=== PATIENT | male | born 1955 | race Caucasian/White ===

== ENCOUNTER → 2017-02-21 | Outpatient (CLI) | payer BC ==
[~2017-02-21] MED LIST: ASPI81TA28 PO; CLB/200 PO; DOXY-300 PO; FRS/40 PO; GABA-113 PO; INSDGI SC; METFTAB PO; MULT-506 PO; NVLGI SC; OMEP20CA9 PO; PRD/1 PO; PRED-301 PO; RIVA1TAB4 PO; SIMV20TA2 PO; SPIR25TA PO; TRAMTAB5 PO; ZRX5 PO; [UNRECOGNIZED DRUG - OTHER] INJ
[2017-02-21 12:43] LABS: BASO ABS # 0.09 K/uL (0-0.2); COMPLETE YES; EOS % 1.8 %; HEMATOCRIT 47.9 % (42-52); IG% 0.2 %; LYMPH % 38.5 %; LYMPH ABS # 3.35 K/uL (1.2-3.4); MEAN CELL VOLUME 84.8 fL (80-100); MEAN CORPUSCULAR HEMOGLOBIN 29.2 pg (25-34); MEAN CORPUSCULAR HGB CONC 34.4 g/dl (32-36); MEAN PLATELET VOLUME 11.5 fL (7.4-10.4); MONO % 9.2 %; NEUT % 49.3 %; PLATELET COUNT 210 K/uL (130-400); RED BLOOD COUNT 5.65 M/uL (4.7-6.1)
[2017-02-21 13:27] LABS: ESTIMATED AVERAGE GLUCOSE 146 mg/dl; HA1C FLAG Normal (Normal)
[2017-02-21 13:41] LABS: ALT/SGPT 31 U/L (12-78); AST/SGOT 13 U/L (15-37); BLOOD UREA NITROGEN 20 mg/dl (7-18); BUN/CREATININE RATIO 16.9 (10-20); CALCIUM 10.1 mg/dl (8.5-10.1); CARBON DIOXIDE 30 mmol/L (21-32); CHLORIDE 100 mmol/L (98-107); CHOLESTEROL 192 mg/dl (0-200); GLUCOSE 169 mg/dl (70-99); POTASSIUM 3.3 mmol/L (3.5-5.1); SODIUM 137 mmol/L (136-145)
[2017-02-21 13:52] LABS: CHOLESTEROL/HDL RATIO 4.5; HDL CHOLESTEROL 43 mg/dl; LDL CHOLESTEROL CALCULATED 109 mg/dl; TRIGLYCERIDES 202 mg/dl (0-150); VERY LOW DENSITY LIPOPROT CALC 40 mg/dl
== END | disposition home or self-care (01) ==
LOC: C.LAB1850 10:48
PROVIDERS: ATTEND Physician Assistant
DX: E11.9 Type 2 diabetes mellitus without complications (principal)

== ENCOUNTER → 2017-05-23 | Outpatient (CLI) | payer BC ==
[2017-05-23 13:39] LABS: BASO % 0.5 %; BASO ABS # 0.05 K/uL (0-0.2); COMPLETE YES; EOS % 1.7 %; HEMATOCRIT 50.6 % (42-52); IG% 0.2 %; LYMPH % 39.8 %; LYMPH ABS # 4.15 K/uL (1.2-3.4); MEAN CELL VOLUME 85.2 fL (80-100); MEAN CORPUSCULAR HEMOGLOBIN 28.3 pg (25-34); MEAN CORPUSCULAR HGB CONC 33.2 g/dl (32-36); MEAN PLATELET VOLUME 11.2 fL (7.4-10.4); MONO % 9.2 %; NEUT % 48.6 %; PLATELET COUNT 234 K/uL (130-400); RED BLOOD COUNT 5.94 M/uL (4.7-6.1); WHITE BLOOD COUNT 10.44 K/uL (4.8-10.8)
[2017-05-23 13:55] LABS: ESTIMATED AVERAGE GLUCOSE 134 mg/dl; HA1C FLAG Normal (Normal)
[2017-05-23 14:09] LABS: RATIO 56.4 mcg/mg (0-30.0)
[2017-05-23 14:11] LABS: URINE APPEARANCE CLEAR (CLEAR); URINE BILIRUBIN NEG (NEG); URINE COLOR YELLOW; URINE NITRITE NEG (NEG); URINE PH 7.5 (4.5-7.5); URINE SPECIFIC GRAVITY 1.017 (1.000-1.030); UROBILINOGEN NEG (NEG)
[2017-05-23 14:14] LABS: BLOOD UREA NITROGEN 16 mg/dl (7-18); BUN/CREATININE RATIO 15.9 (10-20); CALCIUM 10.2 mg/dl (8.5-10.1); CARBON DIOXIDE 29 mmol/L (21-32); CHLORIDE 97 mmol/L (98-107); GLUCOSE 118 mg/dl (70-99); POTASSIUM 3.3 mmol/L (3.5-5.1); SODIUM 135 mmol/L (136-145)
[2017-05-23 14:16] LABS: REVIEW REQ? NO
[2017-05-23 14:17] LABS: MANUAL MICROSCOPIC REQUIRED? NO; SULFASALICYLIC ACID NEG (NEG)
== END | disposition home or self-care (01) ==
LOC: C.LAB1850 12:10
PROVIDERS: ATTEND Physician Assistant
DX: E11.9 Type 2 diabetes mellitus without complications (principal)

== ENCOUNTER → 2017-08-22 | Outpatient (CLI) | payer BC ==
[2017-08-22 13:14] LABS: BASO % 0.6 %; BASO ABS # 0.06 K/uL (0-0.2); COMPLETE YES; HEMATOCRIT 50.3 % (42-52); IG% 0.3 %; LYMPH % 39.4 %; MEAN CELL VOLUME 81.4 fL (80-100); MEAN CORPUSCULAR HEMOGLOBIN 29.6 pg (25-34); MEAN CORPUSCULAR HGB CONC 36.4 g/dl (32-36); MEAN PLATELET VOLUME 12.1 fL (7.4-10.4); MONO % 15.2 %; NEUT % 42.5 %; PLATELET COUNT 231 K/uL (130-400); RED BLOOD COUNT 6.18 M/uL (4.7-6.1); WHITE BLOOD COUNT 9.64 K/uL (4.8-10.8)
[2017-08-22 14:00] LABS: ALT/SGPT 26 U/L (12-78); AST/SGOT 17 U/L (15-37); BLOOD UREA NITROGEN 15 mg/dl (7-18); CALCIUM 10.3 mg/dl (8.5-10.1); CARBON DIOXIDE 30 mmol/L (21-32); CHLORIDE 99 mmol/L (98-107); GLUCOSE 118 mg/dl (70-99); POTASSIUM 3.2 mmol/L (3.5-5.1); SODIUM 137 mmol/L (136-145); TRIGLYCERIDES 260 mg/dl (0-150); VERY LOW DENSITY LIPOPROT CALC 52 mg/dl
[2017-08-22 14:03] LABS: CHOLESTEROL 218 mg/dl (0-200); CHOLESTEROL/HDL RATIO 6.8; HDL CHOLESTEROL 32 mg/dl; LDL CHOLESTEROL CALCULATED 134 mg/dl
[2017-08-22 14:23] LABS: ESTIMATED AVERAGE GLUCOSE 134 mg/dl; HA1C FLAG Normal (Normal)
== END | disposition home or self-care (01) ==
LOC: C.LAB1850 11:34
PROVIDERS: ATTEND Physician Assistant
DX: E78.00 Pure hypercholesterolemia, unspecified (principal); E11.9 Type 2 diabetes mellitus without complications

== ENCOUNTER → 2017-11-21 | Outpatient (CLI) | payer OTHER ==
[2017-11-21 12:03] LABS: BASO % 0.9 %; EOS % 2.1 %; EOS ABS # 0.22 K/uL (0-0.5); HEMATOCRIT 50.1 % (42-52); HEMOGLOBIN 16.9 g/dL (14.0-18.0); IG# 0.02 K/uL (0.00-0.02); LYMPH % 29.5 %; LYMPH ABS # 3.15 K/uL (1.2-3.4); MEAN CELL VOLUME 83.4 fL (80-100); MEAN CORPUSCULAR HEMOGLOBIN 28.1 pg (25-34); MEAN CORPUSCULAR HGB CONC 33.7 g/dl (32-36); MEAN PLATELET VOLUME 11.6 fL (7.4-10.4); MONO % 9.6 %; MONO ABS # 1.02 K/uL (0.11-0.59); NEUT % 57.7 %; NEUT ABS # 6.16 K/uL (1.4-6.5); PLATELET COUNT 217 K/uL (130-400); RED CELL DISTRIBUTION WIDTH CV 16.5 % (11.5-14.5); RED CELL DISTRIBUTION WIDTH SD 49.9 fL (36.4-46.3); WHITE BLOOD COUNT 10.67 K/uL (4.8-10.8)
[2017-11-21 12:10] LABS: BLOOD UREA NITROGEN 18 mg/dl (7-18); CALCIUM 10.1 mg/dl (8.5-10.1); CARBON DIOXIDE 28 mmol/L (21-32); CREATININE 1.02 mg/dl (0.60-1.40); GLUCOSE 140 mg/dl (70-99); POTASSIUM 3.6 mmol/L (3.5-5.1); SODIUM 134 mmol/L (136-145)
[2017-11-21 12:21] LABS: HEMOGLOBIN A1C 6.1 % (4.5-5.6)
== END | disposition home or self-care (01) ==
LOC: C.LAB1850 10:51
PROVIDERS: ATTEND Physician Assistant
DX: E11.9 Type 2 diabetes mellitus without complications (principal)

== ENCOUNTER 2018-01-26 13:27 | Emergency (ER) | payer OTHER ==
[~2018-01-26] VITALS: Ht 177.8 cm; Wt 152.0 kg
[2018-01-26 13:32] VITALS: TEMP 37.2; Ht 177.8 cm; Wt 152.0 kg
--- NOTE | 2018-01-26 15:04 | DIAGNOSTIC IMAGING REPORT ---
CHEST ONE VIEW PORTABLE CLINICAL HISTORY: CHEST PAIN dyspnea COMPARISON STUDY: 12/20/2015 FINDINGS: Mild chronic basilar interstitial change. No evidence for focal acute infiltrate. Diaphragms are smooth. IMPRESSION: Chronic change. No acute process. The above report was generated using voice recognition software. It may contain grammatical, syntax or spelling errors. Electronically signed by: Jay Jay Morrow M.D. 01/26/2018 3:02 PM Dictated Date/Time: 01/26/2018 3:01 PM
[2018-01-26 15:13] VITALS: O2SAT 93
[2018-01-26] MEDS ORDERED: NVLGI/PEN SC (15:15)
[2018-01-26] MEDS ORDERED: CYAN500T PO (15:15)
[2018-01-26] MEDS ORDERED: FLX/5 PO (15:15)
[2018-01-26] MEDS ORDERED: INSU100I23 SC (15:15)
[2018-01-26] MEDS ORDERED: ALBUT/IPRATROP 3MG/0.5MG NEB 3 ML VIAL INH ONE (15:15)
[2018-01-26] MEDS ORDERED: ROSU10TA35 PO (15:15)
[2018-01-26] MEDS ORDERED: SPR25 PO (15:15)
[2018-01-26 15:22] LABS: BASO % 0.6 %; BASO ABS # 0.07 K/uL (0-0.2); EOS ABS # 0.12 K/uL (0-0.5); HEMATOCRIT 46.1 % (42-52); HEMOGLOBIN 16.3 g/dL (14.0-18.0); IG# 0.04 K/uL (0.00-0.02); LYMPH % 31.1 %; LYMPH ABS # 3.57 K/uL (1.2-3.4); MEAN CELL VOLUME 81.7 fL (80-100); MEAN CORPUSCULAR HEMOGLOBIN 28.9 pg (25-34); MEAN CORPUSCULAR HGB CONC 35.4 g/dl (32-36); MEAN PLATELET VOLUME 11.2 fL (7.4-10.4); MONO % 6.8 %; MONO ABS # 0.78 K/uL (0.11-0.59); NEUT % 60.2 %; NEUT ABS # 6.89 K/uL (1.4-6.5); PLATELET COUNT 201 K/uL (130-400); RED CELL DISTRIBUTION WIDTH CV 16.6 % (11.5-14.5); RED CELL DISTRIBUTION WIDTH SD 49.9 fL (36.4-46.3); WHITE BLOOD COUNT 11.47 K/uL (4.8-10.8)
[2018-01-26 15:44] LABS: ALBUMIN 3.6 gm/dl (3.4-5.0); ALT/SGPT 32 U/L (12-78); BLOOD UREA NITROGEN 24 mg/dl (7-18); CALCIUM 9.6 mg/dl (8.5-10.1); CARBON DIOXIDE 27 mmol/L (21-32); CREATININE 1.27 mg/dl (0.60-1.40); GLUCOSE 185 mg/dl (70-99); LIPASE 86 U/L (73-393); POTASSIUM 3.3 mmol/L (3.5-5.1); SODIUM 135 mmol/L (136-145)
[2018-01-26 15:49] LABS: ALKALINE PHOSPHATASE 51 U/L (45-117); AST/SGOT 17 U/L (15-37); TOTAL PROTEIN 8.2 gm/dl (6.4-8.2)
[2018-01-26 16:00] LABS: INFLUENZA B ANTIGEN Neg for Influ B (NEG)
[2018-01-26 16:55] VITALS: PULSE 87; O2SAT 93
--- NOTE | 2018-01-26 17:33 | EMERGENCY ROOM VISIT NOTE ---
History Report prepared by Alena: Danii Hernandez Under the Supervision of: Dr. Ezra Chan M.D. First contact with patient: 14:04 Chief Complaint: FLU LIKE SX Stated Complaint: FLU LIKE Nursing Triage Summary: Pt c/o cough, sweats, cold, diarrhea for approx 2 weeks. Pt reports using Bridget-[place] plus which keeps him from having runny nose and assists with keeping the cough under control. pt reports that symptoms were improving however worsened yesterday. Pt reports white, yellow sputum upon coughing. Pt denies bloody sputum. Pt denies chest pain, SOB, trouble ambulating. Pt denies pain, pt C/O feeling congested "Kind of car sick feeling". Pt reports that PCP had no appointments available to be seen. Pt denies recent falls, recent trauma. Pt recently quit smoking cigars approx 75 days ago. Pt reported smoking 5-10 cigars daily prior to quitting. History of Present Illness The patient is a 62 year old male who presents to the Emergency Room with complaints of persistent flu symptoms starting 2 weeks ago. The patient has had a cough, congestion, body aches, and diarrhea for 2 weeks. He has been using [place] to some relief. He denies any fever, but reports diaphoresis and chills. He denies any leg swelling. He has gained water weight. He is on a water pill. He denies any history of COPD or asthma. He is on Xarelto for atrial fibrillation. The patient quit smoking 75 days ago. He is on prednisone for arthritis. He has a history of diabetes. Source of History: patient Onset: 2 weeks ago Position: other (constitutional) Quality: other (flu symptoms) Timing: other (persistent) Associated Symptoms: + chills, + diaphoresis, + cough, + diarrhea, No fevers Note: Pt reports congestion, body aches. Review of Systems See HPI for pertinent positives and negatives. A total of ten systems were reviewed and were otherwise negative. Past Medical & Surgical Medical Problems: (1) Ankylosing spondylitis (2) Atrial fibrillation (3) Benign hypertension (4) DKA (diabetic ketoacidoses) (5) Gastroesophageal reflux disease (6) Localized, primary osteoarthritis of the pelvic region and thigh (7) Rheumatoid arthritis Family History Cancer Diabetes mellitus Heart disease Hypertension Lung disease Social History Smoking Status: Former Smoker Marital Status: Housing Status: lives with family Occupation Status: employed Current/Historical Medications Scheduled Adalimumab (Humira Pen), 0.8 ML INJ BIWEEKLY Aspirin (Aspirin Ec), 81 MG PO QAM Azithromycin (Zithromax), 250 MG PO DAILY Celecoxib (CeleBREX), 200 MG PO BID Cyanocobalamin (Vitamin B-12), 500 MCG PO DAILY Cyclobenzaprine HCl (Cyclobenzaprine HCl), 1 TAB PO HS Gabapentin (Neurontin), 300 MG PO BID Insulin Aspart (Novolog Flexpen), 18 UNITS SC WM Insulin Glargine (Basaglar Kwikpen), 60-70 UNITS SC DAILY Metformin Ext Rel (Glucophage Ext Rel), 1,000 MG PO BID Metolazone (Metolazone), 5 MG PO QAM Multivitamin (Multivitamin), 1 TAB PO QAM Omeprazole (Prilosec), 20 MG PO QAM Prednisone (Prednisone), 5 MG PO QAM Prednisone (Prednisone), 3 TAB PO DAILY Rivaroxaban (Xarelto), 20 MG PO QPM Rosuvastatin Calcium (Rosuvastatin Calcium), 1 TAB PO DAILY Spironolactone (Spironolactone), 1 TAB PO BID Scheduled PRN Furosemide (Lasix), 40 MG PO 3XWK PRN for swelling Gabapentin (Neurontin), 300 MG PO HS PRN for nerve pain Prednisone (Prednisone), 1-3 MG PO DAILY PRN for ARTHRITIC PAIN Tramadol/Acetaminophen (Ultracet), 1 TAB PO TID PRN for Pain Allergies Coded Allergies: No Known Allergies (Verified , ?, 01/26/18) Physical Exam Vital Signs Date Time Temp Pulse Resp B/P (MAP) Pulse Ox O2 Delivery O2 Flow Rate FiO2 01/26/18 19:45 98 18 155/97 93 01/26/18 18:09 91 20 142/86 94 Room Air 01/26/18 16:55 87 15 93 Room Air 01/26/18 16:20 87 18 123/76 93 Room Air 01/26/18 15:18 86 01/26/18 15:13 93 Room Air 01/26/18 15:13 89 22 122/91 94 Room Air 01/26/18 13:53 98 135/83 93 Room Air 01/26/18 13:44 96 Room Air 01/26/18 13:32 37.2 87 18 155/82 93 Room Air Physical Exam GENERAL: Awake, alert, fatigued-appearing, in no distress HENT: Normocephalic, atraumatic. Oropharynx unremarkable. EYES: Normal conjunctiva. Sclera non-icteric. NECK: Supple. No nuchal rigidity. FROM. No JVD. RESPIRATORY: Diminished breath sounds at the bases, intermittent wheezes throughout. CARDIAC: Regular rate, normal rhythm. Extremities warm and well perfused. Pulses equal. ABDOMEN: Soft, non-distended. No tenderness to palpation. No rebound or guarding. No masses. RECTAL: Deferred. MUSCULOSKELETAL: Chest examination reveals no tenderness. The back is symmetrical on inspection without obvious abnormality. There is no CVA tenderness to palpation. No joint edema. LOWER EXTREMITIES: Calves are equal size bilaterally and non-tender. No edema. No discoloration. NEURO: Normal sensorium. No sensory or motor deficits noted. SKIN: No rash or jaundice noted. Medical Decision & Procedures ER Provider Diagnostic Interpretation: Radiology results as stated below per my review and radiologist interpretation: CHEST ONE VIEW PORTABLE CLINICAL HISTORY: CHEST PAIN dyspnea COMPARISON STUDY: 12/20/2015 FINDINGS: Mild chronic basilar interstitial change. No evidence for focal acute infiltrate. Diaphragms are smooth. IMPRESSION: Chronic change. No acute process. The above report was generated using voice recognition software. It may contain grammatical, syntax or spelling errors. Electronically signed by: Jay Jay Morrow M.D. 01/26/2018 3:02 PM Dictated Date/Time: 01/26/2018 3:01 PM Laboratory Results 01/26/18 14:50 Red Blood Count 5.64, Mean Corpuscular Volume 81.7, Mean Corpuscular Hemoglobin 28.9, Mean Corpuscular Hemoglobin Concent 35.4, Mean Platelet Volume 11.2, Neutrophils (%) (Auto) 60.2, Lymphocytes (%) (Auto) 31.1, Monocytes (%) (Auto) 6.8, Eosinophils (%) (Auto) 1.0, Basophils (%) (Auto) 0.6, Neutrophils # (Auto) 6.89, Lymphocytes # (Auto) 3.57, Monocytes # (Auto) 0.78, Eosinophils # (Auto) 0.12, Basophils # (Auto) 0.07 01/26/18 14:50 Test 01/26/18 14:50 01/26/18 15:20 01/26/18 15:32 White Blood Count 11.47 K/uL (4.8-10.8) Red Blood Count 5.64 M/uL (4.7-6.1) Hemoglobin 16.3 g/dL (14.0-18.0) Hematocrit 46.1 % (42-52) Mean Corpuscular Volume 81.7 fL (80-100) Mean Corpuscular Hemoglobin 28.9 pg (25-34) Mean Corpuscular Hemoglobin Concent 35.4 g/dl (32-36) Platelet Count 201 K/uL (130-400) Mean Platelet Volume 11.2 fL (7.4-10.4) Neutrophils (%) (Auto) 60.2 % Lymphocytes (%) (Auto) 31.1 % Monocytes (%) (Auto) 6.8 % Eosinophils (%) (Auto) 1.0 % Basophils (%) (Auto) 0.6 % Neutrophils # (Auto) 6.89 K/uL (1.4-6.5) Lymphocytes # (Auto) 3.57 K/uL (1.2-3.4) Monocytes # (Auto) 0.78 K/uL (0.11-0.59) Eosinophils # (Auto) 0.12 K/uL (0-0.5) Basophils # (Auto) 0.07 K/uL (0-0.2) RDW Standard Deviation 49.9 fL (36.4-46.3) RDW Coefficient of Variation 16.6 % (11.5-14.5) Immature Granulocyte % (Auto) 0.3 % Immature Granulocyte # (Auto) 0.04 K/uL (0.00-0.02) Anion Gap 10.0 mmol/L (3-11) Est Creatinine Clear Calc Drug Dose 88.1 ml/min Estimated GFR () 69.2 Estimated GFR (Non- 59.7 BUN/Creatinine Ratio 18.5 (10-20) Calcium Level 9.6 mg/dl (8.5-10.1) Total Bilirubin 0.4 mg/dl (0.2-1) Direct Bilirubin 0.1 mg/dl (0-0.2) Aspartate Amino Transf (AST/SGOT) 17 U/L (15-37) Alanine Aminotransferase (ALT/SGPT) 32 U/L (12-78) Alkaline Phosphatase 51 U/L (45-117) Troponin I < 0.015 ng/ml (0-0.045) Pro-B-Type Natriuretic Peptide 59 pg/ml (0-900) Total Protein 8.2 gm/dl (6.4-8.2) Albumin 3.6 gm/dl (3.4-5.0) Lipase 86 U/L (73-393) Influenza Type A Antigen Neg for Influ A (NEG) Influenza Type B Antigen Neg for Influ B (NEG) Venous Blood pH 7.44 (7.36-7.41) Venous Blood Partial Pressure CO2 46 mmHg (38.0-50.0) Venous Blood Partial Pressure O2 42 mmHg Venous Blood HCO3 31 mmol/L Venous Blood Oxygen Saturation 75.4 % Venous Blood Base Excess 5.4 mEq/L Laboratory results reviewed by me Medications Administered Medications (Trade) Dose Ordered Sig/Denilson Route Start Time Stop Time Status Last Admin Dose Admin Albuterol/ Ipratropium (Duoneb) 12 ml ONE ONCE INH 01/26/18 15:15 01/26/18 15:16 DC 01/26/18 16:51 12 ML Prednisone (PredniSONE TAB) 60 mg NOW STAT PO 01/26/18 15:04 01/26/18 15:09 DC 01/26/18 16:31 60 MG Albuterol (Ventolin Hfa Inhaler) 2 puffs NOW STAT INH 01/26/18 18:43 01/26/18 18:46 DC 01/26/18 19:29 2 PUFFS Azithromycin (Zithromax Tab) 500 mg NOW ONCE PO 01/26/18 18:45 01/26/18 18:46 DC 01/26/18 19:28 500 MG Sodium Chloride ([place] Nasal [place]) 2 sprays NOW ONCE NA 01/26/18 19:00 01/26/18 19:01 DC 01/26/18 19:28 2 SPRAYS ECG Per My Interpretation Indication: SOB/dyspnea Rate (beats per minute): 88 Rhythm: normal sinus Findings: no acute ischemic change, other (normal axis) ED Course 1500: The patient was evaluated in room C12B. A complete history and physical exam was performed. Medical Decision I reviewed the patient's past medical history, medications, and the nursing notes as described above. Differential diagnosis: Etiologies such as infections, reactive airway disease, pneumonia, pneumothorax , COPD, CHF, cardiac ischemia, pulmonary embolism, musculoskeletal, gastrointestinal, as well as others were entertained. The patient is a 62-year-old gentleman with a past medical history of smoking having quit over the past 3 months presents emergency department with worsening cough congestion shortness of breath per hpi. However the patient is fatigued appearing but no acute distress, afebrile stable vital signs. EKG unremarkable. Exam the patient has diminished breath sounds at the bases with scant intermittent wheezes. WBC 11, nonspecific. Labs otherwise unremarkable including troponin and BNP within normal limits. Chest x-ray negative for pneumonia. Patient feeling improved with prednisone burst and continue neb. Will treat additionally with Azithromycin given sputum production. Findings and plan for follow-up reviewed with patient. Patient agreeable and d/c'd per discharge instructions. Medication Reconcilliation Current Medication List: was personally reviewed by me Blood Pressure Screening Patient's blood pressure: Normal blood pressure Blood pressure disposition: Did not require urgent referral Impression Primary Impression: Acute bronchitis Scribe Attestation The scribe's documentation has been prepared under my direction and personally reviewed by me in its entirety. I confirm that the note above accurately reflects all work, treatment, procedures, and medical decision making performed by me. Departure Information Dispostion Home / Self-Care Prescriptions Azithromycin (Zithromax) 250 Mg Tab 250 MG PO DAILY, #4 TAB Prov: Ezra Chan M.D. 01/26/18 Prednisone (Prednisone) 20 Mg Tab 3 TAB PO DAILY for 4 Days, #12 TAB FOR 4 DAYS Prov: Ezra Chan M.D. 01/26/18 Referrals Buster Chaney M.D. (PCP) Patient Instructions Chest Cold (Bronchitis) - [facility], My [facility] Additional Instructions Please follow up with your primary care physician in the next 1-3 days for re- evaluation. You likely have a bronchitis. Otherwise, your exam, EKG, chest xray, and lab results did not show signs of an emergent condition at this time. Prednisone and Azithromycin as directed. Use your albuterol inhaler 2 puffs every 4 hours for the next 48 hours and then as needed thereafter. Saline nasal spray and [id number] Mucinex to help thin and clear mucus as needed. Ensure hydration. Return to the emergency department for worsening symptoms as described in the accompanying instructions.
[2018-01-26] MEDS ORDERED: ALBUTEROL HFA 8 GM INHALER INH STA (18:43)
[2018-01-26] MEDS ORDERED: AZITHROMYCIN 250 MG TAB PO ONE (18:45)
[2018-01-26] MEDS ORDERED: AZIT250T PO (18:47)
[2018-01-26] MEDS ORDERED: PRED20TA PO (18:47)
[2018-01-26] MEDS ORDERED: SODIUM CHLORIDE 0.65% NA SOLN 45 ML (OCEAN) ONE (19:00)
[2018-01-26 19:45] VITALS: BP 155/97; PULSE 98; O2SAT 93
== END 2018-01-26 19:45 | disposition home or self-care (01) ==
LOC: C.EDB 13:29 → C.EDC 19:45
DX: J20.9 Acute bronchitis, unspecified (principal); I48.91 Unspecified atrial fibrillation; M19.90 Unspecified osteoarthritis, unspecified site; E11.9 Type 2 diabetes mellitus without complications; I10 Essential (primary) hypertension; K21.9 Gastro-esophageal reflux disease without esophagitis; M06.9 Rheumatoid arthritis, unspecified; M45.9 Ankylosing spondylitis of unspecified sites in spine; Z80.9 Family history of malignant neoplasm, unspecified; Z83.3 Family history of diabetes mellitus; Z82.49 Family history of ischemic heart disease and other diseases of the circulatory system; Z83.6 Family history of other diseases of the respiratory system; Z87.891 Personal history of nicotine dependence; Z79.4 Long term (current) use of insulin; Z79.82 Long term (current) use of aspirin; Z79.01 Long term (current) use of anticoagulants; Z79.899 Other long term (current) drug therapy

== ENCOUNTER → 2018-03-01 | Outpatient (CLI) | payer OTHER ==
[~2018-03-01] MED LIST changes: +AZIT250T PO; +CYAN500T PO; -DOXY-300 PO; +FLX/5 PO; -INSDGI SC; +INSU100I23 SC; -NVLGI SC; +NVLGI/PEN SC; +ROSU10TA35 PO; -SIMV20TA2 PO; -SPIR25TA PO; +SPR25 PO
[2018-03-01 13:16] LABS: BASO % 0.8 %; BASO ABS # 0.08 K/uL (0-0.2); EOS % 1.8 %; EOS ABS # 0.18 K/uL (0-0.5); HEMATOCRIT 47.8 % (42-52); HEMOGLOBIN 16.5 g/dL (14.0-18.0); IG# 0.03 K/uL (0.00-0.02); LYMPH % 34.6 %; LYMPH ABS # 3.37 K/uL (1.2-3.4); MEAN CELL VOLUME 84.3 fL (80-100); MEAN CORPUSCULAR HEMOGLOBIN 29.1 pg (25-34); MEAN CORPUSCULAR HGB CONC 34.5 g/dl (32-36); MEAN PLATELET VOLUME 11.8 fL (7.4-10.4); MONO % 10.7 %; MONO ABS # 1.04 K/uL (0.11-0.59); NEUT % 51.8 %; NEUT ABS # 5.05 K/uL (1.4-6.5); PLATELET COUNT 227 K/uL (130-400); RED CELL DISTRIBUTION WIDTH CV 15.8 % (11.5-14.5); RED CELL DISTRIBUTION WIDTH SD 48.5 fL (36.4-46.3); WHITE BLOOD COUNT 9.75 K/uL (4.8-10.8)
[2018-03-01 13:45] LABS: ALT/SGPT 40 U/L (12-78); AST/SGOT 20 U/L (15-37); BLOOD UREA NITROGEN 18 mg/dl (7-18); CALCIUM 9.9 mg/dl (8.5-10.1); CARBON DIOXIDE 25 mmol/L (21-32); CREATININE 1.06 mg/dl (0.60-1.40); GLUCOSE 164 mg/dl (70-99); POTASSIUM 3.2 mmol/L (3.5-5.1); SODIUM 133 mmol/L (136-145); URIC ACID 10.1 mg/dl (2.6-7.2)
[2018-03-01 13:56] LABS: CHOLESTEROL 170 mg/dl (0-200); LDL CHOLESTEROL CALCULATED 90 mg/dl
[2018-03-02 07:38] LABS: HEMOGLOBIN A1C 6.9 % (4.5-5.6)
== END | disposition home or self-care (01) ==
LOC: C.LAB1850 11:46
PROVIDERS: ATTEND Internal Medicine
DX: E11.9 Type 2 diabetes mellitus without complications (principal)

== ENCOUNTER → 2018-06-27 | Outpatient (CLI) | payer OTHER ==
[~2018-06-27] MED LIST changes: +ROSU10TA26 PO; -ROSU10TA35 PO; +SPIR25TA6 PO; -SPR25 PO
[2018-06-27 12:41] LABS: HEMOGLOBIN A1C 7.5 % (4.5-5.6)
== END | disposition home or self-care (01) ==
LOC: C.LAB1850 11:00
PROVIDERS: ATTEND Internal Medicine
DX: E78.00 Pure hypercholesterolemia, unspecified (principal)

== ENCOUNTER 2019-08-19 21:18 | Inpatient (IN) ==
[2019-08-19] MEDS ORDERED: PIPERACILLIN/TAZOBACTAM 4.5 GM/120 ML BAG IV ONE (21:57)
[2019-08-19] MEDS ORDERED: PIPERACILL/TAZOBAC CONSULT ACTIVE PRN (21:57)
[2019-08-19] MEDS ORDERED: DAPTOmycin 425 MG in SYRINGE 0 ML IV ONE (21:57)
[2019-08-19 22:31] LABS: Basophils # (auto) 0.04 K/uL (0-0.2); Basophils % (auto) 0.4 %; Hematocrit (blood only) 43.1 % (42-52); Hemoglobin 14.9 g/dL (14.0-18.0); Immature Granulocytes # (auto) 0.02 K/uL (0.00-0.02); Immature Granulocytes % (auto) 0.2 %; Lymphocytes # (auto) 3.53 K/uL (1.2-3.4); Lymphocytes % (auto) 33.8 %; Mean Corpuscular Hemoglobin 30.1 pg (25-34); Mean Corpuscular Hgb Conc 34.6 g/dL (32-36); Mean Corpuscular Volume 87.1 fL (80-100); Monocytes # (auto) 0.83 K/uL (0.11-0.59); Neutrophils # (auto) 6.02 K/uL (1.4-6.5); Neutrophils % (auto) 57.6 %; Platelet Count 226 K/uL (130-400); RDW Coefficient of Variation 15.5 % (11.5-14.5); RDW Standard Deviation 49.1 fL (36.4-46.3); Red Blood Count 4.95 M/uL (4.7-6.1); White Blood Count 10.44 K/uL (4.8-10.8)
[2019-08-19 22:57] LABS: Albumin Level 3.2 gm/dl (3.4-5.0); BUN Creatinine Ratio 12.3 (10-20); C Reactive Protein 0.55 mg/dl (0-0.29); Calcium 9.2 mg/dl (8.5-10.1); Creatinine Clr Calc Pharmacy 96.3 ml/min; Est GFR (Non-African American) 66.4; Potassium 3.1 mmol/L (3.5-5.1)
[2019-08-19 22:58] LABS: Albumin Globulin Ratio 0.7 (0.9-2); Bilirubin,Total 0.4 mg/dl (0.2-1); Globulin 4.7 gm/dl (2.5-4.0); Total Protein 7.9 gm/dl (6.4-8.2)
--- NOTE | 2019-08-19 23:21 | History & Physical Report ---
Date of Service August 19, 2019 Assessment & Plan (1) Diabetic infection of left foot: Patient was placed on Augmentin orally, after receiving IV ceftriaxone in the ED 2 nights ago. Continue daptomycin IV and Zosyn IV begun in the ED. Order x-ray of toes on the left, and order bone scan to assess for possible osteomyelitis. Consult infectious disease. Wound Care consult. Present on Admission?: Yes (2) Post op infection: Recent outpatient procedure performed at [facility] orthopedics. Patient reports biopsy was sent to lab. Present on Admission?: Yes (3) Hypercholesterolemia: Continue simvastatin 10 mg daily Present on Admission?: Yes (4) Diabetes mellitus with diabetic neuropathy: Continue usual dose of insulin glargine 70 units subcu every evening. Hold metformin. Hold Trulicity Continue gabapentin [address] on Accu-Cheks before meals and at bedtime with NovoLog coverage per scale. Present on Admission?: Yes (5) Atrial fibrillation: Atrial fibrillation/hypertension- Continue aspirin 81 mg daily, Xarelto 20 mg daily, spironolactone 25 mg p.o. twice daily and metolazone 5 mg p.o. daily. Present on Admission?: Yes (6) Hypertension associated with diabetes: See above Present on Admission?: Yes (7) Ankylosing spondylitis: Ankylosing spondylitis/rheumatoid arthritis- Chronically immunosuppressed on Humira and prednisone. Present on Admission?: Yes (8) Rheumatoid arthritis: See above Present on Admission?: Yes (9) Gout: Continue allopurinol, colchicine and spironolactone. Flareups may be worsened by metolazone Present on Admission?: Yes History of Present Illness Chief Complaint: The patient presents to the emergency department with worsening pain, swelling and redness of his left second toe, despite treatment provided in the emergency department 2 nights ago consisting of a shot of Rocephin IV and a discharge on oral Augmentin. Primary Care Provider: Buster Chaney MD The patient is a 64-year-old male with a past medical history including diabetes mellitus, diabetic neuropathy, atrial fibrillation and chronic immunosuppression for ankylosing spondylitis and rheumatoid arthritis, who presents to the emergency department with persistent and worsening erythema, swelling and pain of left second toe, after no improvement from ED treatment 2 nights ago with IV ceftriaxone and oral Augmentin. Allergies Allergy/AdvReac Type Severity Reaction Status Date / Time No Known Drug Allergies Allergy Verified 08/19/19 22:38 Home Medications Home Medications Medication Instructions Recorded Confirmed Type allopurinol 300 mg tablet 300 mg PO DAILY #90 tab 06/26/19 08/19/19 Rx aspirin 81 mg tablet,delayed 81 mg PO DAILY #90 tab 06/26/19 08/19/19 Rx release blood sugar diagnostic strips #3 box 06/26/19 08/19/19 Rx colchicine 0.6 mg tablet 0.6 mg PO DAILY #90 tab 06/26/19 08/19/19 Rx gabapentin 300 mg capsule 300 mg PO TID #270 cap 06/26/19 08/19/19 Rx metolazone 5 mg tablet 5 mg PO DAILY #90 tab 06/26/19 08/19/19 Rx multivitamin tablet 1 tab PO DAILY #30 tab 06/26/19 08/19/19 Rx omeprazole 20 mg capsule,delayed 40 mg PO DAILY #180 cap 06/26/19 08/19/19 Rx release pen needle, diabetic 32 gauge x #10 ea 06/26/19 08/19/19 Rx 5/32" prednisone 5 mg tablet 5 mg PO DAILY #30 tab 06/26/19 08/19/19 Rx rivaroxaban 20 mg tablet 20 mg PO DAILY #90 tab 06/26/19 08/19/19 Rx rosuvastatin 10 mg tablet 10 mg PO DAILY #90 tab 06/26/19 08/19/19 Rx spironolactone 25 mg tablet 25 mg PO BID #180 tab 06/26/19 08/19/19 Rx vitamin B complex tablet 1 tab PO DAILY #30 tab 06/26/19 08/19/19 Rx celecoxib 200 mg capsule 200 mg PO BID #180 cap 07/25/19 08/19/19 Rx metformin 500 mg tablet 1,000 mg PO BID #360 tab 07/25/19 08/19/19 Rx insulin glargine (U-100) 100 70 unit SQ QPM ml 08/01/19 08/19/19 History unit/mL (3 mL) subcutaneous pen adalimumab [Humira] 40 mg SQ USEASDIRECTD 08/19/19 08/19/19 History dulaglutide [Trulicity] 1.5 mg SQ SA 08/19/19 08/19/19 History furosemide 40 mg PO 3XWK PRN 08/19/19 08/19/19 History insulin aspart U-100 [Novolog 20 unit SQ AC 08/19/19 08/19/19 History Flexpen U-100 Insulin] mupirocin calcium 1 appln TOPICAL UD 08/19/19 08/19/19 History tramadol-acetaminophen 1 tab PO Q4H PRN 08/19/19 08/19/19 History Past Med/Surg History Social History Preferred Language: Ken[place] Feels Safe at Home: Yes Smoking Status: Never smoker Review of Systems Review of Systems: The patient denies chest pain, palpitations, shortness of breath, dyspnea on exertion, cough, sore throat, fevers, chills, sweats, weight change, nausea, vomiting, diarrhea , constipation, abdominal pain, pelvic pain, blood in urine or stool, dysuria, urinary frequency or urgency, lightheadedness, dizziness, headache, memory loss, loss of consciousness, abnormal bruising or bleeding, generalized weakness, back or neck pain, or night sweats. The review of systems is otherwise negative other than for that already noted above, and at least 10 systems have been reviewed. Physical Exam Physical Exam: The patient is awake, alert and oriented 3, well developed and well nourished, normocephalic and atraumatic, lying in bed and in no acute distress. HEENT--PERRL, EOMI, mucous membranes and oropharynx normal. Neck--supple. No JVD. No bruits. Thyroid normal, trachea midline, no adenopathy. Heart--normal S1 and S2. No murmurs, rubs or gallops. Lungs--clear bilaterally, no respiratory distress, no accessory muscle use. Abdomen--normal bowel sounds and soft. Nontender. Nondistended. Morbidly obese Extremities--no cyanosis or clubbing. No edema. There are diminished distal pulses b/l. Dermatologic-chronic venous stasis changes. Neurologic--cranial nerves II through XII grossly intact. Rheumatologic--normal range of motion. Psychiatric--normal affect. Results & Data Vital Signs (Past 12 Hours) Vital Signs Temp Pulse Pulse Resp BP BP Pulse Ox 08/19/19 23:12 72 18 128/74 95 08/19/19 21:18 98.4 F 87 18 162/94 H 96 Laboratory Results Laboratory Results WBC 10.44 K/uL (4.8-10.8) 08/19/19 22:09 RBC 4.95 M/uL (4.7-6.1) 08/19/19 22:09 Hgb 14.9 g/dL (14.0-18.0) 08/19/19 22:09 Hct 43.1 % (42-52) 08/19/19 22:09 MCV 87.1 fL (80-100) 08/19/19 22:09 MCH 30.1 pg (25-34) 08/19/19 22:09 MCHC 34.6 g/dL (32-36) 08/19/19 22:09 RDW Std Deviation 49.1 fL (36.4-46.3) H 08/19/19 22:09 RDW Coeff of Vijay 15.5 % (11.5-14.5) H 08/19/19 22:09 Plt Count 226 K/uL (130-400) 08/19/19 22:09 MPV 11.0 fL (7.4-10.4) H 08/19/19 22:09 Immature Gran % (Auto) 0.2 % 08/19/19 22:09 Neut % (Auto) 57.6 % 08/19/19 22:09 Lymph % (Auto) 33.8 % 08/19/19 22:09 [place] % (Auto) 8.0 % 08/19/19 22:09 Eos % (Auto) 0.0 % 08/19/19 22:09 Baso % (Auto) 0.4 % 08/19/19 22:09 Immature Gran # (Auto) 0.02 K/uL (0.00-0.02) 08/19/19 22:09 Neut # (Auto) 6.02 K/uL (1.4-6.5) 08/19/19 22:09 Lymph # (Auto) 3.53 K/uL (1.2-3.4) H 08/19/19 22:09 [place] # (Auto) 0.83 K/uL (0.11-0.59) H 08/19/19 22:09 Eos # (Auto) 0.00 K/uL (0-0.5) 08/19/19 22:09 Baso # (Auto) 0.04 K/uL (0-0.2) 08/19/19 22:09 Sodium 137 mmol/L (136-145) 08/19/19 22:09 Potassium 3.1 mmol/L (3.5-5.1) L 08/19/19 22:09 Chloride 98 mmol/L (98-107) 08/19/19 22:09 Carbon Dioxide 29 mmol/L (21-32) 08/19/19 22:09 Anion Gap 10.0 (3-11) 08/19/19 22:09 BUN 14 mg/dl (7-18) 08/19/19 22:09 Creatinine 1.15 mg/dl (0.6-1.4) 08/19/19 22:09 Est Cr Clr Drug Dosing 96.3 ml/min 08/19/19 22:09 Est GFR ( Amer) 77.0 08/19/19 22:09 Est GFR (Non-Af Amer) 66.4 08/19/19 22:09 BUN/Creatinine Ratio 12.3 (10-20) 08/19/19 22:09 Glucose 203 mg/dl (70-99) H 08/19/19 22:09 Calcium 9.2 mg/dl (8.5-10.1) 08/19/19 22:09 Total Bilirubin 0.4 mg/dl (0.2-1) 08/19/19 22:09 AST 25 U/L (15-37) 08/19/19 22:09 ALT 37 U/L (12-78) 08/19/19 22:09 Alkaline Phosphatase 56 U/L (45-117) 08/19/19 22:09 C-Reactive Protein 0.55 mg/dl (0-0.29) H 08/19/19 22:09 Total Protein 7.9 gm/dl (6.4-8.2) 08/19/19 22:09 Albumin 3.2 gm/dl (3.4-5.0) L 08/19/19 22:09 Globulin 4.7 gm/dl (2.5-4.0) H 08/19/19 22:09 Albumin/Globulin Ratio 0.7 (0.9-2) L 08/19/19 22:09 Code Status & VTE Plan Code Status Full code VTE Prophylaxis Plan VTE Prophylaxis will be ordered: Yes PG Care Time/CCT Total # of Minutes Spent Total Time Spent with Patient: Total time spent is greater than 50% in coordination of care (as documented) at patient's floor/unit and/or counseling patient: (1) Post op infection Encounter type: initial encounter Postoperative infection type: unspecified type Qualified Code(s): T81.40XA - Infection following a procedure, unspecified, initial encounter
[2019-08-20] MEDS ORDERED: HYDROmorphone INJ 0.5 MG/0.5 ML SYR IV STA (00:23)
--- NOTE | 2019-08-20 00:31 | Emergency Department Note ---
Entered by Mariia Solis acting as a scribe for ED Provider Note CHIEF COMPLAINT: toe pain HISTORY OF PRESENT ILLNESS: The patient is a 64 year old male who presents to the Emergency Room with complaints of pain in his second toe on his left foot beginning several days ago. The patient states he came to the ER two days ago for swelling in his toe, but states he was not in pain at the time nor was there any discharge. The patie nt states he was given antibiotics, Augmentin and a shot of Rocephin. The patient reports the pain has worsened since, and is a 10/10 whenever he is walking. He notes that he has put Neosporin on the toe. The patient also reports diarrhea, and a generalized sickness today. He denies any allergies. Pt denies headache, fevers, chills, diaphoresis, breathing difficulties, nausea, vomiting, abdominal pain, melena, hematochezia, urinary symptoms, numbness, weakness, lymphadenopathy, rash, or other complaints. REVIEW OF SYSTEMS: See HPI for pertinent positives and negatives. A total of ten systems were reviewed and were otherwise negative. PMHx/PSHx: diabetes, hypertension, obesity, hypokalemia, hypercholesterolemia SOCIAL HISTORY: Patient lives at home. PHYSICAL EXAM: GENERAL: Awake, alert, uncomfortable-appearing, in no distress HENT: Normocephalic, atraumatic. Oropharynx unremarkable. EYES: PERRL. Normal conjunctiva. Sclera non-icteric. NECK: Inspection normal. Non-tender. Supple. No nuchal rigidity. FROM. No masses. RESPIRATORY: Clear to auscultation. No wheezes. No rales. Normal respiratory effort. CARDIAC: Normal rate. Normal rhythm. No murmurs. No rubs. Extremities warm and well perfused. Pulses equal. No JVD. GI: Soft, non-distended. No tenderness to palpation. No rebound or guarding. No masses. MUSCULOSKELETAL: Atraumatic. The back is symmetrical on inspection without obvious abnormality. There is no CVA tenderness to palpation. No joint edema. LOWER EXTREMITIES: Swelling, tenderness, and redness in left second toe, worse than two days prior. Calves are equal size bilaterally and non-tender. NEURO: Normal sensorium. No sensory or motor deficits noted. SKIN: No rash or jaundice noted. EMERGENCY DEPARTMENT COURSE: 2150: The patient was evaluated in room B02, and a complete history and physical examination were performed. 2240: Upon reevaluation, I discussed findings and results with the patient. He v erbalized agreement of the treatment plan. I spoke with Dr. Hutton of the [facility] Hospitalist Service. The patient will be evaluated for further management and care. MEDICAL DECISION MAKING: B2 Triage Nursing notes reviewed and agree them. Additional history obtained from the family. The patient's history was concerning for swelling and redness of the skin despite outpatient antibiotics. Differential diagnosis: Etiologies such as cellulitis, DVT, necrotizing fasciitis, abscess, MRSA infection, dermatitis, drug eruption, gouty arthritis, as well as others were entertained.. Physical examination: The physical examination was consistent with worsening cellulitis ER treatment provided: IV Zosyn IV daptomycin IV Dilaudid Diagnostics interpreted by me: The labs revealed an unremarkable CBC. Chemistry panel revealed hyperglycemia. The patient's inflammatory markers are mildly elevated. Imaging studies: Deferred Unfortunately the patient is not getting any better despite the IV dose of antibiotics and oral antibiotics prescribed 2 days ago. I discussed further management in the hospital and the patient was in agreement. Consultation: A consultation was placed with the hospitalist. The case was discussed and diagnostics were reviewed. The patient was evaluated in the ER for further treatment. IMPRESSION: left toe cellulitis, post op infection, history of diabetes PLAN: Further management by hospitalist The scribe's documentation has been prepared under my direction and personally reviewed by me in its entirety. I confirm that the note above accurately reflects all work, treatment, procedures, and medical decision making performed by me. Impression & Plan Cellulitis of left toe, History of diabetes mellitus, Post op infection Past Med/Surg History Social History Preferred Language: Chadian Feels Safe at Home: Yes Smoking Status: Never smoker Results & Data Vital Signs Vital Signs - 24 hr 08/19/19 21:18 08/19/19 23:12 08/20/19 00:29 Temperature 36.9 C Temperature Source Oral Sepsis Recent Fever Within 48 Hours No Sepsis Action Taken by Nursing No Action Required Pulse Rate 87 104 H Pulse Rate [Right Finger] 72 Pulse Rhythm [Right Finger] Regular Pulse Strength [Right Finger] Normal Respiratory Rate 18 18 18 Respiratory Effort / Characteristics Non-Labored Spontaneous Non-Labored Respiratory Depth Normal Normal Respiratory Pattern Regular Blood Pressure 162/94 H 138/81 Blood Pressure [Right Arm] 128/74 Blood Pressure Mean 116 Blood Pressure Mean [Right Arm] 92 Blood Pressure Position [Right Arm] Lying Pulse Oximetry 96 95 95 Oxygen Delivery Method Room Air Room Air Room Air Home Medications Current Medication List: was personally reviewed by me Laboratory Data Attestation: I reviewed the patient's lab results. Result diagrams: 08/19/19 22:09 08/19/19 22:09 Lab Results 08/19/19 08/19/19 Range/Units 22: 22: WBC 10.44 (4.8-10.8) K/uL RBC 4.95 (4.7-6.1) M/uL Hgb 14.9 (14.0-18.0) g/dL Hct 43.1 (42-52) % MCV 87.1 (80-100) fL MCH 30.1 (25-34) pg MCHC 34.6 (32-36) g/dL RDW Std Deviation 49.1 H (36.4-46.3) fL RDW Coeff of Vijay 15.5 H (11.5-14.5) % Plt Count 226 (130-400) K/uL MPV 11.0 H (7.4-10.4) fL Immature Gran % (Auto) 0.2 % Neut % (Auto) 57.6 % Lymph % (Auto) 33.8 % [place] % (Auto) 8.0 % Eos % (Auto) 0.0 % Baso % (Auto) 0.4 % Immature Gran # (Auto) 0.02 (0.00-0.02) K/uL Neut # (Auto) 6.02 (1.4-6.5) K/uL Lymph # (Auto) 3.53 H (1.2-3.4) K/uL [place] # (Auto) 0.83 H (0.11-0.59) K/uL Eos # (Auto) 0.00 (0-0.5) K/uL Baso # (Auto) 0.04 (0-0.2) K/uL Sodium 137 (136-145) mmol/L Potassium 3.1 L (3.5-5.1) mmol/L Chloride 98 (98-107) mmol/L Carbon Dioxide 29 (21-32) mmol/L Anion Gap 10.0 (3-11) BUN 14 (7-18) mg/dl Creatinine 1.15 (0.6-1.4) mg/dl Est Cr Clr Drug Dosing 96.3 ml/min Est GFR ( Amer) 77.0 Est GFR (Non-Af Amer) 66.4 BUN/Creatinine Ratio 12.3 (10-20) Glucose 203 H (70-99) mg/dl Calcium 9.2 (8.5-10.1) mg/dl Total Bilirubin 0.4 (0.2-1) mg/dl AST 25 (15-37) U/L ALT 37 (12-78) U/L Alkaline Phosphatase 56 (45-117) U/L C-Reactive Protein 0.55 H (0-0.29) mg/dl Total Protein 7.9 (6.4-8.2) gm/dl Albumin 3.2 L (3.4-5.0) gm/dl Globulin 4.7 H (2.5-4.0) gm/dl Albumin/Globulin Ratio 0.7 L (0.9-2) Administered Medications Discontinued Medications Hydromorphone HCl (Dilaudid) 0.25 mg IV NOW STA Stop: 08/20/19 00:24 Last Admin: 08/20/19 00:27 Dose: 0.25 mg Documented by: [id number] Piperacillin Sod/Tazobactam Sod (Zosyn) 4.5 gm in 120 mls @ 240 mls/hr IV NOW ONE Stop: 08/19/19 22:26 Last Infusion: 08/19/19 22:51 Dose: 0 mls/hr Documented by: [id number] Admin: 08/19/19 22:16 Dose: 240 mls/hr Documented by: [id number] Daptomycin 425 mg/ Syringe 8.5 mls @ 4.25 mls/min IV NOW ONE; Protocol Stop: 08/19/19 21:58 Last Admin: 08/19/19 22:57 Dose: 4.25 mls/min Documented by: [id number] Blood Pressure Blood Pressure Findings: Elevated blood pressure Blood Pressure Disposition: Referred to patients primary care provider Discharge Plan Visit Data Chief Complaint: Foot Injury/Pain Stated Complaint: L FOOT PAIN ED Provider: Maciejczyk,Ty F Discharge Problem: Cellulitis of left toe, History of diabetes mellitus, Post op infection Patient Disposition: Being Evaluated by Hospitalist Discharge Instructions Interventions: ED Discharge Assessment Last Done: 08/20/19 00:29 Forms Stand Alone Forms: My [facility] Prescriptions Prescriptions: No Action Xarelto 20 mg tablet 20 mg PO DAILY Qty: 90 RF: 3 allopurinol 300 mg tablet 300 mg PO DAILY Qty: 90 RF: 3 pen needle, diabetic [BD Ultra-Fine Izzy Pen Needle] 32 gauge x 5/32" needle .ROUTE .MEDSUPPLY Qty: 10 RF: 0 colchicine [Colcrys] 0.6 mg tablet 0.6 mg PO DAILY Qty: 90 RF: 3 spironolactone 25 mg tablet 25 mg PO BID Qty: 180 RF: 3 omeprazole 20 mg capsule,delayed release(DR/EC) 40 mg PO DAILY Qty: 180 RF: 3 aspirin [Adult Low Dose Aspirin] 81 mg tablet,delayed release (DR/EC) 81 mg PO DAILY Qty: 90 RF: 3 multivitamin tablet 1 tab PO DAILY Qty: 30 RF: 0 metolazone 5 mg tablet 5 mg PO DAILY Qty: 90 RF: 3 Contour Next Test Strips strip .ROUTE .MEDSUPPLY Qty: 3 RF: 0 prednisone 5 mg tablet 5 mg PO DAILY Qty: 30 RF: 0 vitamin B complex [B Complex-Vitamin B12] tablet 1 tab PO DAILY Qty: 30 RF: 0 rosuvastatin 10 mg tablet 10 mg PO DAILY Qty: 90 RF: 1 gabapentin 300 mg capsule 300 mg PO TID Qty: 270 RF: 1 metformin 500 mg tablet 1,000 mg PO BID Qty: 360 RF: 3 celecoxib 200 mg capsule 200 mg PO BID Qty: 180 RF: 3 Basaglar KwikPen U-100 Insulin 100 unit/mL (3 mL) insulin pen 70 unit SQ QPM RF: 0 furosemide 40 mg tablet 40 mg PO 3XWK PRN (Reason: Edema) RF: 0 Humira 40 mg/0.8 mL syringe kit 40 mg SQ USEASDIRECTD RF: 0 Novolog Flexpen U-100 Insulin 100 unit/mL (3 mL) insulin pen 20 unit SQ AC RF: 0 Trulicity 1.5 mg/0.5 mL pen injector 1.5 mg SQ SA RF: 0 tramadol-acetaminophen 37.5-325 mg tablet 1 tab PO Q4H PRN (Reason: pain) RF: 0 mupirocin calcium 2 % cream 1 appln topical UD RF: 0 Referrals Referrals: Buster Chaney MD [Primary Care Provider] - Discharge Problem: Post op infection Qualifiers: Encounter type: initial encounter Postoperative infection type: unspecified type Qualified Code(s): T81.40XA - Infection following a procedure, unspecified, initial encounter The scribe's documentation has been prepared under my direction and personally reviewed by me in its entirety. I confirm that the note above accurately reflects all work, treatment, procedures, and medical decision making performed by me.
[2019-08-20] MEDS ORDERED: ALUMINUM/MAGNESIUM SUSP 30 ML UDC PO PRN (00:43)
[2019-08-20] MEDS ORDERED: ONDANSETRON INJ 2 MG/ML 2 ML VIAL IV PRN (00:43)
[2019-08-20] MEDS ORDERED: GLUCAGON FOR INJ 1 MG VIAL SQ PRN (00:43)
[2019-08-20] MEDS ORDERED: DEXTROSE 50% 50 ML SYRINGE IV PRN (00:43)
[2019-08-20] MEDS ORDERED: MAGNESIUM HYDROXIDE SUSP 30 ML UDC PO PRN (00:43)
[2019-08-20] MEDS ORDERED: GLUCOSE 10 TABS/TUBE PO PRN (00:43)
[2019-08-20] MEDS ORDERED: GLUCOSE 40% GEL 15 GM TUBE PO PRN (00:43)
[2019-08-20] MEDS ORDERED: ACETAMINOPHEN 325 MG TAB PO PRN (00:43)
[2019-08-20] MEDS ORDERED: CARBOHYDRATES FOR HYPOGLYCEMIA PO PRN (00:43)
[2019-08-20] MEDS: INSULIN GLARGINE SOLOSTAR 100 UNITS/ML 3 ML PEN SQ SCH ×2 (02:06→20:55)
[2019-08-20] MEDS: PIPERACILLIN/TAZOBACTAM 4.5 GM in DEXTROSE 5% 100 ML IV SCH ×3 (02:21→17:15)
[2019-08-20] MEDS ORDERED: POTASSIUM CHLORIDE 20 MEQ TABCR PO ONE (02:30)
[2019-08-20] MEDS: TRAMADOL/ACETAMINOPHEN 37.5/325MG TAB PO PRN ×3 (05:45→20:51)
[2019-08-20 06:48] LABS: Estimated Average Glucose 157 mg/dl; Hemoglobin A1C 7.1 % (4.5-5.6)
[2019-08-20] MEDS: INSULIN ASPART 100 UNITS/ML 3 ML PEN SC SCH ×4 (08:06→20:56)
[2019-08-20] MEDS: RIVAROXABAN 20 MG TAB PO SCH (08:12)
[2019-08-20] MEDS: SPIRONOLACTONE 25 MG TAB PO SCH ×2 (08:13→16:09)
[2019-08-20] MEDS: COLCHICINE 0.6 MG TAB PO SCH (08:15)
[2019-08-20] MEDS: ROSUVASTATIN CALCIUM 10 MG TAB PO SCH (08:16)
[2019-08-20] MEDS: MULTIVITAMIN TAB PO SCH (08:17)
[2019-08-20] MEDS: ASPIRIN 81 MG ECTAB PO SCH (08:17)
[2019-08-20] MEDS: GABAPENTIN 300 MG CAP PO SCH ×3 (08:18→20:50)
[2019-08-20] MEDS: VITAMIN B COMPLEX TAB PO SCH (08:20)
[2019-08-20] MEDS: PANTOprazole 40 MG TAB PO SCH (08:20)
[2019-08-20] MEDS: allopurinoL 300 MG TAB PO SCH (08:22)
[2019-08-20] MEDS ORDERED: INFLUENZA ADMINISTRATION CHARGE ONE (09:00)
[2019-08-20] MEDS ORDERED: INFLUENZA VACCINE HIGH DOSE 65+ 0.5 ML SYR IM ONE (09:00)
[2019-08-20] MEDS ORDERED: metOLazone 5 MG TABLET PO SCH (09:00)
[2019-08-20] MEDS: predniSONE 5 MG TAB PO SCH (09:11)
--- NOTE | 2019-08-20 10:44 | XRay Report ---
XR toe LT min 2V CLINICAL HISTORY: 64 years-old Male presenting with diabetic left second toe infection. TECHNIQUE: Frontal, oblique, and lateral views of the left second toe were obtained. COMPARISON: None. FINDINGS: Osteopenia. This limits evaluation for nondisplaced fracture and osteomyelitis. Soft tissue swelling at the second toe. Osseous dissolution of the distal phalanx, which partially spares the base of the distal phalanx. No significant osseous erosion is appreciable in the middle or proximal phalanges. Ov erlying soft tissue irregularity suspected at the distal and dorsal aspect of the second toe. There i s also slight dorsal subluxation at the distal interphalangeal joint of the second toe. Diffuse foref oot soft tissue swelling is also present. IMPRESSION: Osseous erosion of the distal phalanx of the second toe accompanied by soft tissue swelling and possi ble wound at the dorsal and distal aspect of the toe. This is evidence of osteomyelitis. No apparent involvement of the middle and proximal phalanges. The report will be called/faxed according to standard departmental protocol. Electronically signed by: David Martinez M.D. 08/20/2019 10:42 AM
--- NOTE | 2019-08-20 10:58 | Hospitalist Progress Note ---
Date of Service August 20, 2019 Assessment & Plan (1) Gout: Speaking with Dr Haq from podiatry she reported that copious gouty crystals exuded from the 2nd toe recently during an office visit. It is possible that the x-rays and bone scan showing distal phalanx destruction could be erosive disease from gout (rather than osteomyelitis). He clearly has severe gout. Will obtain MRI left 2nd toe for additional information. Dr Haq will see formally in consult. Need for bone biopsy to exclude osteomyelitis?? Certainly could have BOTH issues (gout + osteomyelitis). Continue allopurinol, colchicine and prednisone. Will HOLD metazolone as thiazides raise uric acid levels. Check uric acid level and sed rate in am. Consider increasing colchicine to BID dosing. Consider increasing prednisone to higher level. Will inquire w/ patient who follows his gout. Will leave broad-spectrum IV abx for now to cover for infectious etiology and until Dr Haq sees. (2) Diabetic infection of left foot: remains on daptomycin IV and Zosyn IV for possible left 2nd toe infectious process. x-rays and bone scan results with distal phalanx destruction of 2nd toe (left). gouty erosive disease? or possible osteomyelitis? Podiatry, ID, and wound care consulted. Arterial dopplers without PAD. (3) Hypercholesterolemia: Continue simvastatin 10 mg daily (4) Diabetes mellitus with diabetic neuropathy: Continue usual dose of insulin glargine 70 units subcu every evening. Hold metformin. Hold Trulicity Continue gabapentin 300 mg p.o. 3 times daily. Adjust novolog - increase correction to 15 and carb ratio to 1:5. (5) Atrial fibrillation: Controlled. Continue xarelto. (6) Hypertension associated with diabetes: Cont home meds (7) Ankylosing spondylitis: Ankylosing spondylitis/rheumatoid arthritis- Chronically immunosuppressed on Humira and prednisone. No issues at this time. (8) Rheumatoid arthritis: Steroid-dependent. NO active flares of RA but having gout issues. (9) Morbid obesity with BMI of 50.0-59.9, adult: BMI 53 (10) Hypokalemia: replace repeat k and mag levels am 2nd to thiazide diuretic usage (11) DVT prophylaxis: add lovenox daily updated at bedside today Subjective Pt's main complaint is that of left 2nd toe pain. The pain is similar to past episodes of severe gouty arthritis. 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 She reports that during an office visit gouty crystals exuded copiously from the 2nd toe. She also took a culture from the 2nd toe and it was negative for bacterial growth. Her initial impression was that this was severe gout of the 2nd toe. He denies anorexia, fever, chills. reports that for 2-3 days prior to admission there was yellow drainage from the 2nd toe. He has never had an ulcer of the 2nd toe. Review of Systems Constitutional: no fever, no chills, no fatigue and no anorexia Respiratory: no cough and no dyspnea Cardiovascular: no chest pain Gastrointestinal: no abdominal pain, no nausea and no vomiting Physical Exam Constitutional: + morbidly obese; no acute distress and no altered mental status ENMT: external ear and nose normal, oropharynx normal Respiratory: normal respiratory effort, lungs clear to auscultation Cardiovascular: Rate/Rhythm: regular rate and + irregularly irregular Heart Sounds: normal S1 and normal S2; no murmur Vessels: posterior tibial pulses present and dorsalis pedis pulses present; no JVD Extremities: + edema (trace b/l ) Gastrointestinal (Abdomen): normal bowel sounds, soft, nontender, no hepatosplenomegaly Musculoskeletal: left 2nd toe - entire toe is red, swollen, and tender to palpation and tender with passive ROM. the toenail is intact. there is no ulceration present. there is scant, if any, serous drainage from the toenail bed but no foul drainage or purulence. he has gouty tophi of right great toe and right first MTP joint. there is mild warmth of the right great toe as well. Skin: left 2nd toe erythema Psychiatric: A+Ox3, euthymic affect Results & Data Vital Signs (Past 12 Hours) Vital Signs Temp Pulse Pulse Resp BP BP Pulse Ox 08/20/19 09:48 36.8 C 100 H 20 147/78 H 94 08/20/19 07:16 36.8 C 100 H 20 147/78 H 94 08/20/19 07:00 36.9 C 83 18 123/76 94 08/20/19 00:43 08/20/19 00:30 36.8 C 77 20 144/97 H 93 08/20/19 00:29 104 H 18 138/81 95 08/19/19 23:12 72 18 128/74 95 Pulse Ox 08/20/19 09:48 08/20/19 07:16 08/20/19 07:00 08/20/19 00:43 93 08/20/19 00:30 08/20/19 00:29 08/19/19 23:12 Laboratory Results Laboratory Results - last 24 hr 08/20/19 08/20/19 08/20/19 04:44 07:38 10:57 POC Glucose 104 H 126 H Estimat Average Glucose 157 Hemoglobin A1c 7.1 H 08/20/19 08/20/19 08/20/19 15:56 16:16 20:31 POC Glucose 158 H 145 H 114 H Estimat Average Glucose Hemoglobin A1c PG Care Time/CCT Total # of Minutes Spent Total Time Spent with Patient: Total time spent is greater than 50% in coordination of care (as documented) at patient's floor/unit and/or counseling patient: (1) Rheumatoid arthritis Rheumatoid arthritis location: unspecified site Rheumatoid factor presence: unspecified presence Qualified Code(s): M06.9 - Rheumatoid arthritis, unspecified (2) Gout Gout site: multiple sites Gout etiology: unspecified cause Chronicity: chronic Qualified Code(s): M1A.09X0 - Idiopathic chronic gout, multiple sites, without tophus (tophi) (3) Atrial fibrillation Atrial fibrillation type: permanent Qualified Code(s): I48.21 - Permanent atrial fibrillation (4) Diabetes mellitus with diabetic neuropathy Diabetes mellitus type: type 2 Diabetes mellitus prison insulin use: with superintendent terminal use Qualified Code(s): E11.40 - Type 2 diabetes mellitus with diabetic neuropathy, unspecified; Z79.4 - exterminator termite (current) use of insulin (5) Ankylosing spondylitis Ankylosing spondylitis location: unspecified site of spine Qualified Code(s): M45.9 - Ankylosing spondylitis of unspecified sites in spine
--- NOTE | 2019-08-20 11:01 | Infectious Disease Consult ---
Date of Consultation August 20, 2019 Assessment & Plan (1) Diabetic infection of left foot: continue abx, obtain wound culture. History of Present Illness Attending Physician: Buster Pompa pt admitted with pain, purulent drainage from left toe. was seen by podiatry and ER recently, given ctx and d/c on augmentin, no improvement. came back to ER and admitted. denies f/c at home, afebrile since admission. given dapto and zosyn, tolerating well. has neuropathy but does admit to throbbing pain in toe. denies trauma, states all began with ingrown toenail. wbc 10, creat 1.1. blood cultures pending, no wound culture obtained. no imaging to review. denies cp, sob, cough, palmer, no abd pain, no n/v/d. tolerating abx, eating well. no gu symptoms. Allergies Allergy/AdvReac Type Severity Reaction Status Date / Time No Known Drug Allergies Allergy Verified 08/19/19 22:38 Home Medications Home Medications Medication Instructions Recorded Confirmed Type allopurinol 300 mg tablet 300 mg PO DAILY #90 tab 06/26/19 08/19/19 Rx aspirin 81 mg tablet,delayed 81 mg PO DAILY #90 tab 06/26/19 08/19/19 Rx release blood sugar diagnostic strips #3 box 06/26/19 08/19/19 Rx colchicine 0.6 mg tablet 0.6 mg PO DAILY #90 tab 06/26/19 08/19/19 Rx gabapentin 300 mg capsule 300 mg PO TID #270 cap 06/26/19 08/19/19 Rx metolazone 5 mg tablet 5 mg PO DAILY #90 tab 06/26/19 08/19/19 Rx multivitamin tablet 1 tab PO DAILY #30 tab 06/26/19 08/19/19 Rx omeprazole 20 mg capsule,delayed 40 mg PO DAILY #180 cap 06/26/19 08/19/19 Rx release pen needle, diabetic 32 gauge x #10 ea 06/26/19 08/19/19 Rx 5/32" prednisone 5 mg tablet 5 mg PO DAILY #30 tab 06/26/19 08/19/19 Rx rivaroxaban 20 mg tablet 20 mg PO DAILY #90 tab 06/26/19 08/19/19 Rx rosuvastatin 10 mg tablet 10 mg PO DAILY #90 tab 06/26/19 08/19/19 Rx spironolactone 25 mg tablet 25 mg PO BID #180 tab 06/26/19 08/19/19 Rx vitamin B complex tablet 1 tab PO DAILY #30 tab 06/26/19 08/19/19 Rx celecoxib 200 mg capsule 200 mg PO BID #180 cap 07/25/19 08/19/19 Rx metformin 500 mg tablet 1,000 mg PO BID #360 tab 07/25/19 08/19/19 Rx insulin glargine (U-100) 100 70 unit SQ QPM ml 08/01/19 08/19/19 History unit/mL (3 mL) subcutaneous pen adalimumab [Humira] 40 mg SQ USEASDIRECTD 08/19/19 08/19/19 History dulaglutide [Trulicity] 1.5 mg SQ SA 08/19/19 08/19/19 History furosemide 40 mg PO 3XWK PRN 08/19/19 08/19/19 History insulin aspart U-100 [Novolog 20 unit SQ AC 08/19/19 08/19/19 History Flexpen U-100 Insulin] mupirocin calcium 1 appln TOPICAL UD 08/19/19 08/19/19 History tramadol-acetaminophen 1 tab PO Q4H PRN 08/19/19 08/19/19 History Patient History Medical History Diabetes (Chronic) Gout (Chronic) Social History Preferred Language: [place] Communication Ability: Effective Shopper Insights Manager Required: No Beliefs That Will Affect Care: None Current Living Situation: Spouse Current Living Situation Comment: with in home Other Information That Helps Us Care for You: No Feels Safe at Home: Yes Safety Concerns: Feels Safe At This Time Smoking Status: Former smoker Tobacco Type: cigarettes and cigars ; Do You Dip or Chew Tobacco: No ; Second Hand Exposure: No ; Tobacco Cessation Education Requested by Patient: No Hx Alcohol Use: No Hx Substance Use: No Review of Systems Review of Systems: All systems reviewed & are unremarkable except as noted in HPI & below Physical Exam Constitutional: WD/WN, vitals as above Eyes: PERRL, conjunctivae normal, anicteric sclerae ENMT: external ear and nose normal, oropharynx normal Neck: normal visual inspection Respiratory: normal respiratory effort, lungs clear to auscultation Cardiovascular: RRR, no murmur, no edema Gastrointestinal (Abdomen): normal bowel sounds, soft, nontender, no hepatosplenomegaly Musculoskeletal: no cyanosis or clubbing, extremities motor strength 5/5 Skin: no rashes, warm and dry + wound (l foot, erythema, weeping, no warmth) Psychiatric: A+Ox3, euthymic affect Results & Data Vital Signs (Past 12 Hours) Vital Signs Temp Pulse Pulse Resp BP BP Pulse Ox 08/20/19 09:48 36.8 C 100 H 20 147/78 H 94 08/20/19 07:16 36.8 C 100 H 20 147/78 H 94 08/20/19 07:00 36.9 C 83 18 123/76 94 08/20/19 00:43 08/20/19 00:30 36.8 C 77 20 144/97 H 93 08/20/19 00:29 104 H 18 138/81 95 08/19/19 23:12 72 18 128/74 95 Pulse Ox 08/20/19 09:48 08/20/19 07:16 08/20/19 07:00 08/20/19 00:43 93 08/20/19 00:30 08/20/19 00:29 08/19/19 23:12 PG Care Time/CCT Total # of Minutes Spent Total Time Spent with Patient: Total time spent is greater than 50% in barrel cooper rdination of care (as documented) at patient's floor/unit and/or counseling patient:
[2019-08-20] MEDS: POTASSIUM CHLORIDE 20 MEQ TABCR PO SCH (12:26)
--- NOTE | 2019-08-20 13:49 | Nuclear Medicine Report ---
NM bone 3 phase ltd CLINICAL HISTORY: Left second toe infection COMPARISON STUDY: X-ray study dated 08/20/2019 FINDINGS: The patient was injected with 27.5 mCi of technetium 99m MDP. A vascular sequence centered on the feet was performed. There is mild hyperemia involving the left foot and toes. Blood pool image s demonstrate increased activity involving the left second and first toes. There is also increased ac tivity within the right midfoot. Delayed images demonstrate multifocal areas of increased activity. These include both first metatarsa l Hounsfield joints, both second toes, the midfoot of each foot, as well as both ankles. X-ray evaluation of the left second toe reveals destructive changes suspicious for osteomyelitis give n the history of infection. IMPRESSION: 1. Abnormal 3 phase bone scan. Increased flow and blood pool and delayed activity corresponding to de structive lesion involving the distal phalanx of the left second toe. Given the provided clinical his tory, the findings are indicative of osteomyelitis. 2. Additional multifocal areas of bilateral foot and ankle activity. Correlation with clinical findin gs and radiographs is recommended. Electronically signed by: Scott Leal M.D. 08/20/2019 1:47 PM
--- NOTE | 2019-08-20 16:04 | Ultrasound Report ---
US arterial duplex bilateral lower extremity CLINICAL HISTORY: diabetic foot infection COMPARISON STUDY: None. FINDINGS: The right ankle-brachial index measured with the posterior tibial artery was 1.1 and the do rsalis pedis artery was 1.0. The left ankle-brachial index measured with the posterior tibial and cachorro salis pedis arteries was 1.1. There are triphasic waveforms with normal velocities seen throughout th e bilateral lower extremity arterial systems. No significant stenosis or occlusion identified. IMPRESSION: No significant stenosis or occlusion within the bilateral lower extremity arterial syste ms. Electronically signed by: Faustino Eaton M.D. 08/20/2019 4:03 PM
[2019-08-20] MEDS: DAPTOmycin 650 MG in SYRINGE 0 ML IV SCH (21:35)
[2019-08-20] MEDS ORDERED: DAPTOmycin 500 MG VIAL IV SCH (22:00)
[2019-08-20] MEDS ORDERED: GADOBUTROL 65ML VIAL IV PRN (22:23)
--- NOTE | 2019-08-21 01:22 | Magnetic Resonance Report ---
MRI OF THE LEFT FOREFOOT COMBO CLINICAL HISTORY: Foot erythema and swelling. Possible gout versus infection. COMPARISON STUDY: Radiographs of the left second toe dated 08/20/2019. TECHNIQUE: MRI of the left forefoot is performed utilizing various T1 and T2-weighted sequences in th e axial, sagittal, and coronal planes. Contrast-enhanced sequences are acquired following the IV admi nistration of 16 cc of Gadavist. FINDINGS: There is marked abnormality identified throughout the forefoot. There is destructive change identified involving the 2nd distal phalanx, with marrow signal abnormality identified in the distal 2nd middle phalanx. There are numerous T1 hypointense, T2 hyperintense foci of erosion throughout th e bones of the forefoot. This is greatest at the 1st metatarsophalangeal joint. Numerous additional l esions are identified which involve all the tarsometatarsal joints. These lesions all show postcontra st enhancement as well as mild surrounding edema. Enhancing foci of soft tissue nodularity are identi fied around the 1st and 5th distal phalanges. No organized fluid collection is seen to suggest absces s. Only mild soft tissue edema is present throughout the forefoot, greatest in the 2nd toe. IMPRESSION: 1. Again seen is destructive change involving the 2nd distal phalanx. This is pathologically indeterm inant, and could represent osteomyelitis or possibly osteonecrotic changes of gout. Clinical correlat ion will be essential. Tissue sampling may be required for definitive characterization. 2. Numerous additional erosive lesions are seen throughout the forefoot as well as soft tissue lesion s which are detailed above. The appearance is strongly suggestive of gout. 3. No organized fluid collection is seen to suggest abscess. 4. Diffuse soft tissue edema is present throughout the forefoot, greatest in the 2nd toe and the late ral soft tissues. Dictated: 08/20/2019 10:42 PM Transcribed: 08/20/2019 11:45 PM Mar [id number] [email or web address] Electronically signed by: Leroy Agustin M.D. 08/21/2019 1:21 AM
[2019-08-21] MEDS: PIPERACILLIN/TAZOBACTAM 4.5 GM in DEXTROSE 5% 100 ML IV SCH ×3 (02:07→18:30)
[2019-08-21] MEDS: TRAMADOL/ACETAMINOPHEN 37.5/325MG TAB PO PRN ×2 (05:05→11:36)
[2019-08-21 08:47] LABS: BUN Creatinine Ratio 14.2 (10-20); Calcium 10.1 mg/dl (8.5-10.1); Creatinine Clr Calc Pharmacy 115.2 ml/min; Est GFR (African American) 94.6; Est GFR (Non-African American) 81.6; Magnesium 1.6 mg/dl (1.8-2.4); Uric Acid 6.1 mg/dl (2.6-7.2)
--- NOTE | 2019-08-21 08:52 | Podiatry Consultation ---
Date of Consultation August 21, 2019 History of Present Illness Attending Physician: Buster Pompa patient seen at bedside today, known to me patient was seen by myself on jul 12 for his diabetic foot evaluation and foot care, patient had an ingrown toenail on that visit of the left foot 2nd digit toenail medial nail border. patient had removal of the toenail and presented to our clinic on 07/20 for follow up and saw one of our PAs, at that time he was having white drainage consistent with gouty tophus from the lateral border (opposite border from where the toenail avulsion was performed). I then saw patient again on 08/02 for follow up and medial side of the 2nd digit left foot toenail was well healed without inflammation, there was still moderate amount of gouty tophus expressible from the toenail along the base of the toenail and lateral nail border, no purulent drainage, no fluctuance and no signs of acute infection, patient has a known history of gout as well. I took pathology samples from that specimen and sent them to our lab at [facility] and the diagnosis was squamous epithelium. The 2nd toe has been having acute gouty arthritic reactions, which I do believe is worsening at this time and likely the main cause of the redness and swelling, WBC is stable and patient had no improvement with abx, the toe is currently stable without ulceration, toe is red/swollen and painful consistent with acute gout, uric acid is pending and sed rate noted to be elevated ( sed rate is rather non specific for inflammation but I do feel this is more related to gout vs cellulitis). Allergies Allergy/AdvReac Type Severity Reaction Status Date / Time No Known Drug Allergies Allergy Verified 08/19/19 22:38 Home Medications Home Medications Medication Instructions Recorded Confirmed Type allopurinol 300 mg tablet 300 mg PO DAILY #90 tab 06/26/19 08/19/19 Rx aspirin 81 mg tablet,delayed 81 mg PO DAILY #90 tab 06/26/19 08/19/19 Rx release blood sugar diagnostic strips #3 box 06/26/19 08/19/19 Rx colchicine 0.6 mg tablet 0.6 mg PO DAILY #90 tab 06/26/19 08/19/19 Rx gabapentin 300 mg capsule 300 mg PO TID #270 cap 06/26/19 08/19/19 Rx metolazone 5 mg tablet 5 mg PO DAILY #90 tab 06/26/19 08/19/19 Rx multivitamin tablet 1 tab PO DAILY #30 tab 06/26/19 08/19/19 Rx omeprazole 20 mg capsule,delayed 40 mg PO DAILY #180 cap 06/26/19 08/19/19 Rx release pen needle, diabetic 32 gauge x #10 ea 06/26/19 08/19/19 Rx 5/32" prednisone 5 mg tablet 5 mg PO DAILY #30 tab 06/26/19 08/19/19 Rx rivaroxaban 20 mg tablet 20 mg PO DAILY #90 tab 06/26/19 08/19/19 Rx rosuvastatin 10 mg tablet 10 mg PO DAILY #90 tab 06/26/19 08/19/19 Rx spironolactone 25 mg tablet 25 mg PO BID #180 tab 06/26/19 08/19/19 Rx vitamin B complex tablet 1 tab PO DAILY #30 tab 06/26/19 08/19/19 Rx celecoxib 200 mg capsule 200 mg PO BID #180 cap 07/25/19 08/19/19 Rx metformin 500 mg tablet 1,000 mg PO BID #360 tab 07/25/19 08/19/19 Rx insulin glargine (U-100) 100 70 unit SQ QPM ml 08/01/19 08/19/19 History unit/mL (3 mL) subcutaneous pen adalimumab [Humira] 40 mg SQ USEASDIRECTD 08/19/19 08/19/19 History dulaglutide [Trulicity] 1.5 mg SQ SA 08/19/19 08/19/19 History furosemide 40 mg PO 3XWK PRN 08/19/19 08/19/19 History mupirocin calcium 1 appln TOPICAL UD 08/19/19 08/19/19 History tramadol-acetaminophen 1 tab PO Q4H PRN 08/19/19 08/19/19 History Novolog Flexpen U-100 Insulin See Rx Instructions SQ .COMPLEX 30 08/20/19 Rx aspart 100 unit/mL (3 mL) Days #2 box NS subcutaneous Patient History Medical History Diabetes (Chronic) Gout (Chronic) Social History Preferred Language: Belarusian Communication Ability: Effective 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 Beliefs That Will Affect Care: None Current Living Situation: Spouse Current Living Situation Comment: with in home Other Information That Helps Us Care for You: No Feels Safe at Home: Yes Safety Concerns: Feels Safe At This Time Smoking Status: Former smoker Tobacco Type: cigarettes and cigars ; Do You Dip or Chew Tobacco: No ; Second Hand Exposure: No ; Tobacco Cessation Education Requested by Patient: No Hx Alcohol Use: No Hx Substance Use: No Physical Exam Skin: left 2nd toe was seen, had overlying Allevyn foam covering the toe, removed for inspection today, toe was noted to be erythematous with swelling and some peeling skin, no opening, no ulceration, mild increase of temp noted as well compared to contralateral foot, no purulent drainage present, some tophi crystals noted to be along the nail base but I wasn't able to express tophus as I was in the office at previous visit - lab work pending, toe consistent with l ikely gout given this clinical picture Results & Data Vital Signs (Past 12 Hours) Vital Signs Temp Pulse Pulse Resp BP BP Pulse Ox 08/21/19 07:41 36.8 C 69 18 140/97 91 08/21/19 04:00 36.4 C L 69 18 154/82 H 98 08/21/19 00:26 66 08/20/19 22:56 36.4 C L 64 18 177/93 H 92
[2019-08-21] MEDS: INSULIN ASPART 100 UNITS/ML 3 ML PEN SC SCH ×4 (09:04→21:22)
[2019-08-21] MEDS ORDERED: predniSONE 5 MG TAB PO ONE (10:15)
[2019-08-21] MEDS ORDERED: POTASSIUM CHLORIDE 10 MEQ TABCR PO ONE (10:15)
[2019-08-21] MEDS: RIVAROXABAN 20 MG TAB PO SCH (10:29)
[2019-08-21] MEDS: COLCHICINE 0.6 MG TAB PO SCH ×2 (10:30→21:19)
[2019-08-21] MEDS: SPIRONOLACTONE 25 MG TAB PO SCH ×2 (10:30→15:47)
[2019-08-21] MEDS: ROSUVASTATIN CALCIUM 10 MG TAB PO SCH (10:31)
[2019-08-21] MEDS: ASPIRIN 81 MG ECTAB PO SCH (10:31)
[2019-08-21] MEDS: MULTIVITAMIN TAB PO SCH (10:31)
[2019-08-21] MEDS: GABAPENTIN 300 MG CAP PO SCH ×3 (10:31→21:19)
[2019-08-21] MEDS: VITAMIN B COMPLEX TAB PO SCH (10:33)
[2019-08-21] MEDS: PANTOprazole 40 MG TAB PO SCH (10:33)
[2019-08-21] MEDS: allopurinoL 300 MG TAB PO SCH (10:34)
[2019-08-21] MEDS: MAGNESIUM SULFATE / D5W 1 GM/100 ML BAG IV SCH ×2 (10:45→11:56)
[2019-08-21] MEDS: predniSONE 5 MG TAB PO SCH (11:34)
--- NOTE | 2019-08-21 14:22 | Infectious Disease Progress Nt ---
Date of Service August 21, 2019 Assessment & Plan (1) Gout: continue IV abx for now, if culture negative in am can resume previously prescribed course of Augmentin, continue treatement for gout Subjective pt remains on IV abx, tolerating well afebrile. podiatry following, MRI obtained, gout vs osteo toe, gout noted in forefoot. no wound culture obtained, blood cultures negative. ESR 76 Results & Data Vital Signs (Past 12 Hours) Vital Signs Temp Pulse Pulse Resp BP BP Pulse Ox 08/21/19 11:08 36.5 C 68 20 135/81 92 08/21/19 08:00 78 08/21/19 07:41 36.8 C 69 18 140/97 91 08/21/19 04:00 36.4 C L 69 18 154/82 H 98 Laboratory Results Microbiology 08/19/19 22:17 Blood Aerobic Blood Culture - Preliminary No growth in Aerobic bottle after 24 hours. 08/19/19 22:17 Blood Anaerobic Blood Culture - Final 08/19/19 22:09 Blood Aerobic Blood Culture - Preliminary No growth in Aerobic bottle after 24 hours. 08/19/19 22:09 Blood Anaerobic Blood Culture - Preliminary No growth in Anaerobic bottle after 24 hours. PG Care Time/CCT Total # of Minutes Spent Total Time Spent with Patient: Total time spent is greater than 50% in coordination of care (as documented) at patient's floor/unit and/or counseling patient: (1) Gout Chronicity: chronic Gout etiology: unspecified cause Gout site: multiple sites Qualified Code(s): M1A.09X0 - Idiopathic chronic gout, multiple sites, without tophus (tophi)
[2019-08-21] MEDS: POTASSIUM CHLORIDE 20 MEQ TABCR PO SCH ×3 (14:26→21:20)
--- NOTE | 2019-08-21 20:32 | Hospitalist Progress Note ---
Date of Service August 21, 2019 Assessment & Plan (1) Gout: Speaking with Dr Haq from podiatry she reported that copious gouty crystals exuded from the 2nd toe recently during an office visit. It is possible that the x-rays and bone scan showing distal phalanx destruction could be erosive disease from gout (rather than osteomyelitis). He clearly has severe gout as evidenced by gouty tophi on right foot (and chronically elevated uric acid levels dating back 2+ years). MRI left foot with probable gouty changes in 2nd toe and other locations. NO abscess seen throughout foot. Uric acid level 6 today. HOLD metazolone. Continue allopurinol. Double the colchicine to BID dosing. Increase prednisone to 20mg/day for 5-7 days, then wean over 2 weeks or so. Spoke with Dr Hernandez today - agrees with plan; he believes that patient has f/u with him in the next 3-[address] Hernandez reports he does NOT have RA but psoriatic arthritis. Will leave broad-spectrum IV abx for now to cover for infectious etiology but likely can revert to oral abx tomorrow as recommended by ID. (2) Diabetic infection of left foot: remains on daptomycin IV and Zosyn IV for possible left 2nd toe infectious process. x-rays and bone scan results with distal phalanx destruction of 2nd toe (left). gouty erosive disease? or possible osteomyelitis? Dr Haq believes this is gouty erosive changes rather than osteomyelitis. Podiatry, ID, and wound care consulted and recs appreciated. possible change to PO abx tomorrow. Arterial dopplers without PAD. (3) Hypercholesterolemia: Continue simvastatin 10 mg daily (4) Diabetes mellitus with diabetic neuropathy: Continue usual dose of insulin glargine 70 units subcu every evening. Hold metformin. Hold Trulicity Continue gabapentin 300 mg p.o. 3 times daily. Cont novolog as is. Controlled. (5) Atrial fibrillation: Controlled. Continue xarelto. (6) Hypertension associated with diabetes: Cont home meds Controlled (7) Morbid obesity with BMI of 50.0-59.9, adult: BMI 52 (8) Hypokalemia: cont to replace with potassium supplement TID repeat BMP/mag am (9) Psoriatic arthritis: on humira and chronic prednisone per Dr Hernandez at [facility] (10) DVT prophylaxis: lovenox daily sister updated at bedside today Subjective no new issues or complaints. redness of 2nd toe improved. less swelling and pain. scant clear drainage. Review of Systems Constitutional: no fever, no chills, no fatigue and no anorexia Respiratory: no cough and no dyspnea Cardiovascular: no chest pain Gastrointestinal: no diarrhea/loose stools Physical Exam Constitutional: + morbidly obese; no acute distress and no altered mental status ENMT: external ear and nose normal, oropharynx normal Respiratory: normal respiratory effort, lungs clear to auscultation Cardiovascular: Rate/Rhythm: regular rate and + irregularly irregular Heart Sounds: normal S1 and normal S2; no murmur Vessels: posterior tibial pulses present and dorsalis pedis pulses present; no JVD Extremities: + edema (trace b/l ) Gastrointestinal (Abdomen): normal bowel sounds, soft, nontender, no hepatosplenomegaly Musculoskeletal: left 2nd toe - gross swelling modestly improved today; less erythema throughout entire toe today; no pain/tenderness w/ manipulation of toe; no drainage. toenail slightly avulsed but intact. Psychiatric: A+Ox3, euthymic affect Results & Data Vital Signs (Past 12 Hours) Vital Signs Temp Pulse Resp BP BP Pulse Ox 08/21/19 19:36 36.5 C 86 16 122/76 91 08/21/19 15:07 36.7 C 87 18 116/75 90 08/21/19 11:08 36.5 C 68 20 135/81 92 Laboratory Results Laboratory Results - last 24 hr 08/20/19 08/21/19 08/21/19 20:31 07:08 07:08 ESR 76 H Sodium Cancelled Potassium Cancelled Chloride Cancelled Carbon Dioxide Cancelled Anion Gap Cancelled BUN Cancelled Creatinine Cancelled Est Cr Clr Drug Dosing Cancelled Est GFR ( Amer) Cancelled Est GFR (Non-Af Amer) Cancelled BUN/Creatinine Ratio Cancelled Glucose Cancelled POC Glucose 114 H Uric Acid Cancelled Calcium Cancelled Magnesium Cancelled 08/21/19 08/21/19 08/21/19 07:53 08:10 11:32 ESR Sodium 136 Potassium 3.0 L Chloride 99 Carbon Dioxide 30 Anion Gap 7.0 BUN 14 Creatinine 0.97 Est Cr Clr Drug Dosing 115.2 Est GFR ( Amer) 94.6 Est GFR (Non-Af Amer) 81.6 BUN/Creatinine Ratio 14.2 Glucose 140 H POC Glucose 121 H 117 H Uric Acid 6.1 Calcium 10.1 Magnesium 1.6 L 08/21/19 16:29 ESR Sodium Potassium Chloride Carbon Dioxide Anion Gap BUN Creatinine Est Cr Clr Drug Dosing Est GFR ( Amer) Est GFR (Non-Af Amer) BUN/Creatinine Ratio Glucose POC Glucose 158 H Uric Acid Calcium Magnesium PG Care Time/CCT Total # of Minutes Spent Total Time Spent with Patient: Total time spent is greater than 50% in coordination of care (as documented) at patient's floor/unit and/or counseling patient: (1) Gout Chronicity: chronic Gout etiology: unspecified cause Gout site: multiple sites Qualified Code(s): M1A.09X0 - Idiopathic chronic gout, multiple sites, without tophus (tophi) (2) Atrial fibrillation Atrial fibrillation type: permanent Qualified Code(s): I48.21 - Permanent atrial fibrillation (3) Diabetes mellitus with diabetic neuropathy 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
[2019-08-21] MEDS: INSULIN GLARGINE SOLOSTAR 100 UNITS/ML 3 ML PEN SQ SCH (21:20)
[2019-08-21] MEDS: DAPTOmycin 650 MG in SYRINGE 0 ML IV SCH (22:34)
[2019-08-22] MEDS: PIPERACILLIN/TAZOBACTAM 4.5 GM in DEXTROSE 5% 100 ML IV SCH ×2 (01:59→10:14)
[2019-08-22 07:28] LABS: BUN Creatinine Ratio 12.6 (10-20); Calcium 9.8 mg/dl (8.5-10.1); Creatinine Clr Calc Pharmacy 105.7 ml/min; Est GFR (African American) 85.9; Est GFR (Non-African American) 74.1; Potassium 3.3 mmol/L (3.5-5.1)
[2019-08-22] MEDS: INSULIN ASPART 100 UNITS/ML 3 ML PEN SC SCH ×3 (07:57→17:12)
[2019-08-22] MEDS: RIVAROXABAN 20 MG TAB PO SCH (08:02)
[2019-08-22] MEDS: SPIRONOLACTONE 25 MG TAB PO SCH ×2 (08:04→17:16)
[2019-08-22] MEDS: COLCHICINE 0.6 MG TAB PO SCH (08:05)
[2019-08-22] MEDS: ASPIRIN 81 MG ECTAB PO SCH (08:05)
[2019-08-22] MEDS: ROSUVASTATIN CALCIUM 10 MG TAB PO SCH (08:05)
[2019-08-22] MEDS: POTASSIUM CHLORIDE 20 MEQ TABCR PO SCH ×2 (08:07→14:16)
[2019-08-22] MEDS: GABAPENTIN 300 MG CAP PO SCH ×2 (08:08→14:17)
[2019-08-22] MEDS: MULTIVITAMIN TAB PO SCH (08:08)
[2019-08-22] MEDS: TRAMADOL/ACETAMINOPHEN 37.5/325MG TAB PO PRN (08:09)
[2019-08-22] MEDS: allopurinoL 300 MG TAB PO SCH (08:09)
[2019-08-22] MEDS: PANTOprazole 40 MG TAB PO SCH (08:09)
[2019-08-22] MEDS: VITAMIN B COMPLEX TAB PO SCH (08:09)
[2019-08-22] MEDS ORDERED: predniSONE 20 MG TAB PO SCH (09:00)
[2019-08-22] MEDS ORDERED: ENOXAPARIN INJ 40 MG/0.4 ML SYR SQ SCH (10:30)
--- NOTE | 2019-08-22 13:16 | Podiatry Consultation ---
Date of Consultation August 22, 2019 History of Present Illness Attending Physician: Buster Pompa patient was seen at bedside today and is feeling some better MRI was ordered and it cannot rule out gout vs osteo, exam of the toe today show improved erythema and swelling of the left 2nd toe, patient states the pain is not as bad today as well I still feel this is more a gouty arthritic reaction vs cellulitis given the clinical picture but I can perform a bone biopsy of the toe in the out patient setting if concern is still present otherwise patient is doing well without acute issues noted today Allergies Allergy/AdvReac Type Severity Reaction Status Date / Time No Known Drug Allergies Allergy Verified 08/19/19 22:38 Home Medications Home Medications Medication Instructions Recorded Confirmed Type allopurinol 300 mg tablet 300 mg PO DAILY #90 tab 06/26/19 08/19/19 Rx aspirin 81 mg tablet,delayed 81 mg PO DAILY #90 tab 06/26/19 08/19/19 Rx release blood sugar diagnostic strips #3 box 06/26/19 08/19/19 Rx colchicine 0.6 mg tablet 0.6 mg PO DAILY #90 tab 06/26/19 08/19/19 Rx gabapentin 300 mg capsule 300 mg PO TID #270 cap 06/26/19 08/19/19 Rx metolazone 5 mg tablet 5 mg PO DAILY #90 tab 06/26/19 08/19/19 Rx multivitamin tablet 1 tab PO DAILY #30 tab 06/26/19 08/19/19 Rx omeprazole 20 mg capsule,delayed 40 mg PO DAILY #180 cap 06/26/19 08/19/19 Rx release pen needle, diabetic 32 gauge x #10 ea 06/26/19 08/19/19 Rx 5/32" prednisone 5 mg tablet 5 mg PO DAILY #30 tab 06/26/19 08/19/19 Rx rivaroxaban 20 mg tablet 20 mg PO DAILY #90 tab 06/26/19 08/19/19 Rx rosuvastatin 10 mg tablet 10 mg PO DAILY #90 tab 06/26/19 08/19/19 Rx spironolactone 25 mg tablet 25 mg PO BID #180 tab 06/26/19 08/19/19 Rx vitamin B complex tablet 1 tab PO DAILY #30 tab 06/26/19 08/19/19 Rx celecoxib 200 mg capsule 200 mg PO BID #180 cap 07/25/19 08/19/19 Rx metformin 500 mg tablet 1,000 mg PO BID #360 tab 07/25/19 08/19/19 Rx insulin glargine (U-100) 100 70 unit SQ QPM ml 08/01/19 08/19/19 History unit/mL (3 mL) subcutaneous pen adalimumab [Humira] 40 mg SQ USEASDIRECTD 08/19/19 08/19/19 History dulaglutide [Trulicity] 1.5 mg SQ SA 08/19/19 08/19/19 History furosemide 40 mg PO 3XWK PRN 08/19/19 08/19/19 History mupirocin calcium 1 appln TOPICAL UD 08/19/19 08/19/19 History tramadol-acetaminophen 1 tab PO Q4H PRN 08/19/19 08/19/19 History Novolog Flexpen U-100 Insulin See Rx Instructions SQ .COMPLEX 30 08/20/19 Rx aspart 100 unit/mL (3 mL) Days #2 box NS subcutaneous Patient History Medical History Diabetes (Chronic) Gout (Chronic) Surgical History History of total hip arthroplasty Social History Preferred Language: French Communication Ability: Effective Tube Wrapper Required: No Beliefs That Will Affect Care: None Current Living Situation: Spouse Current Living Situation Comment: with in home Other Information That Helps Us Care for You: No Feels Safe at Home: Yes Safety Concerns: Feels Safe At This Time Smoking Status: Former smoker Tobacco Type: cigarettes and cigars ; Do You Dip or Chew Tobacco: No ; Second Hand Exposure: No ; Tobacco Cessation Education Requested by Patient: No Hx Alcohol Use: No Hx Substance Use: No Physical Exam Skin: left 2nd toe with improve swelling and erythema, no open ulceration, allyvne foam was removed today and toe examined, c and S still pending but gram stain had no growth present stable appearance of a gout left 2nd toe Results & Data Vital Signs (Past 12 Hours) Vital Signs Temp Pulse Pulse Pulse Resp BP Pulse Ox 08/22/19 11:30 36.5 C 78 18 147/86 H 93 08/22/19 08:00 70 08/22/19 07:37 36.1 C L 72 72 18 167/71 H 92 08/22/19 03:10 36.9 C 70 20 126/82 96
[2019-08-22 15:22] VITALS: BP 152/74; TEMP 98.2; O2SAT 94
--- NOTE | 2019-08-22 16:50 | Discharge Summary ---
Date of Service date of admission - August 19, 2019 date of discharge - August 22, 2019 Admission HPI Per Admitting Provider The patient is a 64-year-old male with a past medical history including diabetes mellitus, diabetic neuropathy, atrial fibrillation and chronic immunosuppression for psoriatic arthritis who presented to the emergency department with persistent and worsening erythema, swelling and pain of left second toe, after no improvement from ED treatment 2 nights ago with IV ceftriaxone and then 2 days of oral Augmentin. Principal Diagnosis severe left 2nd toe gouty arthritis +/- cellulitis Discharge Exam Constitutional + morbidly obese; no acute distress and no altered mental status ENMT external ear and nose normal, oropharynx normal Respiratory normal respiratory effort, lungs clear to auscultation Cardiovascular Rate/Rhythm: regular rate and + irregularly irregular Heart Sounds: normal S1 and normal S2; no murmur Vessels: posterior tibial pulses present and dorsalis pedis pulses present; no JVD Extremities: + edema (trace b/l ) Gastrointestinal (Abdomen) normal bowel sounds, soft, nontender, no hepatosplenomegaly Musculoskeletal left 2nd toe - mild erythema (marked improvement from prior exams); mild swelling - also improved from prior exams; no drainage, no foul odor; mild tenderness with manipulation of toe. gouty tophi right first MTP joint. Psychiatric A+Ox3, euthymic affect Discharge Data Allergies Allergy/AdvReac Type Severity Reaction Status Date / Time No Known Drug Allergies Allergy Verified 08/19/19 22:38 Consultations 1. [facility] ID ([facility]) 2. [facility] (Lakshmi Mansfield DPM) Ordered Studies 1. arterial duplex - b/l legs - normal. 2. MRI left foot - IMPRESSION: 1. Again seen is destructive change involving the 2nd distal phalanx. This is pathologically indeterminant, and could represent osteomyelitis or possibly osteonecrotic changes of gout. Clinical correlation will be essential. Tissue sampling may be required for definitive characterization. 2. Numerous additional erosive lesions are seen throughout the forefoot as well as soft tissue lesions which are detailed above. The appearance is strongly sug gestive of gout. 3. No organized fluid collection is seen to suggest abscess. 4. Diffuse soft tissue edema is present throughout the forefoot, greatest in the 2nd toe and the lateral soft tissues. 3. x-ray of left foot - IMPRESSION: Osseous erosion of the distal phalanx of the second toe accompanied by soft tissue swelling and possible wound at the dorsal and distal aspect of the toe. This is evidence of osteomyelitis. No apparent involvement of the middle and proximal phalanges. 4. bone scan - IMPRESSION: 1. Abnormal 3 phase bone scan. Increased flow and blood pool and delayed act ivity corresponding to destructive lesion involving the distal phalanx of the left second toe. Given the provided clinical history, the findings are indicative of osteomyelitis. 2. Additional multifocal areas of bilateral foot and ankle activity. Correlation with clinical findings and radiographs is recommended. Hospital Course (1) Gout: Speaking with Dr Haq from podiatry she reported that copious gouty crystals exuded from the left 2nd toe recently during an office visit. She took a culture from the left 2nd toe in the office and this was negative for pathogens. It is possible that the x-rays, bone scan, and MRI of the left 2nd toe showing distal phalanx destruction could be erosive disease from gout (rather than osteomyelitis). He clearly has severe gout as evidenced by gouty tophi on right foot (and chronically elevated uric acid levels dating back 2+ years). MRI left foot showed probable gouty changes in the 2nd toe and other locations as well. Again the left 2nd toe distal phalanx abnormalities cannot be 100% ruled out for osteomyelitis at this time. Dr Haq may take a bone biopsy of this area in the near future as an outpatient. NO abscess seen throughout foot on MRI. Uric acid level was 6 during this admission (had been 12+ in recent past). Since metazolone use can increase uric acid levels this was discontinued after speaking with his PCP, Dr Chaney. For the gout of the left 2nd toe his prednisone was INCREASED to 20mg/day while hospitalized. He was continued on his allopurinol, celebrex, and colchicine as previous. He was given handouts on low purine diet. I spoke with Dr Jose M Kwong from [facility] who follows Mr Matt in the office. He recommended tapering the prednisone by 5mg every 5 days back down to his usual, chronic 5mg/day dosing. He will see Mr Matt within 3 weeks of discharge. He confimed Mr Matt has psoriatic arthritis, not rheumatoid arthritis. The patient did receive IV antibiotic therapy for the 2nd toe in the event there was a superimposed infectious process. See below for details. (2) Diabetic infection of left foot: Patient was given daptomycin IV and Zosyn IV for possible left 2nd toe infectious process (cellulitis). x-rays, MRI, and bone scan results showed left 2nd toe distal phalanx destruction. These findings -- gouty erosive disease? or possible osteomyelitis? Dr Haq feels that this is likely gouty erosive changes rather than osteomyelitis. A bone biopsy may be done in the near future to settle the issue, however. Arterial dopplers did not show PAD. At discharge the patient was advised to finish the course of twice daily augmentin he had gotten from the ER 2 days prior to admission to cover for any possible cellulitis component. (3) Hypercholesterolemia: Continue simvastatin 10 mg daily (4) Diabetes mellitus with diabetic neuropathy: Continue lantus. Resume metformin. Resume Trulicity. Continue gabapentin 300 mg p.o. 3 times daily. Cont novolog. Controlled during the stay. (5) Atrial fibrillation: Controlled rates while here. Continue xarelto. (6) Hypertension associated with diabetes: Cont home meds Controlled while hospitalized (7) Morbid obesity with BMI of 50.0-59.9, adult: BMI 52 (8) Hypokalemia: K was 3.3 on day of discharge. He was given PO supplementation of potassium prior to leaving for the 3.3 level. Low K was due to diuretic usage at home. At discharge he will take lasix 40mg daily, aldactone 25mg BID, and return to Dr Chaney's office on 08/27/19 for repeat K, mag, and sed rate. Since he is on aldactone NO potassium supplement was given at discharge. (9) Psoriatic arthritis: on humira and chronic prednisone per Dr Kwong at [facility] Total Time Total Time Spent Total Time Spent (In Minutes): 45 Total Time Includes: Examination of the Patient, Discharge Planning, Medication Reconciliation and Communication With Other Providers Discharge Plan Discharge Items Patient Disposition: Home - Self-Care Reason For Visit: left second toe gout +/- cellulitis Discharge Diagnosis: left second toe gout - improving. left second toe cellulitis (skin infection) - improving. Goals: 1. reduce pain of 2nd toe, left foot 2. reduce swelling and redness of 2nd toe, left foot Activity: Resume your previous activity Non-emergency contact: Primary Care Provider, Surgeon and Specialist Call non-emergency contact if: you have any medication questions, your symptoms worsen, your pain is not controlled, your pain is worsening, your pain is unusual for you and your pain is concerning for you Follow-up/Referrals: Buster Chaney MD [Primary Care Provider] - (Please, follow up at Dr. Chaney's office. *A nurse from this office will call you with the appointment information. If you have any questions, call the office at [phone].) Jose M Kwong MD [Physician] - 09/17/19 2:40 pm (Please, follow up with Dr. Hernandez on TuesdaySeptember 17 at 2:40 pm. *The office is located at [facility] in [place]. If you need to change this appointment, call the office at [phone].) Lakshmi Haq DPM [Physician] - 08/28/19 3:15 pm (Please, follow up with Dr. Haq (podiatry) on TuesdayAugust 28 at 3:15 pm. *If you need to change this appointment, call her office at [phone]. ) Diet: Carb Consistent or DM2 and Heart Healthy Ambulatory Orders: Basic Metabolic Panel (Routine) Timeframe: 20190827 Location: Determined by Patient Ordered By: Buster Pompa Erythrocyte Sedimentation Rate (Routine) Timeframe: 20190827 Location: Determined by Patient Ordered By: Buster Pompa Magnesium (Routine) Timeframe: 20190827 Location: Determined by Patient Ordered By: Buster Pompa Add Attending Provider Instructions: You were treated for left 2nd toe pain, swelling, and severe redness. You underwent x-rays of the left foot, bone scan, and MRI. Each of these studies showed abnormalities of the last portion of the bone of the 2nd toe. There was some concern if these abnormalities represented gouty erosions or infection of the bone. It was felt that the bony abnormalities were most likely due to gout, however. Dr Haq, as a precautionary measure however, may biopsy the bone at some point in the future. Your toe improved with increased doses of prednisone, colchicine, and antibiotics. It is possible that the toe issues were due to a combination of severe gout as well as some element of infection. Recommendations: 1. finish your augmentin course (augmentin = amoxicillin-clavulanate). Take 1 tablet twice daily and finish the bottle. You may have about 8 days left of treatment. Start this TONIGHT. 2. prednisone taper - start this TOMORROW on 08/23/19 -- * take 20mg daily for 5 days, then - * take 15mg daily for 5 days, then - * take 10mg daily for 5 days, then - * resume your normal 5mg each day thereafter as previous 3. STOP your metazolone diuretic. Metazolone can increase your uric acid levels making your gout worse. 4. TAKE furosemide diuretic 40mg once daily every morning. Start this TOMORROW. I have provided you a new prescription since you will now be taking this daily. 5. Have repeat blood work taken on Tuesday, August 27. You can have this drawn at Dr Chaney's office. Be sure to bring the lab slips with you to that lab draw. 6. Follow-up -- see separate section. 7. Return to [facility] if -- * you have fevers over 100.5 degrees * you have worsening redness, swelling, pain or drainage from the left 2nd toe * you have worsening pain and/or swelling in other joints * you have redness spreading to other portions of your left foot * you have severe diarrhea * any other concerns Pending Studies at Discharge: Yes Studies:: culture 2nd toe, left foot Stand-Alone Forms: [facility] Medications and DC Order Prescriptions: New amoxicillin-pot clavulanate [Augmentin] 875-125 mg tablet 1 tab PO BID 8 Days Qty: 16 RF: 0 Continued Xarelto 20 mg tablet 20 mg PO DAILY Qty: 90 RF: 3 pen needle, diabetic [BD Ultra-Fine Izzy Pen Needle] 32 gauge x 5/32" needle .ROUTE .MEDSUPPLY Qty: 10 RF: 0 colchicine [Colcrys] 0.6 mg tablet 0.6 mg PO DAILY Qty: 90 RF: 3 spironolactone 25 mg tablet 25 mg PO BID Qty: 180 RF: 3 omeprazole 20 mg capsule,delayed release(DR/EC) 40 mg PO DAILY Qty: 180 RF: 3 aspirin [Adult Low Dose Aspirin] 81 mg tablet,delayed release (DR/EC) 81 mg PO DAILY Qty: 90 RF: 3 multivitamin tablet 1 tab PO DAILY Qty: 30 RF: 0 Contour Next Test Strips strip .ROUTE .MEDSUPPLY Qty: 3 RF: 0 vitamin B complex [B Complex-Vitamin B12] tablet 1 tab PO DAILY Qty: 30 RF: 0 rosuvastatin 10 mg tablet 10 mg PO DAILY Qty: 90 RF: 1 gabapentin 300 mg capsule 300 mg PO TID Qty: 270 RF: 1 metformin 500 mg tablet 1,000 mg PO BID Qty: 360 RF: 3 celecoxib 200 mg capsule 200 mg PO BID Qty: 180 RF: 3 Novolog Flexpen U-100 Insulin 100 unit/mL (3 mL) insulin pen See Patient Comments SQ .COMPLEX 30 Days Qty: 2 RF: 5 Basaglar KwikPen U-100 Insulin 100 unit/mL (3 mL) insulin pen 70 unit SQ QPM RF: 0 Humira 40 mg/0.8 mL syringe kit 40 mg SQ USEASDIRECTD RF: 0 Trulicity 1.5 mg/0.5 mL pen injector 1.5 mg SQ SA RF: 0 tramadol-acetaminophen 37.5-325 mg tablet 1 tab PO Q4H PRN (Reason: pain) RF: 0 Changed prednisone 5 mg tablet 5 mg PO DIRECTED Qty: 60 RF: 1 Discontinued metolazone 5 mg tablet 5 mg PO DAILY Qty: 90 RF: 3 furosemide 40 mg tablet 40 mg PO 3XWK PRN (Reason: Edema) RF: 0 No Action mupirocin calcium 2 % cream 1 appln topical UD Qty: 30 RF: 0 allopurinol 300 mg tablet 300 mg PO DAILY Qty: 90 RF: 1 prednisone 5 mg tablet 5 mg PO .COMPLEX Qty: 45 RF: 0 furosemide 40 mg tablet 40 mg PO QAM Qty: 30 RF: 2 Discharge Orders: Discharge Order (Routine); Ordered 08/22/19 Ordered By: Buster Perry/Other Patient Handouts: Gout Eat Prevent Admission Data Admit Date/Time: 08/19/19 23:21 Attending Provider: Buster Pompa Admit Provider: Terence Hutton Primary Care Provider: Buster Chaney Other Providers: Mily Renee ; Lakshmi Haq Other Interventions: Discharge Summary Assessment (RN) Last Done: 08/22/19 17:25 DC Date/Time DO NOT enter until pt leaves facility: 08/22/19 18:50
[2019-08-22 17:37] VITALS: PULSE 93
== END 2019-08-22 18:50 | disposition home or self-care (01) | DRG 554 ==
LOC: ED 21:18 → SUATTDRO 23:21 → 2W 23:21
DX: Z79.52 Long term (current) use of systemic steroids; E66.01 Morbid (severe) obesity due to excess calories; I48.91 Unspecified atrial fibrillation; L03.032 Cellulitis of left toe; E87.6 Hypokalemia; Z79.1 Long term (current) use of non-steroidal anti-inflammatories (NSAID); L40.50 Arthropathic psoriasis, unspecified; E11.628 Type 2 diabetes mellitus with other skin complications; M06.9 Rheumatoid arthritis, unspecified; M1A.9XX1 Chronic gout, unspecified, with tophus (tophi); I10 Essential (primary) hypertension; Z68.43 Body mass index [BMI] 50.0-59.9, adult; Z79.4 Long term (current) use of insulin; E11.40 Type 2 diabetes mellitus with diabetic neuropathy, unspecified; Z87.891 Personal history of nicotine dependence; Z79.82 Long term (current) use of aspirin; Z79.899 Other long term (current) drug therapy; M45.9 Ankylosing spondylitis of unspecified sites in spine; E78.00 Pure hypercholesterolemia, unspecified

== ENCOUNTER 2021-12-19 15:24 | Observation (INO) ==
--- NOTE | 2021-12-19 16:03 | XRay Report ---
LEFT FOOT 3 VIEWS CLINICAL HISTORY: Fourth toe ulcer. FINDINGS: 3 views of the left foot are compared to left toe radiographs dated 08/20/2019. The skeletal structures are osteopenic. No acute fracture is identified. Sclerosis and erosion involving the seco nd distal phalanx is similar to the 2019 examination. No new foci of bony erosion or or periostitis a re identified. Dorsal and plantar calcaneal enthesophytes are observed. There are several hammertoe d eformities. Mild osteoarthritic change is seen at the first metatarsophalangeal joint. Moderate osteo arthritic change seen at the tarsometatarsal joints. There is varus deformity of the midfoot. Soft ti ssue edema is present throughout the forefoot. No soft tissue gas or radiodense foreign body is ident ified. IMPRESSION: 1. Soft tissue edema with no acute bony abnormality identified. 2. Osteopenia, degenerative change, heel spurs, and hammertoe deformities as above. 3. Chronic/destructive change involving the second distal phalanx is similar to the 2019 examination. Electronically signed by: Leroy Agustin M.D. 12/19/2021 4:01 PM
[2021-12-19 16:43] LABS: Basophils # (auto) 0.07 K/uL (0-0.2); Basophils % (auto) 0.8 %; Eosinophils # (auto) 0.06 K/uL (0-0.5); Eosinophils % (auto) 0.7 %; Hematocrit (blood only) 47.8 % (42-52); Hemoglobin 15.9 g/dL (14.0-18.0); Immature Granulocytes # (auto) 0.03 K/uL (0.00-0.02); Immature Granulocytes % (auto) 0.3 %; Lymphocytes % (auto) 26.1 %; Mean Corpuscular Hemoglobin 29.1 pg (25-34); Mean Corpuscular Hgb Conc 33.3 g/dL (32-36); Mean Corpuscular Volume 87.5 fL (80-100); Mean Platelet Volume 11.8 fL (7.4-10.4); Monocytes # (auto) 0.74 K/uL (0.11-0.59); Monocytes % (auto) 8.4 %; Neutrophils # (auto) 5.62 K/uL (1.4-6.5); Neutrophils % (auto) 63.7 %; Platelet Count 227 K/uL (130-400); RDW Coefficient of Variation 15.9 % (11.5-14.5); RDW Standard Deviation 49.9 fL (36.4-46.3); Red Blood Count 5.46 M/uL (4.7-6.1); White Blood Count 8.82 K/uL (4.8-10.8)
[2021-12-19 17:10] LABS: Albumin Globulin Ratio 0.9 (0.9-2); Albumin Level 3.7 gm/dl (3.4-5.0); BUN Creatinine Ratio 28.3 (10-20); Bilirubin,Total 0.5 mg/dl (0.2-1.0); C Reactive Protein 0.91 mg/dl (0-0.5); Calcium 10.2 mg/dl (8.5-10.1); Creatinine Clr Calc Pharmacy 99.3 ml/min; Est GFR (African American) 83.8 ml/min; Est GFR (Non-African American) 72.3 ml/min; Globulin 4.1 gm/dl (2.5-4.0); Potassium 3.4 mmol/L (3.5-5.1); Total Protein 7.8 gm/dl (6.0-8.3)
[2021-12-19] MEDS ORDERED: PIPERACILL/TAZOBAC CONSULT ACTIVE PRN ×2 (18:49→22:02)
[2021-12-19] MEDS ORDERED: PIPERACILLIN/TAZOBACTAM 4.5 GM/120 ML BAG IV ONE (18:49)
[2021-12-19] MEDS ORDERED: DAPTOmycin 275 MG in SYRINGE 0 ML IV ONE (18:49)
--- NOTE | 2021-12-19 20:16 | Emergency Department Note ---
Impression & Plan Diabetic foot ulcer, Morbid obesity with BMI of 50.0-59.9, adult, Osteomyelitis ED Provider Note CHIEF COMPLAINT: Left foot pain, wound HISTORY OF PRESENT ILLNESS: This 66 yo male patient presents to the emergency department presents to the emergency department with complaints of left foot p ain and a wound under the fourth toe. Patient states he has had a callus there for some time and does follow with podiatry regularly. Patient states when his brother cut the callus there was a significant amount of debris and blood came from the wound. He has significant diabetic neuropathy and has very little sensation to this area. He states the callus has become so large recently that he has had to walk on his heel. He has had difficulties with deformities in his feet for most of his life and states he is not a great surgical candidate due to his history of atrial fibrillation, diabetes and morbid obesity. Patient denies any fevers or swelling in the leg. He denied any redness to the foot or streaking up the leg. REVIEW OF SYSTEMS: A review of systems was performed with positives and pertinent negatives listed in the history of present illness. 10 systems were reviewed and are otherwise negative. ALLERGIES: see below MEDICATIONS: see below PMH: see below SOCIAL HISTORY: see below DDx: Cellulitis, abscess, MRSA infection, DVT, necrotizing fasciitis, dermatitis , drug eruption, allergic reaction, as well as other pathologies. PHYSICAL EXAM: Vital signs reviewed. General: chronically ill appearing, morbidly obese. 66 yo male, in no significant distress. HEENT: No scleral icterus, PERRLA, neck supple. Atraumatic. Cardiovascular: Regular rate and rhythm, no extra sounds. Pulmonary: Clear to auscultation bilaterally, normal work of breathing. Abdomen: Soft, nontender, nondistended, positive bowel sounds. Musculoskeletal: Atraumatic, no peripheral edema. Neurologic: Patient awake alert and oriented x 3, speech is clear Skin: Warm, dry, L foot with 2 cm open ulceration with hardened callus surrounding that has been unroofed. minimal drainage. EMERGENCY DEPARTMENT COURSE/MDM: Patient was evaluated and appeared to be in no significant distress. IV access was obtained and laboratory work was drawn. The patient was placed on front desk monitor sinus rhythm. X-ray of the foot was performed and reveals no evidence of acute fracture or obvious erosion. Patient's laboratory work reveals elevated inflammatory markers with a sed rate of 61 and a CRP of 0.91. IV Zosyn and daptomycin were initiated for the possibility of osteomyelitis. Patient felt uncomfortable with the plan for discharge and outpatient follow-up without further evaluation due to risk of osteomyelitis. Patient's case was discussed with the hospitalist to agreed to evaluate the patient for further management. MONITORING: An order for cardiac monitoring was placed and the patient is noted to be in a NSR at 78 beats per minute. 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) Hx Substance Use: No Preferred Language: Polish Communication Ability: Effective Case Operator Required: No Beliefs That Will Affect Care: None Current Living Situation: Spouse and Family Current Living Situation Comment: with in home current occupational status: retired Feels Safe at Home: Yes Childhood Exposure to Second-Hand Smoke: Yes Dental Care, Regularly: Yes Physical Activity Frequency: Does not Exercise Seatbelt Use: always Sunscreen Use: Yes Assistive Devices: None Allergies Allergies Allergy/AdvReac Type Severity Reaction Status Date / Time No Known Allergies Allergy Verified 12/19/21 16:08 Home Meds Home Medications Medication Instructions Recorded Confirmed albuterol sulfate 90 mcg/actuation 1 puff INH Q6H PRN g 04/27/21 12/19/21 aerosol inhaler cyclobenzaprine 10 mg tablet 10 mg PO Q8H PRN tab 04/27/21 12/19/21 metolazone 5 mg tablet 5 mg PO DAILY 10/27/21 12/19/21 allopurinol 300 mg tablet 450 mg PO DAILY 12/19/21 12/19/21 aspirin 81 mg tablet,delayed 81 mg PO HS 12/19/21 12/19/21 release (Adult Low Dose Aspirin) cyanocobalamin (vitamin B-12) 500 500 mcg PO HS 12/19/21 12/19/21 mcg tablet (Vitamin B-12) dulaglutide 1.5 mg/0.5 mL 1.5 mg SQ WK 12/19/21 12/19/21 subcutaneous pen injector (Trulicity) insulin aspart U-100 100 unit/mL 20 unit SQ AC 12/19/21 12/19/21 (3 mL) subcutaneous pen (Novolog Flexpen U-100 Insulin aspart) multivitamin with minerals (Men's 1 tab PO DAILY 12/19/21 12/19/21 One Daily) rivaroxaban 20 mg tablet (Xarelto) 20 mg PO QPM 12/19/21 12/19/21 sodium chloride 5 % eye drops 1 drp OPB HS 12/19/21 12/19/21 (Tyler 128) tramadol 37.5 mg-acetaminophen 325 0.5 - 1 tab PO Q12H PRN 12/19/21 12/19/21 mg tablet Previous Rx's Medication Instructions Recorded blood sugar diagnostic (Contour #3 box 01/16/21 Next Test Strips) celecoxib 200 mg capsule 200 mg PO BID #180 cap 01/16/21 furosemide 40 mg tablet 40 mg PO Q OTHER DAY #90 tab 01/16/21 gabapentin 300 mg capsule 300 mg PO TID #270 cap 01/16/21 metformin 500 mg tablet 1,000 mg PO BID #360 tab 01/16/21 pen needle, diabetic 32 gauge x #4 box 01/16/21" (BD Ultra-Fine Izzy Pen Needle) prednisone 5 mg tablet 5 mg PO DAILY #90 tab 01/16/21 rosuvastatin 10 mg tablet 10 mg PO DAILY #90 tab 01/16/21 spironolactone 25 mg tablet 25 mg PO BID #180 tab 01/16/21 omeprazole 20 mg capsule,delayed 40 mg PO DAILY #180 cap 06/01/21 release mupirocin calcium 2 % topical cream 1 applic TOPICAL UD #30 gm 07/28/21 insulin glargine 100 unit/mL (3 65 unit SQ QPM #3 box 08/31/21 mL) subcutaneous pen (Basaglar KwikPen U-100 Insulin) adalimumab 40 mg/0.8 mL See Rx Instructions SUBCUT Q14D #2 12/10/21 subcutaneous pen kit (Humira Pen) ea amoxicillin 875 mg-potassium 1 tab PO BID #20 tab 12/20/21 clavulanate 125 mg tablet Results & Data (ED) Vital Signs Vital Signs - 24 hr 12/19/21 15:28 12/19/21 19:23 Temperature 37.0 C 36.8 C Temperature Source Temporal Artery Scan Oral Pulse Rate 94 H Pulse Rate [Right Finger] 87 Respiratory Rate 22 18 Respiratory Effort / Characteristics Non-Labored Spontaneous Respiratory Depth Normal Blood Pressure 177/102 H Blood Pressure [Right Arm] 139/91 Blood Pressure Mean 127 Blood Pressure Mean [Right Arm] 107 Pulse Oximetry 95 93 Oxygen Delivery Method Room Air Room Air Sepsis Recent Fever Within 48 Hours No Sepsis New/Unexplained Change in Mental Status No Sepsis Action Taken by Nursing No Action Required Home Medications Current Medication List: was personally reviewed by me Laboratory Data Attestation: I reviewed the patient's lab results. Result diagrams: 12/20/21 07:02 12/20/21 07:02 Lab Results 12/19/21 12/19/21 12/19/21 Range/Units 15:50 16:21 16:31 WBC 8.82 (4.8-10.8) K/uL RBC 5.46 (4.7-6.1) M/uL Hgb 15.9 (14.0-18.0) g/dL Hct 47.8 (42-52) % MCV 87.5 (80-100) fL MCH 29.1 (25-34) pg MCHC 33.3 (32-36) g/dL RDW Std Deviation 49.9 H (36.4-46.3) fL RDW Coeff of Vijay 15.9 H (11.5-14.5) % Plt Count 227 (130-400) K/uL MPV 11.8 H (7.4-10.4) fL Immature Gran % (Auto) 0.3 % Neut % (Auto) 63.7 % Lymph % (Auto) 26.1 % Towner % (Auto) 8.4 % Eos % (Auto) 0.7 % Baso % (Auto) 0.8 % Neut # (Auto) 5.62 (1.4-6.5) K/uL Lymph # (Auto) 2.30 (1.2-3.4) K/uL Towner # (Auto) 0.74 H (0.11-0.59) K/uL Eos # (Auto) 0.06 (0-0.5) K/uL Baso # (Auto) 0.07 (0-0.2) K/uL Immature Gran # (Auto) 0.03 H (0.00-0.02) K/uL ESR 61 H (0-20) mm/hr Sodium (136-145) mmol/L Potassium (3.5-5.1) mmol/L Chloride (98-107) mmol/L Carbon Dioxide (21-32) mmol/L Anion Gap (3-11) BUN (6-23) mg/dl Creatinine (0.6-1.4) mg/dl Est Cr Clr Drug Dosing ml/min Est GFR ( Amer) ml/min Est GFR (Non-Af Amer) ml/min BUN/Creatinine Ratio (10-20) Glucose (70-99(Fasting)) mg/dl POC Glucose (70-99) mg/dl Calcium (8.5-10.1) mg/dl Total Bilirubin (0.2-1.0) mg/dl AST (13-39) U/L ALT (7-52) U/L Alkaline Phosphatase (34-104) U/L C-Reactive Protein (0-0.5) mg/dl Total Protein (6.0-8.3) gm/dl Albumin (3.4-5.0) gm/dl Globulin (2.5-4.0) gm/dl Albumin/Globulin Ratio (0.9-2) SARS-CoV-2, RNA, NAAT NEGATIVE (NEGATIVE) 12/19/21 12/19/21 Range/Units 16:31 20:13 WBC (4.8-10.8) K/uL RBC (4.7-6.1) M/uL Hgb (14.0-18.0) g/dL Hct (42-52) % MCV (80-100) fL MCH (25-34) pg MCHC (32-36) g/dL RDW Std Deviation (36.4-46.3) fL RDW Coeff of Vijay (11.5-14.5) % Plt Count (130-400) K/uL MPV (7.4-10.4) fL Immature Gran % (Auto) % Neut % (Auto) % Lymph % (Auto) % Towner % (Auto) % Eos % (Auto) % Baso % (Auto) % Neut # (Auto) (1.4-6.5) K/uL Lymph # (Auto) (1.2-3.4) K/uL Towner # (Auto) (0.11-0.59) K/uL Eos # (Auto) (0-0.5) K/uL Baso # (Auto) (0-0.2) K/uL Immature Gran # (Auto) (0.00-0.02) K/uL ESR (0-20) mm/hr Sodium 135 L (136-145) mmol/L Potassium 3.4 L (3.5-5.1) mmol/L Chloride 94 L (98-107) mmol/L Carbon Dioxide 30 (21-32) mmol/L Anion Gap 11 (3-11) BUN 30 H (6-23) mg/dl Creatinine 1.06 (0.6-1.4) mg/dl Est Cr Clr Drug Dosing 99.3 ml/min Est GFR ( Amer) 83.8 ml/min Est GFR (Non-Af Amer) 72.3 ml/min BUN/Creatinine Ratio 28.3 H (10-20) Glucose 170 H (70-99(Fasting)) mg/dl POC Glucose 136 H (70-99) mg/dl Calcium 10.2 H (8.5-10.1) mg/dl Total Bilirubin 0.5 (0.2-1.0) mg/dl AST 27 (13-39) U/L ALT 25 (7-52) U/L Alkaline Phosphatase 47 (34-104) U/L C-Reactive Protein 0.91 H (0-0.5) mg/dl Total Protein 7.8 (6.0-8.3) gm/dl Albumin 3.7 (3.4-5.0) gm/dl Globulin 4.1 H (2.5-4.0) gm/dl Albumin/Globulin Ratio 0.9 (0.9-2) SARS-CoV-2, RNA, NAAT (NEGATIVE) Administered Medications Discontinued Medications Allopurinol (Allopurinol 300 Mg Tab) 450 mg PO DAILY JORGE Stop: 01/19/22 08:59 Last Admin: 12/20/21 07:47 Dose: 450 mg Documented by: [id number] Aspirin (Aspirin 81 Mg Ectab) 81 mg PO HS [facility] Stop: 01/18/22 22:01 Last Admin: 12/19/21 23:12 Dose: 81 mg Documented by: [id number] Celecoxib (Celebrex 200 Mg Cap) 200 mg PO BID JORGE Stop: 01/18/22 22:01 Last Admin: 12/20/21 07:46 Dose: 200 mg Documented by: [id number] Admin: 12/19/21 23:12 Dose: 200 mg Documented by: [id number] Cyanocobalamin (Cyanocobalamin 500 Mcg Tablet (Vitamin B-12)) 500 mcg PO [facility] Stop: 01/18/22 22:01 Last Admin: 12/19/21 23:11 Dose: 500 mcg Documented by: [id number] Gabapentin (Gabapentin 300 Mg Cap) 300 mg PO TID [facility] Stop: 01/18/22 22:01 Last Admin: 12/20/21 14:21 Dose: 300 mg Documented by: [id number] Admin: 12/20/21 07:47 Dose: 300 mg Documented by: [id number] Admin: 12/19/21 23:11 Dose: 300 mg Documented by: [id number] Daptomycin 275 mg/ Syringe 5.5 mls @ 2.75 mls/min IV NOW ONE; Protocol Stop: 12/19/21 18:50 Last Admin: 12/19/21 22:47 Dose: Not Given Documented by: [id number] Piperacillin Sod/Tazobactam Sod (Zosyn) 4.5 gm in 120 mls @ 240 mls/hr IV NOW ONE Stop: 12/19/21 19:18 Last Infusion: 12/19/21 19:46 Dose: 0 mls/hr Documented by: [id number] Admin: 12/19/21 19:13 Dose: 240 mls/hr Documented by: [id number] Daptomycin 150 mg/ Syringe 3 mls @ 2.75 mls/min IV NOW ONE; Protocol Stop: 12/19/21 21:16 Last Admin: 12/19/21 21:43 Dose: 2.75 mls/min Documented by: [id number] Piperacillin Sod/Tazobactam (Sod 4.5 gm/ Dextrose) 120 mls @ 30 mls/hr IV Q8H [facility]; Protocol Stop: 12/27/21 00:59 Last Infusion: 12/20/21 11:51 Dose: 0 mls/hr Documented by: [id number] Admin: 12/20/21 07:51 Dose: 30 mls/hr Documented by: [id number] Infusion: 12/20/21 04:51 Dose: 0 mls/hr Documented by: [id number] Admin: 12/20/21 00:40 Dose: 30 mls/hr Documented by: [id number] Insulin Aspart (Insulin Aspart Per Unit) 0 units SC ACHS [facility] Stop: 01/18/22 22:01 Last Admin: 12/20/21 12:33 Dose: 4 units Documented by: [id number] Cosigned by: [id number] Admin: 12/20/21 08:35 Dose: 3 units Documented by: [id number] Cosigned by: [id number] Admin: 12/19/21 23:13 Dose: 3 units Documented by: [id number] Cosigned by: [id number] Insulin Glargine (Insulin Glargine Solostar 100 Units/Ml 3 Ml Pen) 50 units SQ QPM JORGE Stop: 01/18/22 22:01 Last Admin: 12/19/21 23:12 Dose: 50 units Documented by: [id number] Cosigned by: [id number] Multivitamins/Minerals (Cerovite Adv Formula Tab) 1 tab PO DAILY [facility] Stop: 01/19/22 08:59 Last Admin: 12/20/21 07:46 Dose: 1 tab Documented by: [id number] Pantoprazole Sodium (Pantoprazole 40 Mg Tab) 40 mg PO DAILY [facility] Stop: 01/19/22 08:59 Last Admin: 12/20/21 07:47 Dose: 40 mg Documented by: [id number] Potassium Chloride (Potassium Chloride Crtab 20 Meq Tabcr) 40 meq PO NOW STA Stop: 12/20/21 01:38 Last Admin: 12/20/21 05:48 Dose: 40 meq Documented by: [id number] Potassium Chloride (Potassium Chloride Crtab 20 Meq Tabcr) 40 meq PO Q6H JORGE Stop: 12/20/21 15:01 Last Admin: 12/20/21 14:21 Dose: 40 meq Documented by: [id number] Admin: 12/20/21 08:52 Dose: 40 meq Documented by: [id number] Prednisone (Prednisone 5 Mg Tab) 5 mg PO DAILY [facility] Stop: 01/19/22 08:59 Last Admin: 12/20/21 07:47 Dose: 5 mg Documented by: [id number] Rivaroxaban (Rivaroxaban 20 Mg Tab) 20 mg PO QDD [facility] Stop: 01/18/22 22:01 Last Admin: 12/19/21 23:11 Dose: 20 mg Documented by: [id number] Sodium Chloride (Sodium Chloride 5% Op Soln 15 Ml Btl) 1 drops OPB HS [facility] Stop: 01/18/22 22:01 Last Admin: 12/19/21 23:10 Dose: 1 drops Documented by: [id number] Spironolactone (Spironolactone 25 Mg Tab) 25 mg PO [id number] [facility] Stop: 01/18/22 22:01 Last Admin: 12/20/21 07:47 Dose: 25 mg Documented by: [id number] Admin: 12/19/21 23:12 Dose: 25 mg Documented by: [id number] Imaging Data Radiologist's Impression: Foot X-Ray 12/19/21 15:42 LEFT FOOT 3 VIEWS CLINICAL HISTORY: Fourth toe ulcer. FINDINGS: 3 views of the left foot are compared to left toe radiographs dated 08/20/2019. The skeletal structures are osteopenic. No acute fracture is identified. Sclerosis and erosion involving the second distal phalanx is similar to the 2019 examination. No new foci of bony erosion or or periostitis are identified. Dorsal and plantar calcaneal enthesophytes are observed. There are several hammertoe deformities. Mild osteoarthritic change is seen at the first metatarsophalangeal joint. Moderate osteoarthritic change seen at the tarsometatarsal joints. There is varus deformity of the midfoot. Soft tissue edema is present throughout the forefoot. No soft tissue gas or radiodense foreign body is identified. IMPRESSION: 1. Soft tissue edema with no acute bony abnormality identified. 2. Osteopenia, degenerative change, heel spurs, and hammertoe deformities as abo ve. 3. Chronic/destructive change involving the second distal phalanx is similar to the 2019 examination. Electronically signed by: Leroy Agustin M.D. 12/19/2021 4:01 PM Blood Pressure Blood Pressure Findings: Elevated blood pressure Blood Pressure Disposition: Referred to patients primary care provider Discharge Plan Visit Data Chief Complaint: Foot Injury/Pain Stated Complaint: LEFT FOOT ULCER ED Provider: Luisa Guadarrama Discharge Problem: Diabetic foot ulcer, Morbid obesity with BMI of 50.0-59.9, adult, Osteomyelitis Patient Disposition: Admitted As Inpatient Discharge Instructions Interventions: ED Discharge Assessment Last Done: 12/19/21 21:37
--- NOTE | 2021-12-19 20:36 | History & Physical Report ---
Date of Service December 19, 2021 Assessment & Plan (1) Diabetic foot ulcer: Plan: Sounds as the patient may have had a plantar wart on and off for the past 30 years, which was unroofed manually by a friend of his, and now has a diabetic foot infection Daptomycin IV and Zosyn IV Consult wound care No signs of osteomyelitis on x-ray (2) Psoriasis: Plan: Psoriatic arthropathy/gout/ankylosing spondylitis/RA- adalimumab subcu 14 days in the outpatient setting Continue Celebrex 200 mg twice daily and prednisone 5 mg daily Hold on stress dose steroids (3) Gout: Plan: Continue allopurinol 450 mg p.o. daily (4) Ankylosing spondylitis: Plan: As above (5) Atrial fibrillation: Plan: Atrial fibrillation/hypertension/edema- Continue aspirin 81 mg daily, furosemide 40 mg every other day Xarelto 20 mg daily Spironolactone 25 mg p.o. twice daily. Hold metolazone Give Klor-Con 40 mEq p.o. now for potassium 3.4 (6) Benign hypertension: Plan: See above (7) Chronic gastroesophageal reflux disease: Plan: Continue omeprazole/pantoprazole (8) Rheumatoid arthritis: Plan: See above (9) Type 2 diabetes mellitus: Plan: Hold dulaglutide, and Metformin Continue insulin glargine 65 units subcu in the evening (10) Diabetic nephropathy associated with type 2 diabetes mellitus: Plan: Continue gabapentin 300 mg p.o. 3 times daily (11) Hyperlipidemia LDL goal <70: Plan: Continue rosuvastatin 10 mg daily History of Present Illness Chief Complaint: The patient presents to the emergency department with complaint of a painful sore on his left foot after a friend of his unroofed what appeared to be a chronic callus there Primary Care Provider: LUIS ALFREDO Vazquez The patient is a 66-year-old male with past medical history including psoriasis, vitamin D deficiency, situational stress, gout, ankylosing spondylitis, atrial fibrillation, hypertension, GERD, psoriatic arthropathy, See's syndrome, RA, diabetes mellitus type 2, morbid obesity and diabetic nephropathy. He reports that he has had a callus that has periodically been scraped on the bottom of his left foot for the past 30 years, however, 2 days ago he had a friend of his unroof it, and reports that fluid immediately spurted out of it, and since that time has become more sore and reddened and he presents to the ED for evaluation this evening. Allergies Allergy/AdvReac Type Severity Reaction Status Date / Time No Known Allergies Allergy Verified 12/19/21 16:08 Home Medications Medication Instructions Recorded Confirmed Type blood sugar diagnostic (Contour #3 box 01/16/21 10/27/21 Rx Next Test Strips) celecoxib 200 mg capsule 200 mg PO BID #180 cap 01/16/21 12/19/21 Rx furosemide 40 mg tablet 40 mg PO Q OTHER DAY #90 tab 01/16/21 12/19/21 Rx gabapentin 300 mg capsule 300 mg PO TID #270 cap 01/16/21 12/19/21 Rx metformin 500 mg tablet 1,000 mg PO BID #360 tab 01/16/21 12/19/21 Rx pen needle, diabetic 32 gauge x #4 box 01/16/21 10/27/21 Rx 5/32" (BD Ultra-Fine Izzy Pen Needle) prednisone 5 mg tablet 5 mg PO DAILY #90 tab 01/16/21 12/19/21 Rx rosuvastatin 10 mg tablet 10 mg PO DAILY #90 tab 01/16/21 12/19/21 Rx spironolactone 25 mg tablet 25 mg PO BID #180 tab 01/16/21 12/19/21 Rx albuterol sulfate 90 mcg/actuation 1 puff INH Q6H PRN g 04/27/21 12/19/21 History aerosol inhaler cyclobenzaprine 10 mg tablet 10 mg PO Q8H PRN tab 04/27/21 12/19/21 History omeprazole 20 mg capsule,delayed 40 mg PO DAILY #180 cap 06/01/21 12/19/21 Rx release mupirocin calcium 2 % topical cream 1 applic TOPICAL UD #30 gm 07/28/21 12/19/21 Rx insulin glargine 100 unit/mL (3 65 unit SQ QPM #3 box 08/31/21 12/19/21 Rx mL) subcutaneous pen (Basaglar KwikPen U-100 Insulin) metolazone 5 mg tablet 5 mg PO DAILY 10/27/21 12/19/21 History adalimumab 40 mg/0.8 mL See Rx Instructions SUBCUT Q14D #2 12/10/21 12/19/21 Rx subcutaneous pen kit (Humira Pen) ea allopurinol 300 mg tablet 450 mg PO DAILY 12/19/21 12/19/21 History aspirin 81 mg tablet,delayed 81 mg PO HS 12/19/21 12/19/21 History release (Adult Low Dose Aspirin) cyanocobalamin (vitamin B-12) 500 500 mcg PO HS 12/19/21 12/19/21 History mcg tablet (Vitamin B-12) dulaglutide 1.5 mg/0.5 mL 1.5 mg SQ WK 12/19/21 12/19/21 History subcutaneous pen injector (Trulicity) insulin aspart U-100 100 unit/mL 20 unit SQ AC 12/19/21 12/19/21 History (3 mL) subcutaneous pen (Novolog Flexpen U-100 Insulin aspart) multivitamin with minerals (Men's 1 tab PO DAILY 12/19/21 12/19/21 History One Daily) rivaroxaban 20 mg tablet (Xarelto) 20 mg PO QPM 12/19/21 12/19/21 History sodium chloride 5 % eye drops 1 drp OPB HS 12/19/21 12/19/21 History (Tyler 128) tramadol 37.5 mg-acetaminophen 325 0.5 - 1 tab PO Q12H PRN 12/19/21 12/19/21 History mg tablet Past Med/Surg History Medical History (Updated 12/20/21 @ 03:31 by Terence Hutton MD) Diverticulosis of colon Gout Hx of fall Hyperlipidemia LDL goal <70 Internal hemorrhoids Osteoarthritis Psoriasis Surgical History History of total hip arthroplasty Family History Family/Other Brain cancer Uncle Colorectal cancer Prostate cancer Father Myocardial infarction Mother Myocardial infarction Lung cancer Denies family history of Ovarian cancer Breast cancer Social History Smoking Status: Former smoker packs per day: 2; Smoking End Date: 5 years ago; Second Hand Exposure: No; 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) Hx Substance Use: No Preferred Language: Libyan Communication Ability: Effective Casing Soaker Required: No Beliefs That Will Affect Care: None Current Living Situation: Spouse and Family Current Living Situation Comment: with in home current occupational status: retired Other Information That Helps Us Care for You: No Feels Safe at Home: Yes Safety Concerns: Feels Safe At This Time Childhood Exposure to Second-Hand Smoke: Yes Dental Care, Regularly: Yes Physical Activity Frequency: Does not Exercise Seatbelt Use: always Sunscreen Use: Yes Assistive Devices: Cane Review of Systems Review of Systems: The patient denies chest pain, palpitations, shortness of breath, dyspnea on exertion, cough, sore throat, fevers, chills, sweats, weight change, fatigue, nausea, vomiting, diarrhea , constipation, abdominal pain, pelvic pain, blood in urine or stool, dysuria, urinary frequency or urgency, lightheadedness, dizziness, headache, memory loss, loss of consciousness, focal or generalized weakness, numbness or tingling in arms or right leg, arthralgias or myalgias, back or neck pain, or night sweats. The review of systems is otherwise negative other than for that already noted above, and at least 10 systems have been reviewed. Physical Exam Physical Exam: The patient is awake, alert and oriented 3, well developed and well nourished, normocephalic and atraumatic, lying in bed and in no acute distress. HEENT--PERRL, EOMI, mucous membranes and oropharynx normal. Neck--supple. No JVD. No bruits. Thyroid normal, trachea midline, no adenopathy. Heart--normal S1 and S2. No murmurs, rubs or gallops. Lungs--clear bilaterally, no respiratory distress, no accessory muscle use. Abdomen--normal bowel sounds and soft. Nontender. Morbidly obese. Extremities--no cyanosis or clubbing. 1+ bilateral pretibial pitting edema. Dermatologic--base of left foot with lesion with central excavation and surrounding erythema, no granulation tissue. Neurologic--cranial nerves II through XII grossly intact. Rheumatologic--normal range of motion. Psychiatric--normal affect. Results & Data Results & Data ([facility]) Vital Signs (Past 12 Hours) Vital Signs Temp Pulse Pulse Resp BP BP Pulse Ox 12/19/21 19:23 36.8 C 87 18 139/91 93 12/19/21 15:28 37.0 C 94 H 22 177/102 H 95 Laboratory Results Laboratory Results WBC 8.82 K/uL (4.8-10.8) 12/19/21 16: RBC 5.46 M/uL (4.7-6.1) 12/19/21 16:31 Hgb 15.9 g/dL (14.0-18.0) 12/19/21 16:31 Hct 47.8 % (42-52) 12/19/21 16:31 MCV 87.5 fL (80-100) 12/19/21 16: MCH 29.1 pg (25-34) 12/19/21 16: MCHC 33.3 g/dL (32-36) 12/19/21 16: RDW Std Deviation 49.9 fL (36.4-46.3) H 12/19/21 16: RDW Coeff of Vijay 15.9 % (11.5-14.5) H 12/19/21 16: Plt Count 227 K/uL (130-400) 12/19/21 16: MPV 11.8 fL (7.4-10.4) H 12/19/21 16: Immature Gran % (Auto) 0.3 % 12/19/21 16: Neut % (Auto) 63.7 % 12/19/21 16: Lymph % (Auto) 26.1 % 12/19/21 16: [place] % (Auto) 8.4 % 12/19/21 16:31 Eos % (Auto) 0.7 % 12/19/21 16:31 Baso % (Auto) 0.8 % 12/19/21 16: Neut # (Auto) 5.62 K/uL (1.4-6.5) 12/19/21 16:31 Lymph # (Auto) 2.30 K/uL (1.2-3.4) 12/19/21 16:31 [place] # (Auto) 0.74 K/uL (0.11-0.59) H 12/19/21 16: Eos # (Auto) 0.06 K/uL (0-0.5) 12/19/21 16:31 Baso # (Auto) 0.07 K/uL (0-0.2) 12/19/21 16: Immature Gran # (Auto) 0.03 K/uL (0.00-0.02) H 12/19/21 16:31 ESR 61 mm/hr (0-20) H 12/19/21 16:21 Sodium 135 mmol/L (136-145) L 12/19/21 16:31 Potassium 3.4 mmol/L (3.5-5.1) L 12/19/21 16:31 Chloride 94 mmol/L (98-107) L 12/19/21 16:31 Carbon Dioxide 30 mmol/L (21-32) 12/19/21 16:31 Anion Gap 11 (3-11) 12/19/21 16:31 BUN 30 mg/dl (6-23) H 12/19/21 16:31 Creatinine 1.06 mg/dl (0.6-1.4) 12/19/21 16:31 Est Cr Clr Drug Dosing 99.3 ml/min 12/19/21 16:31 Est GFR ( Amer) 83.8 ml/min 12/19/21 16:31 Est GFR (Non-Af Amer) 72.3 ml/min 12/19/21 16:31 BUN/Creatinine Ratio 28.3 (10-20) H 12/19/21 16:31 Glucose 170 mg/dl (70-99(Fasting)) H 12/19/21 16:31 POC Glucose 214 mg/dl (70-99) H 12/19/21 22:31 Calcium 10.2 mg/dl (8.5-10.1) H 12/19/21 16:31 Total Bilirubin 0.5 mg/dl (0.2-1.0) 12/19/21 16:31 AST 27 U/L (13-39) 12/19/21 16:31 ALT 25 U/L (7-52) 12/19/21 16:31 Alkaline Phosphatase 47 U/L (34-104) 12/19/21 16:31 C-Reactive Protein 0.91 mg/dl (0-0.5) H 12/19/21 16:31 Total Protein 7.8 gm/dl (6.0-8.3) 12/19/21 16:31 Albumin 3.7 gm/dl (3.4-5.0) 12/19/21 16:31 Globulin 4.1 gm/dl (2.5-4.0) H 12/19/21 16:31 Albumin/Globulin Ratio 0.9 (0.9-2) 12/19/21 16:31 SARS-CoV-2, RNA, NAAT NEGATIVE (NEGATIVE) 12/19/21 15:50 Impressions Foot X-Ray 12/19/21 15:42 LEFT FOOT 3 VIEWS CLINICAL HISTORY: Fourth toe ulcer. FINDINGS: 3 views of the left foot are compared to left toe radiographs dated 08/20/2019. The skeletal structures are osteopenic. No acute fracture is identified. Sclerosis and erosion involving the second distal phalanx is similar to the 2019 examination. No new foci of bony erosion or or periostitis are identified. Dorsal and plantar calcaneal enthesophytes are observed. There are several hammertoe deformities. Mild osteoarthritic change is seen at the first metatarsophalangeal joint. Moderate osteoarthritic change seen at the tarsometatarsal joints. There is varus deformity of the midfoot. Soft tissue edema is present throughout the forefoot. No soft tissue gas or radiodense foreign body is identified. IMPRESSION: 1. Soft tissue edema with no acute bony abnormality identified. 2. Osteopenia, degenerative change, heel spurs, and hammertoe deformities as above. 3. Chronic/destructive change involving the second distal phalanx is similar to the 2019 examination. Electronically signed by: Leroy Agustin M.D. 12/19/2021 4:01 PM Code Status & VTE Plan Code Status Full code VTE Prophylaxis Plan VTE Prophylaxis will be ordered: Yes PG Care Time/CCT Total # of Minutes Spent Total Time Spent with Patient: Total time spent is greater than 50% in coordination of care (as documented) at patient's floor/unit and/or counseling patient: Coding Level of Care Code 10550 Initial Inpt Care Lvl 3 Diagnoses Diabetic foot ulcer E11.621; L97.509 Psoriasis L40.9 Gout M10.9 Gout site: foot Gout etiology: due to renal impairment Chronicity: chronic Laterality: right Ankylosing spondylitis M45.9 Atrial fibrillation I48.91 Benign hypertension I10 Chronic gastroesophageal reflux disease K21.9 Rheumatoid arthritis M06.9 Type 2 diabetes mellitus E11.9 Diabetic nephropathy associated with type 2 diabetes mellitus E11.21 Hyperlipidemia LDL goal <70 E78.5 (1) Gout Gout site: foot Gout etiology: due to renal impairment Chronicity: chronic Laterality: right
[2021-12-19] MEDS ORDERED: DAPTOmycin 150 MG in SYRINGE 0 ML IV ONE (21:15)
[2021-12-19] MEDS ORDERED: CYANOCOBALAMIN (B-12) 500 MCG TABLET PO SCH (22:02)
[2021-12-19] MEDS ORDERED: SODIUM CHLORIDE 5% OP SOLN 15 ML BTL OPB SCH (22:02)
[2021-12-19] MEDS ORDERED: GLUCOSE 40% GEL 15 GM TUBE PO PRN (22:02)
[2021-12-19] MEDS ORDERED: GLUCAGON FOR INJ 1 MG VIAL SQ PRN (22:02)
[2021-12-19] MEDS ORDERED: RIVAROXABAN 20 MG TAB PO SCH (22:02)
[2021-12-19] MEDS ORDERED: CARBOHYDRATES FOR HYPOGLYCEMIA PO PRN (22:02)
[2021-12-19] MEDS ORDERED: GLUCOSE 10 TABS/TUBE PO PRN (22:02)
[2021-12-19] MEDS ORDERED: ALBUTEROL HFA 8 GM INHALER INH PRN (22:02)
[2021-12-19] MEDS ORDERED: CYCLOBENZAPRINE HCL 10 MG TAB PO PRN (22:02)
[2021-12-19] MEDS ORDERED: ONDANSETRON INJ 2 MG/ML 2 ML VIAL IV PRN (22:02)
[2021-12-19] MEDS ORDERED: DEXTROSE 50% 50 ML SYRINGE IV PRN (22:02)
[2021-12-19] MEDS ORDERED: ACETAMINOPHEN 325 MG TAB PO PRN (22:02)
[2021-12-19] MEDS ORDERED: ASPIRIN 81 MG ECTAB PO SCH (22:02)
[2021-12-19] MEDS ORDERED: INSULIN GLARGINE SOLOSTAR 100 UNITS/ML 3 ML PEN SQ SCH (22:02)
[2021-12-19] MEDS: GABAPENTIN 300 MG CAP PO SCH (23:11)
[2021-12-19] MEDS: SPIRONOLACTONE 25 MG TAB PO SCH (23:12)
[2021-12-19] MEDS: CeleBREX 200 MG CAP PO SCH (23:12)
[2021-12-19] MEDS: INSULIN ASPART PER UNIT SC SCH (23:13)
[2021-12-20] MEDS: PIPERACILLIN/TAZOBACTAM 4.5 GM in DEXTROSE 5% 100 ML IV SCH ×2 (00:40→07:51)
[2021-12-20] MEDS ORDERED: POTASSIUM CHLORIDE CRTAB 20 MEQ TABCR PO STA (01:37)
[2021-12-20 07:30] LABS: Basophils # (auto) 0.06 K/uL (0-0.2); Basophils % (auto) 0.6 %; Eosinophils # (auto) 0.19 K/uL (0-0.5); Eosinophils % (auto) 1.9 %; Hematocrit (blood only) 43.2 % (42-52); Hemoglobin 14.1 g/dL (14.0-18.0); Immature Granulocytes # (auto) 0.01 K/uL (0.00-0.02); Immature Granulocytes % (auto) 0.1 %; Lymphocytes # (auto) 3.55 K/uL (1.2-3.4); Lymphocytes % (auto) 35.1 %; Mean Corpuscular Hemoglobin 28.7 pg (25-34); Mean Corpuscular Hgb Conc 32.6 g/dL (32-36); Mean Platelet Volume 11.5 fL (7.4-10.4); Monocytes # (auto) 1.06 K/uL (0.11-0.59); Monocytes % (auto) 10.5 %; Neutrophils # (auto) 5.24 K/uL (1.4-6.5); Neutrophils % (auto) 51.8 %; Platelet Count 233 K/uL (130-400); RDW Coefficient of Variation 16.1 % (11.5-14.5); RDW Standard Deviation 52.3 fL (36.4-46.3); Red Blood Count 4.91 M/uL (4.7-6.1); White Blood Count 10.11 K/uL (4.8-10.8)
[2021-12-20] MEDS: CeleBREX 200 MG CAP PO SCH (07:46)
[2021-12-20] MEDS: SPIRONOLACTONE 25 MG TAB PO SCH (07:47)
[2021-12-20] MEDS: GABAPENTIN 300 MG CAP PO SCH ×2 (07:47→14:21)
[2021-12-20 07:51] LABS: Albumin Globulin Ratio 0.9 (0.9-2); Albumin Level 3.5 gm/dl (3.4-5.0); Bilirubin,Total 0.4 mg/dl (0.2-1.0); Calcium 9.6 mg/dl (8.5-10.1); Creatinine Clr Calc Pharmacy 106.9 ml/min; Est GFR (African American) 89.9 ml/min; Est GFR (Non-African American) 77.5 ml/min; Globulin 3.8 gm/dl (2.5-4.0); Potassium 2.9 mmol/L (3.5-5.1); Total Protein 7.3 gm/dl (6.0-8.3)
[2021-12-20] MEDS: INSULIN ASPART PER UNIT SC SCH ×2 (08:35→12:33)
[2021-12-20] MEDS: POTASSIUM CHLORIDE CRTAB 20 MEQ TABCR PO SCH ×2 (08:52→14:21)
[2021-12-20] MEDS ORDERED: CEROVITE ADV FORMULA TAB PO SCH (09:00)
[2021-12-20] MEDS ORDERED: PANTOprazole 40 MG TAB PO SCH (09:00)
[2021-12-20] MEDS ORDERED: ROSUVASTATIN CALCIUM 10 MG TAB PO SCH (09:00)
[2021-12-20] MEDS ORDERED: allopurinoL 300 MG TAB PO SCH (09:00)
[2021-12-20] MEDS ORDERED: predniSONE 5 MG TAB PO SCH (09:00)
--- NOTE | 2021-12-20 09:37 | Electrocardiogram Report ---
Test Reason : Blood Pressure : / mmHG Vent. Rate : 076 BPM Atrial Rate : 071 BPM P-R Int : 274 ms QRS Dur : 094 ms QT Int : 444 ms P-R-T Axes : -39 -08 023 degrees QTc Int : 499 ms Poor data quality, interpretation may be adversely affected Probable Sinus rhythm Artifact precludes further analysis Abnormal ECG When compared with ECG of 21-AUG-2019 06:43, Artifact now present Confirmed by Aftab Pat ([id number]) on 12/20/2021 9:37:00 AM Referred By: REFERRED SELF Confirmed By:Aftab Pat
--- NOTE | 2021-12-20 13:30 | Discharge Summary ---
Date of Service December 20, 2021 Admission HPI Per Admitting Provider The patient is a 66-year-old male with past medical history including psoriasis, vitamin D deficiency, situational stress, gout, ankylosing spondylitis, atrial fibrillation, hypertension, GERD, psoriatic arthropathy, See's syndrome, RA, diabetes mellitus type 2, morbid obesity and diabetic nephropathy. He reports that he has had a callus that has periodically been scraped on the bottom of his left foot for the past 30 years, however, 2 days ago he had a friend of his unroof it, and reports that fluid immediately spurted out of it, and since that time has become more sore and reddened and he presents to the ED for evaluation this evening. Principal Diagnosis L diabetic foot ulcer w/o superimposed cellulitis Discharge Exam GENERAL: 66 yo morbidly obese WM who appears older than stated age. Cooperative. NAD. LUNGS: Clear to auscultation bilaterally. No W/R/R. CARDIOVASCULAR: Regular rate and rhythm. No M/G/R. ABDOMEN: Soft, obese, nontender, BS normal x 4 quad. EXTREMITIES: No edema. Non-tender. Peripheral pulses +2/4. NEUROLOGIC: A&O x3. PSYCHIATRIC: Cooperative. Appropriate mood and affect. SKIN: Grape size surface wound over plantar aspect of L forefoot with pea-size ulcer noted in the center. No active bleeding or draining. Discharge Data Allergies Allergy/AdvReac Type Severity Reaction Status Date / Time No Known Allergies Allergy Verified 12/19/21 16:08 Consultations None Procedures Performed None Ordered Studies Foot X-Ray 12/19/21 15:42 LEFT FOOT 3 VIEWS CLINICAL HISTORY: Fourth toe ulcer. FINDINGS: 3 views of the left foot are compared to left toe radiographs dated 08/20/2019. The skeletal structures are osteopenic. No acute fracture is identified. Sclerosis and erosion involving the second distal phalanx is similar to the 2019 examination. No new foci of bony erosion or or periostitis are identified. Dorsal and plantar calcaneal enthesophytes are observed. There are several hammertoe deformities. Mild osteoarthritic change is seen at the first metatarsophalangeal joint. Moderate osteoarthritic change seen at the tarsometatarsal joints. There is varus deformity of the midfoot. Soft tissue edema is present throughout the forefoot. No soft tissue gas or radiodense foreign body is identified. IMPRESSION: 1. Soft tissue edema with no acute bony abnormality identified. 2. Osteopenia, degenerative change, heel spurs, and hammertoe deformities as above. 3. Chronic/destructive change involving the second distal phalanx is similar to the 2019 examination. Electronically signed by: Leroy Agustin M.D. 12/19/2021 4:01 PM Hospital Course (1) Diabetic foot ulcer: Pt admitted for diabetic foot ulcer -- however, this is in absence of fever, elevated wbc count, active draining, or other signs concerning for worsening infection. He has not been on a course of abx as an outpatient. In addition, he was just seen by podiatry on 11/04 and had his calluses debrided. Daptomycin IV and Zosyn IV were started empirically by admitting provider. Consulted wound care, but not seen as they are not here on the weekends. No signs of osteomyelitis on x-ray. ESR 61 and CRP 0.91; however, considered nonspecific as he has chronic inflammatory conditions (RA). WBC wnl w/o shfit in differential. Superficial wound culture ordered and is pending at this time. Pin point growth noted. At this time, pt does not appear to have superimposed cellulitis, no erythema streaking up the leg, no active drainage. Will plan to dc home today on course of oral abx --> Augmentin 875/125mg BID x 10 days Will arrange for close follow up w/ his lighting specialist later this week. They can f/u with culture results and adjust abx if needed. Would advise daily dressing changes, can clean/irrigate with saline and cover with nonstick padded dressing such as optifoam. Will order a camboot in order to keep excessive pressure off of the left forefoot when ambulating. (2) Psoriasis: Psoriatic arthropathy/gout/ankylosing spondylitis/RA- adalimumab subcu 14 days in the outpatient setting Continue Celebrex 200 mg twice daily and prednisone 5 mg daily (3) Gout: Continue allopurinol 450 mg p.o. daily (4) Ankylosing spondylitis: As above (5) Atrial fibrillation: Currently examines in NSR Continue aspirin 81 mg daily, furosemide 40 mg every other day Xarelto 20 mg daily continued (6) Benign hypertension: Spironolactone 25 mg p.o. twice daily. BP well controlled (7) Chronic gastroesophageal reflux disease: Continue omeprazole/pantoprazole (8) Rheumatoid arthritis: See above (9) Type 2 diabetes mellitus: Hold dulaglutide, and Metformin Continue insulin glargine 65 units subcu in the evening (10) Diabetic nephropathy associated with type 2 diabetes mellitus: Continue gabapentin 300 mg p.o. 3 times daily (11) Hyperlipidemia LDL goal <70: Continue rosuvastatin 10 mg daily (12) Hypokalemia: KCl 40 meq given x1 in ED on admission This morning, K+ 2.9, replacement ordered No concern for superimposed cellulitis at this time. Wound appears chronic, without any active bleeding or draining. Advised dressing changes daily. Will arrange for follow-up with his lighting specialist this week. Transition to oral Augmentin x10 days as noted above. Total Time Total Time Spent Total Time Spent (In Minutes): >30 minutes Discharge Plan Discharge Items Patient Disposition: Home - Self-Care Reason For Visit: DIABETIC FOOT ULCER Discharge Diagnosis: Diabetic Left foot ulcer Activity: As commented below Activity Comment: As tolerated, use L foot boot when walking Non-emergency contact: Primary Care Provider and Specialist Call non-emergency contact if: you have any medication questions, your symptoms worsen, your temperature is above 101, your wound has increased redness, your wound has increased drainage and your wound pain has increased Follow-up/Referrals: Connie Chacon CRNP [Primary Care Provider] - Lakshmi Mansfield DPM [Physician] - (open diabetic foot ulcer on L forefoot, plantar aspect) Diet: Carb Consistent or DM2 Addtl Attending Provider Instructions: Complete course of Augmentin as prescribed. Take with food. Take first dose with dinner this evening (12/20/21). Someone will be in touch with you from the hospital regarding a follow-up appointment with your lighting specialist. Ideally would like you to be seen by her this week. Wear boot on left foot when ambulating to minimize pressure on the ulcer which can prevent adequate healing. Clean ulcer once a day, irrigate with saline which can be purchased over the counter and cover with optifoam (or similar product) which is a padded nonstick dressing. Keep covered with daily dressing changes until you are seen by your lighting specialist. Notify PCP or lighting specialist NATACHA of any changes including increased drainage, bleeding, swelling, redness, or increased pain. Follow up with PCP within 1 week of discharge. Pending Studies at Discharge: Yes Studies:: wound culture of L foot ulcer Stand-Alone Forms: My [facility] [place] [employer], Smoking Cessation Medications and DC Order Prescriptions: New amoxicillin-pot clavulanate 875-125 mg tablet 1 tab PO BID Qty: 20 RF: 0 Continued (DME) Contour Next Test Strips Strip See Dose Instructions .ROUTE .MEDSUPPLY Qty: 3 RF: 3 celecoxib 200 mg capsule 200 mg PO BID Qty: 180 RF: 3 furosemide 40 mg tablet 40 mg PO Q OTHER DAY Qty: 90 RF: 3 gabapentin 300 mg capsule 300 mg PO TID Qty: 270 RF: 3 metformin 500 mg tablet 1,000 mg PO BID Qty: 360 RF: 3 (DME) pen needle, diabetic [BD Ultra-Fine Izzy Pen Needle] 32 gauge x 5/32" needle See Dose Instructions .ROUTE .MEDSUPPLY Qty: 4 RF: 3 prednisone 5 mg tablet 5 mg PO DAILY Qty: 90 RF: 3 rosuvastatin 10 mg tablet 10 mg PO DAILY Qty: 90 RF: 3 spironolactone 25 mg tablet 25 mg PO BID Qty: 180 RF: 3 omeprazole 20 mg capsule,delayed release(DR/EC) 40 mg PO DAILY Qty: 180 RF: 3 mupirocin calcium 2 % cream 1 applic topical UD Qty: 30 RF: 3 Basaglar KwikPen U-100 Insulin 100 unit/mL (3 mL) insulin pen 65 unit SQ QPM Qty: 3 RF: 3 Humira Pen 40 mg/0.8 mL pen injector kit See Rx Instructions subcut Q14D Qty: 2 RF: 5 albuterol sulfate 90 mcg/actuation HFA aerosol inhaler 1 puff INH Q6H PRN (Reason: Shortness Of Breath Or Wheezing) RF: 0 cyclobenzaprine 10 mg tablet 10 mg PO Q8H PRN (Reason: MUSCLE SPASMS) RF: 0 metolazone 5 mg tablet 5 mg PO DAILY RF: 0 sodium chloride [Tyler 128] 5 % Drops 1 drp OPB HS RF: 0 cyanocobalamin (vitamin B-12) [Vitamin B-12] 500 mcg Tablet 500 mcg PO HS RF: 0 Men's One Daily Tablet 1 tab PO DAILY RF: 0 tramadol-acetaminophen 37.5-325 mg tablet 0.5 - 1 tab PO Q12H PRN (Reason: pain) RF: 0 aspirin [Adult Low Dose Aspirin] 81 mg tablet,delayed release (DR/EC) 81 mg PO HS RF: 0 allopurinol 300 mg tablet 450 mg PO DAILY RF: 0 insulin aspart U-100 [Novolog Flexpen U-100 Insulin] 100 unit/mL (3 mL) insulin pen 20 unit SQ AC RF: 0 Xarelto 20 mg tablet 20 mg PO QPM RF: 0 Trulicity 1.5 mg/0.5 mL pen injector 1.5 mg SQ WK RF: 0 Discharge Orders: Discharge Order (Routine); Ordered 12/20/21 Ordered By: Rosemary Mcclendon Admission Data Admit Date/Time: 12/19/21 20:36 Attending Provider: Gregorio Nassar Admit Provider: Terence Hutton Primary Care Provider: Connie Chacon Other Providers: Terence Hutton Other Interventions: Discharge Summary Assessment (RN) Last Done: 12/20/21 12:48 Coding Level of Care Code D/C DAY MANAGEMENT >30 MINS Diagnoses Diabetic foot ulcer E11.621; L97.509 Psoriasis L40.9 Gout M10.9 Gout site: foot Gout etiology: due to renal impairment Chronicity: chronic Laterality: right Ankylosing spondylitis M45.9 Atrial fibrillation I48.91 Benign hypertension I10 Chronic gastroesophageal reflux disease K21.9 Rheumatoid arthritis M06.9 Type 2 diabetes mellitus E11.9 Diabetic nephropathy associated with type 2 diabetes mellitus E11.21 Hyperlipidemia LDL goal <70 E78.5 Hypokalemia E87.6
[2021-12-20] MEDS ORDERED: INSULIN GLARGINE SOLOSTAR 100 UNITS/ML 3 ML PEN SQ SCH (21:00)
[2021-12-20] MEDS ORDERED: DAPTOmycin 425 MG in SYRINGE 0 ML IV SCH (22:00)
[2021-12-21 07:51] LABS: Estimated Average Glucose 177 mg/dl; Hemoglobin A1C 7.8 % (4.5-5.6)
[2021-12-21] MEDS ORDERED: FUROSEMIDE 40 MG TAB PO SCH (09:00)
== END 2021-12-20 15:09 | disposition home or self-care (01) ==
LOC: ED 15:24 → SUATTDRO 20:36 → INTOOBSV 20:36 → EDINP 20:36 → 3N 21:37

== ENCOUNTER 2022-06-08 13:39 | Inpatient (IN) ==
--- NOTE | 2022-06-08 14:54 | Emergency Department Note ---
Impression & Plan CHF (congestive heart failure), A-fib, Diabetic foot ulcer, Breath shortness ED Provider Note NAME: VIDA BAZAN AGE: 67 SEX: M : 1955 ARRIVES VIA: Walk-In INFORMANT: Patient ED PROVIDER(S): Josh Abdi DO CHIEF COMPLAINT: Shortness of breath and leg swelling HPI: Patient is a 67-year-old male with a past medical history of diabetes, psoriasis, A. fib, hypertension, See's syndrome, morbid obesity who presents to the ER for bilateral lower extremity swelling associated with shortness of breath. He has gained 20 pounds over the past month. He notes he can no longer get up and move around as he is so short of breath. He does admit to increased swelling of his bilateral legs with his left being slightly worse than his right. He is currently is being treated for an infection on the base of his left foot. He has been taking antibiotics for the past week. They increased his Lasix to daily for the past week and he still feels that he is gaining weight. He is taking doxycycline for his foot infection. ROS: See above HPI for pertinent positives & negatives. A total of 10 systems reviewed and were otherwise negative. PAST MEDICAL HISTORY:See Below PAST SURGICAL HISTORY:See Below FAMILY HISTORY:See Below SOCIAL HISTORY:See Below HOME MEDICATIONS:See Below ALLERGIES:See Below VITALS:See Below PHYSICAL EXAMINATION: GENERAL: Sitting up in bed, alert, well appearing, well nourished, no distress, non-toxic EYE EXAM: normal conjunctiva. PERRL and EOM's grossly intact. OROPHARYNX: no exudate, no erythema, lips, buccal mucosa, and tongue normal and mucous membranes are moist NECK: supple, no nuchal rigidity, no adenopathy, non-tender LUNGS: Clear to auscultation. Normal chest wall mechanics HEART: no murmurs, S1 normal and S2 normal ABDOMEN: abdomen soft, non-tender, normo-active bowel sounds, no masses, no rebound or guarding. UPPER EXTREMITIES: upper extremities are grossly normal. LOWER EXTREMITIES: N pitting edema in bilateral lower extremities with left calf being larger than right and erythema over the left frey with a wound at the base of the third metatarsal NEURO EXAM: Normal sensorium, cranial nerves II-XII grossly intact, normal speech, no gross weakness of arms, no gross weakness of legs. MEDICAL DECISION MAKING: Patient is a 67-year-old male who presents the ER for the above-stated complaint. IV was established with orders obtained. Labs show no significant leukocytosis or anemia. BMP shows a slightly low magnesium at 1.6. LFTs bilirubin was unremarkable. Troponin was negative. Lipase was normal. COVID was negative. Chest x-ray although read as normal did show some cephalization to be consistent with CHF. Pitting edema to bilateral lower extremities. He is short of breath with lying flat and up and moving around. 20 pound weight gain. He has increased his Lasix and symptoms are still getting worse and consequently discussed with the hospitalist for further evaluation as he is in A. fib and I do believe he is likely symptomatic from this as he appears to normally be in sinus rhythm. Anticoagulated consequently PE was not pursued. Triage Nursing notes reviewed. Limited review of prior medical records performed Vital Signs: reviewed and remarkable for htn Differential diagnosis: Differential diagnoses includes but is not limited to pneumonia, bronchitis, COPD/Asthma exacerbation, pneumothorax, pulmonary embolism, congestive heart failure, acute coronary syndrome ER treatment provided: See below Diagnostics interpreted by me: ECG: A. fib rate of 102 Left axis PVC QTC 450 Cardiac Monitoring: An order was placed for continuous cardiac monitoring. The monitor shows a rate of 95 with afib rhythm. Laboratory studies: As stated above and show below. Imaging studies: Portable AP upright 1 view per her my read shows cephalization consistent with Consultation(s): D/w Dr. Boone further evaluation Procedures: none Critical Care: None Past Med/Surg History Medical History (Updated 06/08/22 @ 19:37 by Josh Abdi DO) Atrial fibrillation (05/23/13) Diabetic foot ulcer Diverticulosis of colon Gout Hx of fall Hyperlipidemia LDL goal <70 Internal hemorrhoids Morbid obesity with BMI of 50.0-59.9, adult Osteoarthritis Psoriasis Psoriatic arthropathy Rheumatoid arthritis (05/23/13) SOB (shortness of breath) Surgical History History of total hip arthroplasty Family History Family/Other Brain cancer Uncle Colorectal cancer Prostate cancer Father Myocardial infarction Mother Myocardial infarction Lung cancer Denies family history of Ovarian cancer Breast cancer Social History Smoking Status: Former smoker packs per day: 2; Second Hand Exposure: No; 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) Hx Substance Use: No Preferred Language: Guamanian Communication Ability: Effective Design/Animation Instructor Required: No Beliefs That Will Affect Care: None Current Living Situation: Spouse and Family Current Living Situation Comment: with in home current occupational status: retired Feels Safe at Home: Yes Childhood Exposure to Second-Hand Smoke: Yes Dental Care, Regularly: Yes Physical Activity Frequency: Does not Exercise Seatbelt Use: always Sunscreen Use: Yes Assistive Devices: None Allergies Allergies Allergy/AdvReac Type Severity Reaction Status Date / Time No Known Allergies Allergy Verified 06/08/22 16:24 Home Meds Home Medications Medication Instructions Recorded Confirmed cyclobenzaprine 10 mg tablet 10 mg PO Q8H PRN MUSCLE SPASMS 04/27/21 06/08/22 metolazone 5 mg tablet 5 mg PO DAILY 10/27/21 06/08/22 aspirin 81 mg tablet,delayed 81 mg PO HS 12/19/21 06/08/22 release (Adult Low Dose Aspirin) cyanocobalamin (vitamin B-12) 500 500 mcg PO HS 12/19/21 06/08/22 mcg tablet (Vitamin B-12) multivitamin with minerals (Men's 1 tab PO DAILY 12/19/21 06/08/22 One Daily) sodium chloride 5 % eye drops 1 drp OPB HS 12/19/21 06/08/22 (Tyler 128) insulin aspart U-100 100 unit/mL 20 unit subcut AC 06/04/22 06/08/22 (3 mL) subcutaneous pen (Novolog Flexpen U-100 Insulin aspart) prednisone 5 mg tablet 5 mg PO DAILY 06/04/22 06/08/22 doxycycline hyclate 100 mg tablet 100 mg PO BID 06/08/22 06/08/22 penicillin V potassium 500 mg 500 mg PO TID 06/08/22 06/08/22 tablet Previous Rx's Medication Instructions Recorded blood sugar diagnostic (Contour #3 Boxes 01/16/21 Next Test Strips) adalimumab 40 mg/0.8 mL See Rx Instructions subcut Q14D #2 12/10/21 subcutaneous pen kit (Humira Pen) ea diclofenac sodium 1 % topical gel 2 g topical QID #100 grams 12/25/21 (Arthritis Pain (diclofenac)) albuterol sulfate 90 mcg/actuation 1 puff inhalation Q6H PRN 01/27/22 aerosol inhaler Shortness Of Breath Or Wheezing #18 grams allopurinol 300 mg tablet 450 mg PO DAILY #135 tabs 01/27/22 celecoxib 200 mg capsule 200 mg PO BID #180 caps 01/27/22 rivaroxaban 20 mg tablet (Xarelto) 20 mg PO QPM #90 tabs 01/27/22 rosuvastatin 10 mg tablet 10 mg PO DAILY #90 tabs 01/27/22 spironolactone 25 mg tablet 25 mg PO BID #180 tabs 01/27/22 furosemide 40 mg tablet 40 mg PO Q OTHER DAY #90 tabs 02/01/22 metformin 500 mg tablet 1,000 mg PO BID #360 tabs 02/01/22 mupirocin calcium 2 % topical cream 1 applic topical UD #30 grams 02/01/22 omeprazole 20 mg capsule,delayed 40 mg PO DAILY #180 caps 02/01/22 release pen needle, diabetic 32 gauge x #4 Boxes 04/26/22" (BD Ultra-Fine Izzy Pen Needle) insulin glargine 100 unit/mL (3 65 unit (0.65 mL) subcut QPM #3 05/02/22 mL) subcutaneous pen ([facility] Boxes KwikPen U-100 Insulin) cadexomer iodine 0.9 % topical gel 40 g topical DAILY 30 days #40 05/25/22 (Iodosorb) grams dulaglutide 1.5 mg/0.5 mL 1.5 mg (0.5 mL) subcut WK #2 mL 05/28/22 subcutaneous pen injector ([facility]) gabapentin 300 mg capsule 300 mg PO .COMPLEX #270 caps 06/04/22 tramadol 37.5 mg-acetaminophen 325 1 tab PO QID PRN pain #120 tabs 06/04/22 mg tablet Results & Data (ED) Vital Signs Vital Signs - 24 hr 06/08/22 13:49 06/08/22 14:37 06/08/22 14:37 Temperature 36.8 C Temperature Source Temporal Artery Scan Pulse Rate 84 Pulse Rate [Apical] 86 Respiratory Rate 20 20 Respiratory Effort / Characteristics Non-Labored Spontaneous Non-Labored Spontaneous Respiratory Depth Normal Normal Respiratory Pattern Regular Blood Pressure 184/113 H Blood Pressure [Right Arm] 148/102 H Blood Pressure Mean 136 Blood Pressure Mean [Right Arm] 117 Blood Pressure Position [Right Arm] Sitting Pulse Oximetry 94 98 92 Oxygen Delivery Method Room Air Room Air Room Air Sepsis Recent Fever Within 48 Hours No Sepsis New/Unexplained Change in Mental Status N/A Sepsis Action Taken by Nursing No Action Required 06/08/22 16:00 06/08/22 18:00 Temperature Temperature Source Pulse Rate Pulse Rate [Apical] 84 77 Respiratory Rate 18 17 Respiratory Effort / Characteristics Non-Labored Spontaneous Respiratory Depth Normal Respiratory Pattern Regular Blood Pressure Blood Pressure [Right Arm] 142/89 H 146/79 H Blood Pressure Mean Blood Pressure Mean [Right Arm] 106 101 Blood Pressure Position [Right Arm] Sitting Pulse Oximetry 96 94 Oxygen Delivery Method Room Air Room Air Sepsis Recent Fever Within 48 Hours Sepsis New/Unexplained Change in Mental Status Sepsis Action Taken by Nursing Laboratory Data Result diagrams: 06/08/22 15:26 06/08/22 15:26 Lab Results 06/08/22 06/08/22 06/08/22 Range/Units 15:25 15:26 15:26 WBC 9.25 (4.8-10.8) K/ul RBC 5.05 (4.63-6.08) M/uL Hgb 13.9 L (14.0-18.0) g/dl Hct 44.0 (40.1-51.0) % MCV 87.1 (80.0-100.0) fL MCH 27.5 (25.0-34.0) pg MCHC 31.6 L (32.0-36.0) g/dL RDW Std Deviation 51.9 H (36.4-46.3) fL RDW Coeff of Vijay 16.5 H (11.5-14.5) % Plt Count 209 (130-400) K/uL MPV 10.6 (9.4-12.4) fL Immature Gran % (Auto) 0.3 % Neut % (Auto) 60.1 % Lymph % (Auto) 28.2 % [place] % (Auto) 9.4 % Eos % (Auto) 1.0 % Baso % (Auto) 1.0 % Neut # (Auto) 5.56 (1.4-6.5) K/uL Lymph # (Auto) 2.61 (1.2-3.4) K/uL [place] # (Auto) 0.87 H (0.24-0.82) K/uL Eos # (Auto) 0.09 (0-0.50) K/uL Baso # (Auto) 0.09 (0-0.2) K/uL Immature Gran # (Auto) 0.03 H (0.00-0.02) K/uL Sodium 137 (136-145) mmol/L Potassium 3.8 (3.5-5.1) mmol/L Chloride 100 (98-107) mmol/L Carbon Dioxide 30 (21-32) mmol/L Anion Gap 7 (3-11) BUN 18 (6-23) mg/dl Creatinine 1.12 (0.6-1.4) mg/dl Est Cr Clr Drug Dosing 96.1 ml/min Est GFR ( Amer) 77.8 ml/min Est GFR (Non-Af Amer) 67.1 ml/min BUN/Creatinine Ratio 16.1 (10-20) Glucose 89 (70-99(Fasting)) mg/dl Calcium 10.0 (8.5-10.1) mg/dl Magnesium 1.6 L (1.7-2.4) mg/dl Total Bilirubin 0.4 (0.2-1.0) mg/dl AST 14 (13-39) U/L ALT 13 (7-52) U/L Alkaline Phosphatase 54 (34-104) U/L Troponin I High Sens 5.5 (0-20) pg/ml B-Natriuretic Peptide (0-100) pg/ml Total Protein 8.0 (6.0-8.3) gm/dl Albumin 3.6 (3.4-5.0) gm/dl Globulin 4.4 H (2.5-4.0) gm/dl Albumin/Globulin Ratio 0.8 L (0.9-2) Lipase 15 (11-82) U/L SARS-CoV-2, RNA, NAAT (NEGATIVE) 06/08/22 06/08/22 Range/Units 15:26 17:29 WBC (4.8-10.8) K/ul RBC (4.63-6.08) M/uL Hgb (14.0-18.0) g/dl Hct (40.1-51.0) % MCV (80.0-100.0) fL MCH (25.0-34.0) pg MCHC (32.0-36.0) g/dL RDW Std Deviation (36.4-46.3) fL RDW Coeff of Vijay (11.5-14.5) % Plt Count (130-400) K/uL MPV (9.4-12.4) fL Immature Gran % (Auto) % Neut % (Auto) % Lymph % (Auto) % [place] % (Auto) % Eos % (Auto) % Baso % (Auto) % Neut # (Auto) (1.4-6.5) K/uL Lymph # (Auto) (1.2-3.4) K/uL [place] # (Auto) (0.24-0.82) K/uL Eos # (Auto) (0-0.50) K/uL Baso # (Auto) (0-0.2) K/uL Immature Gran # (Auto) (0.00-0.02) K/uL Sodium (136-145) mmol/L Potassium (3.5-5.1) mmol/L Chloride (98-107) mmol/L Carbon Dioxide (21-32) mmol/L Anion Gap (3-11) BUN (6-23) mg/dl Creatinine (0.6-1.4) mg/dl Est Cr Clr Drug Dosing ml/min Est GFR ( Amer) ml/min Est GFR (Non-Af Amer) ml/min BUN/Creatinine Ratio (10-20) Glucose (70-99(Fasting)) mg/dl Calcium (8.5-10.1) mg/dl Magnesium (1.7-2.4) mg/dl Total Bilirubin (0.2-1.0) mg/dl AST (13-39) U/L ALT (7-52) U/L Alkaline Phosphatase (34-104) U/L Troponin I High Sens (0-20) pg/ml B-Natriuretic Peptide 84 (0-100) pg/ml Total Protein (6.0-8.3) gm/dl Albumin (3.4-5.0) gm/dl Globulin (2.5-4.0) gm/dl Albumin/Globulin Ratio (0.9-2) Lipase (11-82) U/L SARS-CoV-2, RNA, NAAT NEGATIVE (NEGATIVE) Administered Medications Discontinued Medications Furosemide (Furosemide 40 Mg/4 Ml Vial) 40 mg IV NOW STA Stop: 06/08/22 16:43 Last Admin: 06/08/22 17:19 Dose: 40 mg Documented By: ROMELIA Furosemide (Furosemide 40 Mg/4 Ml Vial) 40 mg IV ONE ONE Stop: 06/08/22 17:45 Last Admin: 06/08/22 18:44 Dose: 40 mg Documented By: ML Ceftriaxone Sodium (Rocephin) 2,000 mg in 70 mls @ 140 mls/hr IV NOW STA Stop: 06/08/22 18:01 Last Admin: 06/08/22 18:44 Dose: 140 mls/hr Documented By: ML Potassium Chloride (Potassium Chloride Crtab 20 Meq Tabcr) 20 meq PO NOW STA Stop: 06/08/22 18:17 Last Admin: 06/08/22 18:44 Dose: 20 meq Documented By: ML Imaging Data Radiologist's Impression: Chest X-Ray 06/08/22 14:37 XR chest 1V portable CLINICAL HISTORY: Chest Pain. COMPARISON STUDY: 05/14/2020 TECHNIQUE: 1 view of the chest FINDINGS: Single frontal view of the chest demonstrates the heart to be mildly enlarged. There is mild chronic prominence of the interstitial markings in. The lungs are clear of alveolar opacities. There is no evidence for pleural effusion. There is no evidence for vascular congestion. There is no acute osseous pathology. IMPRESSION: 1. No acute cardiopulmonary disease. ACT 112: Negative or not required by law. Electronically signed by: Tai Valadez M.D. 06/08/2022 3:33 PM Foot X-Ray 06/08/22 17:33 XR foot LT 2V CLINICAL HISTORY: wound base of left foot ? osteo COMPARISON STUDY: Left foot 06/02/2022 and 12/19/2021. FINDINGS: The bones are osteopenic. No acute fracture or dislocation within the left foot. There are plantar and posterior calcaneal spurs again noted. There is extensive dorsal soft tissue swelling within the left foot. Probable skin ulceration along the plantar surface of the forefoot. No underlying bony destruction to suggest an osteomyelitis. The Lisfranc joint is intact. Chronic sclerosis and destructive change noted within the left second toe. IMPRESSION: 1. Focal skin ulceration at the plantar surface of the forefoot. No underlying bony destruction to suggest osteomyelitis. 2. Extensive dorsal soft tissue swelling. 3. Chronic changes as described above. ACT 112: Negative or not required by law. Electronically signed by: Faustino Eaton M.D. 06/08/2022 5:51 PM Discharge Plan Visit Data Chief Complaint: Leg Injury/Pain Stated Complaint: swollen legs ED Provider: Josh Abdi Discharge Problem: CHF (congestive heart failure), A-fib, Diabetic foot ulcer, Breath shortness Forms Stand Alone Forms: [facility] [employer] Prescriptions Prescriptions: No Action Iodosorb 0.9 % gel 40 g topical DAILY 30 Days Qty: 40 1RF Rx Instructions: apply in 1/8 to 1/4 inch thickness; change when saturated with exudate; remove before next application (DME) Contour Next Test Strips Strip See Dose Instructions .ROUTE .MEDSUPPLY Qty: 3 3RF Dose Instruction: As directed Rx Instructions: TEST 5 TIMES DAILY AND NEEDED Humira Pen 40 mg/0.8 mL pen injector kit See Rx Instructions subcut Q14D Qty: 2 5RF Rx Instructions: inject one - 40 mg/0.8 mL pen every other Tuesday (Every 14 days) subcut every 14 days; albuterol sulfate 90 mcg/actuation HFA aerosol inhaler 1 puff INH Q6H PRN (Reason: Shortness Of Breath Or Wheezing) Qty: 18 3RF allopurinol 300 mg tablet 450 mg PO DAILY Qty: 135 3RF celecoxib 200 mg capsule 200 mg PO BID Qty: 180 3RF Xarelto 20 mg tablet 20 mg PO QPM Qty: 90 3RF rosuvastatin 10 mg tablet 10 mg PO DAILY Qty: 90 3RF spironolactone 25 mg tablet 25 mg PO BID Qty: 180 3RF metformin 500 mg tablet 1,000 mg PO BID Qty: 360 3RF mupirocin calcium 2 % cream 1 applic topical UD Qty: 30 3RF Rx Instructions: PER PT "NEED A REFILL". furosemide 40 mg tablet 40 mg PO Q OTHER DAY Qty: 90 3RF Rx Instructions: TAKES MON, WED, & FRI. omeprazole 20 mg capsule,delayed release(DR/EC) 40 mg PO DAILY Qty: 180 3RF (DME) pen needle, diabetic [BD Ultra-Fine Izzy Pen Needle] 32 gauge x 5/32" needle See Dose Instructions .ROUTE .MEDSUPPLY Qty: 4 3RF Dose Instruction: As directed Rx Instructions: use 4 needles daily Basaglar KwikPen U-100 Insulin 100 unit/mL (3 mL) insulin pen 65 unit SQ QPM Qty: 3 3RF Trulicity 1.5 mg/0.5 mL pen injector 1.5 mg SQ WK Qty: 2 3RF Rx Instructions: TAKES ON SATURDAYS. cyclobenzaprine 10 mg tablet 10 mg PO Q8H PRN (Reason: MUSCLE SPASMS) Rx Instructions: PER PT "USUALLY TAKE 1 TAB AT HS". prednisone 5 mg tablet 5 mg PO DAILY insulin aspart U-100 [Novolog Flexpen U-100 Insulin] 100 unit/mL (3 mL) insulin pen 20 unit SQ AC Rx Instructions: 20 units tid as per sliding scale gabapentin 300 mg capsule 300 mg PO .COMPLEX Qty: 270 3RF Rx Instructions: 300 mg orally in AM and 600mg in the PM tramadol-acetaminophen 37.5-325 mg tablet 1 tab PO QID PRN (Reason: pain) Qty: 120 0RF Rx Instructions: PER PT "TAKE REGULARLY FOR THE MOST PART". diclofenac sodium [Arthritis Pain (diclofenac)] 1 % gel 2 g topical QID Qty: 100 0RF Rx Instructions: apply to back of hands at night, prn metolazone 5 mg tablet 5 mg PO DAILY sodium chloride [Tyler 128] 5 % Drops 1 drp OPB HS cyanocobalamin (vitamin B-12) [Vitamin B-12] 500 mcg Tablet 500 mcg PO HS Men's One Daily Tablet 1 tab PO DAILY aspirin [Adult Low Dose Aspirin] 81 mg tablet,delayed release (DR/EC) 81 mg PO HS penicillin V potassium 500 mg tablet 500 mg PO TID Rx Instructions: STARTED 06/04/22 FOR 10 DAYS. doxycycline hyclate 100 mg tablet 100 mg PO BID Rx Instructions: STARTED 06/04/22 FOR 10 DAYS. Referrals Referrals: Funmilayo Serna MD [Primary Care Provider] -
--- NOTE | 2022-06-08 15:35 | XRay Report ---
XR chest 1V portable CLINICAL HISTORY: Chest Pain. COMPARISON STUDY: 05/14/2020 TECHNIQUE: 1 view of the chest FINDINGS: Single frontal view of the chest demonstrates the heart to be mildly enlarged. There is mild chronic prominence of the interstitial markings in. The lungs are clear of alveolar opacities. There is no ev idence for pleural effusion. There is no evidence for vascular congestion. There is no acute osseous pathology. IMPRESSION: 1. No acute cardiopulmonary disease. ACT 112: Negative or not required by law. Electronically signed by: Tai Valadez M.D. 06/08/2022 3:33 PM
[2022-06-08 15:39] LABS: Basophils # (auto) 0.09 K/uL (0-0.2); Eosinophils # (auto) 0.09 K/uL (0-0.50); Hemoglobin 13.9 g/dl (14.0-18.0); Immature Granulocytes # (auto) 0.03 K/uL (0.00-0.02); Immature Granulocytes % (auto) 0.3 %; Lymphocytes # (auto) 2.61 K/uL (1.2-3.4); Lymphocytes % (auto) 28.2 %; Mean Corpuscular Hemoglobin 27.5 pg (25.0-34.0); Mean Corpuscular Hgb Conc 31.6 g/dL (32.0-36.0); Mean Corpuscular Volume 87.1 fL (80.0-100.0); Mean Platelet Volume 10.6 fL (9.4-12.4); Monocytes # (auto) 0.87 K/uL (0.24-0.82); Monocytes % (auto) 9.4 %; Neutrophils # (auto) 5.56 K/uL (1.4-6.5); Neutrophils % (auto) 60.1 %; Platelet Count 209 K/uL (130-400); RDW Coefficient of Variation 16.5 % (11.5-14.5); RDW Standard Deviation 51.9 fL (36.4-46.3); Red Blood Count 5.05 M/uL (4.63-6.08); White Blood Count 9.25 K/ul (4.8-10.8)
[2022-06-08 16:13] LABS: Albumin Globulin Ratio 0.8 (0.9-2); Albumin Level 3.6 gm/dl (3.4-5.0); BUN Creatinine Ratio 16.1 (10-20); Bilirubin,Total 0.4 mg/dl (0.2-1.0); Creatinine Clr Calc Pharmacy 96.1 ml/min; Est GFR (African American) 77.8 ml/min; Est GFR (Non-African American) 67.1 ml/min; Globulin 4.4 gm/dl (2.5-4.0); Potassium 3.8 mmol/L (3.5-5.1); Troponin I High Sensitivity 5.5 pg/ml (0-20)
[2022-06-08] MEDS ORDERED: FUROSEMIDE 40 MG/4 ML VIAL IV STA (16:42)
[2022-06-08] MEDS ORDERED: cefTRIAXone SODIUM 2,000 MG/70 ML BAG IV STA (17:32)
[2022-06-08] MEDS ORDERED: FUROSEMIDE 40 MG/4 ML VIAL IV ONE (17:44)
--- NOTE | 2022-06-08 17:52 | XRay Report ---
XR foot LT 2V CLINICAL HISTORY: wound base of left foot ? osteo COMPARISON STUDY: Left foot 06/02/2022 and 12/19/2021. FINDINGS: The bones are osteopenic. No acute fracture or dislocation within the left foot. There are plantar and posterior calcaneal spurs again noted. There is extensive dorsal soft tissue swelling wit hin the left foot. Probable skin ulceration along the plantar surface of the forefoot. No underlying bony destruction to suggest an osteomyelitis. The Lisfranc joint is intact. Chronic sclerosis and carlos tructive change noted within the left second toe. IMPRESSION: 1. Focal skin ulceration at the plantar surface of the forefoot. No underlying bony destruction to parker ggest osteomyelitis. 2. Extensive dorsal soft tissue swelling. 3. Chronic changes as described above. ACT 112: Negative or not required by law. Electronically signed by: Faustino Eaton M.D. 06/08/2022 5:51 PM
--- NOTE | 2022-06-08 18:04 | History & Physical Report ---
Date of Service June 08, 2022 Assessment & Plan (1) Lower leg edema: Plan: Bilateral lower leg edema left leg worse than the right leg, presents with 20 lb weight gain over the past month as well, he does not carry a diagnosis of HF at this time - DDX- new onset heart failure vs. corpulmonale from morbid obesity vs. cellulitis from left foot infection vs DVT or combination of the above - ALready given 40mg without affect- re-dose with 40mg IV now for total of 80mg - 40mg IV in the am - Will obtain ECHO in the AM - Consult HF clinic - Continue with other diuretics- mixed dosing likely be able maximize - Follow daily standing weights - Obtain ultrasound of the left lower extremity to rule out DVT- although he is on Xarelto he is morbidly obese - Strict PAU every 4 hours (2) Diabetic foot ulcer: Plan: Chronic follows with podiatry and wound care - dresses this every day with Iodosorb- wound care consult - Foot X-ray negative for osteo and without any tenderness to foot with deep pa lpation - LAURIE done in 2018- consider repeating - is without- murmurs, sepsis, fevers, or drainage-- MSSA- will cover with Ampicillin and follow - See culture data in labs (3) Atrial fibrillation: Plan: chronic on Xarelto rate controlled without additional medications - with PVC noted - Give 20meq Kdur now for K 3.8 in light of IV diuresing - CHeck Mag- give 2 GM IV now (4) Type 2 diabetes mellitus: Plan: DM on basal bolus insulin- last HGB A1c 02/02 8.4 - 65 units basal nightly - sliding scal aspart with CF 20 and ration 1:9 - Hold Metformin (5) Gout: Plan: Continue Allopurinol (6) Morbid obesity with BMI of 50.0-59.9, adult: Plan: Likely has component of obesity hypoventilation syndrome as well - HCO3 30 and has been chronically elevated - considerr ABG for diagnosis in AM - Consider referral to obesity medicine - consider re-evaluation for sleep study - Continue multimodal approach to metabolic syndrome- continue statin, weight loss as above, continue treatment of DM, (7) Benign hypertension: Plan: Well controlled (8) Metabolic syndrome X: Plan: As above History of Present Illness Primary Care Provider: Funmilayo Serna MD 67 YOM with medical history of: Morbid Obesity, HTN, DMII(on insulin), Afib (on Xarelto), Gout. Patient comes to the EMD today for increased swelling of his left leg. He also reports 20 pound weight gain over the past month. Patient reports that he went to his PCP last week and was told to take his lasix daily instead of every other day and reports decreased response to his diuretic therapy. He also reports that he follows with wound clinic and was started on Doxy and PCN for wound culture of his left foot ulceration. The patient reports that his right leg was swollen as well, but this swelling has gone down, but remains with swelling and increase in erythema that has increased. He is on Xarelto for his Afib and reports that he has not missed a dose. The patient also endorses difficulty lying flat at night and will need to sit up to catch his breath after about an hour of sleep. He does follow with Podiatry and the [facility] for his foot ulcer. This was cultured on [id number] see results below. He was given Rocephin in EMD, will transition to Ampicillin. Imaging is pending to evaluate for osteo. Will obtain ultrasound of the left leg for DVT. In the EMD the patient was given Rocephin 2GM IV and given 40mg of Lasix IV without any response. Will give another 40mg IV Lasix now and monitor for re sponse. Will obtain ECHO in am, consult HF clinic. He has been evaluated for JG per his report but has always declined its use. COVID test on admission is: NEGATIVE Allergies Allergy/AdvReac Type Severity Reaction Status Date / Time No Known Allergies Allergy Verified 06/08/22 16:24 Home Medications Medication Instructions Recorded Confirmed Type blood sugar diagnostic (Contour #3 Boxes 01/16/21 06/04/22 Rx Next Test Strips) cyclobenzaprine 10 mg tablet 10 mg PO Q8H PRN MUSCLE SPASMS 04/27/21 06/08/22 History metolazone 5 mg tablet 5 mg PO DAILY 10/27/21 06/08/22 History adalimumab 40 mg/0.8 mL See Rx Instructions subcut Q14D #2 12/10/21 06/08/22 Rx subcutaneous pen kit (Humira Pen) ea aspirin 81 mg tablet,delayed 81 mg PO HS 12/19/21 06/08/22 History release (Adult Low Dose Aspirin) cyanocobalamin (vitamin B-12) 500 500 mcg PO HS 12/19/21 06/08/22 History mcg tablet (Vitamin B-12) multivitamin with minerals (Men's 1 tab PO DAILY 12/19/21 06/08/22 History One Daily) sodium chloride 5 % eye drops 1 drp OPB HS 12/19/21 06/08/22 History (Tyler 128) diclofenac sodium 1 % topical gel 2 g topical QID #100 grams 12/25/21 06/08/22 Rx (Arthritis Pain (diclofenac)) albuterol sulfate 90 mcg/actuation 1 puff inhalation Q6H PRN 01/27/22 06/08/22 Rx aerosol inhaler Shortness Of Breath Or Wheezing #18 grams allopurinol 300 mg tablet 450 mg PO DAILY #135 tabs 01/27/22 06/08/22 Rx celecoxib 200 mg capsule 200 mg PO BID #180 caps 01/27/22 06/08/22 Rx rivaroxaban 20 mg tablet (Xarelto) 20 mg PO QPM #90 tabs 01/27/22 06/08/22 Rx rosuvastatin 10 mg tablet 10 mg PO DAILY #90 tabs 01/27/22 06/08/22 Rx spironolactone 25 mg tablet 25 mg PO BID #180 tabs 01/27/22 06/08/22 Rx furosemide 40 mg tablet 40 mg PO Q OTHER DAY #90 tabs 02/01/22 06/08/22 Rx metformin 500 mg tablet 1,000 mg PO BID #360 tabs 02/01/22 06/08/22 Rx mupirocin calcium 2 % topical cream 1 applic topical UD #30 grams 02/01/22 06/08/22 Rx omeprazole 20 mg capsule,delayed 40 mg PO DAILY #180 caps 02/01/22 06/08/22 Rx release pen needle, diabetic 32 gauge x #4 Boxes 04/26/22 06/04/22 Rx 5/32" (BD Ultra-Fine Izzy Pen Needle) insulin glargine 100 unit/mL (3 65 unit (0.65 mL) subcut QPM #3 05/02/22 06/08/22 Rx mL) subcutaneous pen (Patrickaglar Boxes KwikPen U-100 Insulin) cadexomer iodine 0.9 % topical gel 40 g topical DAILY 30 days #40 05/25/22 06/08/22 Rx (Iodosorb) grams dulaglutide 1.5 mg/0.5 mL 1.5 mg (0.5 mL) subcut WK #2 mL 05/28/22 06/08/22 Rx subcutaneous pen injector (Trulicity) gabapentin 300 mg capsule 300 mg PO .COMPLEX #270 caps 06/04/22 06/08/22 Rx insulin aspart U-100 100 unit/mL 20 unit subcut AC 06/04/22 06/08/22 History (3 mL) subcutaneous pen (Novolog Flexpen U-100 Insulin aspart) prednisone 5 mg tablet 5 mg PO DAILY 06/04/22 06/08/22 History tramadol 37.5 mg-acetaminophen 325 1 tab PO QID PRN pain #120 tabs 06/04/22 06/08/22 Rx mg tablet doxycycline hyclate 100 mg tablet 100 mg PO BID 06/08/22 06/08/22 History penicillin V potassium 500 mg 500 mg PO TID 06/08/22 06/08/22 History tablet Past Med/Surg History Medical History (Updated 06/08/22 @ 19:37 by Josh Abdi DO) Atrial fibrillation (05/23/13) Diabetic foot ulcer Diverticulosis of colon Gout Hx of fall Hyperlipidemia LDL goal <70 Internal hemorrhoids Morbid obesity with BMI of 50.0-59.9, adult Osteoarthritis Psoriasis Psoriatic arthropathy Rheumatoid arthritis (05/23/13) SOB (shortness of breath) Surgical History History of total hip arthroplasty Family History Family/Other Brain cancer Uncle Colorectal cancer Prostate cancer Father Myocardial infarction Mother Myocardial infarction Lung cancer Denies family history of Ovarian cancer Breast cancer Social History Smoking Status: Former smoker packs per day: 2; Second Hand Exposure: No; 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) Hx Substance Use: No Preferred Language: Beninese Communication Ability: Effective [employer] Required: No Beliefs That Will Affect Care: None Current Living Situation: Spouse and Family Current Living Situation Comment: with in home current occupational status: retired Feels Safe at Home: Yes Childhood Exposure to Second-Hand Smoke: Yes Dental Care, Regularly: Yes Physical Activity Frequency: Does not Exercise Seatbelt Use: always Sunscreen Use: Yes Assistive Devices: None Review of Systems Review of Systems: REVIEW OF SYSTEMS: Constitutional: No fever, sweats or chills Eyes: No diplopia, no worsening or blurred vision ENT: normal hearing, no trouble swallowing Respiratory: (+) orthopnea and dyspnea with exertion. No cough, sputum, dyspnea at rest or on exertion Cardiovascular: (+) edema, weight gain, No chest pain, tightness or palpitations Abdomen: No pain, nausea, vomiting, diarrhea or constipation Musculoskeletal: (+) chronic joint and hand pain, No joint pain, calf pain, swelling Neurologic: No weakness, numbness/tingling, or balance problems Psychiatric: No anxiety or depression Skin: (+) foot ulceration, No rash or itch Physical Exam Physical Exam: PHYSICAL EXAM: General: awake, alert, no apparent distress Head: Normocephalic, atraumatic ENT: PERRL, EOMI, no pharyngeal exudate, mucous membranes moist Neuro: AAO x 3, speech clear and appropriate, strength intact bilaterally 5/5, sensation intact and equal all extremities and dermatomes, no pronator drift Chest: equal rise and fall of the chest, no accessory muscle use, no heaves or thrills, decreased bilaterally secondary to body habitus Cardiac: irregular rate and rhythm, telemetry reviewed- afib with PVCs, skin warm dry, cap refill <3 seconds, peripheral pulses +2 no JVD, no murmur, +3 pitting edema left foot up to left knee, +2 edema to right foot and leg GI: NABS x 4 quadrants, soft, nontender to palpation, no rebound, guarding or tenderness : Spontaneously voiding, no pain, no CVA tenderness, Extremities: Normal inspection, no peripheral edema or erythema, calfs nontender to palpation Psych: Normal mood and affect Skin: erythema to left lower leg, warm, increased edema. Foot ulcer to left dorsal surface of foot, no drainage covered. Results & Data Results & Data ([facility]) Vital Signs (Past 12 Hours) Vital Signs Temp Pulse Pulse Resp BP BP Pulse Ox 06/08/22 16:00 84 18 142/89 H 96 06/08/22 14:37 92 06/08/22 14:37 86 20 148/102 H 98 06/08/22 13:49 36.8 C 84 20 184/113 H 94 O2 Del Method 06/08/22 16:00 Room Air 06/08/22 14:37 Room Air 06/08/22 14:37 Room Air 06/08/22 13:49 Room Air Laboratory Results Laboratory Results - last 24 hr 06/08/22 06/08/22 06/08/22 15:26 15:26 15:26 WBC 9.25 RBC 5.05 Hgb 13.9 L Hct 44.0 MCV 87.1 MCH 27.5 MCHC 31.6 L RDW Std Deviation 51.9 H RDW Coeff of Vijay 16.5 H Plt Count 209 MPV 10.6 Immature Gran % (Auto) 0.3 Neut % (Auto) 60.1 Lymph % (Auto) 28.2 [place] % (Auto) 9.4 Eos % (Auto) 1.0 Baso % (Auto) 1.0 Neut # (Auto) 5.56 Lymph # (Auto) 2.61 [place] # (Auto) 0.87 H Eos # (Auto) 0.09 Baso # (Auto) 0.09 Immature Gran # (Auto) 0.03 H Sodium 137 Potassium 3.8 Chloride 100 Carbon Dioxide 30 Anion Gap 7 BUN 18 Creatinine 1.12 Est Cr Clr Drug Dosing 96.1 Est GFR ( Amer) 77.8 Est GFR (Non-Af Amer) 67.1 BUN/Creatinine Ratio 16.1 Glucose 89 Calcium 10.0 Total Bilirubin 0.4 AST 14 ALT 13 Alkaline Phosphatase 54 Troponin I High Sens 5.5 B-Natriuretic Peptide 84 Total Protein 8.0 Albumin 3.6 Globulin 4.4 H Albumin/Globulin Ratio 0.8 L Lipase 15 SARS-CoV-2, RNA, NAAT 06/08/22 17:29 WBC RBC Hgb Hct MCV MCH MCHC RDW Std Deviation RDW Coeff of [place]ij[place] Plt Count MPV Immature Gran % (Auto) Neut % (Auto) Lymph % (Auto) [place] % (Auto) Eos % (Auto) Baso % (Auto) Neut # (Auto) Lymph # (Auto) [place] # (Auto) Eos # (Auto) Baso # (Auto) Immature Gran # (Auto) Sodium Potassium Chloride Carbon Dioxide Anion Gap BUN Creatinine Est Cr Clr Drug Dosing Est GFR ( Amer) Est GFR (Non-Af Amer) BUN/Creatinine Ratio Glucose Calcium Total Bilirubin AST ALT Alkaline Phosphatase Troponin I High Sens B-Natriuretic Peptide Total Protein Albumin Globulin Albumin/Globulin Ratio Lipase SARS-CoV-2, RNA, NAAT NEGATIVE [facility] [address] [place] [address] / Director: David Menchaca M.D. Clinical Laboratory Report Name: VIDA BAZAN Acct: [id number] Status: ROSSY AMBR : 1955 [facility] [place] Date: 06/01/22 Age: 67 Sex: M Dis Date: Loc: [facility] Spec: [id number] Collected: 06/01/22 Received: 06/01/[address]: Mar Louis CRNP Source: Foot,Left OV Order: Ordered: Surf Wnd Cul/Sm Procedure Result Verified Site Gram Stain Final 06/02/22 Gram Stain Result Rare Gram Positive Cocci No WBCs Seen Surface Wound Culture Final 06/04/22-141 Organism 1 Staphylococcus aureus Quantity Moderate Sens Sensitivities to Follow Organism 2 Enterococcus faecalis Quantity Moderate Sens Sensitivities to Follow S aureus E faecalis RX M.I.C. RX M.I.C. --- --------- --- --------- Ampicillin S <=2 Clindamycin S <=0.5 Daptomycin S 1 S 2 Erythromycin S <=0.5 Gent Synergy S <=500 Oxacillin S <=0.25 Penicillin S 2 Strep Synergy S <=1000 Tetracycline S <=4 Trimeth/Sulfa S <=0.5/9.5 Vancomycin S 2 S 2 Enterococcus faecalis: Positive Combo 33 Streptomycin Synergy Screen S Gentamicin Synergy Screen S Diagnostic Findings Chest X-Ray 06/08/22 14:37 XR chest 1V portable CLINICAL HISTORY: Chest Pain. COMPARISON STUDY: 05/14/2020 TECHNIQUE: 1 view of the chest FINDINGS: Single frontal view of the chest demonstrates the heart to be mildly enlarged. There is mild chronic prominence of the interstitial markings in. The lungs are clear of alveolar opacities. There is no evidence for pleural effusion. There is no evidence for vascular congestion. There is no acute osseous pathology. IMPRESSION: 1. No acute cardiopulmonary disease. ACT 112: Negative or not required by law. Electronically signed by: Tai Valadez M.D. 06/08/2022 3:33 PM Foot X-Ray 06/08/22 17:33 XR foot LT 2V CLINICAL HISTORY: wound base of left foot ? osteo COMPARISON STUDY: Left foot 06/02/2022 and 12/19/2021. FINDINGS: The bones are osteopenic. No acute fracture or dislocation within the left foot. There are plantar and posterior calcaneal spurs again noted. There is extensive dorsal soft tissue swelling within the left foot. Probable skin ulceration along the plantar surface of the forefoot. No underlying bony destruction to suggest an osteomyelitis. The Lisfranc joint is intact. Chronic sclerosis and destructive change noted within the left second toe. IMPRESSION: 1. Focal skin ulceration at the plantar surface of the forefoot. No underlying bony destruction to suggest osteomyelitis. 2. Extensive dorsal soft tissue swelling. 3. Chronic changes as described above. ACT 112: Negative or not required by law. Electronically signed by: Faustino Eaton M.D. 06/08/2022 5:51 PM Medications Administered Home Medications blood sugar diagnostic (Contour Next Test Strips) #3 Boxes 01/16/21 [Rx Confirmed 06/04/22] cyclobenzaprine 10 mg tablet 10 mg PO Q8H PRN MUSCLE SPASMS 04/27/21 [History Confirmed 06/08/22] metolazone 5 mg tablet 5 mg PO DAILY 10/27/21 [History Confirmed 06/08/22] adalimumab 40 mg/0.8 mL subcutaneous pen kit (Humira Pen) See Rx Instructions subcut Q14D #2 ea 12/10/21 [Rx Confirmed 06/08/22] aspirin 81 mg tablet,delayed release (Adult Low Dose Aspirin) 81 mg PO HS 12/19/21 [History Confirmed 06/08/22] cyanocobalamin (vitamin B-12) 500 mcg tablet (Vitamin B-12) 500 mcg PO HS 12/19/21 [History Confirmed 06/08/22] multivitamin with minerals (Men's One Daily) 1 tab PO DAILY 12/19/21 [History Confirmed 06/08/22] sodium chloride 5 % eye drops (Tyler 128) 1 drp OPB HS 12/19/21 [History Confirmed 06/08/22] diclofenac sodium 1 % topical gel (Arthritis Pain (diclofenac)) 2 g topical QID #100 grams 12/25/21 [Rx Confirmed 06/08/22] albuterol sulfate 90 mcg/actuation aerosol inhaler 1 puff inhalation Q6H PRN Shortness Of Breath Or Wheezing #18 grams 01/27/22 [Rx Confirmed 06/08/22] allopurinol 300 mg tablet 450 mg PO DAILY #135 tabs 01/27/22 [Rx Confirmed 06/08/22] celecoxib 200 mg capsule 200 mg PO BID #180 caps 01/27/22 [Rx Confirmed 06/08/22] rivaroxaban 20 mg tablet (Xarelto) 20 mg PO QPM #90 tabs 01/27/22 [Rx Confirmed 06/08/22] rosuvastatin 10 mg tablet 10 mg PO DAILY #90 tabs 01/27/22 [Rx Confirmed 06/08/22] spironolactone 25 mg tablet 25 mg PO BID #180 tabs 01/27/22 [Rx Confirmed 06/08/22] furosemide 40 mg tablet 40 mg PO Q OTHER DAY #90 tabs 02/01/22 [Rx Confirmed 06/08/22] metformin 500 mg tablet 1,000 mg PO BID #360 tabs 02/01/22 [Rx Confirmed 06/08/22] mupirocin calcium 2 % topical cream 1 applic topical UD #30 grams 02/01/22 [Rx C onfirmed 06/08/22] omeprazole 20 mg capsule,delayed release 40 mg PO DAILY #180 caps 02/01/22 [Rx Confirmed 06/08/22] pen needle, diabetic 32 gauge x 5/32" (BD Ultra-Fine Izzy Pen Needle) #4 Boxes 04/26/22 [Rx Confirmed 06/04/22] insulin glargine 100 unit/mL (3 mL) subcutaneous pen (Basaglar KwikPen U-100 Insulin) 65 unit (0.65 mL) subcut QPM #3 Boxes 05/02/22 [Rx Confirmed 06/08/22] cadexomer iodine 0.9 % topical gel (Iodosorb) 40 g topical DAILY 30 days #40 grams 05/25/22 [Rx Confirmed 06/08/22] dulaglutide 1.5 mg/0.5 mL subcutaneous pen injector (Trulicity) 1.5 mg (0.5 mL) subcut WK #2 mL 05/28/22 [Rx Confirmed 06/08/22] gabapentin 300 mg capsule 300 mg PO .COMPLEX #270 caps 06/04/22 [Rx Confirmed 06/08/22] insulin aspart U-100 100 unit/mL (3 mL) subcutaneous pen (Novolog Flexpen U-100 Insulin aspart) 20 unit subcut AC 06/04/22 [History Confirmed 06/08/22] prednisone 5 mg tablet 5 mg PO DAILY 06/04/22 [History Confirmed 06/08/22] tramadol 37.5 mg-acetaminophen 325 mg tablet 1 tab PO QID PRN pain #120 tabs 06/04/22 [Rx Confirmed 06/08/22] doxycycline hyclate 100 mg tablet 100 mg PO BID 06/08/22 [History Confirmed 06/08/22] penicillin V potassium 500 mg tablet 500 mg PO TID 06/08/22 [History Confirmed 06/08/22] Active Medications Magnesium Sulfate/Dextrose (Magnesium Sulfate / D5w) 1 gm in 100 mls @ 50 mls/hr IV Q2H JORGE Stop: 06/08/22 22:29 Potassium Chloride (Potassium Chloride Crtab 20 Meq Tabcr) 20 meq PO NOW STA Stop: 06/08/22 18:17 Discontinued Medications Furosemide (Furosemide 40 Mg/4 Ml Vial) 40 mg IV NOW STA Stop: 06/08/22 16:43 Last Admin: 06/08/22 17:19 Dose: 40 mg Documented By: ROMELIA ECG Additional Comments: Atrial fibrillation with rapid ventricular response with premature ventricular or aberrantly conducted complexes Abnormal ECG When compared with ECG of 20-DEC-2021 07:40, Atrial fibrillation has replaced Sinus rhythm ST no longer depressed in Anterior leads T wave inversion no longer evident in Anterolateral leads Code Status & VTE Plan Code Status CODE: FULL VTE: SCDS, Xarelto VTE Prophylaxis Plan VTE Prophylaxis will be ordered: Yes Supervising Physician Co-Signing Physician Notes I supervised Reji Brezovic, FIRE FIGHTER on this admission. I interviewed and examined the patient independently of him. The plan is as written in his note except for any following changes/exceptions: None 67yo M w/ hx of ICM and DM who presents with LE swelling and increased LLE redness. The patient has been having worsening swelling in both legs, and has been taking more Lasix to attempt to improve this, but has been having worse leg swelling regardless. Left leg also has a worsening ulcer and increasing redness. Will treat with aggressive diuresis and abx for a presumed LLE cellulitis. Doppler pending. PG Care Time/CCT Total # of Minutes Spent Total Time Spent with Patient: Total time spent is greater than 50% in coordination of care (as documented) at patient's floor/unit and/or counseling patient: Coding Level of Care Code 04885 Initial Inpt Care Lvl 3 Diagnoses Lower leg edema R60.0 Diabetic foot ulcer E11.621; L97.509 Atrial fibrillation I48.91 Type 2 diabetes mellitus E11.9 Gout M10.9 Chronicity: chronic Gout etiology: due to renal impairment Gout site: foot Laterality: right Morbid obesity with BMI of 50.0-59.9, adult E66.01; Z68.43 Benign hypertension I10 Metabolic syndrome X E88.81 (1) Gout Chronicity: chronic Gout etiology: due to renal impairment Gout site: foot Laterality: right
[2022-06-08] MEDS ORDERED: POTASSIUM CHLORIDE CRTAB 20 MEQ TABCR PO STA (18:16)
[2022-06-08] MEDS: MAGNESIUM SULFATE / D5W 1 GM/100 ML BAG IV SCH ×2 (20:10→21:53)
[2022-06-08] MEDS ORDERED: AMPICILLIN 2,000 MG in SODIUM CHLOR 0.9% AD-VAN 100 ML IV SCH (20:15)
[2022-06-08] MEDS ORDERED: AMPICILLIN 2,000 MG in SODIUM CHLOR 0.9% AD-VAN 100 ML IV ONE (20:30)
[2022-06-08] MEDS ORDERED: CARBOHYDRATES FOR HYPOGLYCEMIA PO PRN (20:32)
[2022-06-08] MEDS ORDERED: GLUCOSE 10 TAB/TUBE PO PRN (20:32)
[2022-06-08] MEDS ORDERED: DEXTROSE 50% 50 ML SYRINGE IV PRN (20:32)
[2022-06-08] MEDS ORDERED: GLUCOSE 40% GEL 15 GM TUBE PO PRN (20:32)
[2022-06-08] MEDS ORDERED: ALBUTEROL HFA 8 GM INHALER INH PRN (20:32)
[2022-06-08] MEDS ORDERED: GLUCAGON FOR INJ 1 MG VIAL SQ PRN (20:32)
[2022-06-08] MEDS: GABAPENTIN 600 MG TAB PO SCH (22:03)
[2022-06-08] MEDS: RIVAROXABAN 20 MG TAB PO SCH (22:03)
[2022-06-08] MEDS: SPIRONOLACTONE 25 MG TAB PO SCH (22:04)
[2022-06-08] MEDS: ASPIRIN 81 MG ECTAB PO SCH (22:07)
[2022-06-08] MEDS: INSULIN ASPART PER UNIT SC SCH (22:21)
[2022-06-08] MEDS: LANTUS PER UNIT CHARGE SQ SCH (22:21)
[2022-06-09] MEDS: DICLOFENAC SOD 1% GEL 100 GM TUBE EXT SCH ×5 (00:52→21:11)
[2022-06-09] MEDS: traMADol HCL 50 MG TABLET PO PRN ×5 (01:00→23:13)
[2022-06-09] MEDS ORDERED: traMADol HCL 50 MG TABLET PO STA (02:57)
[2022-06-09] MEDS ORDERED: FUROSEMIDE 40 MG/4 ML VIAL IV ONE (03:00)
[2022-06-09] MEDS: AMPICILLIN 2,000 MG in SODIUM CHLOR 0.9% AD-VAN 100 ML IV SCH ×4 (03:15→22:11)
--- NOTE | 2022-06-09 06:29 | Ultrasound Report ---
LEFT LOWER EXTREMITY VENOUS DOPPLER CLINICAL HISTORY: increased swelling unilaterally left leg COMPARISON STUDY: No previous studies for comparison. TECHNIQUE: Sonography of the deep venous system of the left lower extremity was performed. Compressi on and augmentation were evaluated. FINDINGS: The left common femoral, superficial femoral and popliteal veins were compressible. Augmen tation was normal. Flow was shown within the deep calf vessels. Subcutaneous edema within the left lo wer extremity is noted. Several prominent left inguinal lymph nodes have benign imaging characteristi cs. IMPRESSION: No evidence of deep venous thrombus within the left lower extremity. ACT 112: Negative or not required by law. Electronically signed by: Stas Law M.D. 06/09/2022 6:28 AM
[2022-06-09] MEDS: PANTOprazole 40 MG TAB PO SCH (08:10)
[2022-06-09] MEDS: GABAPENTIN 300 MG CAP PO SCH (08:10)
[2022-06-09] MEDS: allopurinoL 300 MG TAB PO SCH (08:11)
[2022-06-09] MEDS: metOLazone 5 MG TABLET PO SCH (08:11)
[2022-06-09] MEDS: ROSUVASTATIN CALCIUM 10 MG TAB PO SCH (08:11)
[2022-06-09] MEDS: INSULIN ASPART PER UNIT SC SCH ×4 (08:16→21:11)
[2022-06-09 08:45] LABS: Basophils # (auto) 0.12 K/uL (0-0.2); Basophils % (auto) 1.1 %; Eosinophils # (auto) 0.16 K/uL (0-0.50); Eosinophils % (auto) 1.5 %; Hematocrit (blood only) 46.7 % (40.1-51.0); Hemoglobin 15.1 g/dl (14.0-18.0); Immature Granulocytes # (auto) 0.02 K/uL (0.00-0.02); Immature Granulocytes % (auto) 0.2 %; Lymphocytes # (auto) 3.72 K/uL (1.2-3.4); Mean Corpuscular Hemoglobin 27.9 pg (25.0-34.0); Mean Corpuscular Hgb Conc 32.3 g/dL (32.0-36.0); Mean Corpuscular Volume 86.2 fL (80.0-100.0); Mean Platelet Volume 10.5 fL (9.4-12.4); Monocytes # (auto) 1.05 K/uL (0.24-0.82); Monocytes % (auto) 9.6 %; Neutrophils # (auto) 5.88 K/uL (1.4-6.5); Neutrophils % (auto) 53.6 %; Platelet Count 244 K/uL (130-400); RDW Coefficient of Variation 16.5 % (11.5-14.5); RDW Standard Deviation 50.3 fL (36.4-46.3); Red Blood Count 5.42 M/uL (4.63-6.08); White Blood Count 10.95 K/ul (4.8-10.8)
[2022-06-09 09:10] LABS: BUN Creatinine Ratio 16.1 (10-20); Calcium 10.4 mg/dl (8.5-10.1); Creatinine Clr Calc Pharmacy 95.9 ml/min; Est GFR (African American) 77.8 ml/min; Est GFR (Non-African American) 67.1 ml/min; Magnesium 1.9 mg/dl (1.7-2.4); Potassium 3.6 mmol/L (3.5-5.1)
[2022-06-09 09:57] LABS: Estimated Average Glucose 151 mg/dl; Hemoglobin A1C 6.9 % (4.5-5.6)
--- NOTE | 2022-06-09 11:07 | Hospitalist Progress Note ---
Date of Service June 09, 2022 Assessment & Plan (1) Left leg cellulitis: Plan: Main issues appears to be more LLE cellulitis than CHF - failed outpatient treatment with penicillin and doxycycline. Currently on IV ampicillin due to wound culture with MSSA and pansensitive enterococcus faecalis [place] area of erythema to make sure improving. WBC increasing is concerning and may have to broaden antibiotic coverage if continues to get worse. Will get procalcitonin as this may trending may help antibiotic choice. Will get foot MRI to assess for osteomyelitis better. Arterial US to assess wound healing ability in setting of diabetes. Take blood cultures - not taken on admission however if he has MSSA bacteremia these are still likely to be positive. (2) Acute on chronic heart failure with preserved ejection fraction: Plan: Being treated for such although not completely convincing as CXR clear and no JVD on exam. His left leg swelling is from cellulitis and minimal right leg swelling today. Will continue to diurese as able however given 20 lb weight gain with metolazone, spironolactone and trial 80mg IV BID Lasix until Cr bump with aim 1- 2L net negative daily (3) Lower leg edema: Plan: No DVT on US. Rx as above for HF and cellulitis (4) Diabetic foot ulcer: Plan: Suspect this is source of LLE cellulitis Wound care nuse consult pending (5) Atrial fibrillation: Plan: Appears to be paroxysmal per review of past EKGs - no medication attempt to keep him in NSR however. For now gave metoprolol 5mg IV to monitor response and still significantly tachycadic in 110s. Therefore will start metoprolol tartrate 25mg q6h with hold parameters. Usually rate/rhythm controlled without additional medications. Possibly some of his fatigue is due to this and could consider more rhythm strategy. Aim K > 4, Mg > 2 Anticoagulated chronically with Xarelto (6) Type 2 diabetes mellitus: Plan: HbA1C 6.9 - 65 units basal nightly - sliding scal aspart with CF 20 and ration 1:9 - Hold Metformin Appears to be well controlled on this regimen with glucose 117-128 (7) Gout: Plan: Continue Allopurinol (8) Morbid obesity with BMI of 50.0-59.9, adult: Plan: Likely has component of obesity hypoventilation syndrome as well - HCO3 30 and has been chronically elevated - Recommend sleep study as outpatient to assess for JG (9) Benign hypertension: Plan: Well controlled (10) Metabolic syndrome X: Plan: As above Plan VTE Prophylaxis - Xarelto Diet - low Na, heart healthy, T2DM, no need for fluid restriction unless intake excessively high Disposition - continued admission to med/tele Admission and Anticipated Discharge Date Admission Date: June 08, 2022 Subjective Reports improved shortness of breath although he has not been up and moving around today. His main concern is ongoing fatigue. No change in leg swelling or erythema. No chest pain, abdominal pain, constipation, diarrhea, nausea or vomiting. Confirmed 20 lb weight gain Review of Systems Review of Systems: All systems reviewed & are unremarkable except as noted in Subjective Physical Exam Constitutional: WD/WN, vitals as above Respiratory: normal respiratory effort, lungs clear to auscultation Cardiovascular: Rate/Rhythm: + tachycardic and + irregularly irregular Heart Sounds: no murmur Extremities: normal capillary refill and + pedal edema (2+ LLE, 1+ RLE); no calf tenderness Gastrointestinal (Abdomen): normal bowel sounds, soft, nontender, no hepatosplenomegaly Skin: + ulcer (unstageable 2cm ulcer on bottom of left foot) and + erythema (LLE to mid frey from ulcer) Neurologic: moves all extremities and awake; not confused Psychiatric: A+Ox3, euthymic affect Genitourinary: no CVA tenderness Results & Data Results & Data ([facility]) Vital Signs (Past 12 Hours) Vital Signs Temp Pulse Resp BP Pulse Ox O2 Del Method 06/09/22 08:23 36.7 C 94 H 18 130/70 91 Room Air 06/09/22 01:45 Room Air 06/09/22 01:45 36.8 C 90 22 131/70 93 Room Air 06/09/22 00:10 115 H 18 97 Room Air PG Care Time/CCT Total # of Minutes Spent Total Time Spent with Patient: Total time spent is greater than 50% in coordination of care (as documented) at patient's floor/unit and/or counseling patient: Coding Level of Care Code 60794 Subseq Hosp Care Lvl 3 Diagnoses Left leg cellulitis L03.116 Acute on chronic heart failure with preserved ejection fraction I50.33 Lower leg edema R60.0 Diabetic foot ulcer E11.621; L97.509 Atrial fibrillation I48.91 Type 2 diabetes mellitus E11.9 Gout M10.9 Chronicity: chronic Gout etiology: due to renal impairment Gout site: foot Laterality: right Morbid obesity with BMI of 50.0-59.9, adult E66.01; Z68.43 Benign hypertension I10 Metabolic syndrome X E88.81 (1) Gout Chronicity: chronic Gout etiology: due to renal impairment Gout site: foot Laterality: right
[2022-06-09] MEDS: SPIRONOLACTONE 25 MG TAB PO SCH ×2 (11:08→21:10)
--- NOTE | 2022-06-09 11:41 | Electrocardiogram Report ---
Test Reason : Blood Pressure : / mmHG Vent. Rate : 102 BPM Atrial Rate : 066 BPM P-R Int : 000 ms QRS Dur : 094 ms QT Int : 346 ms P-R-T Axes : 000 -02 078 degrees QTc Int : 450 ms Atrial fibrillation with rapid ventricular response with PVC Abnormal ECG When compared with ECG of 20-DEC-2021 07:40, Atrial fibrillation has replaced Sinus rhythm Confirmed by Karlos Hubbard ([id number]) on 06/09/2022 11:40:57 AM Referred By: REFERRED SELF Confirmed By:Karlos Hubbard
[2022-06-09] MEDS ORDERED: METOPROLOL TARTRATE 1 MG/ML VIAL IV STA (13:04)
[2022-06-09] MEDS: POTASSIUM CHLORIDE CRTAB 20 MEQ TABCR PO SCH ×2 (13:27→21:10)
[2022-06-09] MEDS ORDERED: MAGNESIUM SULFATE / D5W 1 GM/100 ML BAG IV ONE (13:30)
--- NOTE | 2022-06-09 14:47 | XCELERA ---
[id number]
--- NOTE | 2022-06-09 17:02 | Magnetic Resonance Report ---
MR foot LT w/o con HISTORY: 67 years-old Male ?osteomyelitis acute on chronic left foot pain with possible osteomyeliti s. Reported soft tissue wound of the plantar forefoot. COMPARISON: Left foot radiographs 06/08/2022, MRI left foot 08/20/2019 TECHNIQUE: Multiplanar multisequence MRI of the left foot was obtained without the use of IV contrast . FINDINGS: Chronic bony destructive changes of the second toe distal phalanx. Findings may represent sequela of chronic osteomyelitis. The study is motion degraded. There is moderate multifocal osteoarthritis. Per iarticular erosions with overhanging edges noted predominantly within the first metatarsal head with decreased marrow edema compared to the prior study. There is minimal marrow edema of the third metata rsal head with tiny focal area of decreased T1 marrow signal on image 23 series 9. Extension with sub luxation of the second through fifth metatarsal-phalangeal joints redemonstrated. There is a 4 cm cut aneous ulceration noted within the plantar aspect of the forefoot adjacent to the third metatarsal he ad. There is no associated fluid collection to suggest abscess. There is moderate to extensive subcut aneous edema of the foot, pronounced dorsally. Diffuse atrophy with edema of the intrinsic musculature suggestive of chronic denervation. The imaged flexor and extensor tendons appear intact. The Lisfranc ligament is identified and appears intact. IMPRESSION: 1. 4 cm cutaneous ulcer of the plantar forefoot adjacent to the fourth metatarsal head. No abscess. 2. There is minimal marrow edema with cortical irregularity involving the distal aspect of the fourth metatarsal head, new from 2019 which may represent reactive osteitis versus early developing osteomy elitis. Clinical follow-up is needed. 3. Chronic bony destructive changes of the second distal phalanx. 4. Moderate osteoarthritis with findings again suggestive of gout arthropathy. 5. Nonspecific subcutaneous edema, most pronounced dorsally. ACT 112: Negative or not required by law. The above report was generated using voice recognition software. It may contain grammatical, syntax o r spelling errors. Dictated: 06/09/2022 3:40 PM Transcribed: 06/09/2022 4:14 PM [place] [id number] [email or web address] Electronically signed by: Stalin Neville M.D. 06/09/2022 5:01 PM
[2022-06-09] MEDS: FUROSEMIDE 40 MG/4 ML VIAL IV SCH (17:44)
[2022-06-09] MEDS: METOPROLOL TARTRATE 25 MG TAB PO SCH ×2 (18:11→23:13)
--- NOTE | 2022-06-09 20:13 | Ultrasound Report ---
US arterial duplex LE LT CLINICAL HISTORY: Left leg pain and swelling. diabetic foot ulcer ?PAD. COMPARISON: None. TECHNIQUE: Duplex sonography of left lower extremity arterial system was performed. Velocity measure ments provided are in centimeters per second FINDINGS: Mcdowell scale, Doppler spectral analysis, and color imaging performed. Left common femoral artery: Triphasic flow velocity. 127 Left profunda femoris artery: Triphasic flow velocity. 77 Left superficial femoral artery: Triphasic flow velocity. 137 Left popliteal artery: Triphasic flow velocity. 143 Left posterior tibial artery: Triphasic. flow velocity. 97 Left anterior tibial artery: Triphasic flow velocity. 67 Left dorsalis pedis artery: Triphasic flow velocity. 60 Left peroneal artery: Triphasic flow velocity. 89 Left flow velocities: No segmental elevation in flow velocity is noted on the right to suggest a foc al stenosis. LAURIE on the left: 1.3 LAURIE on the right: 1.3 IMPRESSION: 1. Patent arterial flow. No significantly elevated flow velocity to suggest focal stenosis in the low er extremities. ACT 112: Negative or not required by law. Electronically signed by: Tai Valadez M.D. 06/09/2022 8:10 PM
[2022-06-09] MEDS: RIVAROXABAN 20 MG TAB PO SCH (21:10)
[2022-06-09] MEDS: LANTUS PER UNIT CHARGE SQ SCH (21:10)
[2022-06-09] MEDS: ASPIRIN 81 MG ECTAB PO SCH (21:11)
[2022-06-09] MEDS: GABAPENTIN 600 MG TAB PO SCH (21:11)
[2022-06-10] MEDS: AMPICILLIN 2,000 MG in SODIUM CHLOR 0.9% AD-VAN 100 ML IV SCH ×4 (04:52→20:33)
[2022-06-10] MEDS: METOPROLOL TARTRATE 25 MG TAB PO SCH ×3 (05:17→17:35)
[2022-06-10] MEDS: traMADol HCL 50 MG TABLET PO PRN ×3 (05:18→22:30)
[2022-06-10 06:18] LABS: Hematocrit (blood only) 45.2 % (40.1-51.0); Hemoglobin 14.8 g/dl (14.0-18.0); Mean Corpuscular Hemoglobin 27.7 pg (25.0-34.0); Mean Corpuscular Hgb Conc 32.7 g/dL (32.0-36.0); Mean Corpuscular Volume 84.5 fL (80.0-100.0); Mean Platelet Volume 10.4 fL (9.4-12.4); Platelet Count 247 K/uL (130-400); RDW Coefficient of Variation 16.2 % (11.5-14.5); RDW Standard Deviation 49.9 fL (36.4-46.3); Red Blood Count 5.35 M/uL (4.63-6.08); White Blood Count 10.41 K/ul (4.8-10.8)
[2022-06-10 06:45] LABS: BUN Creatinine Ratio 16.4 (10-20); C Reactive Protein 2.49 mg/dl (0-0.5); Calcium 10.1 mg/dl (8.5-10.1); Creatinine Clr Calc Pharmacy 83.4 ml/min; Est GFR (African American) 66.2 ml/min; Est GFR (Non-African American) 57.1 ml/min; Potassium 3.5 mmol/L (3.5-5.1)
[2022-06-10 07:04] LABS: Basophils # (auto) 0.12 K/uL (0-0.2); Basophils % (auto) 1.2 %; Eosinophils # (auto) 0.15 K/uL (0-0.50); Eosinophils % (auto) 1.4 %; Immature Granulocytes # (auto) 0.04 K/uL (0.00-0.02); Immature Granulocytes % (auto) 0.4 %; Lymphocytes # (auto) 4.35 K/uL (1.2-3.4); Lymphocytes % (auto) 41.8 %; Monocytes % (auto) 9.6 %; Neutrophils # (auto) 4.75 K/uL (1.4-6.5); Neutrophils % (auto) 45.6 %
[2022-06-10] MEDS: INSULIN ASPART PER UNIT SC SCH ×4 (08:16→20:24)
[2022-06-10] MEDS: predniSONE 5 MG TAB PO SCH (08:19)
[2022-06-10] MEDS: ROSUVASTATIN CALCIUM 10 MG TAB PO SCH (08:19)
[2022-06-10] MEDS: FUROSEMIDE 40 MG/4 ML VIAL IV SCH ×2 (08:19→16:25)
[2022-06-10] MEDS: PANTOprazole 40 MG TAB PO SCH (08:20)
[2022-06-10] MEDS: SPIRONOLACTONE 25 MG TAB PO SCH ×2 (08:20→20:26)
[2022-06-10] MEDS: GABAPENTIN 300 MG CAP PO SCH (08:20)
[2022-06-10] MEDS: allopurinoL 300 MG TAB PO SCH (08:20)
[2022-06-10] MEDS: metOLazone 5 MG TABLET PO SCH (08:20)
[2022-06-10] MEDS: POTASSIUM CHLORIDE CRTAB 20 MEQ TABCR PO SCH ×2 (08:21→20:27)
[2022-06-10] MEDS: DICLOFENAC SOD 1% GEL 100 GM TUBE EXT SCH ×4 (08:29→20:28)
--- NOTE | 2022-06-10 13:02 | Hospitalist Progress Note ---
Date of Service June 10, 2022 Assessment & Plan (1) Left leg cellulitis: Plan: Main issues appears to be more LLE cellulitis than CHF - failed outpatient treatment with penicillin and doxycycline. Currently on IV ampicillin due to wound culture with MSSA and pansensitive enterococcus faecalis [place] area of erythema to make sure improving. WBC increasing is concerning and may have to broaden antibiotic coverage if continues to get worse. Will get procalcitonin as this may trending may help antibiotic choice. Will get foot MRI to assess for osteomyelitis better. Arterial US to assess wound healing ability in setting of diabetes. Take blood cultures - not taken on admission however if he has MSSA bacteremia these are still likely to be positive. Blood cultures remain negative will consult ortho in regards to his foot: as imaging is sugesting possible osteomyelitis. (2) Acute on chronic heart failure with preserved ejection fraction: Plan: Being treated for such although not completely convincing as CXR clear and no JVD on exam. His left leg swelling is from cellulitis and minimal right leg swelling today. Will continue to diurese as able however given 20 lb weight gain with metolazone , spironolactone and trial 80mg IV BID Lasix until Cr bump with aim 1-2L net negative daily continue with lasix however, will recheck creatinine in afternoon. (3) Lower leg edema: Plan: No DVT on US. Rx as above for HF and cellulitis (4) Diabetic foot ulcer: Plan: Suspect this is source of LLE cellulitis Wound care nuse consult pending (5) Atrial fibrillation: Plan: Appears to be paroxysmal per review of past EKGs - no medication attempt to keep him in NSR however. For now gave metoprolol 5mg IV to monitor response and still significantly tachycadic in 110s. Therefore will start metoprolol tartrate 25mg q6h with hold parameters. Usually rate/rhythm controlled without additional medications. Possibly some of his fatigue is due to this and could consider more rhythm strategy. Aim K > 4, Mg > 2 Anticoagulated chronically with Xarelto (6) Type 2 diabetes mellitus: Plan: HbA1C 6.9 - 65 units basal nightly - sliding scal aspart with CF 20 and ration 1:9 - Hold Metformin Appears to be well controlled on this regimen with glucose 117-128 (7) Gout: Plan: Continue Allopurinol (8) Morbid obesity with BMI of 50.0-59.9, adult: Plan: Likely has component of obesity hypoventilation syndrome as well - HCO3 30 and has been chronically elevated - Recommend sleep study as outpatient to assess for JG (9) Benign hypertension: Plan: Well controlled (10) Metabolic syndrome X: Plan: As above Plan VTE Prophylaxis - Xarelto Diet - low Na, heart healthy, T2DM, no need for fluid restriction unless intake excessively high Disposition - continued admission to med/tele Admission and Anticipated Discharge Date Admission Date: June 08, 2022 Subjective Patient reports no new symptoms. He states the swelling in his legs have improved. Review of Systems Review of Systems: All systems reviewed & are unremarkable except as noted in HPI & below Physical Exam Constitutional: WD/WN, vitals as above Respiratory: normal respiratory effort, lungs clear to auscultation Cardiovascular: Rate/Rhythm: + tachycardic and + irregularly irregular Heart Sounds: no murmur Extremities: normal capillary refill and + pedal edema (2+ LLE, 1+ RLE); no calf tenderness Gastrointestinal (Abdomen): normal bowel sounds, soft, nontender, no hepatosplenomegaly Skin: + ulcer (unstageable 2cm ulcer on bottom of left foot) and + erythema (LLE to mid frey from ulcer) Neurologic: moves all extremities and awake; not confused Psychiatric: A+Ox3, euthymic affect Genitourinary: no CVA tenderness Results & Data Results & Data ([facility]) Vital Signs (Past 12 Hours) Vital Signs Temp Pulse Pulse Resp BP Pulse Ox O2 Del Method 06/10/22 12:30 37.1 C 105 H 119/60 06/10/22 11:11 36.6 C 70 20 140/60 91 Room Air 06/10/22 07:35 36.6 C 73 18 127/90 91 Room Air 06/10/22 07:20 80 06/10/22 05:18 96 H 06/10/22 03:46 36.8 C 82 18 143/80 H 91 Room Air PG Care Time/CCT Total # of Minutes Spent Total Time Spent with Patient: Total time spent is greater than 50% in coordination of care (as documented) at patient's floor/unit and/or counseling patient: Coding Level of Care Code 28669 Subseq Hosp Care Lvl 3 Diagnoses Left leg cellulitis L03.116 Acute on chronic heart failure with preserved ejection fraction I50.33 Lower leg edema R60.0 Diabetic foot ulcer E11.621; L97.509 Atrial fibrillation I48.91 Type 2 diabetes mellitus E11.9 Gout M10.9 Gout site: foot Gout etiology: due to renal impairment Chronicity: chronic Laterality: right Morbid obesity with BMI of 50.0-59.9, adult E66.01; Z68.43 Benign hypertension I10 Metabolic syndrome X E88.81 Time Spent (min) 35 (1) Gout Gout site: foot Gout etiology: due to renal impairment Chronicity: chronic Laterality: right
--- NOTE | 2022-06-10 15:09 | Orthopedic Consultation ---
Date of Consultation June 10, 2022 Assessment & Plan (1) Diabetic foot ulcer: Patient was evaluated in room 287 today. Findings were discussed with him at length. I did review his photo films of the foot over the last 17 months. His ulceration has waxed and waned, and actually looks better than it has had several times throughout his treatment. It is however, worse than last week. The erythema and swelling are new for him, and I do think the cellulitis is likely related to his foot ulcer. Previous wound culture grew Enterococcus. He is not currently febrile, and has been afebrile throughout his stay. White count has stabilized. He is currently receiving IV Ampicillin for his positive wound culture. He is currently on Xarelto for DVT prophylaxis. Given his sedentary state, I would continue this. He may be weightbearing as tolerated on the hindfoot, but should avoid putting further pressure on the forefoot, as this may worsen the tissue breakdown. Given his overall condition, I do not think he requires any urgent surgical intervention. We will see how he does on the IV antibiotics and continue to monitor his lab values as well as clinical presentation over the next few days. If he improves, surgical planning can be done on an outpatient basis with likely need for fourth metatarsal head resection. If he worsens, he understands that surgical invention will be needed on a more urgent basis. We will continue to follow while he is in the hospital. Care plan will be discussed with Dr. Eun Garcia this afternoon. History of Present Illness Reason for Consultation: Left foot wound with leg cellulitis Attending Physician: Froy Farnsworth History of Present Illness This 67-year-old male with known diabetes, diabetic neuropathy, morbid obesity, atrial fibrillation, and CHF, presented through the ED, for evaluation of Bilateral lower extremity edema, weight gain, and shortness of breath. Patient states he has a wound on the plantar surface of his left foot that he has been dealing with for the last year. Prior to that he had a callus on the bottom of his foot for approximately 15 years. He has been seeing Dr. Eun Garcia, entry engineer, at [facility] orth[facility] for care. He has also been seeing the wound care center over the last year. The foot wound was noted on the ED exam, and possibility that it was contributing to lower extremity cellulitis was entertained. Patient states he does not have any pain in the foot. His lower leg was noted to be more red than usual, along with the significant swelling. Evaluation in ED was concerning for cellulitis and he was admitted for observation. Patient is currently on IV antibiotics. He states he has had a few episodes of sweats while in the hospital, but denies any chills. No fever that he is aware of. No other complaints. He does have serial photos of his foot on his phone. He did allow me to review these. Allergies Allergy/AdvReac Type Severity Reaction Status Date / Time No Known Allergies Allergy Verified 06/08/22 16:24 Home Medications Medication Instructions Recorded Confirmed Type blood sugar diagnostic (Contour #3 Boxes 01/16/21 06/04/22 Rx Next Test Strips) cyclobenzaprine 10 mg tablet 10 mg PO Q8H PRN MUSCLE SPASMS 04/27/21 06/08/22 History metolazone 5 mg tablet 5 mg PO DAILY 10/27/21 06/08/22 History adalimumab 40 mg/0.8 mL See Rx Instructions subcut Q14D #2 12/10/21 06/08/22 Rx subcutaneous pen kit (Humira Pen) ea aspirin 81 mg tablet,delayed 81 mg PO HS 12/19/21 06/08/22 History release (Adult Low Dose Aspirin) cyanocobalamin (vitamin B-12) 500 500 mcg PO HS 12/19/21 06/08/22 History mcg tablet (Vitamin B-12) multivitamin with minerals (Men's 1 tab PO DAILY 12/19/21 06/08/22 History One Daily) sodium chloride 5 % eye drops 1 drp OPB HS 12/19/21 06/08/22 History (Tyler 128) diclofenac sodium 1 % topical gel 2 g topical QID #100 grams 12/25/21 06/08/22 Rx (Arthritis Pain (diclofenac)) albuterol sulfate 90 mcg/actuation 1 puff inhalation Q6H PRN 01/27/22 06/08/22 Rx aerosol inhaler Shortness Of Breath Or Wheezing #18 grams allopurinol 300 mg tablet 450 mg PO DAILY #135 tabs 01/27/22 06/08/22 Rx celecoxib 200 mg capsule 200 mg PO BID #180 caps 01/27/22 06/08/22 Rx rivaroxaban 20 mg tablet (Xarelto) 20 mg PO QPM #90 tabs 01/27/22 06/08/22 Rx rosuvastatin 10 mg tablet 10 mg PO DAILY #90 tabs 01/27/22 06/08/22 Rx spironolactone 25 mg tablet 25 mg PO BID #180 tabs 01/27/22 06/08/22 Rx furosemide 40 mg tablet 40 mg PO Q OTHER DAY #90 tabs 02/01/22 06/08/22 Rx metformin 500 mg tablet 1,000 mg PO BID #360 tabs 02/01/22 06/08/22 Rx mupirocin calcium 2 % topical cream 1 applic topical UD #30 grams 02/01/22 06/08/22 Rx omeprazole 20 mg capsule,delayed 40 mg PO DAILY #180 caps 02/01/22 06/08/22 Rx release pen needle, diabetic 32 gauge x #4 Boxes 04/26/22 06/04/22 Rx /32" (BD Ultra-Fine Izzy Pen Needle) insulin glargine 100 unit/mL (3 65 unit (0.65 mL) subcut QPM #3 05/02/22 06/08/22 Rx mL) subcutaneous pen (Basaglar Boxes KwikPen U-100 Insulin) cadexomer iodine 0.9 % topical gel 40 g topical DAILY 30 days #40 05/25/22 06/08/22 Rx (Iodosorb) grams dulaglutide 1.5 mg/0.5 mL 1.5 mg (0.5 mL) subcut WK #2 mL 05/28/22 06/08/22 Rx subcutaneous pen injector (Trulicity) gabapentin 300 mg capsule 300 mg PO .COMPLEX #270 caps 06/04/22 06/08/22 Rx insulin aspart U-100 100 unit/mL 20 unit subcut AC 06/04/22 06/08/22 History (3 mL) subcutaneous pen (Novolog Flexpen U-100 Insulin aspart) prednisone 5 mg tablet 5 mg PO DAILY 06/04/22 06/08/22 History tramadol 37.5 mg-acetaminophen 325 1 tab PO QID PRN pain #120 tabs 06/04/22 06/08/22 Rx mg tablet doxycycline hyclate 100 mg tablet 100 mg PO BID 06/08/22 06/08/22 History penicillin V potassium 500 mg 500 mg PO TID 06/08/22 06/08/22 History tablet Patient History Medical History (Updated 06/09/22 @ 17:18 by Buster Almanza MD) Atrial fibrillation (05/23/13) Diabetic foot ulcer Diverticulosis of colon Gout Hx of fall Hyperlipidemia LDL goal <70 Internal hemorrhoids Morbid obesity with BMI of 50.0-59.9, adult Osteoarthritis Psoriasis Psoriatic arthropathy Rheumatoid arthritis (05/23/13) SOB (shortness of breath) Surgical History History of total hip arthroplasty Family History Family/Other Brain cancer Uncle Colorectal cancer Prostate cancer Father Myocardial infarction Mother Myocardial infarction Lung cancer Denies family history of Ovarian cancer Breast cancer Social History Smoking Status: Former smoker packs per day: 2; Second Hand Exposure: No; Do You Dip or Chew Tobacco: No; 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) Hx Substance Use: No Preferred Language: Hebrew Communication Ability: Effective [employer] Required: No Beliefs That Will Affect Care: None Current Living Situation: Spouse Current Living Situation Comment: with in home current occupational status: retired Other Information That Helps Us Care for You: No Feels Safe at Home: Yes Safety Concerns: Feels Safe At This Time Childhood Exposure to Second-Hand Smoke: Yes Dental Care, Regularly: Yes Physical Activity Frequency: Does not Exercise Seatbelt Use: always Sunscreen Use: Yes Assistive Devices: Cane and Glasses Review of Systems Review of Systems: All systems reviewed & are unremarkable except as noted in HPI & below Physical Exam Physical Exam: General: Well-developed, well-nourished, elderly white male, in no acute distress. Laying in bed. Alert and oriented. Conversive. Very large individual. Skin: Warm and dry with good turgor. He does have venous stasis changes present on both lower extremities. Left lower leg has warmth and erythema compared to the noninvolved side. Line of demarcation is present. He states that the leg is more warm and more red than usual. There is also considerable edema in the foot. He states that this is actually improved over the last 2 days compared to the first evening. He states the lower leg is also involved, but has drastically improved. There is also an ulcerative wound on the plantar surface of his foot at the fourth and partial. There is a central area that is full- thickness. Nothing is expressible. Area is nontender to touch. Ulceration is 25mm x 30mm with a smaller central full thickness area. Musculoskeletal: Patient has intact motor function of his ankle and toes. He has no pain with palpation over the foot itself. No pain with palpation over the fourth metatarsal. Neurologic: Gross sensation is intact across the dorsum of the foot as well as over his heel and hindfoot. He has no sensation with palpation over the metatarsal heads or digits. Peripheral pulses are 2+. Capillary refill is 2+ for each of the toes. Results & Data ([facility]) Vital Signs (Past 12 Hours) Vital Signs Temp Pulse Pulse Resp BP Pulse Ox O2 Del Method 06/10/22 12:30 37.1 C 105 H 119/60 06/10/22 11:11 36.6 C 70 20 140/60 91 Room Air 06/10/22 07:35 36.6 C 73 18 127/90 91 Room Air 06/10/22 07:20 80 06/10/22 05:18 96 H 06/10/22 03:46 36.8 C 82 18 143/80 H 91 Room Air Laboratory Results Serial CBCs show a white count of 9.25 on day of admission that up trended to 10.95 yesterday. He has stabilized at 10.4 today. No evidence for anemia. Renal panel remains relatively stable. BUN and creatinine are within normal limits. C-reactive protein is elevated at 2.49 today. Glucose levels have been fairly well controlled with a max of 179 today. Diagnostic Findings Initial radiographs of the left foot show a skin ulceration at the plantar surface. No underlying bony destruction was noted. Extensive dorsal soft tissue swelling was present. MRI of the foot obtained 2 days ago shows a 4 cm cutaneous ulcer of the plantar surface at the fourth metatarsal head. No evidence for abscess. There is marrow edema with cortical irregularity of the fourth metatarsal head that is new from 2019. It may represent reactive osteitis versus early osteomyelitis. There is chronic destructive change of the second distal phalanx. Moderate osteoarthritis consistent with gout arthropathy. Arterial duplex scan shows no focal stenosis and patent arterial flow. ECG Additional Comments: EKG obtained upon admission shows atrial fibrillation with RVR. Rate of 102.
--- NOTE | 2022-06-10 16:17 | Podiatry Consultation ---
Date of Consultation June 10, 2022 Assessment & Plan (1) Diabetic foot ulcer: will look to schedule patient for outpatient surgery, next Tuesday for left 4th metatarsal head resection, my office will continue to contact the patient to have him scheduled for procedure, in the meantime he should continue local wound care and abx (2) Diabetic ulcer of left foot: (3) Osteomyelitis: Laterality: left Osteomyelitis location: foot Osteomyelitis type: other chronic Qualified Code(s): M86.672 - Other chronic osteomyelitis, left ankle and foot History of Present Illness Attending Physician: Froy Farnsworth History of Present Illness Patient is a very pleasant patient, known to my practice, seen by our PA and I saw patient at bedside today, he has been having on going pain associated with his sub 4 ulcer. clinically patient is stable and I agree, there is no urgency for surgery. After discussion with patient he would like to scheule the surgery, I recommend a 4th metatarsal head resection with wound debridement, this will be performed outpatient, will aim to schedule this next Tuesday during my OR time, patient agreeable Allergies Allergy/AdvReac Type Severity Reaction Status Date / Time No Known Allergies Allergy Verified 06/08/22 16:24 Home Medications Medication Instructions Recorded Confirmed Type blood sugar diagnostic (Contour #3 Boxes 01/16/21 06/04/22 Rx Next Test Strips) cyclobenzaprine 10 mg tablet 10 mg PO Q8H PRN MUSCLE SPASMS 04/27/21 06/08/22 History metolazone 5 mg tablet 5 mg PO DAILY 10/27/21 06/08/22 History adalimumab 40 mg/0.8 mL See Rx Instructions subcut Q14D #2 12/10/21 06/08/22 Rx subcutaneous pen kit (Humira Pen) ea aspirin 81 mg tablet,delayed 81 mg PO HS 12/19/21 06/08/22 History release (Adult Low Dose Aspirin) cyanocobalamin (vitamin B-12) 500 500 mcg PO HS 12/19/21 06/08/22 History mcg tablet (Vitamin B-12) multivitamin with minerals (Men's 1 tab PO DAILY 12/19/21 06/08/22 History One Daily) sodium chloride 5 % eye drops 1 drp OPB HS 12/19/21 06/08/22 History (Tyler 128) diclofenac sodium 1 % topical gel 2 g topical QID #100 grams 12/25/21 06/08/22 Rx (Arthritis Pain (diclofenac)) albuterol sulfate 90 mcg/actuation 1 puff inhalation Q6H PRN 01/27/22 06/08/22 Rx aerosol inhaler Shortness Of Breath Or Wheezing #18 grams allopurinol 300 mg tablet 450 mg PO DAILY #135 tabs 01/27/22 06/08/22 Rx celecoxib 200 mg capsule 200 mg PO BID #180 caps 01/27/22 06/08/22 Rx rivaroxaban 20 mg tablet (Xarelto) 20 mg PO QPM #90 tabs 01/27/22 06/08/22 Rx rosuvastatin 10 mg tablet 10 mg PO DAILY #90 tabs 01/27/22 06/08/22 Rx spironolactone 25 mg tablet 25 mg PO BID #180 tabs 01/27/22 06/08/22 Rx furosemide 40 mg tablet 40 mg PO Q OTHER DAY #90 tabs 02/01/22 06/08/22 Rx metformin 500 mg tablet 1,000 mg PO BID #360 tabs 02/01/22 06/08/22 Rx mupirocin calcium 2 % topical cream 1 applic topical UD #30 grams 02/01/22 06/08/22 Rx omeprazole 20 mg capsule,delayed 40 mg PO DAILY #180 caps 02/01/22 06/08/22 Rx release pen needle, diabetic 32 gauge x #4 Boxes 04/26/22 06/04/22 Rx 5/32" (BD Ultra-Fine Izzy Pen Needle) insulin glargine 100 unit/mL (3 65 unit (0.65 mL) subcut QPM #3 05/02/22 06/08/22 Rx mL) subcutaneous pen (Basaglar Boxes KwikPen U-100 Insulin) cadexomer iodine 0.9 % topical gel 40 g topical DAILY 30 days #40 05/25/22 06/08/22 Rx (Iodosorb) grams dulaglutide 1.5 mg/0.5 mL 1.5 mg (0.5 mL) subcut WK #2 mL 05/28/22 06/08/22 [facility] gabapentin 300 mg capsule 300 mg PO .COMPLEX #270 caps 06/04/22 06/08/22 Rx insulin aspart U-100 100 unit/mL 20 unit subcut AC 06/04/22 06/08/22 History (3 mL) subcutaneous pen (Novolog Flexpen U-100 Insulin aspart) prednisone 5 mg tablet 5 mg PO DAILY 06/04/22 06/08/22 History tramadol 37.5 mg-acetaminophen 325 1 tab PO QID PRN pain #120 tabs 06/04/22 06/08/22 Rx mg tablet doxycycline hyclate 100 mg tablet 100 mg PO BID 06/08/22 06/08/22 History penicillin V potassium 500 mg 500 mg PO TID 06/08/22 06/08/22 History tablet Patient History Medical History Atrial fibrillation (05/23/13) Diabetic foot ulcer Diverticulosis of colon Gout Hx of fall Hyperlipidemia LDL goal <70 Internal hemorrhoids Morbid obesity with BMI of 50.0-59.9, adult Osteoarthritis Psoriasis Psoriatic arthropathy Rheumatoid arthritis (05/23/13) SOB (shortness of breath) Surgical History History of total hip arthroplasty Family History Family/Other Brain cancer Uncle Colorectal cancer Prostate cancer Father Myocardial infarction Mother Myocardial infarction Lung cancer Denies family history of Ovarian cancer Breast cancer Social History Smoking Status: Former smoker packs per day: 2; Second Hand Exposure: No; Do You Dip or Chew Tobacco: No; 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) Hx Substance Use: No Preferred Language: Turkmen Communication Ability: Effective Ergonomics Technician Required: No Beliefs That Will Affect Care: None Current Living Situation: Spouse Current Living Situation Comment: with in home current occupational status: retired Other Information That Helps Us Care for You: No Feels Safe at Home: Yes Safety Concerns: Feels Safe At This Time Childhood Exposure to Second-Hand Smoke: Yes Dental Care, Regularly: Yes Physical Activity Frequency: Does not Exercise Seatbelt Use: always Sunscreen Use: Yes Assistive Devices: Cane and Glasses Physical Exam Skin: submetatarsal 4 ulcer left foot, with possible osteomyelitic changes noted to the bone, patient has been seen by wound clinic, foot otherwise warm and dry, I did not appreciated erythema or drainage around the ulcer although aptient stated his foot had been very swollen prior to starting abx Results & Data ([facility]) Vital Signs (Past 12 Hours) Vital Signs Temp Pulse Pulse Resp BP Pulse Ox O2 Del Method 06/10/22 15:34 89 06/10/22 15:10 36.8 C 85 18 134/81 92 Room Air 06/10/22 12:30 37.1 C 105 H 119/60 06/10/22 11:11 36.6 C 70 20 140/60 91 Room Air 06/10/22 07:35 36.6 C 73 18 127/90 91 Room Air 06/10/22 07:20 80 06/10/22 05:18 96 H
[2022-06-10 18:57] LABS: Creatinine Clr Calc Pharmacy 63.2 ml/min; Est GFR (African American) 47.3 ml/min; Est GFR (Non-African American) 40.8 ml/min
[2022-06-10] MEDS: LANTUS PER UNIT CHARGE SQ SCH (20:25)
[2022-06-10] MEDS: ASPIRIN 81 MG ECTAB PO SCH (20:26)
[2022-06-10] MEDS: RIVAROXABAN 20 MG TAB PO SCH (20:26)
[2022-06-10] MEDS: GABAPENTIN 600 MG TAB PO SCH (20:27)
[2022-06-11] MEDS: METOPROLOL TARTRATE 25 MG TAB PO SCH ×4 (00:30→17:18)
[2022-06-11] MEDS: AMPICILLIN 2,000 MG in SODIUM CHLOR 0.9% AD-VAN 100 ML IV SCH ×4 (03:35→21:06)
[2022-06-11 06:50] LABS: Basophils # (auto) 0.09 K/uL (0-0.2); Basophils % (auto) 0.7 %; Eosinophils # (auto) 0.16 K/uL (0-0.50); Eosinophils % (auto) 1.3 %; Hematocrit (blood only) 45.3 % (40.1-51.0); Hemoglobin 14.9 g/dl (14.0-18.0); Immature Granulocytes # (auto) 0.04 K/uL (0.00-0.02); Immature Granulocytes % (auto) 0.3 %; Lymphocytes # (auto) 4.57 K/uL (1.2-3.4); Lymphocytes % (auto) 37.7 %; Mean Corpuscular Hemoglobin 27.9 pg (25.0-34.0); Mean Corpuscular Hgb Conc 32.9 g/dL (32.0-36.0); Mean Corpuscular Volume 84.8 fL (80.0-100.0); Mean Platelet Volume 10.7 fL (9.4-12.4); Monocytes # (auto) 1.24 K/uL (0.24-0.82); Monocytes % (auto) 10.2 %; Neutrophils # (auto) 6.02 K/uL (1.4-6.5); Neutrophils % (auto) 49.8 %; Platelet Count 247 K/uL (130-400); RDW Coefficient of Variation 16.1 % (11.5-14.5); RDW Standard Deviation 49.2 fL (36.4-46.3); Red Blood Count 5.34 M/uL (4.63-6.08); White Blood Count 12.12 K/ul (4.8-10.8)
[2022-06-11 07:40] LABS: BUN Creatinine Ratio 22.2 (10-20); Calcium 10.4 mg/dl (8.5-10.1); Creatinine Clr Calc Pharmacy 73.4 ml/min; Est GFR (African American) 57.4 ml/min; Est GFR (Non-African American) 49.5 ml/min; Magnesium 1.9 mg/dl (1.7-2.4)
[2022-06-11] MEDS: DICLOFENAC SOD 1% GEL 100 GM TUBE EXT SCH ×4 (08:29→21:04)
[2022-06-11] MEDS: POTASSIUM CHLORIDE CRTAB 20 MEQ TABCR PO SCH ×2 (08:30→21:04)
[2022-06-11] MEDS: FUROSEMIDE 40 MG/4 ML VIAL IV SCH ×2 (08:30→17:18)
[2022-06-11] MEDS: SPIRONOLACTONE 25 MG TAB PO SCH ×2 (08:30→21:05)
[2022-06-11] MEDS: PANTOprazole 40 MG TAB PO SCH (08:31)
[2022-06-11] MEDS: predniSONE 5 MG TAB PO SCH (08:31)
[2022-06-11] MEDS: metOLazone 5 MG TABLET PO SCH (08:31)
[2022-06-11] MEDS: allopurinoL 300 MG TAB PO SCH (08:31)
[2022-06-11] MEDS: ROSUVASTATIN CALCIUM 10 MG TAB PO SCH (08:32)
[2022-06-11] MEDS: INSULIN ASPART PER UNIT SC SCH ×4 (08:32→21:06)
[2022-06-11] MEDS: GABAPENTIN 300 MG CAP PO SCH (08:32)
--- NOTE | 2022-06-11 08:32 | Podiatry Consultation ---
Date of Consultation June 11, 2022 Assessment & Plan (1) Diabetic foot ulcer: Patient is scheduled for outpatient fourth metatarsal head resection with ulcer debridement on June 18. My office is in contact and working to set up the surgery. I evaluated patient and changed the dressing today. Again I feel his ulcer is stable. He will likely benefit from continued antibiotics however for the cellulitis on the left lower extremity. And may continue the wound care dressing of Allevyn foam which I did place a new dressing over the left foot. Please contact Ortho on-call this weekend if there are any concerns over the weekend, I will not be available this weekend but we have our on-call doctor available. I appreciate this kind consult I will be in on Tuesday to evaluate the patient. (2) Diabetic foot ulcer: Diabetes mellitus type: type 2 Diabetic foot ulcer location: midfoot Laterality: left Non-pressure ulcer stage: with fat layer exposed Qualified Code(s): E11.621 - Type 2 diabetes mellitus with foot ulcer; L97.422 - Non-pressure chronic ulcer of left heel and midfoot with fat layer exposed History of Present Illness Attending Physician: Froy Farnsworth History of Present Illness Patient is a very pleasant 67-year-old male seen at bedside today. In terms of his left foot ulcer this is stable and actually significantly improved from previous visits when I have seen him nonetheless I appreciate the changes seen on MRI which are consistent for possible osteomyelitis. Patient and I have a long been discussing the need for fourth metatarsal head resection's although I see no acute issues with the current infection I do and have discussed with the patient the need to remove the metatarsal head to prevent reoccurrence of the pain that he gets from the callus that is formed and also the callus that is led to the ulceration. Currently the ulceration is healed and closed this is likely due to him being off his feet more and in the hospital. I still appreciate some erythema along the leg likely consistent with cellulitis of the leg. And I did appreciate the mild elevation in his white cell count which was noted to be 12 today. I still feel like the likelihood of this being related to a problem within the ulceration itself is probably a low probability given how the overall appearance of the ulcer is today. Again I have patient scheduled for outpatient fourth metatarsal head resection next Tuesday during my OR time. Otherwise patient noted to me he is feeling well he is resting comfortably in bed he had no discomfort to the foot I did appreciate still some dorsal swelling of the foot in comparison to the right side and erythema on the leg this is not severe in nature but I do appreciate more erythema on the left lower extremity versus the right. Allergies Allergy/AdvReac Type Severity Reaction Status Date / Time No Known Allergies Allergy Verified 06/08/22 16:24 Home Medications Medication Instructions Recorded Confirmed Type blood sugar diagnostic (Contour #3 Boxes 01/16/21 06/04/22 Rx Next Test Strips) cyclobenzaprine 10 mg tablet 10 mg PO Q8H PRN MUSCLE SPASMS 04/27/21 06/08/22 History metolazone 5 mg tablet 5 mg PO DAILY 10/27/21 06/08/22 History adalimumab 40 mg/0.8 mL See Rx Instructions subcut Q14D #2 12/10/21 06/08/22 Rx subcutaneous pen kit (Humira Pen) ea aspirin 81 mg tablet,delayed 81 mg PO HS 12/19/21 06/08/22 History release (Adult Low Dose Aspirin) cyanocobalamin (vitamin B-12) 500 500 mcg PO HS 12/19/21 06/08/22 History mcg tablet (Vitamin B-12) multivitamin with minerals (Men's 1 tab PO DAILY 12/19/21 06/08/22 History One Daily) sodium chloride 5 % eye drops 1 drp OPB HS 12/19/21 06/08/22 History (Tyler 128) diclofenac sodium 1 % topical gel 2 g topical QID #100 grams 12/25/21 06/08/22 Rx (Arthritis Pain (diclofenac)) albuterol sulfate 90 mcg/actuation 1 puff inhalation Q6H PRN 01/27/22 06/08/22 Rx aerosol inhaler Shortness Of Breath Or Wheezing #18 grams allopurinol 300 mg tablet 450 mg PO DAILY #135 tabs 01/27/22 06/08/22 Rx celecoxib 200 mg capsule 200 mg PO BID #180 caps 01/27/22 06/08/22 Rx rivaroxaban 20 mg tablet (Xarelto) 20 mg PO QPM #90 tabs 01/27/22 06/08/22 Rx rosuvastatin 10 mg tablet 10 mg PO DAILY #90 tabs 01/27/22 06/08/22 Rx spironolactone 25 mg tablet 25 mg PO BID #180 tabs 01/27/22 06/08/22 Rx furosemide 40 mg tablet 40 mg PO Q OTHER DAY #90 tabs 02/01/22 06/08/22 Rx metformin 500 mg tablet 1,000 mg PO BID #360 tabs 02/01/22 06/08/22 Rx mupirocin calcium 2 % topical cream 1 applic topical UD #30 grams 02/01/22 06/08/22 Rx omeprazole 20 mg capsule,delayed 40 mg PO DAILY #180 caps 02/01/22 06/08/22 Rx release pen needle, diabetic 32 gauge x #4 Boxes 04/26/22 06/04/22 Rx 5/32" (BD Ultra-Fine Izzy Pen Needle) insulin glargine 100 unit/mL (3 65 unit (0.65 mL) subcut QPM #3 05/02/22 06/08/22 Rx mL) subcutaneous pen (Basaglar Boxes KwikPen U-100 Insulin) cadexomer iodine 0.9 % topical gel 40 g topical DAILY 30 days #40 05/25/22 06/08/22 Rx (Iodosorb) grams dulaglutide 1.5 mg/0.5 mL 1.5 mg (0.5 mL) subcut WK #2 mL 05/28/22 06/08/22 Rx subcutaneous pen injector (Trulicity) gabapentin 300 mg capsule 300 mg PO .COMPLEX #270 caps 06/04/22 06/08/22 Rx insulin aspart U-100 100 unit/mL 20 unit subcut AC 06/04/22 06/08/22 History (3 mL) subcutaneous pen (Novolog Flexpen U-100 Insulin aspart) prednisone 5 mg tablet 5 mg PO DAILY 06/04/22 06/08/22 History tramadol 37.5 mg-acetaminophen 325 1 tab PO QID PRN pain #120 tabs 06/04/22 06/08/22 Rx mg tablet doxycycline hyclate 100 mg tablet 100 mg PO BID 06/08/22 06/08/22 History penicillin V potassium 500 mg 500 mg PO TID 06/08/22 06/08/22 History tablet Patient History Medical History Atrial fibrillation (05/23/13) Diabetic foot ulcer Diverticulosis of colon Gout Hx of fall Hyperlipidemia LDL goal <70 Internal hemorrhoids Morbid obesity with BMI of 50.0-59.9, adult Osteoarthritis Psoriasis Psoriatic arthropathy Rheumatoid arthritis (05/23/13) SOB (shortness of breath) Surgical History History of total hip arthroplasty Family History Family/Other Brain cancer Uncle Colorectal cancer Prostate cancer Father Myocardial infarction Mother Myocardial infarction Lung cancer Denies family history of Ovarian cancer Breast cancer Social History Smoking Status: Former smoker packs per day: 2; Second Hand Exposure: No; 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) Hx Substance Use: No Preferred Language: Korean Communication Ability: Effective Rehabilitator Required: No Beliefs That Will Affect Care: None Current Living Situation: Spouse Current Living Situation Comment: with in home current occupational status: retired Feels Safe at Home: Yes Childhood Exposure to Second-Hand Smoke: Yes Dental Care, Regularly: Yes Physical Activity Frequency: Does not Exercise Seatbelt Use: always Sunscreen Use: Yes Assistive Devices: Cane and Glasses Physical Exam Skin: Dressings removed Allevyn foam had been very worn on the patient's skin I removed all dressings and cleanse the foot with wound cleanser to remove any of the remaining dressing that it stuck to the patient's foot. I put a clinical photo in patient's chart and his [facility] health chart from today I did not appreciate any purulence and again the ulcer itself is healed and not presently open. MRI again showing changes that may be consistent with osteomyelitis. There continues to be dorsal foot swelling in comparison to the right side and some mild leg erythema likely secondary to cellulitis of the leg. However overall I feel that his ulcer is stable. Results & Data ([facility]) Vital Signs (Past 12 Hours) Vital Signs Temp Pulse Pulse Pulse Resp BP BP 06/11/22 08:05 36.6 C 84 17 118/82 06/11/22 07:00 79 06/11/22 06:08 70 20 137/84 06/11/22 03:09 36.7 C 65 20 121/74 06/11/22 00:05 36.7 C 86 18 132/85 Pulse Ox O2 Del Method 06/11/22 08:05 90 Room Air 06/11/22 07:00 06/11/22 06:08 91 Room Air 06/11/22 03:09 91 Room Air 06/11/22 00:05 91 Room Air
[2022-06-11] MEDS: traMADol HCL 50 MG TABLET PO PRN ×2 (08:41→17:17)
--- NOTE | 2022-06-11 20:57 | Hospitalist Progress Note ---
Date of Service June 11, 2022 Assessment & Plan (1) Left leg cellulitis: Plan: Main issues appears to be more LLE cellulitis than CHF - failed outpatient treatment with penicillin and doxycycline. Currently on IV ampicillin due to wound culture with MSSA and pansensitive enterococcus faecalis [place] area of erythema to make sure improving. WBC increasing is concerning and may have to broaden antibiotic coverage if continues to get worse. Will get procalcitonin as this may trending may help antibiotic choice. Will get foot MRI to assess for osteomyelitis better. Arterial US to assess wound healing ability in setting of diabetes. Take blood cultures - not taken on admission however if he has MSSA bacteremia these are still likely to be positive. Blood cultures remain negative will consult ortho in regards to his foot: as imaging is sugesting possible osteomyelitis. Consulted podiatry. Plan for surgery on Tuesday as outpatient if he continues to do well on antibiotics. will continue to monitor over course of weekend with discharge target date on Tuesday. Will need cardiac clearance prior to discharge. (2) Acute on chronic heart failure with preserved ejection fraction: Plan: Being treated for such although not completely convincing as CXR clear and no JVD on exam. His left leg swelling is from cellulitis and minimal right leg swelling today. Will continue to diurese as able however given 20 lb weight gain with metolazone, spironolactone and trial 80mg IV BID Lasix until Cr bump with aim 1- 2L net negative daily continue with lasix however, will recheck creatinine in afternoon. (3) Lower leg edema: Plan: No DVT on US. Rx as above for HF and cellulitis (4) Diabetic foot ulcer: Plan: Suspect this is source of LLE cellulitis Wound care nuse consult pending (5) Atrial fibrillation: Plan: Appears to be paroxysmal per review of past EKGs - no medication attempt to keep him in NSR however. For now gave metoprolol 5mg IV to monitor response and still significantly tachycadic in 110s. Therefore will start metoprolol tartrate 25mg q6h with hold parameters. Usually rate/rhythm controlled without additional medications. Possibly some of his fatigue is due to this and could consider more rhythm strategy. Aim K > 4, Mg > 2 Anticoagulated chronically with Xarelto (6) Type 2 diabetes mellitus: Plan: HbA1C 6.9 - 65 units basal nightly - sliding scal aspart with CF 20 and ration 1:9 - Hold Metformin Appears to be well controlled on this regimen with glucose 117-128 (7) Gout: Plan: Continue Allopurinol (8) Morbid obesity with BMI of 50.0-59.9, adult: Plan: Likely has component of obesity hypoventilation syndrome as well - HCO3 30 and has been chronically elevated - Recommend sleep study as outpatient to assess for JG (9) Benign hypertension: Plan: Well controlled (10) Metabolic syndrome X: Plan: As above Plan VTE Prophylaxis - Xarelto Diet - low Na, heart healthy, T2DM, no need for fluid restriction unless intake excessively high Disposition - continued admission to med/tele Admission and Anticipated Discharge Date Admission Date: June 08, 2022 Subjective 67 yo male reports no new symptoms. Review of Systems Review of Systems: All systems reviewed & are unremarkable except as noted in HPI & below Physical Exam Constitutional: WD/WN, vitals as above Respiratory: normal respiratory effort, lungs clear to auscultation Cardiovascular: Rate/Rhythm: + tachycardic and + irregularly irregular Heart Sounds: no murmur Extremities: normal capillary refill and + pedal edema (2+ LLE, 1+ RLE); no calf tenderness Gastrointestinal (Abdomen): normal bowel sounds, soft, nontender, no hepatosplenomegaly Skin: + ulcer (unstageable 2cm ulcer on bottom of left foot) and + erythema (LLE to mid frey from ulcer) Neurologic: moves all extremities and awake; not confused Psychiatric: A+Ox3, euthymic affect Genitourinary: no CVA tenderness Results & Data Results & Data ([facility]) Vital Signs (Past 12 Hours) Vital Signs Temp Pulse Pulse Pulse Resp BP Pulse Ox 06/11/22 19:41 37.3 C 79 20 156/84 H 91 06/11/22 17:16 101 H 121/81 06/11/22 15:39 83 18 136/83 90 06/11/22 14:54 105 H 06/11/22 11:10 36.8 C 76 16 126/72 89 L O2 Del Method 06/11/22 19:41 Room Air 06/11/22 17:16 06/11/22 15:39 Room Air 06/11/22 14:54 06/11/22 11:10 Room Air PG Care Time/CCT Total # of Minutes Spent Total Time Spent with Patient: Total time spent is greater than 50% in coordination of care (as documented) at patient's floor/unit and/or counseling patient: Coding Level of Care Code 67069 Subseq Hosp Care Lvl 3 Diagnoses Left leg cellulitis L03.116 Acute on chronic heart failure with preserved ejection fraction I50.33 Lower leg edema R60.0 Diabetic foot ulcer E11.621; L97.509 Atrial fibrillation I48.91 Type 2 diabetes mellitus E11.9 Gout M10.9 Chronicity: chronic Gout etiology: due to renal impairment Gout site: foot Laterality: right Morbid obesity with BMI of 50.0-59.9, adult E66.01; Z68.43 Benign hypertension I10 Metabolic syndrome X E88.81 Time Spent (min) 35 Comment updated family/ discussed with specialists (1) Gout Chronicity: chronic Gout etiology: due to renal impairment Gout site: foot Laterality: right
[2022-06-11] MEDS: RIVAROXABAN 20 MG TAB PO SCH (21:04)
[2022-06-11] MEDS: ASPIRIN 81 MG ECTAB PO SCH (21:04)
[2022-06-11] MEDS: GABAPENTIN 600 MG TAB PO SCH (21:04)
[2022-06-11] MEDS: LANTUS PER UNIT CHARGE SQ SCH (21:05)
[2022-06-12] MEDS: traMADol HCL 50 MG TABLET PO PRN ×3 (00:20→20:40)
[2022-06-12] MEDS: METOPROLOL TARTRATE 25 MG TAB PO SCH ×5 (00:21→23:43)
[2022-06-12] MEDS: AMPICILLIN 2,000 MG in SODIUM CHLOR 0.9% AD-VAN 100 ML IV SCH ×4 (04:14→20:42)
[2022-06-12] MEDS: POTASSIUM CHLORIDE CRTAB 20 MEQ TABCR PO SCH ×3 (08:43→20:40)
[2022-06-12] MEDS: metOLazone 5 MG TABLET PO SCH (08:43)
[2022-06-12] MEDS: GABAPENTIN 300 MG CAP PO SCH (08:44)
[2022-06-12] MEDS: allopurinoL 300 MG TAB PO SCH (08:46)
[2022-06-12] MEDS: DICLOFENAC SOD 1% GEL 100 GM TUBE EXT SCH ×4 (08:46→20:40)
[2022-06-12] MEDS: PANTOprazole 40 MG TAB PO SCH (08:47)
[2022-06-12] MEDS: predniSONE 5 MG TAB PO SCH (08:48)
[2022-06-12] MEDS: INSULIN ASPART PER UNIT SC SCH ×4 (08:53→20:41)
[2022-06-12] MEDS: FUROSEMIDE 40 MG/4 ML VIAL IV SCH ×2 (10:29→18:06)
[2022-06-12] MEDS: SPIRONOLACTONE 25 MG TAB PO SCH ×2 (10:29→20:40)
[2022-06-12] MEDS: ROSUVASTATIN CALCIUM 10 MG TAB PO SCH (10:33)
--- NOTE | 2022-06-12 14:58 | Cardiology Consultation ---
Date of Consultation June 12, 2022 Assessment & Plan (1) Chronic heart failure with preserved ejection fraction: (2) Paroxysmal atrial fibrillation: (3) Benign hypertension: (4) Preop cardiovascular exam: Plan ASSESSMENT/PLAN: 1. Chronic heart failure with preserved EF: He appears euvolemic on exam and heart failure symptoms have resolved. BNP was not elevated, however symptoms preceding hospital stay highly suggestive of hypervolemia/CHF. Has been taking Lasix every other day at home with daily metolazone and spironolactone. Would recommend transitioning to more regular loop diuretic and if possible, try to avoid daily metolazone, unless necessary. Will discontinue intravenous Lasix and transition to oral Bumex tomorrow, if renal function acceptable. Labs suggest azotemia currently. Will discontinue metolazone. Recommend daily BMP given aggressive diuresis. He may benefit from heart failure program given chronic issues with edema and heart failure symptoms. Low-sodium diet, less than 2000 mg daily. Daily weights. 2. Atrial fibrillation: Described as paroxysmal in the past but has been in atrial fibrillation during this hospital stay and may be persistent at this point. Asymptomatic. Continue anticoagulation for stroke risk reduction. Heart rate adequately controlled on current beta-elizabeth. Can transition to metoprolol 50 mg p.o. b.i.d. for rate control on discharge. 3. Hypertension: Blood pressure well controlled. 4. Preop cardiac assessment: No angina. Heart failure seems to be significantly improved. Given issues with left lower extremity infection and imaging that raised the question up ostial osteomyelitis, can pursue surgery as recommended without further cardiac investigation at this time. Can hold anticoagulation therapy for 2 or 3 days prior to the procedure if deemed necessary by the surgical team. Can then resume anticoagulation therapy when safe from a surgical standpoint. 5. Disposition: Cardiology will continue to follow tomorrow to help determine next steps in diuretic therapy. Recommend heart failure program on discharge. Patient care communicated with primary hospitalist, Dr. Farnsworth. Thank you for allowing me to participate in the care of your patient. Please call for any other questions or concerns. Sincerely, Drake Robles M.D. History of Present Illness Reason for Consultation: cardiology preop risk assessment Requesting Physician: Froy Farnsworth Attending Physician: Froy Farnsworth History of Present Illness Mr. Matt is a very pleasant 67-year-old gentleman with history significant for atrial fibrillation, diabetic foot ulcer, type 2 diabetes, psoriatic arthritis, dyslipidemia, and hypertension. He was admitted on 06/08/2022 with lower extremity edema, cellulitis, and diabetic foot ulcer. During this hospital stay, he has been evaluated by Orthopedics and podiatry. He is scheduled for fourth metatarsal head resection of the left lower extremity, including ulcer debridement, on 06/18/2022. During this hospital stay, he has received intravenous diuretic therapy in the form of Lasix 80 mg IV b.i.d. since 06/09/2022. He states that he had been experiencing orthopnea and PND for a couple of months leading up to this hospital stay. He also has dyspnea with exertion which in the past was treated with an inhaler. After intravenous diuretics, he feels much better and no longer experiences orthopnea or PND. His lower extremity swelling has also improved significantly. Unfortunately, his net fluid balance is not complete. His weight however has decreased by approximately 13 lb. He denies chest pain, syncope, near-syncope, palpitations. He states that he has never undergone cardioversion and that he has been living in atrial fibrillation for quite some time as far as he knows. His presenting ECG on 06/08/2022 demonstrated atrial fibrillation. in August 2019, he was noted to have sinus rhythm and atrial fibrillation on different ECGs. He denies melena, hematochezia, or hematuria. He has been tolerating anticoagulation therapy. Review of systems: As above. Review of systems otherwise negative/unremarkable. Family history: Father from [place] at the age of 72. Mother from [place] at the age of 67. Social history: Had smoked 2 packs of cigarettes per day but quit greater than 30 years ago. Quit cigars 5 years ago. 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 No drug abuse. He lives at home with his and daughter. He has a son and 2 stepdaughters as well. He was unaccompanied in his hospital room. Allergies Allergy/AdvReac Type Severity Reaction Status Date / Time No Known Allergies Allergy Verified 06/08/22 16:24 Home Medications Medication Instructions Recorded Confirmed Type blood sugar diagnostic (Contour #3 Boxes 01/16/21 06/04/22 Rx Next Test Strips) cyclobenzaprine 10 mg tablet 10 mg PO Q8H PRN MUSCLE SPASMS 04/27/21 06/08/22 History metolazone 5 mg tablet 5 mg PO DAILY 10/27/21 06/08/22 History adalimumab 40 mg/0.8 mL See Rx Instructions subcut Q14D #2 12/10/21 06/08/22 Rx subcutaneous pen kit (Humira Pen) ea aspirin 81 mg tablet,delayed 81 mg PO HS 12/19/21 06/08/22 History release (Adult Low Dose Aspirin) cyanocobalamin (vitamin B-12) 500 500 mcg PO HS 12/19/21 06/08/22 History mcg tablet (Vitamin B-12) multivitamin with minerals (Men's 1 tab PO DAILY 12/19/21 06/08/22 History One Daily) sodium chloride 5 % eye drops 1 drp OPB HS 12/19/21 06/08/22 History (Tyler 128) diclofenac sodium 1 % topical gel 2 g topical QID #100 grams 12/25/21 06/08/22 Rx (Arthritis Pain (diclofenac)) albuterol sulfate 90 mcg/actuation 1 puff inhalation Q6H PRN 01/27/22 06/08/22 Rx aerosol inhaler Shortness Of Breath Or Wheezing #18 grams allopurinol 300 mg tablet 450 mg PO DAILY #135 tabs 01/27/22 06/08/22 Rx celecoxib 200 mg capsule 200 mg PO BID #180 caps 01/27/22 06/08/22 Rx rivaroxaban 20 mg tablet (Xarelto) 20 mg PO QPM #90 tabs 01/27/22 06/08/22 Rx rosuvastatin 10 mg tablet 10 mg PO DAILY #90 tabs 01/27/22 06/08/22 Rx spironolactone 25 mg tablet 25 mg PO BID #180 tabs 01/27/22 06/08/22 Rx furosemide 40 mg tablet 40 mg PO Q OTHER DAY #90 tabs 02/01/22 06/08/22 Rx metformin 500 mg tablet 1,000 mg PO BID #360 tabs 02/01/22 06/08/22 Rx mupirocin calcium 2 % topical cream 1 applic topical UD #30 grams 02/01/22 06/08/22 Rx omeprazole 20 mg capsule,delayed 40 mg PO DAILY #180 caps 02/01/22 06/08/22 Rx release pen needle, diabetic 32 gauge x #4 Boxes 04/26/22 06/04/22 Rx 5/32" (BD Ultra-Fine Izzy Pen Needle) insulin glargine 100 unit/mL (3 65 unit (0.65 mL) subcut QPM #3 05/02/22 06/08/22 Rx mL) subcutaneous pen (Basaglar Boxes KwikPen U-100 Insulin) cadexomer iodine 0.9 % topical gel 40 g topical DAILY 30 days #40 05/25/22 06/08/22 Rx (Iodosorb) grams dulaglutide 1.5 mg/0.5 mL 1.5 mg (0.5 mL) subcut WK #2 mL 05/28/22 06/08/22 Rx subcutaneous pen injector (Trulicity) gabapentin 300 mg capsule 300 mg PO .COMPLEX #270 caps 06/04/22 06/08/22 Rx insulin aspart U-100 100 unit/mL 20 unit subcut AC 06/04/22 06/08/22 History (3 mL) subcutaneous pen (Novolog Flexpen U-100 Insulin aspart) prednisone 5 mg tablet 5 mg PO DAILY 06/04/22 06/08/22 History tramadol 37.5 mg-acetaminophen 325 1 tab PO QID PRN pain #120 tabs 06/04/22 06/08/22 Rx mg tablet doxycycline hyclate 100 mg tablet 100 mg PO BID 06/08/22 06/08/22 History penicillin V potassium 500 mg 500 mg PO TID 06/08/22 06/08/22 History tablet Patient History Medical History Atrial fibrillation (05/23/13) Diabetic foot ulcer Diverticulosis of colon Gout Hx of fall Hyperlipidemia LDL goal <70 Internal hemorrhoids Morbid obesity with BMI of 50.0-59.9, adult Osteoarthritis Psoriasis Psoriatic arthropathy Rheumatoid arthritis (05/23/13) SOB (shortness of breath) Surgical History History of total hip arthroplasty Family History Family/Other Brain cancer Uncle Colorectal cancer Prostate cancer Father Myocardial infarction Mother Myocardial infarction Lung cancer Denies family history of Ovarian cancer Breast cancer Social History Smoking Status: Former smoker packs per day: 2; Second Hand Exposure: No; 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) Hx Substance Use: No Preferred Language: Arabic Communication Ability: Effective Dinkey Operator Required: No Beliefs That Will Affect Care: None Current Living Situation: Spouse Current Living Situation Comment: with in home current occupational status: retired Feels Safe at Home: Yes Childhood Exposure to Second-Hand Smoke: Yes Dental Care, Regularly: Yes Physical Activity Frequency: Does not Exercise Seatbelt Use: always Sunscreen Use: Yes Assistive Devices: Cane and Glasses Physical Exam Physical Exam: Gen.: No acute distress. Alert and oriented. HEENT: Anicteric sclera. Neck: Bearded neck and difficult to assess for JVD. No bruits. Normal carotid upstrokes bilaterally. Cardiac: PMI was nonpalpable. No ventricular heave. Irregularly irregular with normal heart rate. Normal S1-S2. No murmurs, rubs, or gallops. Pulmonary: Clear to auscultation bilaterally without wheezes, rales, or rhonchi. Abdomen: Obese. Soft, nontender, nondistended, with normoactive bowel sounds. No bruits noted. Extremities: 2+ radial pulses bilaterally. 2+ posterior tibialis pulses bilaterally. Trace left lower extremity edema. No cyanosis. Psychiatric: Affect appears appropriate. Results & Data ([facility]) Vital Signs (Past 12 Hours) Vital Signs Temp Pulse Resp BP Pulse Ox O2 Del Method 06/12/22 11:56 36.9 C 88 20 115/52 L 92 Room Air 06/12/22 08:00 37 C 85 20 129/67 90 Room Air 06/12/22 05:56 70 20 118/82 92 Room Air 06/12/22 03:25 36.8 C 72 20 136/74 90 Room Air Intake & Output 06/10/22 06/11/22 06/12/22 06/13/22 06:59 06:59 06:59 06:59 Intake Total 1610 / 1610 1800 / 1800 2545 / 2545 495 / 495 Output Total 100 / 100 2900 / 2900 Balance 1510 / 1510 -1100 / -1100 2545 / 2545 495 / 495 Weight 354 lb 8.053 oz 348 lb 12.34 oz 346 lb 5.539 oz Laboratory Results Laboratory Results - last 48 hr 06/10/22 06/10/22 06/10/22 16:28 18:15 20:07 WBC RBC Hgb Hct MCV MCH MCHC RDW Std Deviation RDW Coeff of [place]ij[place] Plt Count MPV Immature Gran % (Auto) Neut % (Auto) Lymph % (Auto) [place] % (Auto) Eos % (Auto) Baso % (Auto) Neut # (Auto) Lymph # (Auto) [place] # (Auto) Eos # (Auto) Baso # (Auto) Immature Gran # (Auto) Sodium Potassium Chloride Carbon Dioxide Anion Gap BUN 27 H Creatinine 1.69 H D Est Cr Clr Drug Dosing 63.2 Est GFR ( Amer) 47.3 Est GFR (Non-Af Amer) 40.8 BUN/Creatinine Ratio Glucose POC Glucose 129 H 146 H Calcium Magnesium 06/11/22 06/11/22 06/11/22 06:28 06:28 07:58 WBC 12.12 H RBC 5.34 Hgb 14.9 Hct 45.3 MCV 84.8 MCH 27.9 MCHC 32.9 RDW Std Deviation 49.2 H RDW Coeff of Vijay 16.1 H Plt Count 247 MPV 10.7 Immature Gran % (Auto) 0.3 Neut % (Auto) 49.8 Lymph % (Auto) 37.7 [place] % (Auto) 10.2 Eos % (Auto) 1.3 Baso % (Auto) 0.7 Neut # (Auto) 6.02 Lymph # (Auto) 4.57 H [place] # (Auto) 1.24 H Eos # (Auto) 0.16 Baso # (Auto) 0.09 Immature Gran # (Auto) 0.04 H Sodium 134 L Potassium 3.0 L Chloride 91 L Carbon Dioxide 32 Anion Gap 11 BUN 32 H Creatinine 1.44 H Est Cr Clr Drug Dosing 73.4 Est GFR ( Amer) 57.4 Est GFR (Non-Af Amer) 49.5 BUN/Creatinine Ratio 22.2 H Glucose 130 H POC Glucose 131 H Calcium 10.4 H Magnesium 1.9 06/11/22 06/11/22 06/11/22 11:28 17:01 20:14 WBC RBC Hgb Hct MCV MCH MCHC RDW Std Deviation RDW Coeff of [place] Plt Count MPV Immature Gran % (Auto) Neut % (Auto) Lymph % (Auto) [place] % (Auto) Eos % (Auto) Baso % (Auto) Neut # (Auto) Lymph # (Auto) [place] # (Auto) Eos # (Auto) Baso # (Auto) Immature Gran # (Auto) Sodium Potassium Chloride Carbon Dioxide Anion Gap BUN Creatinine Est Cr Clr Drug Dosing Est GFR ( Amer) Est GFR (Non-Af Amer) BUN/Creatinine Ratio Glucose POC Glucose 187 H 164 H 149 H Calcium Magnesium 06/12/22 06/12/22 07:48 11:37 WBC RBC Hgb Hct MCV MCH MCHC RDW Std Deviation RDW Coeff of [place]ij[place] Plt Count MPV Immature Gran % (Auto) Neut % (Auto) Lymph % (Auto) [place] % (Auto) Eos % (Auto) Baso % (Auto) Neut # (Auto) Lymph # (Auto) [place] # (Auto) Eos # (Auto) Baso # (Auto) Immature Gran # (Auto) Sodium Potassium Chloride Carbon Dioxide Anion Gap BUN Creatinine Est Cr Clr Drug Dosing Est GFR ( Amer) Est GFR (Non-Af Amer) BUN/Creatinine Ratio Glucose POC Glucose 145 H 197 H Calcium Magnesium Diagnostic Findings Telemetry personally reviewed: Atrial fibrillation with acceptable heart rate. ECG personally reviewed 06/08/2022 at 2:28 p.m.: AFib 102 bpm. PVC. Venous Doppler study 06/08/2022: No DVT left lower extremity. Foot MRI 06/09/2022: Possible reactive ostia it is verses early developing osteomyelitis of the left fourth metatarsal head. 4 cm cutaneous ulcer of ledy ntar forefoot adjacent 2 fourth metatarsal head. Echo 06/09/2022: EF 50-55%. Mildly dilated RV with normal systolic function. Mild MR. Medications Administered Current Inpatient Medications Acetaminophen (Acetaminophen 325 Mg Tab) 325 mg PO QID PRN PRN Reason: Pain Stop: 07/08/22 20:54 Albuterol (Albuterol Hfa 8 Gm Inhaler) 1 puffs INH Q6H PRN PRN Reason: Shortness Of Breath Or Wheezing Stop: 07/08/22 20:31 Allopurinol (Allopurinol 300 Mg Tab) 450 mg PO DAILY JORGE Stop: 07/09/22 08:59 Last Admin: 07/30/22 08:46 Dose: 450 mg Aspirin (Aspirin 81 Mg Ectab) 81 mg PO HS [facility] Stop: 07/08/22 20:59 Last Admin: 06/11/22 21:04 Dose: 81 mg Dextrose (Dextrose 50% 50 Ml Syringe) 25 - 50 ml IV UD PRN; Protocol PRN Reason: Hypoglycemia Protocol Stop: 07/08/22 20:31 Diclofenac Sodium (Diclofenac Sod 1% Gel 100 Gm Tube) 2 gm EXT QID JORGE; Protocol Stop: 07/08/22 20:59 Last Admin: 06/12/22 12:39 Dose: 2 gm Furosemide (Furosemide 40 Mg/4 Ml Vial) 80 mg IV [id number] JORGE Stop: 07/09/22 16:59 Last Admin: 06/12/22 10:29 Dose: 80 mg Gabapentin (Gabapentin 300 Mg Cap) 300 mg PO QAM [facility] Stop: 07/09/22 08:59 Last Admin: 06/12/22 08:44 Dose: 300 mg Gabapentin (Gabapentin 600 Mg Tab) 600 mg PO HS [facility] Stop: 07/08/22 20:59 Last Admin: 06/11/22 21:04 Dose: 600 mg Glucagon (Glucagon For Inj 1 Mg Vial) 1 mg SQ UD PRN; Protocol PRN Reason: Hypoglycemia Protocol Stop: 07/08/22 20:31 Glucose (Glucose 40% Gel 15 Gm Tube) 15 - 30 gm PO UD PRN; Protocol PRN Reason: Hypoglycemia Protocol Stop: 07/08/22 20:31 Glucose (Glucose 10 Tab/Tube) 4 - 8 tab PO UD PRN; Protocol PRN Reason: Hypoglycemia Treatment Stop: 07/08/22 20:31 Ampicillin Sodium 2,000 mg/ (Sodium Chloride) 100 mls @ 200 mls/hr IV Q6H JORGE Stop: 06/16/22 03:59 Last Infusion: 06/12/22 10:58 Dose: Infused Insulin Aspart (Insulin Aspart Per Unit) 0 units SC ACHS OJRGE Stop: 07/08/22 20:59 Last Admin: 06/12/22 12:38 Dose: 8 units Insulin Glargine (Lantus Per Unit Charge) 65 units SQ QPM JORGE Stop: 07/08/22 20:59 Last Admin: 06/11/22 21:05 Dose: 65 units Metolazone (Metolazone 5 Mg Tablet) 5 mg PO DAILY [facility] Stop: 07/09/22 08:59 Last Admin: 06/12/22 08:43 Dose: 5 mg Metoprolol Tartrate (Metoprolol Tartrate 25 Mg Tab) 25 mg PO Q6H JORGE Stop: 07/09/22 17:59 Last Admin: 06/12/22 12:39 Dose: 25 mg Miscellaneous (Carbohydrates For Hypoglycemia ) 15 - 30 gm PO UD PRN PRN Reason: Hypoglycemia Protocol Stop: 07/08/22 20:31 Pantoprazole Sodium (Pantoprazole 40 Mg Tab) 40 mg PO DAILY JORGE Stop: 07/09/22 08:59 Last Admin: 06/12/22 08:47 Dose: 40 mg Potassium Chloride (Potassium Chloride Crtab 20 Meq Tabcr) 20 meq PO TID JORGE Stop: 06/14/22 09:01 Prednisone (Prednisone 5 Mg Tab) 5 mg PO DAILY JORGE Stop: 07/10/22 08:59 Last Admin: 06/12/22 08:48 Dose: 5 mg Rivaroxaban (Rivaroxaban 20 Mg Tab) 20 mg PO QPM JORGE Stop: 07/08/22 20:59 Last Admin: 06/11/22 21:04 Dose: 20 mg Rosuvastatin Calcium (Rosuvastatin Calcium 10 Mg Tab) 10 mg PO DAILY JORGE Stop: 07/09/22 08:59 Last Admin: 06/12/22 10:33 Dose: 10 mg Spironolactone (Spironolactone 25 Mg Tab) 25 mg PO BID JORGE Stop: 07/08/22 20:59 Last Admin: 06/12/22 10:29 Dose: 25 mg Tramadol HCl (Tramadol Hcl 50 Mg Tablet) 50 mg PO QID PRN PRN Reason: Pain Stop: 07/08/22 20:53 Last Admin: 06/12/22 08:59 Dose: 50 mg PG Care Time/CCT Total # of Minutes Spent Total Time Spent with Patient: Total time spent is greater than 50% in coordination of care (as documented) at patient's floor/unit and/or counseling patient: Coding Level of Care Code 84209 Initial Inpt Care Lvl 3 Diagnoses Chronic heart failure with preserved ejection fraction I50.32 Paroxysmal atrial fibrillation I48.0 Benign hypertension I10 Preop cardiovascular exam Z01.810
--- NOTE | 2022-06-12 16:42 | Hospitalist Progress Note ---
Date of Service June 12, 2022 Assessment & Plan (1) Left leg cellulitis: Plan: Main issues appears to be more LLE cellulitis than CHF - failed outpatient treatment with penicillin and doxycycline. Currently on IV ampicillin due to wound culture with MSSA and pansensitive enterococcus faecalis [place] area of erythema to make sure improving. Continues to show improvement on 06/12 WBC increasing is concerning and may have to broaden antibiotic coverage if continues to get worse. Will get procalcitonin as this may trending may help antibiotic choice. Will get foot MRI to assess for osteomyelitis better. Arterial US to assess wound healing ability in setting of diabetes. Take blood cultures - not taken on admission however if he has MSSA bacteremia these are still likely to be positive. Blood cultures remain negative will consult ortho in regards to his foot: as imaging is sugdesting possible osteomyelitis. Consulted podiatry. Plan for surgery on Tuesday as outpatient if he continues to do well on antibiotics. will continue to monitor over course of weekend with discharge target date on Tuesday. Consulted cardology, no further workup is required. (2) Acute on chronic heart failure with preserved ejection fraction: Plan: Being treated for such although not completely convincing as CXR clear and no JVD on exam. His left leg swelling is from cellulitis and minimal right leg swelling today. Will continue to diurese as able however given 20 lb weight gain with metolazone, spironolactone and trial 80mg IV BID Lasix until Cr bump with aim 1- 2L net negative daily continue with lasix however, will recheck creatinine in afternoon. (3) Lower leg edema: Plan: No DVT on US. Rx as above for HF and cellulitis (4) Diabetic foot ulcer: Plan: Suspect this is source of LLE cellulitis Wound care nuse consult pending (5) Atrial fibrillation: Plan: Appears to be paroxysmal per review of past EKGs - no medication attempt to keep him in NSR however. For now gave metoprolol 5mg IV to monitor response and still significantly tachycadic in 110s. Therefore will start metoprolol tartrate 25mg q6h with hold parameters. Usually rate/rhythm controlled without additional medications. Possibly some of his fatigue is due to this and could consider more rhythm strategy. Aim K > 4, Mg > 2 Anticoagulated chronically with Xarelto (6) Type 2 diabetes mellitus: Plan: HbA1C 6.9 - 65 units basal nightly - sliding scal aspart with CF 20 and ration 1:9 - Hold Metformin Appears to be well controlled on this regimen with glucose 117-128 (7) Gout: Plan: Continue Allopurinol (8) Morbid obesity with BMI of 50.0-59.9, adult: Plan: Likely has component of obesity hypoventilation syndrome as well - HCO3 30 and has been chronically elevated - Recommend sleep study as outpatient to assess for JG (9) Benign hypertension: Plan: Well controlled (10) Metabolic syndrome X: Plan: As above Plan VTE Prophylaxis - Xarelto Diet - low Na, heart healthy, T2DM, no need for fluid restriction unless intake excessively high Disposition - continued admission to med/tele Admission and Anticipated Discharge Date Admission Date: June 08, 2022 Subjective 67 yo male reports no new symptoms. Review of Systems Review of Systems: All systems reviewed & are unremarkable except as noted in HPI & below Physical Exam Constitutional: WD/WN, vitals as above Respiratory: normal respiratory effort, lungs clear to auscultation Cardiovascular: Rate/Rhythm: + tachycardic and + irregularly irregular Heart Sounds: no murmur Extremities: normal capillary refill and + pedal edema (2+ LLE, 1+ RLE); no calf tenderness Gastrointestinal (Abdomen): normal bowel sounds, soft, nontender, no hepatosplenomegaly Skin: + ulcer (unstageable 2cm ulcer on bottom of left foot) and + erythema (LLE to mid frey from ulcer) Neurologic: moves all extremities and awake; not confused Psychiatric: A+Ox3, euthymic affect Genitourinary: no CVA tenderness Results & Data Results & Data ([facility]) Vital Signs (Past 12 Hours) Vital Signs Temp Pulse Resp BP Pulse Ox O2 Del Method 06/12/22 15:49 36.6 C 80 18 126/72 91 Room Air 06/12/22 11:56 36.9 C 88 20 115/52 L 92 Room Air 06/12/22 08:00 37 C 85 20 129/67 90 Room Air 06/12/22 05:56 70 20 118/82 92 Room Air PG Care Time/CCT Total # of Minutes Spent Total Time Spent with Patient: Total time spent is greater than 50% in coordination of care (as documented) at patient's floor/unit and/or counseling patient: Coding Level of Care Code 06811 Subseq Hosp Care Lvl 2 Diagnoses Left leg cellulitis L03.116 Acute on chronic heart failure with preserved ejection fraction I50.33 Lower leg edema R60.0 Diabetic foot ulcer E11.621; L97.509 Atrial fibrillation I48.91 Type 2 diabetes mellitus E11.9 Gout M10.9 Chronicity: chronic Gout etiology: due to renal impairment Gout site: foot Laterality: right Morbid obesity with BMI of 50.0-59.9, adult E66.01; Z68.43 Benign hypertension I10 Metabolic syndrome X E88.81 Time Spent (min) 25 (1) Gout Chronicity: chronic Gout etiology: due to renal impairment Gout site: foot Laterality: right
[2022-06-12] MEDS: GABAPENTIN 600 MG TAB PO SCH (20:40)
[2022-06-12] MEDS: ASPIRIN 81 MG ECTAB PO SCH (20:40)
[2022-06-12] MEDS: RIVAROXABAN 20 MG TAB PO SCH (20:40)
[2022-06-12] MEDS: LANTUS PER UNIT CHARGE SQ SCH (20:41)
[2022-06-13] MEDS: METOPROLOL TARTRATE 25 MG TAB PO SCH ×3 (04:52→17:28)
[2022-06-13] MEDS: AMPICILLIN 2,000 MG in SODIUM CHLOR 0.9% AD-VAN 100 ML IV SCH ×3 (04:52→16:51)
[2022-06-13 08:01] LABS: BUN Creatinine Ratio 34.6 (10-20); Calcium 10.4 mg/dl (8.5-10.1); Creatinine Clr Calc Pharmacy 82.6 ml/min; Est GFR (African American) 66.8 ml/min; Est GFR (Non-African American) 57.7 ml/min; Potassium 2.7 mmol/L (3.5-5.1)
[2022-06-13] MEDS: DICLOFENAC SOD 1% GEL 100 GM TUBE EXT SCH ×4 (08:36→20:33)
[2022-06-13] MEDS: predniSONE 5 MG TAB PO SCH (08:37)
[2022-06-13] MEDS: allopurinoL 300 MG TAB PO SCH (08:37)
[2022-06-13] MEDS: PANTOprazole 40 MG TAB PO SCH (08:37)
[2022-06-13] MEDS: ROSUVASTATIN CALCIUM 10 MG TAB PO SCH (08:37)
[2022-06-13] MEDS: GABAPENTIN 300 MG CAP PO SCH (08:39)
[2022-06-13] MEDS: INSULIN ASPART PER UNIT SC SCH ×4 (08:55→20:33)
[2022-06-13] MEDS: traMADol HCL 50 MG TABLET PO PRN ×2 (08:56→20:32)
[2022-06-13] MEDS: POTASSIUM CHLORIDE CRTAB 20 MEQ TABCR PO SCH ×3 (10:54→20:32)
[2022-06-13] MEDS: SPIRONOLACTONE 25 MG TAB PO SCH ×2 (10:54→20:32)
--- NOTE | 2022-06-13 10:58 | Cardiology Progress Note ---
Date of Service June 13, 2022 Assessment & Plan (1) Chronic heart failure with preserved ejection fraction: (2) Paroxysmal atrial fibrillation: (3) Benign hypertension: (4) Preop cardiovascular exam: Plan ASSESSMENT/PLAN: 1. Chronic heart failure with preserved EF: He appears euvolemic. Labs suggest azotemia. Discontinued intravenous Lasix and daily metolazone after yesterday's doses. Will allow for potassium supplementation today and start Bumex 2 mg p.o. qday tomorrow. Would not resume daily metolazone here or on discharge at this time. Had been taking Lasix every other day at home with daily metolazone and spironolactone. Monitor electrolytes and renal function. Heart failure program referral Low-sodium diet, less than 2000 mg daily. Daily weights. Recommend I&Os while hospitalized. 2. Atrial fibrillation: Described as paroxysmal in the past but has been in atrial fibrillation during this hospital stay and may be persistent at this point. Asymptomatic. Continue anticoagulation for stroke risk reduction. Heart rate adequately controlled on current beta-elizabeth. Can transition to metoprolol 50 mg p.o. b.i.d. for rate control on discharge. 3. Hypertension: Blood pressure well controlled. 4. Preop cardiac assessment: No angina. Heart failure seems to be significantly improved. Given issues with left lower extremity infection and imaging that raised the question up ostial osteomyelitis, can pursue surgery as recommended without further cardiac investigation at this time. Can hold anticoagulation therapy for 2 or 3 days prior to the procedure if deemed necessary by the surgical team. Can then resume anticoagulation therapy when safe from a surgical standpoint. 5. Disposition: I will be away from the hospital tomorrow. Mily Maciel of the Heart failure program will be asked to stop by and see him tomorrow. Patient care communicated with primary hospitalist, Dr. Farnsworth. Admission and Anticipated Discharge Date Admission Date: June 08, 2022 Subjective Patient seen this morning. He noted mild orthopnea this morning, stating it was difficult to take a deep breath at times but did not appear in any distress. He feels better sitting upright. He denies chest pain, palpitations, syncope, near-syncope, edema, or bleeding. He was alone in his hospital room. Review of systems: As above. Physical Exam Physical Exam: Gen.: No acute distress. Alert and oriented. HEENT: Anicteric sclera. Neck: Bearded neck and difficult to assess for JVD. Cardiac: No ventricular heave. Irregularly irregular with normal heart rate. Normal S1-S2. No murmurs, rubs, or gallops. Pulmonary: Mild wheezing but otherwise clear to auscultation bilaterally. Abdomen: Obese. Soft, nontender, nondistended, with normoactive bowel sounds. No bruits noted. Extremities: 2+ radial pulses bilaterally. 2+ posterior tibialis pulses bilaterally. Trace left lower extremity edema. No cyanosis. Psychiatric: Affect appears appropriate. Results & Data ([facility]) Vital Signs (Past 12 Hours) Vital Signs Temp Pulse Pulse Resp BP Pulse Ox O2 Del Method 06/13/22 08:00 36.7 C 76 18 130/88 91 Room Air 06/13/22 07:10 75 06/13/22 04:54 36.6 C 62 18 109/69 91 Room Air 06/12/22 23:06 79 Intake & Output 06/11/22 06/12/22 06/13/22 06/14/22 06:59 06:59 06:59 06:59 Intake Total 1800 / 1800 2545 / 2545 1745 / 1745 Output Total 2900 / 2900 Balance -1100 / -1100 2545 / 2545 1745 / 1745 Weight 348 lb 12.34 oz 346 lb 5.539 oz 344 lb 9.32 oz Laboratory Results Laboratory Results - last 24 hr 06/12/22 06/12/22 06/12/22 11:37 16:33 20:07 Sodium Potassium Chloride Carbon Dioxide Anion Gap BUN Creatinine Est Cr Clr Drug Dosing Est GFR ( Amer) Est GFR (Non-Af Amer) BUN/Creatinine Ratio Glucose POC Glucose 197 H 162 H 175 H Calcium 06/13/22 06/13/22 07:14 07:47 Sodium 133 L Potassium 2.7 L Chloride 87 L Carbon Dioxide 37 H Anion Gap 9 BUN 44 H Creatinine 1.27 Est Cr Clr Drug Dosing 82.6 Est GFR ( Amer) 66.8 Est GFR (Non-Af Amer) 57.7 BUN/Creatinine Ratio 34.6 H Glucose 138 H POC Glucose 149 H Calcium 10.4 H Diagnostic Findings Telemetry personally reviewed: Rate controlled atrial fibrillation. Medications Administered Current Inpatient Medications Acetaminophen (Acetaminophen 325 Mg Tab) 325 mg PO QID PRN PRN Reason: Pain Stop: 07/08/22 20:54 Albuterol (Albuterol Hfa 8 Gm Inhaler) 1 puffs INH Q6H PRN PRN Reason: Shortness Of Breath Or Wheezing Stop: 07/08/22 20:31 Allopurinol (Allopurinol 300 Mg Tab) 450 mg PO DAILY JORGE Stop: 07/09/22 08:59 Last Admin: 06/13/22 08:37 Dose: 450 mg Aspirin (Aspirin 81 Mg Ectab) 81 mg PO HS JORGE Stop: 07/08/22 20:59 Last Admin: 06/12/22 20:40 Dose: 81 mg Dextrose (Dextrose 50% 50 Ml Syringe) 25 - 50 ml IV UD PRN; Protocol PRN Reason: Hypoglycemia Protocol Stop: 07/08/22 20:31 Diclofenac Sodium (Diclofenac Sod 1% Gel 100 Gm Tube) 2 gm EXT QID JORGE; Protocol Stop: 07/08/22 20:59 Last Admin: 06/13/22 08:36 Dose: 2 gm Gabapentin (Gabapentin 300 Mg Cap) 300 mg PO QAM JORGE Stop: 07/09/22 08:59 Last Admin: 06/13/22 08:39 Dose: 300 mg Gabapentin (Gabapentin 600 Mg Tab) 600 mg PO HS JORGE Stop: 07/08/22 20:59 Last Admin: 06/12/22 20:40 Dose: 600 mg Glucagon (Glucagon For Inj 1 Mg Vial) 1 mg SQ UD PRN; Protocol PRN Reason: Hypoglycemia Protocol Stop: 07/08/22 20:31 Glucose (Glucose 40% Gel 15 Gm Tube) 15 - 30 gm PO UD PRN; Protocol PRN Reason: Hypoglycemia Protocol Stop: 07/08/22 20:31 Glucose (Glucose 10 Tab/Tube) 4 - 8 tab PO UD PRN; Protocol PRN Reason: Hypoglycemia Treatment Stop: 07/08/22 20:31 Ampicillin Sodium 2,000 mg/ (Sodium Chloride) 100 mls @ 200 mls/hr IV Q6H JORGE Stop: 06/13/22 16:01 Last Infusion: 06/13/22 05:24 Dose: Infused Ampicillin Sodium 2,000 mg/ (Sodium Chloride) 108 mls @ 200 mls/hr IV Q6H JORGE Stop: 06/16/22 03:59 Potassium Chloride (K Luis Alfredo / Wtr) 10 meq in 100 mls @ 100 mls/hr IV Q1H [facility]; Protocol Stop: 06/13/22 12:59 Insulin Aspart (Insulin Aspart Per Unit) 0 units SC ACHS JORGE Stop: 07/08/22 20:59 Last Admin: 06/13/22 08:55 Dose: 5 units Insulin Glargine (Lantus Per Unit Charge) 65 units SQ QPM JORGE Stop: 07/08/22 20:59 Last Admin: 06/12/22 20:41 Dose: 65 units Metoprolol Tartrate (Metoprolol Tartrate 25 Mg Tab) 25 mg PO Q6H JORGE Stop: 07/09/22 17:59 Last Admin: 06/13/22 04:52 Dose: 25 mg Miscellaneous (Carbohydrates For Hypoglycemia ) 15 - 30 gm PO UD PRN PRN Reason: Hypoglycemia Protocol Stop: 07/08/22 20:31 Pantoprazole Sodium (Pantoprazole 40 Mg Tab) 40 mg PO DAILY JORGE Stop: 07/09/22 08:59 Last Admin: 06/13/22 08:37 Dose: 40 mg Potassium Chloride (Potassium Chloride Crtab 20 Meq Tabcr) 20 meq PO TID [facility] Stop: 06/14/22 09:01 Last Admin: 06/12/22 20:40 Dose: 20 meq Prednisone (Prednisone 5 Mg Tab) 5 mg PO DAILY [facility] Stop: 07/10/22 08:59 Last Admin: 06/13/22 08:37 Dose: 5 mg Rivaroxaban (Rivaroxaban 20 Mg Tab) 20 mg PO QPM JROGE Stop: 07/08/22 20:59 Last Admin: 06/12/22 20:40 Dose: 20 mg Rosuvastatin Calcium (Rosuvastatin Calcium 10 Mg Tab) 10 mg PO DAILY JORGE Stop: 07/09/22 08:59 Last Admin: 06/13/22 08:37 Dose: 10 mg Spironolactone (Spironolactone 25 Mg Tab) 25 mg PO BID [facility] Stop: 07/08/22 20:59 Last Admin: 06/12/22 20:40 Dose: 25 mg Tramadol HCl (Tramadol Hcl 50 Mg Tablet) 50 mg PO QID PRN PRN Reason: Pain Stop: 07/08/22 20:53 Last Admin: 06/13/22 08:56 Dose: 50 mg PG Care Time/CCT Total # of Minutes Spent Total Time Spent with Patient: Total time spent is greater than 50% in coordination of care (as documented) at patient's floor/unit and/or counseling patient: Coding Level of Care Code 32802 Subseq Hosp Care Lvl 3 Diagnoses Chronic heart failure with preserved ejection fraction I50.32 Paroxysmal atrial fibrillation I48.0 Benign hypertension I10 Preop cardiovascular exam Z01.810
[2022-06-13] MEDS: POTASSIUM CHLORIDE / WTR 10 MEQ/100 ML PLCT IV SCH ×4 (11:33→15:00)
--- NOTE | 2022-06-13 14:11 | Hospitalist Progress Note ---
Date of Service June 13, 2022 Assessment & Plan (1) Left leg cellulitis: Plan: Main issues appears to be more LLE cellulitis than CHF - failed outpatient treatment with penicillin and doxycycline. Currently on IV ampicillin due to wound culture with MSSA and pansensitive enterococcus faecalis [place] area of erythema to make sure improving. Continues to show improvement on 06/12 WBC increasing is concerning and may have to broaden antibiotic coverage if continues to get worse. Will get procalcitonin as this may trending may help antibiotic choice. Will get foot MRI to assess for osteomyelitis better. Arterial US to assess wound healing ability in setting of diabetes. Take blood cultures - not taken on admission however if he has MSSA bacteremia these are still likely to be positive. Blood cultures remain negative will consult ortho in regards to his foot: as imaging is sugdesting possible osteomyelitis. Consulted podiatry. Plan for surgery on Tuesday as outpatient if he continues to do well on antibiotics. will continue to monitor over course of weekend with discharge target date on Tuesday. Consulted cardology, no further workup is required. (2) Acute on chronic heart failure with preserved ejection fraction: Plan: Being treated for such although not completely convincing as CXR clear and no JVD on exam. His left leg swelling is from cellulitis and minimal right leg swelling today. Will continue to diurese as able however given 20 lb weight gain with metolazone, spironolactone and trial 80mg IV BID Lasix until Cr bump with aim 1- 2L net negative daily continue with lasix however, will recheck creatinine in afternoon. transition to bumex. will have Edel Maciel see patient in AM. (3) Lower leg edema: Plan: No DVT on US. Rx as above for HF and cellulitis (4) Diabetic foot ulcer: Plan: Suspect this is source of LLE cellulitis Wound care nuse consult pending (5) Atrial fibrillation: Plan: Appears to be paroxysmal per review of past EKGs - no medication attempt to keep him in NSR however. For now gave metoprolol 5mg IV to monitor response and still significantly tachycadic in 110s. Therefore will start metoprolol tartrate 25mg q6h with hold parameters. Usually rate/rhythm controlled without additional medications. Possibly some of his fatigue is due to this and could consider more rhythm strategy. Aim K > 4, Mg > 2 Anticoagulated chronically with Xarelto (6) Type 2 diabetes mellitus: Plan: HbA1C 6.9 - 65 units basal nightly - sliding scal aspart with CF 20 and ration 1:9 - Hold Metformin Appears to be well controlled on this regimen with glucose 117-128 (7) Gout: Plan: Continue Allopurinol (8) Morbid obesity with BMI of 50.0-59.9, adult: Plan: Likely has component of obesity hypoventilation syndrome as well - HCO3 30 and has been chronically elevated - Recommend sleep study as outpatient to assess for JG (9) Benign hypertension: Plan: Well controlled (10) Metabolic syndrome X: Plan: As above Plan VTE Prophylaxis - Xarelto Diet - low Na, heart healthy, T2DM, no need for fluid restriction unless intake excessively high Disposition - continued admission to med/tele Admission and Anticipated Discharge Date Admission Date: June 08, 2022 Subjective 67 yo female reports feeling SOB in AM. However he is improved in the afternoon. Review of Systems Review of Systems: All systems reviewed & are unremarkable except as noted in HPI & below Physical Exam Constitutional: WD/WN, vitals as above Respiratory: normal respiratory effort, lungs clear to auscultation Cardiovascular: Rate/Rhythm: + tachycardic and + irregularly irregular Heart Sounds: no murmur Extremities: normal capillary refill and + pedal edema (2+ LLE, 1+ RLE); no calf tenderness Gastrointestinal (Abdomen): normal bowel sounds, soft, nontender, no hepatosplenomegaly Skin: + ulcer (unstageable 2cm ulcer on bottom of left foot) and + erythema (LLE to mid frey from ulcer) Neurologic: moves all extremities and awake; not confused Psychiatric: A+Ox3, euthymic affect Genitourinary: no CVA tenderness Results & Data Results & Data ([facility]) Vital Signs (Past 12 Hours) Vital Signs Temp Pulse Pulse Resp BP Pulse Ox O2 Del Method 06/13/22 11:13 36.6 C 78 18 132/77 91 Room Air 06/13/22 08:00 36.7 C 76 18 130/88 91 Room Air 06/13/22 07:10 75 06/13/22 04:54 36.6 C 62 18 109/69 91 Room Air PG Care Time/CCT Total # of Minutes Spent Total Time Spent with Patient: Total time spent is greater than 50% in coordination of care (as documented) at patient's floor/unit and/or counseling patient: Coding Level of Care Code 86297 Subseq Hosp Care Lvl 2 Diagnoses Left leg cellulitis L03.116 Acute on chronic heart failure with preserved ejection fraction I50.33 Lower leg edema R60.0 Diabetic foot ulcer E11.621; L97.509 Atrial fibrillation I48.91 Type 2 diabetes mellitus E11.9 Gout M10.9 Chronicity: chronic Gout etiology: due to renal impairment Gout site: foot Laterality: right Morbid obesity with BMI of 50.0-59.9, adult E66.01; Z68.43 Benign hypertension I10 Metabolic syndrome X E88.81 Time Spent (min) 25 (1) Gout Chronicity: chronic Gout etiology: due to renal impairment Gout site: foot Laterality: right
[2022-06-13] MEDS: AMPICILLIN 2,000 MG in 0.9 % SODIUM CHLORIDE 100 ML IV SCH ×2 (16:43→21:21)
[2022-06-13] MEDS: ASPIRIN 81 MG ECTAB PO SCH (20:32)
[2022-06-13] MEDS: RIVAROXABAN 20 MG TAB PO SCH (20:32)
[2022-06-13] MEDS: GABAPENTIN 600 MG TAB PO SCH (20:32)
[2022-06-13] MEDS: LANTUS PER UNIT CHARGE SQ SCH (20:34)
[2022-06-14] MEDS: AMPICILLIN 2,000 MG in 0.9 % SODIUM CHLORIDE 100 ML IV SCH ×4 (03:01→21:03)
[2022-06-14] MEDS: METOPROLOL TARTRATE 25 MG TAB PO SCH ×5 (05:54→23:43)
[2022-06-14] MEDS: traMADol HCL 50 MG TABLET PO PRN ×3 (05:54→20:03)
[2022-06-14 07:23] LABS: Hematocrit (blood only) 45.1 % (40.1-51.0); Hemoglobin 14.8 g/dl (14.0-18.0); Mean Corpuscular Hemoglobin 27.7 pg (25.0-34.0); Mean Corpuscular Hgb Conc 32.8 g/dL (32.0-36.0); Mean Corpuscular Volume 84.3 fL (80.0-100.0); Mean Platelet Volume 10.9 fL (9.4-12.4); Platelet Count 270 K/uL (130-400); RDW Coefficient of Variation 16.6 % (11.5-14.5); RDW Standard Deviation 49.4 fL (36.4-46.3); Red Blood Count 5.35 M/uL (4.63-6.08); White Blood Count 11.07 K/ul (4.8-10.8)
[2022-06-14 07:54] LABS: BUN Creatinine Ratio 30.6 (10-20); Calcium 10.1 mg/dl (8.5-10.1); Creatinine Clr Calc Pharmacy 97.4 ml/min; Est GFR (African American) 81.3 ml/min; Est GFR (Non-African American) 70.2 ml/min
[2022-06-14] MEDS: SPIRONOLACTONE 25 MG TAB PO SCH ×2 (08:19→20:05)
[2022-06-14] MEDS: ROSUVASTATIN CALCIUM 10 MG TAB PO SCH (08:19)
[2022-06-14] MEDS: PANTOprazole 40 MG TAB PO SCH (08:20)
[2022-06-14] MEDS: allopurinoL 300 MG TAB PO SCH (08:20)
[2022-06-14] MEDS: BUMETANIDE 1 MG TAB PO SCH (08:20)
[2022-06-14] MEDS: GABAPENTIN 300 MG CAP PO SCH (08:21)
[2022-06-14] MEDS: DICLOFENAC SOD 1% GEL 100 GM TUBE EXT SCH ×4 (08:21→20:04)
[2022-06-14] MEDS: predniSONE 5 MG TAB PO SCH (08:21)
[2022-06-14] MEDS: POTASSIUM CHLORIDE CRTAB 20 MEQ TABCR PO SCH (08:31)
[2022-06-14] MEDS: INSULIN ASPART PER UNIT SC SCH ×4 (08:32→20:57)
--- NOTE | 2022-06-14 11:33 | Cardiology Progress Note ---
Date of Service June 14, 2022 Assessment & Plan (1) Chronic heart failure with preserved ejection fraction: (2) Paroxysmal atrial fibrillation: (3) Benign hypertension: (4) Preop cardiovascular exam: Plan ASSESSMENT/PLAN: 1. Chronic heart failure with preserved EF: He appears euvolemic. Kidney function improving today. Potassium improved but still low. Will allow for potassium supplementation today and start Bumex 2 mg PO daily. Would not resume daily metolazone here or on discharge at this time. Continue Spironolactone. Monitor electrolytes and renal function. Low-sodium diet, less than 2000 mg daily. Daily STANDING weights. Recommend I&Os while hospitalized. 2. Atrial fibrillation: Described as paroxysmal in the past but has been in atrial fibrillation during this hospital stay and may be persistent at this point. Asymptomatic. Continue anticoagulation for stroke risk reduction. Heart rate adequately controlled on current beta-elizabeth. Can transition to metoprolol 50 mg p.o. b.i.d. for rate control on discharge. 3. Hypertension: Blood pressure well controlled. 4. Preop cardiac assessment: No angina. Heart failure seems to be significantly improved. Given issues with left lower extremity infection and imaging that raised the question up ostial osteomyelitis, can pursue surgery as recommended without further cardiac investigation at this time. Can hold anticoagulation therapy for 2 or 3 days prior to the procedure if deemed necess jennifer by the surgical team. Can then resume anticoagulation therapy when safe from a surgical standpoint. 5. Disposition: Will enroll in [facility] heart failure program. Follow up within 7 days of discharge- Plan to see him late this week in anticipation of upcoming foot surgery and potential mobility issues- 06/18 at 1130. Today's plan was discussed in collaboration with Dr. Robles. Admission and Anticipated Discharge Date Admission Date: June 08, 2022 Subjective Patient resting comfortably. He's laying almost flat in his bed without symptoms. He reports slightly increased fatigue but overall his breathing is improving. He slept well and denies PND. Lower extremity edema significantly improved per the patient. He denies chest pain, cough, or palpitations. Weight 346 lb this am on standing scale. He's net positive but I&Os inaccurate. Potassium trending up. Renal function improving today. Physical Exam Physical Exam: Gen.: No acute distress. Alert and oriented. HEENT: Anicteric sclera. Neck: Bearded neck and difficult to assess for JVD. Cardiac: No ventricular heave. Irregularly irregular with normal heart rate. Normal S1-S2. No murmurs, rubs, or gallops. Pulmonary: Normal respiratory effort. Clear to auscultation bilaterally. Abdomen: Obese. Soft, nontender, nondistended, with normoactive bowel sounds. No bruits noted. Extremities: 2+ radial pulses bilaterally. 2+ posterior tibialis pulses bilaterally. Trace left lower extremity edema. Erythema outlined- improving. No cyanosis. Psychiatric: Affect appears appropriate. Results & Data ([facility]) Vital Signs (Past 12 Hours) Vital Signs Temp Pulse Resp BP BP Pulse Ox O2 Del Method 06/14/22 11:08 98.1 F 75 18 136/99 91 Room Air 06/14/22 07:49 97.7 F 74 18 130/91 90 Room Air 06/14/22 05:51 74 130/91 06/14/22 03:45 98.4 F 69 18 112/70 91 Room Air 06/13/22 23:59 79 123/77 PG Care Time/CCT Total # of Minutes Spent Total Time Spent with Patient: Total time spent is greater than 50% in coordination of care (as documented) at patient's floor/unit and/or counseling patient: Coding Level of Care Code 09453 Subseq Hosp Care Lvl 3 Diagnoses Chronic heart failure with preserved ejection fraction I50.32 Paroxysmal atrial fibrillation I48.0 Benign hypertension I10 Preop cardiovascular exam Z01.810
[2022-06-14] MEDS ORDERED: POTASSIUM CHLORIDE CRTAB 20 MEQ TABCR PO STA ×2 (12:34→16:10)
--- NOTE | 2022-06-14 13:07 | Podiatry Consultation ---
Date of Consultation June 14, 2022 Assessment & Plan (1) Left leg cellulitis: patient scheduled for surgery for Tuesday, will continue to round on the patient while in house, stable and improved findings of the lef and foot noted today, continue dressings and abx (2) Diabetic foot ulcer: (3) Osteomyelitis: Laterality: left Osteomyelitis location: foot Osteomyelitis type: other chronic Qualified Code(s): M86.672 - Other chronic osteomyelitis, left ankle and foot History of Present Illness Attending Physician: Froy Farnsworth History of Present Illness Patient is a pleasant 67 year old male seen at bedside today, notable improvement noted in the foot swelling and leg swelling, erythema markedly improved, patient cleared by cardiology, stable left foot ulcer dressings removed and ulcer evaluated, no erythema or purulent drainage ex pressible, concern for osteomyelitis per MRI, and patient scheduled for outpatient 4th me resection this Tuesday - will continue abx and wound care dressings until surgery Allergies Allergy/AdvReac Type Severity Reaction Status Date / Time No Known Allergies Allergy Verified 06/08/22 16:24 Home Medications Medication Instructions Recorded Confirmed Type blood sugar diagnostic (Contour #3 Boxes 01/16/21 06/04/22 Rx Next Test Strips) cyclobenzaprine 10 mg tablet 10 mg PO Q8H PRN MUSCLE SPASMS 04/27/21 06/08/22 History metolazone 5 mg tablet 5 mg PO DAILY 10/27/21 06/08/22 History adalimumab 40 mg/0.8 mL See Rx Instructions subcut Q14D #2 12/10/21 06/08/22 Rx subcutaneous pen kit (Humira Pen) ea aspirin 81 mg tablet,delayed 81 mg PO HS 12/19/21 06/08/22 History release (Adult Low Dose Aspirin) cyanocobalamin (vitamin B-12) 500 500 mcg PO HS 12/19/21 06/08/22 History mcg tablet (Vitamin B-12) multivitamin with minerals (Men's 1 tab PO DAILY 12/19/21 06/08/22 History One Daily) sodium chloride 5 % eye drops 1 drp OPB HS 12/19/21 06/08/22 History (Tyler 128) diclofenac sodium 1 % topical gel 2 g topical QID #100 grams 12/25/21 06/08/22 Rx (Arthritis Pain (diclofenac)) albuterol sulfate 90 mcg/actuation 1 puff inhalation Q6H PRN 03/16/22 07/26/22 Rx aerosol inhaler Shortness Of Breath Or Wheezing #18 grams allopurinol 300 mg tablet 450 mg PO DAILY #135 tabs 01/27/22 06/08/22 Rx celecoxib 200 mg capsule 200 mg PO BID #180 caps 01/27/22 06/08/22 Rx rivaroxaban 20 mg tablet (Xarelto) 20 mg PO QPM #90 tabs 01/27/22 06/08/22 Rx rosuvastatin 10 mg tablet 10 mg PO DAILY #90 tabs 01/27/22 06/08/22 Rx spironolactone 25 mg tablet 25 mg PO BID #180 tabs 01/27/22 06/08/22 Rx furosemide 40 mg tablet 40 mg PO Q OTHER DAY #90 tabs 02/01/22 06/08/22 Rx metformin 500 mg tablet 1,000 mg PO BID #360 tabs 02/01/22 06/08/22 Rx mupirocin calcium 2 % topical cream 1 applic topical UD #30 grams 02/01/22 06/08/22 Rx omeprazole 20 mg capsule,delayed 40 mg PO DAILY #180 caps 02/01/22 06/08/22 Rx release pen needle, diabetic 32 gauge x #4 Boxes 04/26/22 06/04/22 Rx 5/32" (BD Ultra-Fine Izzy Pen Needle) insulin glargine 100 unit/mL (3 65 unit (0.65 mL) subcut QPM #3 05/02/22 06/08/22 Rx mL) subcutaneous pen (Basaglar Boxes KwikPen U-100 Insulin) cadexomer iodine 0.9 % topical gel 40 g topical DAILY 30 days #40 05/25/22 06/08/22 Rx (Iodosorb) grams dulaglutide 1.5 mg/0.5 mL 1.5 mg (0.5 mL) subcut WK #2 mL 05/28/22 06/08/22 Rx subcutaneous pen injector (Trulicity) gabapentin 300 mg capsule 300 mg PO .COMPLEX #270 caps 06/04/22 06/08/22 Rx insulin aspart U-100 100 unit/mL 20 unit subcut AC 06/04/22 06/08/22 History (3 mL) subcutaneous pen (Novolog Flexpen U-100 Insulin aspart) prednisone 5 mg tablet 5 mg PO DAILY 06/04/22 06/08/22 History tramadol 37.5 mg-acetaminophen 325 1 tab PO QID PRN pain #120 tabs 06/04/22 06/08/22 Rx mg tablet doxycycline hyclate 100 mg tablet 100 mg PO BID 06/08/22 06/08/22 History penicillin V potassium 500 mg 500 mg PO TID 06/08/22 06/08/22 History tablet Patient History Medical History Atrial fibrillation (05/23/13) Diabetic foot ulcer Diverticulosis of colon Gout Hx of fall Hyperlipidemia LDL goal <70 Internal hemorrhoids Morbid obesity with BMI of 50.0-59.9, adult Osteoarthritis Psoriasis Psoriatic arthropathy Rheumatoid arthritis (05/23/13) SOB (shortness of breath) Surgical History History of total hip arthroplasty Family History Family/Other Brain cancer Uncle Colorectal cancer Prostate cancer Father Myocardial infarction Mother Myocardial infarction Lung cancer Denies family history of Ovarian cancer Breast cancer Social History Smoking Status: Former smoker packs per day: 2; Second Hand Exposure: No; 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) Hx Substance Use: No Preferred Language: Slovak Communication Ability: Effective 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 Required: No Beliefs That Will Affect Care: None Current Living Situation: Spouse Current Living Situation Comment: with in home current occupational status: retired Feels Safe at Home: Yes Childhood Exposure to Second-Hand Smoke: Yes Dental Care, Regularly: Yes Physical Activity Frequency: Does not Exercise Seatbelt Use: always Sunscreen Use: Yes Assistive Devices: Cane and Glasses Physical Exam Skin: dressing removed, scant dried hemorrhagic tissue with callused tissue surrounding the ulcer, otherwise stable without purulence or malodor, no erythema, submet 4 ulcer related to increased pressure from the 4th met head and diabetes with neuropathy, stable ulceration; dressing removed and skin cleaned and new dressings applied today Results & Data ([facility]) Vital Signs (Past 12 Hours) Vital Signs Temp Pulse Resp BP BP Pulse Ox O2 Del Method 06/14/22 11:08 36.7 C 75 18 136/99 91 Room Air 06/14/22 07:49 36.5 C 74 18 130/91 90 Room Air 06/14/22 05:51 74 130/91 06/14/22 03:45 36.9 C 69 18 112/70 91 Room Air
--- NOTE | 2022-06-14 16:35 | Hospitalist Progress Note ---
Date of Service June 14, 2022 Assessment & Plan (1) Left leg cellulitis: Plan: Main issues appears to be more LLE cellulitis than CHF - failed outpatient treatment with penicillin and doxycycline. Currently on IV ampicillin due to wound culture with MSSA and pansensitive enterococcus faecalis [place] area of erythema to make sure improving. Continues to show improvement on 06/12 WBC increasing is concerning and may have to broaden antibiotic coverage if continues to get worse. Will get procalcitonin as this may trending may help antibiotic choice. Will get foot MRI to assess for osteomyelitis better. Arterial US to assess wound healing ability in setting of diabetes. Take blood cultures - not taken on admission however if he has MSSA bacteremia these are still likely to be positive. Blood cultures remain negative will consult ortho in regards to his foot: as imaging is suggesting possible osteomyelitis. Consulted podiatry. Plan for surgery on Tuesday as outpatient if he continues to do well on antibiotics. will continue to monitor over course of weekend with discharge target date on Tuesday. Consulted cardiology, no further workup is required. 06/14 Patient will be NPO after midnight with plan for surgery in the AM. will recheck potassium in evening to ensure patient will go to surgery. will also obtain COVID test (2) Acute on chronic heart failure with preserved ejection fraction: Plan: Being treated for such although not completely convincing as CXR clear and no JVD on exam. His left leg swelling is from cellulitis and minimal right leg swelling today. Will continue to diurese as able however given 20 lb weight gain with metolazone, spironolactone and trial 80mg IV BID Lasix until Cr bump with aim 1- 2L net negative daily continue with lasix however, will recheck creatinine in afternoon. transition to bumex. will have Edel Maciel see patient in AM. (3) Lower leg edema: Plan: No DVT on US. Rx as above for HF and cellulitis (4) Diabetic foot ulcer: Plan: Suspect this is source of LLE cellulitis Wound care nuse consult pending (5) Atrial fibrillation: Plan: Appears to be paroxysmal per review of past EKGs - no medication attempt to keep him in NSR however. For now gave metoprolol 5mg IV to monitor response and still significantly tachycadic in 110s. Therefore will start metoprolol tartrate 25mg q6h with hold parameters. Usually rate/rhythm controlled without additional medications. Possibly some of his fatigue is due to this and could consider more rhythm strategy. Aim K > 4, Mg > 2 Anticoagulated chronically with Xarelto (6) Type 2 diabetes mellitus: Plan: HbA1C 6.9 - 65 units basal nightly - sliding scal aspart with CF 20 and ration 1:9 - Hold Metformin Appears to be well controlled on this regimen with glucose 117-128 (7) Gout: Plan: Continue Allopurinol (8) Morbid obesity with BMI of 50.0-59.9, adult: Plan: Likely has component of obesity hypoventilation syndrome as well - HCO3 30 and has been chronically elevated - Recommend sleep study as outpatient to assess for JG (9) Benign hypertension: Plan: Well controlled (10) Metabolic syndrome X: Plan: As above Plan VTE Prophylaxis - Xarelto Diet - low Na, heart healthy, T2DM, no need for fluid restriction unless intake excessively high Disposition - continued admission to med/tele Admission and Anticipated Discharge Date Admission Date: June 08, 2022 Subjective 67 yo male reports no new symptoms today. Review of Systems Review of Systems: All systems reviewed & are unremarkable except as noted in HPI & below Physical Exam Constitutional: WD/WN, vitals as above Respiratory: normal respiratory effort, lungs clear to auscultation Cardiovascular: Rate/Rhythm: + tachycardic and + irregularly irregular Heart Sounds: no murmur Extremities: normal capillary refill and + pedal steven ma (2+ LLE, 1+ RLE); no calf tenderness Gastrointestinal (Abdomen): normal bowel sounds, soft, nontender, no hepatosplenomegaly Skin: + ulcer (unstageable 2cm ulcer on bottom of left foot) and + erythema (LLE to mid frey from ulcer) Neurologic: moves all extremities and awake; not confused Psychiatric: A+Ox3, euthymic affect Genitourinary: no CVA tenderness Results & Data Results & Data ([facility]) Vital Signs (Past 12 Hours) Vital Signs Temp Pulse Pulse Resp BP BP Pulse Ox 06/14/22 15:37 36.9 C 79 18 107/70 90 06/14/22 14:30 95 H 06/14/22 07:00 75 06/14/22 11:08 36.7 C 75 18 136/99 91 06/14/22 07:49 36.5 C 74 18 130/91 90 06/14/22 05:51 74 130/91 O2 Del Method 06/14/22 15:37 Room Air 06/14/22 14:30 06/14/22 07:00 06/14/22 11:08 Room Air 06/14/22 07:49 Room Air 06/14/22 05:51 PG Care Time/CCT Total # of Minutes Spent Total Time Spent with Patient: Total time spent is greater than 50% in coordination of care (as documented) at patient's floor/unit and/or counseling patient: Coding Level of Care Code 38398 Subseq Hosp Care Lvl 3 Diagnoses Left leg cellulitis L03.116 Acute on chronic heart failure with preserved ejection fraction I50.33 Lower leg edema R60.0 Diabetic foot ulcer E11.621; L97.509 Atrial fibrillation I48.91 Type 2 diabetes mellitus E11.9 Gout M10.9 Chronicity: chronic Gout etiology: due to renal impairment Gout site: foot Laterality: right Morbid obesity with BMI of 50.0-59.9, adult E66.01; Z68.43 Benign hypertension I10 Metabolic syndrome X E88.81 Time Spent (min) 35 Comment discuss with specialist as plan was to discharge, however now moved surgery for tomorrow (1) Gout Chronicity: chronic Gout etiology: due to renal impairment Gout site: foot Laterality: right
[2022-06-14] MEDS: GABAPENTIN 600 MG TAB PO SCH (20:04)
[2022-06-14] MEDS: RIVAROXABAN 20 MG TAB PO SCH (20:05)
[2022-06-14] MEDS: ASPIRIN 81 MG ECTAB PO SCH (20:06)
[2022-06-14] MEDS: LANTUS PER UNIT CHARGE SQ SCH (20:57)
[2022-06-14 21:54] LABS: BUN Creatinine Ratio 26.5 (10-20); Calcium 9.7 mg/dl (8.5-10.1); Creatinine Clr Calc Pharmacy 89.9 ml/min; Est GFR (African American) 73.8 ml/min; Est GFR (Non-African American) 63.7 ml/min; Potassium 3.7 mmol/L (3.5-5.1)
[2022-06-15] MEDS: AMPICILLIN 2,000 MG in 0.9 % SODIUM CHLORIDE 100 ML IV SCH ×4 (04:05→22:37)
[2022-06-15] MEDS: METOPROLOL TARTRATE 25 MG TAB PO SCH ×4 (05:31→23:18)
[2022-06-15] MEDS: INSULIN ASPART PER UNIT SC SCH ×4 (08:16→20:28)
[2022-06-15] MEDS: BUMETANIDE 1 MG TAB PO SCH (08:16)
[2022-06-15] MEDS: allopurinoL 300 MG TAB PO SCH (08:16)
[2022-06-15] MEDS: PANTOprazole 40 MG TAB PO SCH (08:16)
[2022-06-15] MEDS: SPIRONOLACTONE 25 MG TAB PO SCH ×2 (08:16→20:12)
[2022-06-15] MEDS: GABAPENTIN 300 MG CAP PO SCH (08:16)
[2022-06-15] MEDS: predniSONE 5 MG TAB PO SCH (08:16)
[2022-06-15] MEDS: ROSUVASTATIN CALCIUM 10 MG TAB PO SCH (08:16)
[2022-06-15] MEDS: DICLOFENAC SOD 1% GEL 100 GM TUBE EXT SCH ×4 (08:17→20:02)
[2022-06-15 08:27] LABS: Hematocrit (blood only) 44.9 % (40.1-51.0); Hemoglobin 14.4 g/dl (14.0-18.0); Mean Corpuscular Hemoglobin 27.5 pg (25.0-34.0); Mean Corpuscular Hgb Conc 32.1 g/dL (32.0-36.0); Mean Corpuscular Volume 85.9 fL (80.0-100.0); Mean Platelet Volume 10.3 fL (9.4-12.4); Platelet Count 233 K/uL (130-400); RDW Coefficient of Variation 16.2 % (11.5-14.5); RDW Standard Deviation 49.6 fL (36.4-46.3); Red Blood Count 5.23 M/uL (4.63-6.08); White Blood Count 8.78 K/ul (4.8-10.8)
[2022-06-15 08:54] LABS: BUN Creatinine Ratio 25.2 (10-20); Calcium 9.9 mg/dl (8.5-10.1); Creatinine Clr Calc Pharmacy 102.4 ml/min; Est GFR (African American) 86.1 ml/min; Est GFR (Non-African American) 74.3 ml/min; Potassium 3.3 mmol/L (3.5-5.1)
[2022-06-15] MEDS ORDERED: fentaNYL citrate 100 MCG/2 ML VIAL ONE (09:24)
[2022-06-15] MEDS ORDERED: LIDOCAINE 2% 2 ML VIAL/AMP(20MG/ML) INFIL ONE (09:24)
[2022-06-15] MEDS ORDERED: PROPOFOL IV EMULSION 10 MG/ML 20 ML VIAL IV ONE (09:24)
[2022-06-15] MEDS ORDERED: MIDAZOLAM HCL 1 MG/ML 2ML VIAL ONE (09:24)
[2022-06-15] MEDS ORDERED: ONDANSETRON INJ 2 MG/ML 2 ML VIAL IV PRN (09:34)
[2022-06-15] MEDS ORDERED: fentaNYL citrate 100 MCG/2 ML VIAL IV PRN (09:34)
[2022-06-15] MEDS ORDERED: ATROPINE SULFATE 0.1 MG/ML 10ML SYR IV PRN (09:34)
[2022-06-15] MEDS ORDERED: ePHEDrine sulfate 50 MG/ML AMP IV PRN (09:34)
--- NOTE | 2022-06-15 09:40 | Anesthesiology Consultation ---
Date of Service June 15, 2022 Assessment & Plan (1) Encounter for pre-operative examination: Chart Review Chart Review: manager entry initiated History Surgery Operation Date: 06/15/22 09:50 Proposed Procedures p Left Foot Fourth Metatarsal Head Resection, Ulcer Debridement - Lakshmi Mansfield DPM Height/Weight Height: 5 ft 9 in Weight: 157.6 kg Allergies Allergy/AdvReac Type Severity Reaction Status Date / Time No Known Allergies Allergy Verified 06/08/22 16:24 Medications Home Medications Medication Instructions Recorded Confirmed Last Taken blood sugar diagnostic (Contour #3 Boxes 01/16/21 06/04/22 Unknown Next Test Strips) cyclobenzaprine 10 mg tablet 10 mg PO Q8H PRN MUSCLE SPASMS 04/27/21 06/08/22 12/18/21 metolazone 5 mg tablet 5 mg PO DAILY 10/27/21 06/08/22 06/08/22 adalimumab 40 mg/0.8 mL See Rx Instructions subcut Q14D #2 12/10/21 06/08/22 Unknown subcutaneous pen kit (Humira Pen) ea aspirin 81 mg tablet,delayed 81 mg PO HS 12/19/21 06/08/22 06/07/22 release (Adult Low Dose Aspirin) cyanocobalamin (vitamin B-12) 500 500 mcg PO HS 12/19/21 06/08/22 06/07/22 mcg tablet (Vitamin B-12) multivitamin with minerals (Men's 1 tab PO DAILY 12/19/21 06/08/22 06/08/22 One Daily) sodium chloride 5 % eye drops 1 drp OPB HS 12/19/21 06/08/22 06/07/22 (Tyler 128) diclofenac sodium 1 % topical gel 2 g topical QID #100 grams 12/25/21 06/08/22 06/08/22 12:00 (Arthritis Pain (diclofenac)) albuterol sulfate 90 mcg/actuation 1 puff inhalation Q6H PRN 01/27/22 06/08/22 Unknown aerosol inhaler Shortness Of Breath Or Wheezing #18 grams allopurinol 300 mg tablet 450 mg PO DAILY #135 tabs 01/27/22 06/08/22 06/08/22 celecoxib 200 mg capsule 200 mg PO BID #180 caps 01/27/22 06/08/22 06/08/22 08:00 rivaroxaban 20 mg tablet (Xarelto) 20 mg PO QPM #90 tabs 01/27/22 06/08/22 06/07/22 rosuvastatin 10 mg tablet 10 mg PO DAILY #90 tabs 01/27/22 06/08/22 06/08/22 spironolactone 25 mg tablet 25 mg PO BID #180 tabs 01/27/22 06/08/22 06/08/22 08:00 furosemide 40 mg tablet 40 mg PO Q OTHER DAY #90 tabs 02/01/22 06/08/22 06/07/22 metformin 500 mg tablet 1,000 mg PO BID #360 tabs 02/01/22 06/08/22 06/08/22 08:00 mupirocin calcium 2 % topical cream 1 applic topical UD #30 grams 02/01/22 06/08/22 Unknown omeprazole 20 mg capsule,delayed 40 mg PO DAILY #180 caps 02/01/22 06/08/22 06/08/22 release pen needle, diabetic 32 gauge x #4 Boxes 04/26/22 06/04/22 Unknown 5/32" (BD Ultra-Fine Izzy Pen Needle) insulin glargine 100 unit/mL (3 65 unit (0.65 mL) subcut QPM #3 05/02/22 06/08/22 06/07/22 mL) subcutaneous pen (Basaglar Boxes KwikPen U-100 Insulin) cadexomer iodine 0.9 % topical gel 40 g topical DAILY 30 days #40 05/25/22 06/08/22 06/08/22 (Iodosorb) grams dulaglutide 1.5 mg/0.5 mL 1.5 mg (0.5 mL) subcut WK #2 mL 05/28/22 06/08/22 06/05/22 subcutaneous pen inject[facility] ([facility]) gabapentin 300 mg capsule 300 mg PO .COMPLEX #270 caps 06/04/22 06/08/22 06/08/22 08:00 insulin aspart U-100 100 unit/mL 20 unit subcut AC 06/04/22 06/08/22 06/08/22 12:00 (3 mL) subcutaneous pen (Novolog Flexpen U-100 Insulin aspart) prednisone 5 mg tablet 5 mg PO DAILY 06/04/22 06/08/22 06/08/22 tramadol 37.5 mg-acetaminophen 325 1 tab PO QID PRN pain #120 tabs 06/04/22 06/08/22 06/08/22 mg tablet doxycycline hyclate 100 mg tablet 100 mg PO BID 06/08/22 06/08/22 06/08/22 08:00 penicillin V potassium 500 mg 500 mg PO TID 06/08/22 06/08/22 06/08/22 12:00 tablet Active Medications Generic Name Dose Route Start Last Admin Trade Name Sundar PRN Reason Stop Dose Admin Allopurinol 450 mg 06/09/22 09:00 06/15/22 08:16 Allopurinol 300 Mg Tab PO 07/09/22 08:59 450 mg DAILY JORGE Administration Aspirin 81 mg 06/08/22 21:00 06/14/22 20:06 Aspirin 81 Mg Ectab PO 07/08/22 20:59 81 mg HS JORGE Administration Bumetanide 2 mg 06/14/22 09:00 06/15/22 08:16 Bumetanide 1 Mg Tab PO 07/14/22 08:59 2 mg QAM JORGE Administration Diclofenac Sodium 2 gm 06/08/22 21:00 06/15/22 08:17 Diclofenac Sod 1% Gel 100 Gm Tube EXT 07/08/22 20:59 2 gm QID JORGE Administration Protocol Gabapentin 300 mg 06/09/22 09:00 06/15/22 08:16 Gabapentin 300 Mg Cap PO 07/09/22 08:59 300 mg QAM JORGE Administration Gabapentin 600 mg 06/08/22 21:00 06/14/22 20:04 Gabapentin 600 Mg Tab PO 07/08/22 20:59 600 mg HS JORGE Administration Ampicillin Sodium 2,000 mg/ 108 mls @ 200 mls/hr 06/13/22 16:00 06/15/22 09: 25 Sodium Chloride IV 06/16/22 03:59 Infused Q6H JORGE Infusion Insulin Aspart 0 units 06/08/22 21:00 06/15/22 08:16 Insulin Aspart Per Unit SC 07/08/22 20:59 Not Given ACHS JORGE Insulin Glargine 65 units 06/08/22 21:00 06/14/22 20:57 Lantus Per Unit Charge SQ 07/08/22 20:59 65 units QPM JORGE Administration Metoprolol Tartrate 25 mg 06/09/22 18:00 08/02/22 08:18 Metoprolol Tartrate 25 Mg Tab PO 07/09/22 17:59 25 mg Q6H JORGE Administration Pantoprazole Sodium 40 mg 06/09/22 09:00 06/15/22 08:16 Pantoprazole 40 Mg Tab PO 07/09/22 08:59 40 mg DAILY JORGE Administration Prednisone 5 mg 06/10/22 09:00 06/15/22 08:16 Prednisone 5 Mg Tab PO 07/10/22 08:59 5 mg DAILY JORGE Administration Rivaroxaban 20 mg 06/08/22 21:00 06/14/22 20:05 Rivaroxaban 20 Mg Tab PO 07/08/22 20:59 20 mg QPM JORGE Administration Rosuvastatin Calcium 10 mg 06/09/22 09:00 06/15/22 08:16 Rosuvastatin Calcium 10 Mg Tab PO 07/09/22 08:59 10 mg DAILY JORGE Administration Spironolactone 25 mg 06/08/22 21:00 06/15/22 08:16 Spironolactone 25 Mg Tab PO 07/08/22 20:59 25 mg BID JORGE Administration Tramadol HCl 50 mg 06/08/22 20:54 06/14/22 20:03 Tramadol Hcl 50 Mg Tablet PO 07/08/22 20:53 50 mg QID PRN Administration Pain NPO Date Last Intake of Fluids: 06/14/22 Time Last Intake of Fluids: 19:00 Last Intake of Fluids Comment: sip of water with meds today Date Last Intake of Solids: 06/14/22 Time Last Intake of Solids: 18:00 Past Medical History Medical History Atrial fibrillation (05/23/13) Diabetic foot ulcer Diverticulosis of colon Gout Hx of fall Hyperlipidemia LDL goal <70 Internal hemorrhoids Morbid obesity with BMI of 50.0-59.9, adult Osteoarthritis Psoriasis Psoriatic arthropathy Rheumatoid arthritis (05/23/13) SOB (shortness of breath) Past Family History Family History Family/Other Brain cancer Uncle Colorectal cancer Prostate cancer Father Myocardial infarction Mother Myocardial infarction Lung cancer Denies family history of Ovarian cancer Breast cancer Past Surgical History Surgical History History of total hip arthroplasty Social History Smoking Status: Former smoker tobacco type: cigarettes and cigars Do You Dip or Chew Tobacco: No 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 Anaerobic Blood Culture - Final No growth in Anaerobic bottle after 5 days. 06/09/22 11:26 Aerobic Blood Culture - Final Blood No growth in Aerobic bottle after 5 days. Anaerobic Blood Culture - Final No growth in Anaerobic bottle after 5 days. 06/15/22 07:34 POC Glucose 123 H Electrocardiogram Date: 06/08/22 Atrial fibrillation with rapid ventricular response with PVC, rate 102 bpm Abnormal ECG When compared with ECG of 20-DEC-2021 07:40, Atrial fibrillation has replaced Sinus rhythm Confirmed by Karlos Hubbard ([id number]) on 06/09/2022 11:40:57 AM Chest X-Ray Date: 06/08/22 Findings: + NAD Echocardiogram Date: 06/09/22 LV systolic function is low normal EF 50-55% There is borderline global hypokinesis of the LV Mild concentric LVH RV is mildly dilated RV systolic function is normal Mild right ventricular hypertrophy Mild MR
--- NOTE | 2022-06-15 10:04 | History & Physical Bridge Note ---
Date of Service June 15, 2022 History & Physical Bridge Note I have examined the patient, reviewed the History & Physical and in the interval since the performance of the History & Physical I have noted the following changes of clinical significance: no changes noted left foot surgery.
[2022-06-15] MEDS ORDERED: BUPIVACAINE 0.5 % 5 MG/1 ML MPF 30ML VIAL ONE (10:22)
--- NOTE | 2022-06-15 10:51 | Cardiology Progress Note ---
Date of Service June 15, 2022 Assessment & Plan (1) Chronic heart failure with preserved ejection fraction: (2) Paroxysmal atrial fibrillation: (3) Benign hypertension: (4) Preop cardiovascular exam: Plan ASSESSMENT/PLAN: 1. Chronic heart failure with preserved EF: He appears euvolemic. Kidney function improving today. Potassium improved but still low. Continue Bumex 2 mg PO daily. Would not resume daily metolazone here or on discharge at this time. Continue Spironolactone. Monitor electrolytes and renal function. Low-sodium diet, less than 2000 mg daily. Daily STANDING weights. Recommend I&Os while hospitalized. 2. Atrial fibrillation: Described as paroxysmal in the past but has been in atrial fibrillation during this hospital stay and may be persistent at this point. Asymptomatic. Continue anticoagulation for stroke risk reduction. Heart rate adequately controlled on current beta-elizabeth. Can transition to metoprolol 50 mg p.o. b.i.d. for rate control on discharge. 3. Hypertension: Blood pressure well controlled. 4. Preop cardiac assessment: No angina. Heart failure seems to be significantly improved. Given issues with left lower extremity infection and imaging that raised the question up ostial osteomyelitis, can pursue surgery as recommended without further cardiac investigation at this time. Can hold anticoagulation therapy for 2 or 3 days prior to the procedure if deemed necessary by the surgical team. Can then resume anticoagulation therapy when safe from a surgical standpoint. 5. Disposition: Will enroll in [facility] heart failure program. Follow up within 7 days of discharge- Plan to see him virtually due to upcoming foot surgery and potential mobility issues- 06/21 at 1030. Admission and Anticipated Discharge Date Admission Date: June 08, 2022 Subjective Patient resting comfortably. He's laying flat in his bed without symptoms. His breathing is at baseline. He slept well and denies PND. Lower extremity edema significantly improved per the patient. He denies chest pain, cough, or palpitations. Weight 347 lb this am on standing scale. He's net positive but I&Os inaccurate. Renal function continues to improve. He's planning to go to the OR today for excision of the 4th metatarsal. Physical Exam Physical Exam: Gen.: No acute distress. Alert and oriented. HEENT: Anicteric sclera. Neck: Bearded neck and difficult to assess for JVD. Cardiac: No ventricular heave. Irregularly irregular with normal heart rate. Normal S1-S2. No murmurs, rubs, or gallops. Pulmonary: Normal respiratory effort. Clear to auscultation bilaterally. Abdomen: Obese. Soft, nontender, nondistended, with normoactive bowel sounds. No bruits noted. Extremities: 2+ radial pulses bilaterally. 2+ posterior tibialis pulses bilaterally. Trace left lower extremity edema. Erythema outlined- improving. No cyanosis. Psychiatric: Affect appears appropriate. Results & Data ([facility]) Vital Signs (Past 12 Hours) Vital Signs Temp Pulse Pulse Resp BP Pulse Ox O2 Del Method 06/15/22 09:33 98.1 F 81 18 124/84 94 Room Air 06/15/22 08:11 98.1 F 72 18 115/64 91 Room Air 06/15/22 03:01 98.4 F 65 16 107/59 L 90 Room Air 06/15/22 02:24 Room Air 06/15/22 01:17 70 06/14/22 23:09 97.9 F 73 16 112/75 90 Room Air PG Care Time/CCT Total # of Minutes Spent Total Time Spent with Patient: Total time spent is greater than 50% in coordination of care (as documented) at patient's floor/unit and/or counseling patient: Coding Level of Care Code 53818 Subseq Hosp Care Lvl 3 Diagnoses Chronic heart failure with preserved ejection fraction I50.32 Paroxysmal atrial fibrillation I48.0 Benign hypertension I10 Preop cardiovascular exam Z01.810
--- NOTE | 2022-06-15 11:33 | Post Operative Brief Note ---
Immediate Post Op Note v1 Date of Surgery June 15, 2022 Pre & Post Diagnosis Operation Date: 06/15/22 09:50 Pre-Op Diagnosis: Diabetic foot ulcer Post-Op Diagnosis: Diabetic foot ulcer I identified the patient and participated in the time-out.: Yes Procedure Operation Date: 06/15/22 09:50 Actual Procedures p Left Foot Fourth Metatarsal Head Resection, Ulcer Debridement(Left) - Lakshmi Mansfield DPM Surgeon Lakshmi Mansfield DPM Manager Of Community Relations Bhargavi Estimated Blood Loss 1 Findings Consistent with Post-Op Diagnosis bone left foot fourth metatarsal Disposition Accompanied Patient To Recovery: Yes
--- NOTE | 2022-06-15 12:07 | Anesthesiology Progress Note ---
Date of Service June 15, 2022 Anesthesia Post Procedure Vital Signs Vital Signs: Temp Pulse Pulse Pulse Resp BP BP 06/15/22 11:55 77 20 107/79 06/15/22 12:05 97.2 F L 81 19 110/85 06/15/22 11:45 86 21 111/57 L 06/15/22 11:38 96.8 F L 79 15 102/72 06/15/22 09:33 98.1 F 81 18 124/84 06/15/22 08:11 98.1 F 72 18 115/64 06/15/22 03:01 98.4 F 65 16 107/59 L 06/15/22 02:24 06/15/22 01:17 70 06/14/22 23:09 97.9 F 73 16 112/75 06/14/22 19:18 98.1 F 84 18 106/73 06/14/22 15:37 98.4 F 79 18 107/70 06/14/22 14:30 95 H Pulse Ox O2 Del Method O2 Flow Rate 06/15/22 11:55 93 Oxymask 4 06/15/22 12:05 94 Nasal Cannula 2 06/15/22 11:45 94 Oxymask 6 06/15/22 11:38 93 Oxymask 6 06/15/22 09:33 94 Room Air 06/15/22 08:11 91 Room Air 06/15/22 03:01 90 Room Air 06/15/22 02:24 Room Air 06/15/22 01:17 06/14/22 23:09 90 Room Air 06/14/22 19:18 90 Room Air 06/14/22 15:37 90 Room Air 06/14/22 14:30 Pain Intensity Left Arm: Pain Intensity: 0 Transfer of Care Handoff Completed per policy Notes Mental Status: alert / awake / arousable and participated in evaluation Patient Amnestic to Procedure: Yes Nausea / Vomiting: adequately controlled Pain: adequately controlled Airway Patency, RR, SpO2: stable & adequate BP & HR: stable & adequate Hydration State: stable & adequate Anesthetic Complications: no major complications apparent and Pt Satisfied with anesthetic care
--- NOTE | 2022-06-15 13:47 | Fluoroscopy Report ---
FL foot LT 2V CLINICAL HISTORY: Left fourth toe amputation. COMPARISON STUDY: None. FLUOROSCOPY TIME: 1.5 seconds. FINDINGS: 2 fluoroscopic spot images of the left forefoot demonstrate amputation of the distal left f ourth metatarsal. IMPRESSION: Fluoroscopic assistance provided for interpretation the distal left fourth metatarsal. ACT 112: Negative or not required by law. Electronically signed by: Faustino Eaton M.D. 06/15/2022 1:46 PM
--- NOTE | 2022-06-15 16:23 | Operative Report ---
DATE OF SURGERY: 06/15/2022. ATTENDING PHYSICIAN: Hospitalist, Froy Farnsworth MD. PREOPERATIVE DIAGNOSES: Left foot fourth metatarsal head osteomyelitis, possible identified on MRI a nd left foot diabetic ulcer. POSTOPERATIVE DIAGNOSES: Left foot fourth metatarsal head osteomyelitis, possible identified on MRI and left foot diabetic ulcer. PROCEDURE: Left foot fourth metatarsal head resection and ulcer debridement. HEMOSTASIS: Pneumatic ankle tourniquet at 250 mmHg. ANESTHESIA: Local IV sedation. DESCRIPTION OF PROCEDURE: The patient was brought into the operating room and placed in the supine p osition. The left lower extremity was prepped and draped in the usual sterile manner. A 1:1 mix of 1% lidocaine plain, 0.5% Marcaine was utilized to anesthetize the left foot in the area of the left f ourth metatarsal head. Next, a timeout was taken, and procedure verified, patient verified, anesthes ia induced, tourniquet was inflated and the procedure began. A dorsal linear incision was made over the left fourth metatarsal. Dissection was carried through the skin and subcutaneous tissues at the level of the fourth metatarsal head. The fourth metatarsal head was then dissected free of soft tissu e attachment. It was noted to have soft bone, likely related to the history of osteomyelitis of the left fourth metatarsal head. Next, utilizing the small clamps, the neck of the fourth metatarsal was marked off and utilizing the sagittal saw, the fourth metatarsal head was resected. It did come out in numerous part secondary to the softness of the bone, likely from the underlying osteomyelitis. It was removed in toto and sent to pathology for permanent specimen. Cultures were obtained from the bone that was removed. The ar ea was flushed with a pulse lavage. Next, utilizing 3-0 Vicryl, the subcutaneous tissues were closed and then utilizing 2-0 Prolene the skin was closed in horizontal mattress and simple interrupted sti tches. Next, attention was directed to the submetatarsal 4 ulceration, which was debrided with a #15 blade. Subcutaneous tissue was debrided with a #15 blade. There was really no depth noted to the wound sec ondary to it being improved since he has been hospitalized and off his foot. There was noted to be r elease of the pressure from the removal of the metatarsal head and fourth metatarsal head again check ed after removal of the bone with intraoperative fluoroscopy. At this point, compressive and correct peyman dressings were applied to the left foot. The tourniquet was deflated. The patient had good hemo dynamic response noted to the left lower extremity. He had all vital signs stable and intact and was sent to the PACU for recovery. He will then be transitioned back to his room on the floor. Job ID: [id number]
[2022-06-15] MEDS: traMADol HCL 50 MG TABLET PO PRN ×2 (16:58→23:17)
--- NOTE | 2022-06-15 18:11 | Hospitalist Progress Note ---
Date of Service June 15, 2022 Assessment & Plan (1) Left leg cellulitis: Plan: Main issues appears to be more LLE cellulitis than CHF - failed outpatient treatment with penicillin and doxycycline. Currently on IV ampicillin due to wound culture with MSSA and pansensitive enterococcus faecalis [place] area of erythema to make sure improving. Continues to show improvement on 06/12 WBC increasing is concerning and may have to broaden antibiotic coverage if continues to get worse. Will get procalcitonin as this may trending may help antibiotic choice. Will get foot MRI to assess for osteomyelitis better. Arterial US to assess wound healing ability in setting of diabetes. Take blood cultures - not taken on admission however if he has MSSA bacteremia these are still likely to be positive. Blood cultures remain negative will consult ortho in regards to his foot: as imaging is suggesting possible osteomyelitis. Consulted podiatry. Plan for surgery on Tuesday as outpatient if he continues to do well on antibiotics. will continue to monitor over course of weekend with discharge target date on Tuesday. Consulted cardiology, no further workup is required. 06/14 Patient will be NPO after midnight with plan for surgery in the AM. will recheck potassium in evening to ensure patient will go to surgery. will also obtain COVID test 06/15 Patient will have surgery later today. Patient reports no new symptoms. (2) Acute on chronic heart failure with preserved ejection fraction: Plan: Being treated for such although not completely convincing as CXR clear and no JVD on exam. His left leg swelling is from cellulitis and minimal right leg swelling today. Will continue to diurese as able however given 20 lb weight gain with metolazone, spironolactone and trial 80mg IV BID Lasix until Cr bump with aim 1- 2L net negative daily continue with lasix however, will recheck creatinine in afternoon. transition to bumex. will have Edel Maciel see patient in AM. (3) Lower leg edema: Plan: No DVT on US. Rx as above for HF and cellulitis (4) Diabetic foot ulcer: Plan: Suspect this is source of LLE cellulitis Wound care nuse consult pending (5) Atrial fibrillation: Plan: Appears to be paroxysmal per review of past EKGs - no medication attempt to keep him in NSR however. For now gave metoprolol 5mg IV to monitor response and still significantly tachycadic in 110s. Therefore will start metoprolol tartrate 25mg q6h with hold parameters. Usually rate/rhythm controlled without additional medications. Possibly some of his fatigue is due to this and could consider more rhythm strategy. Aim K > 4, Mg > 2 Anticoagulated chronically with Xarelto (6) Type 2 diabetes mellitus: Plan: HbA1C 6.9 - 65 units basal nightly - sliding scal aspart with CF 20 and ration 1:9 - Hold Metformin Appears to be well controlled on this regimen with glucose 117-128 (7) Gout: Plan: Continue Allopurinol (8) Morbid obesity with BMI of 50.0-59.9, adult: Plan: Likely has component of obesity hypoventilation syndrome as well - HCO3 30 and has been chronically elevated - Recommend sleep study as outpatient to assess for JG (9) Benign hypertension: Plan: Well controlled (10) Metabolic syndrome X: Plan: As above Plan VTE Prophylaxis - Xarelto Diet - low Na, heart healthy, T2DM, no need for fluid restriction unless intake excessively high Disposition - continued admission to med/tele Admission and Anticipated Discharge Date Admission Date: June 08, 2022 Subjective Patient reports no new symptoms. Review of Systems Review of Systems: All systems reviewed & are unremarkable except as noted in HPI & below Physical Exam Constitutional: WD/WN, vitals as above Respiratory: normal respiratory effort, lungs clear to auscultation Cardiovascular: Rate/Rhythm: + tachycardic and + irregularly irregular Heart Sounds: no murmur Extremities: normal capillary refill and + pedal edema (2+ LLE, 1+ RLE); no calf tenderness Gastrointestinal (Abdomen): normal bowel sounds, soft, nontender, no hepatosplenomegaly Skin: + ulcer (unstageable 2cm ulcer on bottom of left foot) and + erythema (LLE to mid frey from ulcer) Neurologic: moves all extremities and awake; not confused Psychiatric: A+Ox3, euthymic affect Genitourinary: no CVA tenderness Results & Data Results & Data ([facility]) Vital Signs (Past 12 Hours) Vital Signs Temp Pulse Pulse Pulse Resp BP BP 06/15/22 15:26 36.4 C L 68 16 111/46 L 06/15/22 15:00 77 06/15/22 08:00 06/15/22 14:00 36.4 C L 84 14 112/76 06/15/22 13:15 36.4 C L 71 14 121/76 06/15/22 12:33 36.5 C 68 12 132/88 06/15/22 07:00 87 06/15/22 11:55 77 20 107/79 06/15/22 12:05 36.2 C L 81 19 110/85 06/15/22 11:45 86 21 111/57 L 06/15/22 11:38 36 C L 79 15 102/72 06/15/22 09:33 36.7 C 81 18 124/84 06/15/22 08:11 36.7 C 72 18 115/64 Pulse Ox O2 Del Method O2 Flow Rate 06/15/22 15:26 96 Nasal Cannula 2 06/15/22 15:00 06/15/22 08:00 Room Air 06/15/22 14:00 95 Nasal Cannula 2 06/15/22 13:15 96 Nasal Cannula 2 06/15/22 12:33 2 L Nasal Cannula 06/15/22 07:00 06/15/22 11:55 93 Oxymask 4 06/15/22 12:05 94 Nasal Cannula 2 06/15/22 11:45 94 Oxymask 6 06/15/22 11:38 93 Oxymask 6 06/15/22 09:33 94 Room Air 06/15/22 08:11 91 Room Air PG Care Time/CCT Total # of Minutes Spent Total Time Spent with Patient: Total time spent is greater than 50% in coordination of care (as documented) at patient's floor/unit and/or counseling patient: Coding Level of Care Code 89065 Subseq Hosp Care Lvl 2 Diagnoses Left leg cellulitis L03.116 Acute on chronic heart failure with preserved ejection fraction I50.33 Lower leg edema R60.0 Diabetic foot ulcer E11.621; L97.509 Atrial fibrillation I48.91 Type 2 diabetes mellitus E11.9 Gout M10.9 Chronicity: chronic Gout etiology: due to renal impairment Gout site: foot Laterality: right Morbid obesity with BMI of 50.0-59.9, adult E66.01; Z68.43 Benign hypertension I10 Metabolic syndrome X E88.81 (1) Gout Chronicity: chronic Gout etiology: due to renal impairment Gout site: foot Laterality: right
[2022-06-15] MEDS: ACETAMINOPHEN 325 MG TAB PO PRN (19:56)
[2022-06-15] MEDS: ASPIRIN 81 MG ECTAB PO SCH (20:01)
[2022-06-15] MEDS: GABAPENTIN 600 MG TAB PO SCH (20:07)
[2022-06-15] MEDS ORDERED: POTASSIUM CHLORIDE CRTAB 20 MEQ TABCR PO STA (20:23)
[2022-06-15] MEDS: LANTUS PER UNIT CHARGE SQ SCH (20:28)
[2022-06-16 00:20] LABS: BUN Creatinine Ratio 22.7 (10-20); Calcium 9.2 mg/dl (8.5-10.1); Creatinine Clr Calc Pharmacy 82.4 ml/min; Est GFR (African American) 66.2 ml/min; Est GFR (Non-African American) 57.1 ml/min; Magnesium 1.8 mg/dl (1.7-2.4); Potassium 3.6 mmol/L (3.5-5.1)
[2022-06-16] MEDS: AMPICILLIN 2,000 MG in 0.9 % SODIUM CHLORIDE 100 ML IV SCH ×2 (04:18→08:23)
[2022-06-16] MEDS: METOPROLOL TARTRATE 25 MG TAB PO SCH ×2 (05:34→13:17)
[2022-06-16] MEDS: traMADol HCL 50 MG TABLET PO PRN (05:36)
[2022-06-16 07:20] LABS: Basophils % (auto) 0.9 %; Eosinophils # (auto) 0.12 K/uL (0-0.50); Immature Granulocytes # (auto) 0.03 K/uL (0.00-0.02); Immature Granulocytes % (auto) 0.3 %; Lymphocytes # (auto) 3.59 K/uL (1.2-3.4); Lymphocytes % (auto) 30.9 %; Mean Corpuscular Hemoglobin 27.7 pg (25.0-34.0); Mean Corpuscular Hgb Conc 31.8 g/dL (32.0-36.0); Mean Corpuscular Volume 87.1 fL (80.0-100.0); Mean Platelet Volume 10.9 fL (9.4-12.4); Monocytes # (auto) 1.25 K/uL (0.24-0.82); Monocytes % (auto) 10.8 %; Neutrophils # (auto) 6.51 K/uL (1.4-6.5); Neutrophils % (auto) 56.1 %; Platelet Count 235 K/uL (130-400); RDW Coefficient of Variation 16.4 % (11.5-14.5); RDW Standard Deviation 50.9 fL (36.4-46.3); Red Blood Count 5.05 M/uL (4.63-6.08)
[2022-06-16 07:52] LABS: Albumin Globulin Ratio 0.8 (0.9-2); Albumin Level 3.4 gm/dl (3.4-5.0); BUN Creatinine Ratio 21.9 (10-20); Bilirubin,Total 0.6 mg/dl (0.2-1.0); Calcium 9.7 mg/dl (8.5-10.1); Creatinine Clr Calc Pharmacy 92.9 ml/min; Est GFR (African American) 76.2 ml/min; Est GFR (Non-African American) 65.7 ml/min; Globulin 4.4 gm/dl (2.5-4.0); Phosphorus 3.4 mg/dl (2.5-4.9); Potassium 3.9 mmol/L (3.5-5.1); Total Protein 7.8 gm/dl (6.0-8.3)
[2022-06-16] MEDS: BUMETANIDE 1 MG TAB PO SCH (08:21)
[2022-06-16] MEDS: DICLOFENAC SOD 1% GEL 100 GM TUBE EXT SCH ×2 (08:21→13:16)
[2022-06-16] MEDS: SPIRONOLACTONE 25 MG TAB PO SCH (08:21)
[2022-06-16] MEDS: predniSONE 5 MG TAB PO SCH (08:21)
[2022-06-16] MEDS: GABAPENTIN 300 MG CAP PO SCH (08:21)
[2022-06-16] MEDS: ROSUVASTATIN CALCIUM 10 MG TAB PO SCH (08:22)
[2022-06-16] MEDS: PANTOprazole 40 MG TAB PO SCH (08:22)
[2022-06-16] MEDS: allopurinoL 300 MG TAB PO SCH (08:22)
[2022-06-16] MEDS: ACETAMINOPHEN 325 MG TAB PO PRN (08:35)
[2022-06-16] MEDS: INSULIN ASPART PER UNIT SC SCH ×2 (09:09→13:17)
--- NOTE | 2022-06-16 09:30 | Orthopedic Progress Note ---
Date of Service June 16, 2022 Assessment & Plan (1) S/P foot surgery, left: Plan: Patient was educated regarding today's findings. He may be weightbearing on the heel. Continue using his postop shoe. He was instructed to avoid placing weight on the forefoot. Continue with ice and elevation. Pain control with analgesics as needed. Follow-up in the office next week with Dr. Eun Garcia for reexamination. Okay for discharge from an orthopedic standpoint. He will require continued antibiotics tailored to his soft tissue cultures. Admission and Anticipated Discharge Date Admission Date: June 08, 2022 Subjective Patient is seen in his room this morning. States he has pain on the dorsum of the left foot. Denies any nausea, vomiting, chest pain, shortness of breath, or knee pain. He states he does have a intact sensation to the foot. He also states that the ability to flex his great toe has returned. He is pleased with the improvement in discoloration and swelling in his lower leg. No other complaints. Physical Exam Physical Exam: General: Well-developed, well-nourished, elderly white male, in no acute distress. Laying in bed. Alert and oriented. Conversive. Skin: Warm and dry with fair turgor. He has venous stasis changes and cellulitic changes on the left lower leg are improved since I last saw him. Bulky bandage on the left foot is in place. There is no visible bleeding through the dressings. Dressings were removed aside. There is no active bleeding on the dorsum or plantar surface of the foot. Dried blood is present on the dressings. Dressings were replaced. Musculoskeletal: Patient has intact motor function to the ankle and toes. Great toe has intact flexion and extension which is improved since I last saw him. Neurologic: Gross sensation is intact across each of the digits of the left foot by soft touch. Capillary refill is equal for each of the toes. Results & Data ([facility]) Vital Signs (Past 12 Hours) Vital Signs Temp Pulse Pulse Resp BP Pulse Ox O2 Del Method 06/16/22 08:07 36.8 C 80 19 119/81 94 Room Air 06/16/22 07:13 112 H 06/15/22 22:22 85 06/16/22 05:32 79 115/73 06/16/22 03:35 36.7 C 81 20 122/73 91 Room Air 06/15/22 22:56 36.5 C 82 18 110/73 90 Room Air Laboratory Results CBC obtained today shows a white count of 11.6. This is increased since yesterday. H&H of 14.0 and 44.0. Sodium has improved to 135. Potassium also improved to 3.9. Chloride 95 CO2 33. BUN of 25 which is improved since yesterday. Creatinine 1.14. Glucose 118.
[2022-06-16] MEDS ORDERED: oxyCODONE HCL IR 5 MG TAB (IMMEDIATE RELEASE) PO PRN (12:15)
--- NOTE | 2022-06-28 07:29 | Discharge Summary ---
Date of Service June 16, 2022 Admission HPI Per Admitting Provider 67 YOM with medical history of: Morbid Obesity, HTN, DMII(on insulin), Afib (on Xarelto), Gout. Patient comes to the EMD today for increased swelling of his left leg. He also reports 20 pound weight gain over the past month. Patient reports that he went to his PCP last week and was told to take his lasix daily instead of every other day and reports decreased response to his diuretic therapy. He also reports that he follows with wound clinic and was started on Doxy and PCN for wound culture of his left foot ulceration. The patient reports that his right leg was swollen as well, but this swelling has gone down, but remains with swelling and increase in erythema that has increased. He is on Xarelto for his Afib and reports that he has not missed a dose. The patient also endorses difficulty lying flat at night and will need to sit up to catch his breath after about an hour of sleep. He does follow with Podiatry and the [facility] for his foot ulcer. This was cultured on [id number] see results below. He was given Rocephin in EMD, will transition to Ampicillin. Imaging is pending to evaluate for osteo. Will obtain ultrasound of the left leg for DVT. In the EMD the patient was given Rocephin 2GM IV and given 40mg of Lasix IV without any response. Will give another 40mg IV Lasix now and monitor for response. Will obtain ECHO in am, consult HF clinic. He has been evaluated for JG per his report but has always declined its use. COVID test on admission is: NEGATIVE Principal Diagnosis left leg cellulitis Discharge Exam Constitutional: WD/WN, vitals as above Respiratory: normal respiratory effort, lungs clear to auscultation Cardiovascular: Rate/Rhythm: + tachycardic and + irregularly irregular Heart Sounds: no murmur Extremities: normal capillary refill and + pedal edema (2+ LLE, 1+ RLE); no calf tenderness Gastrointestinal (Abdomen): normal bowel sounds, soft, nontender, no hepatosplenomegaly Skin: + ulcer (unstageable 2cm ulcer on bottom of left foot) and + erythema (LLE to mid frey from ulcer) Neurologic: moves all extremities and awake; not confused Psychiatric: A+Ox3, euthymic affect Genitourinary: no CVA tenderness Discharge Data Allergies Allergy/AdvReac Type Severity Reaction Status Date / Time No Known Allergies Allergy Verified 06/08/22 16:24 Consultations 06/08/22 17:32 ED Decision to Admit Stat 06/10/22 13:48 Consult Orthopedic Surgery Routine 06/12/22 09:36 Consult Cardiology Routine 06/12/22 19:39 MNP CHF Program Referral Routine Procedures Performed Operation Date: 06/15/22 09:50 Actual Procedures p Left Foot Fourth Metatarsal Head Resection, Ulcer Debridement(Left) - Lakshmi Mansfield DPM Ordered Studies 06/08/22 17:47 US venous duplex leg [US venous doppler LE LT] Routine 06/09/22 11:01 MRI Foot [MR foot LT w/o con] Routine 06/09/22 17:13 US arterial duplex LE LT Routine 06/15/22 09:50 FL foot LT 2V Routine Hospital Course (1) Left leg cellulitis: Main issues appears to be more LLE cellulitis than CHF - failed outpatient treatment with penicillin and doxycycline. Currently on IV ampicillin due to wound culture with MSSA and pansensitive enterococcus faecalis [place] area of erythema to make sure improving. Continues to show improvement WBC increasing is concerning and may have to broaden antibiotic coverage if continues to get worse. Will get procalcitonin as this may trending may help antibiotic choice. Consulted podiatry. Initial plan for surgery was on Tuesday as outpatient however this was moved to 06/15 Consulted cardiology, no further workup is required. On 06/15 Patient had surgery. Left foot fourth metatarsal head resection and ulcer debridement. Discharge instructions noted below. (2) Acute on chronic heart failure with preserved ejection fraction: Being treated for such although not completely convincing as CXR clear and no JVD on exam. His left leg swelling is from cellulitis and minimal right leg swelling today. Will continue to diurese as able however given 20 lb weight gain with metolazone, spironolactone and trial 80mg IV BID Lasix until Cr bump with aim 1- 2L net negative daily continue with lasix however, will recheck creatinine in afternoon. Patient will be discharged on bumex as noted below. (3) Lower leg edema: No DVT on US. Rx as above for HF and cellulitis (4) Diabetic foot ulcer: Suspect this is source of LLE cellulitis Wound care nuse consult pending (5) Atrial fibrillation: Appears to be paroxysmal per review of past EKGs - no medication attempt to keep him in NSR however. For now gave metoprolol 5mg IV to monitor response and still significantly tachycadic in 110s. Therefore will start metoprolol tartrate 25mg q6h with hold parameters. Usually rate/rhythm controlled without additional medications. Possibly some of his fatigue is due to this and could consider more rhythm strategy. Anticoagulated chronically with Xarelto. Held on day of surgery. will resume day after discharge. (6) Type 2 diabetes mellitus: HbA1C 6.9 -resume home meds at discharge. (7) Gout: Continue Allopurinol (8) Morbid obesity with BMI of 50.0-59.9, adult: Likely has component of obesity hypoventilation syndrome as well - HCO3 30 and has been chronically elevated - Recommend sleep study as outpatient to assess for JG (9) Benign hypertension: Well controlled (10) Metabolic syndrome X: As above Plan VTE Prophylaxis - Xarelto Diet - low Na, heart healthy, T2DM, no need for fluid restriction unless intake excessively high Disposition - continued admission to med/tele Total Time Total Time Spent Total Time Spent (In Minutes): 35 Discharge Plan Discharge Items Patient Disposition: Home - Self-Care Reason For Visit: CHF EXACERBATION, DIABETIC FOOTULCER, CELLULITIS Discharge Diagnosis: as above Activity: Per Instructions section Lifting: Wait until after follow-up appointment Bathing: Keep incision dry Exercise/Sports: Wait until after follow-up appointment Driving/Machine Use: Resume 1 day after discharge Weightbearing: Left partial Weightbearing Comment: bear weight on the heel, not on the forefoot, use your walker Non-emergency contact: Surgeon Call non-emergency contact if: you have any medication questions, your pain is not controlled, your temperature is above 101, your wound has increased redness, your wound has increased drainage and your wound pain has increased Follow-up/Referrals: Funmilayo Serna MD [Primary Care Provider] - 06/28/22 11:00 am (Appointment with Harriet Echevarria PA-C) Mily Maciel PA-C [Physician Film Technician] - 06/21/22 10:30 am (THIS IS A VIRTUAL VISIT. Early follow up is essential to managing your heart failure. An appointment has been scheduled for you with the [facility] within 7 days of discharge. Anticipate this visit to be 30-60 minutes long. Please expect a whittling room operator phone call from one of our nurses approximately 48 hours from discharge. They will also be placing an order for lab work to be completed 1-2 days prior to your heart failure follow up appointment. Please be sure to have this done so we can go over the results when you come in. Office Location The cardiology office building is located in front of the hospital at [address] Bring the following with you to your follow-up doctor appointments: Please bring your daily weight log any discharge paperwork all of your medication bottles with you to this visit. ) Lakshmi Mansfield DPM [Physician] - Diet: Carb Count or DM1 Addtl Attending Provider Instructions: Ice and elevate the foot frequently to reduce pain and swelling. Continue taking your antibiotics as previously directed. Follow-up in the office with Dr. Eun Garcia next week on TuesdayJune 23 at 1:30. Avoid placing weight on the forefoot. You may bear weight on the heel. Use your walker. Start Xarelto tomorrow Start BUmex tomorrow. Followup with PCP in 2 weeks. Pending Studies at Discharge: Yes Studies:: tissue cultures Stand-Alone Forms: [facility], Smoking Cessation Medications and DC Order Prescriptions: New acetaminophen 325 mg Tablet 325 mg PO QID PRN (Reason: pain) Qty: 30 0RF tramadol 50 mg Tablet 50 mg PO QID PRN (Reason: moderate pain (scale score 5-6)) Qty: 20 0RF oxycodone 5 mg Tablet 5 mg PO Q6H PRN (Reason: severe pain (scale score 7-10)) Qty: 20 0RF amoxicillin-pot clavulanate 875-125 mg tablet 1 tab PO BID Qty: 14 0RF Continued Iodosorb 0.9 % gel 40 g topical DAILY 30 Days Qty: 40 1RF Rx Instructions: apply in 1/8 to 1/4 inch thickness; change when saturated with exudate; remove before next application (DME) Contour Next Test Strips Strip See Dose Instructions .ROUTE .MEDSUPPLY Qty: 3 3RF Dose Instruction: As directed Rx Instructions: TEST 5 TIMES DAILY AND NEEDED albuterol sulfate 90 mcg/actuation HFA aerosol inhaler 1 puff INH Q6H PRN (Reason: Shortness Of Breath Or Wheezing) Qty: 18 3RF allopurinol 300 mg tablet 450 mg PO DAILY Qty: 135 3RF Xarelto 20 mg tablet 20 mg PO QPM Qty: 90 3RF rosuvastatin 10 mg tablet 10 mg PO DAILY Qty: 90 3RF spironolactone 25 mg tablet 25 mg PO BID Qty: 180 3RF metformin 500 mg tablet 1,000 mg PO BID Qty: 360 3RF mupirocin calcium 2 % cream 1 applic topical UD Qty: 30 3RF Rx Instructions: PER PT "NEED A REFILL". omeprazole 20 mg capsule,delayed release(DR/EC) 40 mg PO DAILY Qty: 180 3RF (DME) pen needle, diabetic [BD Ultra-Fine Izzy Pen Needle] 32 gauge x 5/32" needle See Dose Instructions .ROUTE .MEDSUPPLY Qty: 4 3RF Dose Instruction: As directed Rx Instructions: use 4 needles daily Basaglar KwikPen U-100 Insulin 100 unit/mL (3 mL) insulin pen 65 unit SQ QPM Qty: 3 3RF Trulicity 1.5 mg/0.5 mL pen injector 1.5 mg SQ WK Qty: 2 3RF Rx Instructions: TAKES ON SATURDAYS. cyclobenzaprine 10 mg tablet 10 mg PO Q8H PRN (Reason: MUSCLE SPASMS) Rx Instructions: PER PT "USUALLY TAKE 1 TAB AT HS". prednisone 5 mg tablet 5 mg PO DAILY insulin aspart U-100 [Novolog Flexpen U-100 Insulin] 100 unit/mL (3 mL) insulin pen 20 unit SQ AC Rx Instructions: 20 units tid as per sliding scale gabapentin 300 mg capsule 300 mg PO .COMPLEX Qty: 270 3RF Rx Instructions: 300 mg orally in AM and 600mg in the PM diclofenac sodium [Arthritis Pain (diclofenac)] 1 % gel 2 g topical QID Qty: 100 0RF Rx Instructions: apply to back of hands at night, prn sodium chloride [Tyler 128] 5 % Drops 1 drp OPB HS cyanocobalamin (vitamin B-12) [Vitamin B-12] 500 mcg Tablet 500 mcg PO HS Men's One Daily Tablet 1 tab PO DAILY aspirin [Adult Low Dose Aspirin] 81 mg tablet,delayed release (DR/EC) 81 mg PO HS Discontinued celecoxib 200 mg capsule 200 mg PO BID Qty: 180 3RF furosemide 40 mg tablet 40 mg PO Q OTHER DAY Qty: 90 3RF Rx Instructions: TAKES MON, WED, & FRI. tramadol-acetaminophen 37.5-325 mg tablet 1 tab PO QID PRN (Reason: pain) Qty: 120 0RF Rx Instructions: PER PT "TAKE REGULARLY FOR THE MOST PART". metolazone 5 mg tablet 5 mg PO DAILY penicillin V potassium 500 mg tablet 500 mg PO TID Rx Instructions: STARTED 06/04/22 FOR 10 DAYS. doxycycline hyclate 100 mg tablet 100 mg PO BID Rx Instructions: STARTED 06/04/22 FOR 10 DAYS. No Action Humira Pen 40 mg/0.8 mL pen injector kit See Rx Instructions subcut Q14D Qty: 2 5RF Rx Instructions: inject one - 40 mg/0.8 mL pen every other Tuesday (Every 14 days) subcut every 14 days; bumetanide 2 mg tablet 2 mg PO Q OTHER DAY Qty: 60 0RF Rx Instructions: May increase to 2 mg daily PRN Discharge Orders: Discharge Order (Routine); Ordered 06/16/22 Ordered By: Froy Farnsworth Admission Data Admit Date/Time: 06/08/22 17:59 Attending Provider: Froy Farnsworth Admit Provider: Oliverio Boone Primary Care Provider: Funmilayo Serna Other Providers: David Mckeon ; Lakshmi Mansfield ; Drake Robles Other Interventions: Discharge Summary Assessment (RN) Last Done: 06/16/22 16:11 Coding Level of Care Code D/C DAY MANAGEMENT >30 MINS Diagnoses Left leg cellulitis L03.116 Acute on chronic heart failure with preserved ejection fraction I50.33 Lower leg edema R60.0 Diabetic foot ulcer E11.621; L97.509 Atrial fibrillation I48.91 Type 2 diabetes mellitus E11.9 Gout M10.9 Gout site: foot Gout etiology: due to renal impairment Chronicity: chronic Laterality: right Morbid obesity with BMI of 50.0-59.9, adult E66.01; Z68.43 Benign hypertension I10 Metabolic syndrome X E88.81
--- NOTE | 2022-06-29 06:51 | Coding Query ---
PATHOLOGY To promote full compliance with coding requirements relating to patient care, physician participation is requested in all cases of biopharmaceutical rep uncertainty. Please assist us with the question(s) below: Please review the Pathology report and please document any relevant diagnosis(es) below: Diagnosis(es): Focal osteonecrosis of left fourth metatarsal Thank you Silvia RO
== END 2022-06-16 18:39 | disposition home or self-care (01) | DRG 570 ==
LOC: ED 13:39 → SUATTDRO 17:59 → EDINP 17:59 → 2N 21:20
DX: M87.875 Other osteonecrosis, left foot; E88.81 Metabolic syndrome and other insulin resistance; L97.422 Non-pressure chronic ulcer of left heel and midfoot with fat layer exposed; E78.5 Hyperlipidemia, unspecified; Z79.52 Long term (current) use of systemic steroids; B95.2 Enterococcus as the cause of diseases classified elsewhere; E11.621 Type 2 diabetes mellitus with foot ulcer; I11.0 Hypertensive heart disease with heart failure; E66.2 Morbid (severe) obesity with alveolar hypoventilation; I48.0 Paroxysmal atrial fibrillation; I25.5 Ischemic cardiomyopathy; Z82.49 Family history of ischemic heart disease and other diseases of the circulatory system; Z68.43 Body mass index [BMI] 50.0-59.9, adult; E11.40 Type 2 diabetes mellitus with diabetic neuropathy, unspecified; Z79.4 Long term (current) use of insulin; I50.33 Acute on chronic diastolic (congestive) heart failure; Z79.01 Long term (current) use of anticoagulants; Z79.82 Long term (current) use of aspirin; B95.61 Methicillin susceptible Staphylococcus aureus infection as the cause of diseases classified elsewhere; Z79.899 Other long term (current) drug therapy; L03.116 Cellulitis of left lower limb; M10.9 Gout, unspecified; Z79.84 Long term (current) use of oral hypoglycemic drugs; M86.672 Other chronic osteomyelitis, left ankle and foot; Z87.891 Personal history of nicotine dependence

== ENCOUNTER 2023-10-29 18:04 | Inpatient (IN) ==
--- NOTE | 2023-10-29 18:15 | Emergency Department Note ---
History of Present Illness General Chief complaint: Fall Stated complaint: fall Time Seen by Provider: 10/29/23 18:09 History of Present Illness NAME: VIDA BAZAN AGE: 68 SEX: M : 1955 ARRIVES VIA: Ambulance INFORMANT: Patient ED PROVIDER(S): LUIS ALFREDO Chambers, Jose M Jimenez MD Patient is a 68-year-old male who arrives to the emergency department for evaluation of pain in his left knee after a fall on . The patient reports the fall was mechanical, he was standing in the kitchen when he bent over to pick something up, he reports he did the splits, falling to the ground. He reports hearing a popping noise in his left hip, however his left knee is what is painful. The patient denies hitting his head, he denies any loss of consciousness. He does report he takes blood thinners. He denies any numbness or tingling in his extremity. Home Medications Medication Instructions Recorded Confirmed Type albuterol sulfate 90 mcg/actuation 1 puff inhalation Q6H PRN Wheezing 10/29/23 10/29/23 History aerosol inhaler allopurinol 300 mg tablet 450 mg PO DAILY 10/29/23 10/29/23 History bumetanide 2 mg tablet 4 mg PO BID 10/29/23 10/29/23 History duloxetine 30 mg capsule,delayed 30 mg PO DAILY 10/29/23 10/29/23 History release gabapentin 300 mg capsule 600 mg PO TID 10/29/23 10/29/23 History insulin aspart U-100 100 unit/mL 18 unit subcut TID 10/29/23 10/29/23 History (3 mL) subcutaneous pen (Novolog FlexPen U-100 Insulin aspart) insulin glargine 100 unit/mL (3 65 unit subcut HS 10/29/23 10/29/23 History mL) subcutaneous pen (Lantus Solostar U-100 Insulin) losartan 25 mg tablet 25 mg PO DAILY 10/29/23 10/29/23 History metformin 500 mg tablet 1,000 mg PO BID 10/29/23 10/29/23 History metoprolol succinate 50 mg 50 mg PO DAILY 10/29/23 10/29/23 History tablet,extended release 24 hr omeprazole 20 mg capsule,delayed 40 mg PO DAILY 10/29/23 10/29/23 History release prednisone 5 mg tablet 5 mg PO DAILY 10/29/23 10/29/23 History rivaroxaban 20 mg tablet (Xarelto) 40 mg PO HS 10/29/23 10/29/23 History spironolactone 50 mg tablet 50 mg PO DAILY 10/29/23 10/29/23 History tramadol 37.5 mg-acetaminophen 325 1 tab PO BID PRN Pain 10/29/23 10/29/23 History mg tablet Past Med/Surg History Social History Smoking Status: Unknown if ever smoked Feels Safe at Home: Yes Physical Exam Vital Signs Vital Signs - 24 hr 10/29/23 18:13 Temperature 36.7 C Temperature Source Oral Pulse Rate 89 Respiratory Rate 20 Respiratory Effort / Characteristics Non-Labored Spontaneous Respiratory Depth Normal Blood Pressure 102/66 Blood Pressure Mean 78 Pulse Oximetry 92 Oxygen Delivery Method Room Air Sepsis Recent Fever Within 48 Hours No Sepsis New/Unexplained Change in Mental Status N/A Sepsis Action Taken by Nursing No Action Required General: Awake, alert and oriented. No acute distress. Well developed, hydrated and nourished. Appears stated age. Skin: Skin in warm, dry and intact without rashes or lesions. Appropriate color for ethnicity. Nailbeds pink with no cyanosis or clubbing. Head: The head is normocephalic and atraumatic without tenderness, visible or palpable masses, depressions, or scarring. Hair is of normal texture and evenly distributed. Cardiac: The external chest is normal in appearance without lifts, heaves, or thrills. Heart rate and rhythm are normal. No murmurs, gallops, or rubs are auscultated. S1 and S2 are heard and are of normal intensity. Respiratory: The chest wall is symmetric and without deformity. No signs of trauma. Chest wall is non-tender. No signs of respiratory distress. Lung sounds are clear in all lobes bilaterally without rales, rhonchi, or wheezes. Abdominal: Abdomen is soft, symmetric, and non-tender without distention. There are no visible lesions or scars. Bowel sounds are present and normoactive in all four quadrants. No masses, hepatomegaly, or splenomegaly are noted. Spine: Neck and back are without deformity, external skin changes, or signs of trauma. Curvature of the cervical, thoracic, and lumbar spine are within normal limits. Bony features of the shoulders and hips are of equal height bilaterally. No tenderness noted on palpation of the spinous processes. Spinous processes are midline. Cervical, thoracic, and lumbar paraspinal muscles are not tender and are without spasm. No discomfort is noted with flexion, extension, and [id number] rotation of the cervical spine, full range of motion is noted. Full range of motion including flexion, extension, and vlay-py-ukoy rotation of the thoracic and lumbar spine are noted and without discomfort. Straight leg raise test is negative bilaterally. Sensation to the upper and lower extremities is normal bilaterally. No clonus is noted. Outside Sales Account Manager strength is normal bilaterally. Dorsi/plantar flexion is normal bilaterally. Extremities: Left knee has edema, and ecchymosis, limited range of motion is noted to left knee. Left hip has full range of motion, no tenderness to palpation. Muscle strength is 5/5 bilaterally. Tendon function is normal. Capillary refill is less than 3 seconds in all extremities. Pulses palpable. Neurological: The patient is awake, alert and oriented to person, place, and time with normal speech. Motor function is normal with muscle strength 5/5 bilaterally to upper and lower extremities. Sensation is intact bilaterally. Reflexes 2+ bilaterally. Cranial nerves are intact. Psychiatric: Appropriate mood and affect. Good judgement and insight. No visual or auditory hallucinations. No suicidal or homicidal ideation. Course Reevaluation(s) Reevaluation #1: Patient was informed of x-ray imaging showing no acute fracture. There is a joint effusion in the left knee. An ambulation trial was discussed with the patient using a walker and an Russ wrap. The patient agreed he would try to ambulate at bedside. Time: 19:18 Reevaluation #2: Ambulation attempt was unsuccessful. The patient had severe pain with attempted walking. Discussed with the patient that CT imaging may be necessary to rule out an occult fracture. The patient agreed he would like CT imaging. Time: 19:41 Consultations Consultation #1: Dr. Lainez from orthopedics was consulted at this time, he will evaluate the patient. Time: 21:11 Administered Medications Discontinued Medications Tramadol HCl (Tramadol Hcl 50 Mg Tablet) 50 mg PO NOW STA Stop: 10/29/23 18:23 Last Admin: 10/29/23 18:45 Dose: 50 mg Documented By: JACQUELYN Medical Decision Making Differential Diagnosis Fracture, subluxation, dislocation, contusion, ligamentous injury, neurovascular, compartment syndrome, rhabdomyolysis, as well as other pathologies. Medical Records Attestation: I reviewed the patient's medical records. Home Medications Current Medication List: was personally reviewed by me Laboratory Data 10/29/23 20:42 10/29/23 20:42 Lab Results 10/29/23 Range/Units 20:42 Sodium 133 L (136-145) mmol/L Potassium 4.0 (3.5-5.1) mmol/L Chloride 94 L (98-107) mmol/L Carbon Dioxide 30 (21-32) mmol/L Anion Gap 9 (3-11) BUN 16 (6-23) mg/dl Creatinine 1.23 (0.6-1.4) mg/dl Est Cr Clr Drug Dosing Not Reportable Est GFR ( Amer) 69.0 ml/min Est GFR (Non-Af Amer) 59.5 ml/min BUN/Creatinine Ratio 13.0 (10-20) Glucose 137 H (70-99(Fasting)) mg/dl Calcium 9.8 (8.6-10.3) mg/dl Total Bilirubin 0.7 (0.2-1.0) mg/dl AST 18 (13-39) U/L ALT 12 (7-52) U/L Alkaline Phosphatase 59 (34-104) U/L Total Protein 8.2 (6.0-8.3) gm/dl Albumin 3.7 (3.4-5.0) gm/dl Globulin 4.5 H (2.5-4.0) gm/dl Albumin/Globulin Ratio 0.8 L (0.9-2) Imaging Data Attestation: I personally reviewed and interpreted this imaging study as follows: My Impression: Initial x-ray interpretation by myself shows no acute fracture in the pelvis, left fever, or left knee. Will await formal radiology report. Radiologist's Impression: Femur X-Ray 10/29/23 18:15 SINGLE VIEW PELVIS; 3 VIEWS LEFT FEMUR CLINICAL HISTORY: Fall. Left leg injury. FINDINGS: An AP supine view of the pelvis with AP, frog-leg, and lateral views of the left femur are obtained. No prior studies are available for comparison at the time of dictation. The skeletal structures are osteopenic. There is no radiographic evidence of acute fracture involving the hips or bony pelvis. There is no radiographic evidence of left femoral fracture. Bilateral hip arthroplasties are in near-anatomic alignment. No periprosthetic lucency is seen. Degenerative sclerosis and partial fusion is noted in the sacroiliac joints. The overlying soft tissues are normal as visualized. The left knee joint is grossly maintained. There is a left knee joint effusion. There is atherosclerotic calcification of the left femoral artery. IMPRESSION: 1. No acute fracture is seen involving the hips or pelvis. 2. There is no radiographic evidence of left femoral fracture. 3. Bilateral hip arthroplasties are in near anatomic alignment. 4. Left knee joint effusion. Electronically signed by: Leroy Agustin M.D. 10/29/2023 6:55 PM Knee X-Ray 10/29/23 18:15 LEFT KNEE 3 VIEWS CLINICAL HISTORY: Fall. Left knee injury. FINDINGS: AP, crosstable lateral, and sunrise views of the left knee are obtained. No prior studies are available for comparison at the time of dictation. The skeletal structures are osteopenic. No fracture is seen. There is mild tricompartmental degenerative joint space narrowing. A joint effusion is observed. There are tiny patellar these findings as well as degenerative beaking of the tibial spine. There is bony overgrowth along the posterior aspect of the tibial plateau. Soft tissue edema is noted around the knee. IMPRESSION: Soft tissue swelling and joint effusion with no fracture identified. Electronically signed by: Leroy Agustin M.D. 10/29/2023 6:58 PM Pelvis X-Ray 10/29/23 18:15 SINGLE VIEW PELVIS; 3 VIEWS LEFT FEMUR CLINICAL HISTORY: Fall. Left leg injury. FINDINGS: An AP supine view of the pelvis with AP, frog-leg, and lateral views of the left femur are obtained. No prior studies are available for comparison at the time of dictation. The skeletal structures are osteopenic. There is no radiographic evidence of acute fracture involving the hips or bony pelvis. There is no radiographic evidence of left femoral fracture. Bilateral hip arthroplasties are in near-anatomic alignment. No periprosthetic lucency is seen. Degenerative sclerosis and partial fusion is noted in the sacroiliac joints. The overlying soft tissues are normal as visualized. The left knee joint is grossly maintained. There is a left knee joint effusion. There is atherosclerotic calcification of the left femoral artery. IMPRESSION: 1. No acute fracture is seen involving the hips or pelvis. 2. There is no radiographic evidence of left femoral fracture. 3. Bilateral hip arthroplasties are in near anatomic alignment. 4. Left knee joint effusion. Electronically signed by: Leroy Agustin M.D. 10/29/2023 6:[address] 10/29/23 19:41 CT SCAN OF THE LEFT KNEE WITHOUT IV CONTRAST CLINICAL HISTORY: Left knee injury. Ambulatory dysfunction. COMPARISON STUDY: Radiographs of the left knee performed the same date 10/29/2023. TECHNIQUE: CT scan of the left knee is performed from the distal femur to the proximal tibia and fibula. Images are reviewed in the axial, sagittal, and coronal planes. IV contrast was not administered for this examination. A dose lowering technique was utilized adhering to the principles of ALARA. CT DOSE: 492.88 mGy.cm FINDINGS: The skeletal structures are osteopenic. There is a depressed fracture of the posterior aspect of the lateral tibial plateau. This is best seen on sagittal image #76. The posterior fragments are depressed by approximately 6 mm, and there is mild dorsal displacement of fragments. There is associated joint effusion with lipohemarthrosis. No additional fracture is seen. There is mild tricompartmental degenerative joint space narrowing. Patellar enthesophytes are observed. Soft tissue edema is seen around the knee. There is mild generalized atrophy of the regional musculature. Atherosclerotic calcification is noted in the popliteal artery. IMPRESSION: Depressed fracture of the posterolateral tibial plateau with associated joint effusion/lipohemarthrosis. ACT 112: Negative or not required by law. Electronically signed by: Leroy Agustin M.D. 10/29/2023 8:13 PM ECG Data Attestation: I personally reviewed and interpreted this ECG as follows: Indication: + other Rate (beats per minute): 82 Rhythm: + atrial fibrillation and + junctional ECG Intervals/blocks: + Normal QRS and + Normal QT ECG [place]: + Normal ECG ST segments: + Normal ST segments ECG Findings: + PVCs Blood Pressure Blood Pressure Findings: Normal blood pressure Head Trauma GCS Score: 15 MDM Narrative The patient is a 68-year-old male who arrives to the emergency department with the above-stated complaint. Upon initial evaluation the patient has significant left knee tenderness to palpation. There is some ecchymosis medial to the patella, with edema. The patient has pain with flexion and extension of the left knee. He denies any pain in his hips, however he reports he did hear a pop when he fell. 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 He reports no numbness or tingling down his legs or in his groin. The patient currently takes Ultracet at home, a dose of 50 mg tramadol was ordered for him here in the emergency department. The patient never exhibited a reduction in pain from this medication. X-ray imaging was ordered of the pelvis, left femur, and left knee. Initial interpretation by myself and the formal radiology interpretation showed no acute fracture. An ambulatory trial was attempted using an Russ wrap and a walker. The patient was unable to ambulate without significant pain. CT imaging was ordered to ensure there was no underlying fracture of the left knee based on the patient's excessive pain. CT imaging showed a depressed tibial plateau fracture per formal radiology report. Based on the patient's inability to ambulate, and the finding of the tibial plateau fracture, the patient was admitted under the hospitalist service. Impression & Plan Tibial plateau fracture, left Discharge Plan Visit Data Chief Complaint: Fall Stated Complaint: fall ED Provider: Jose M Jimenez ED Midlevel Provider: Jennifer Back Discharge Problem: Tibial plateau fracture, left Forms Stand Alone Forms: [facility] [employer] Prescriptions Prescriptions: No Action bumetanide 2 mg tablet 4 mg PO BID gabapentin 300 mg capsule 600 mg PO TID allopurinol 300 mg tablet 450 mg PO DAILY albuterol sulfate 90 mcg/actuation HFA aerosol inhaler 1 puff INHALATION Q6H PRN (Reason: Wheezing) insulin aspart U-100 [Novolog FlexPen U-100 Insulin] 100 unit/mL (3 mL) insulin pen 18 unit SUBCUT TID Rx Instructions: Take with meals duloxetine 30 mg capsule,delayed release(DR/EC) 30 mg PO DAILY metformin 500 mg tablet 1,000 mg PO BID tramadol-acetaminophen 37.5-325 mg tablet 1 tab PO BID PRN (Reason: Pain) prednisone 5 mg tablet 5 mg PO DAILY losartan 25 mg tablet 25 mg PO DAILY omeprazole 20 mg capsule,delayed release(DR/EC) 40 mg PO DAILY spironolactone 50 mg tablet 50 mg PO DAILY insulin glargine [Lantus Solostar U-100 Insulin] 100 unit/mL (3 mL) insulin pen 65 unit SUBCUT HS Xarelto 20 mg tablet 40 mg PO HS Discharge Problem: Tibial plateau fracture, left Qualifiers: Encounter type: initial encounter Fracture type: closed Qualified Code(s): S 82.142A - Displaced bicondylar fracture of left tibia, initial encounter for closed fracture
[2023-10-29] MEDS ORDERED: traMADol HCL 50 MG TABLET PO STA (18:22)
--- NOTE | 2023-10-29 18:57 | XRay Report ---
SINGLE VIEW PELVIS; 3 VIEWS LEFT FEMUR CLINICAL HISTORY: Fall. Left leg injury. FINDINGS: An AP supine view of the pelvis with AP, frog-leg, and lateral views of the left femur are obtained. No prior studies are available for comparison at the time of dictation. The skeletal struct ures are osteopenic. There is no radiographic evidence of acute fracture involving the hips or bony p bakari. There is no radiographic evidence of left femoral fracture. Bilateral hip arthroplasties are i n near-anatomic alignment. No periprosthetic lucency is seen. Degenerative sclerosis and partial fusi on is noted in the sacroiliac joints. The overlying soft tissues are normal as visualized. The left k nee joint is grossly maintained. There is a left knee joint effusion. There is atherosclerotic calcif ication of the left femoral artery. IMPRESSION: 1. No acute fracture is seen involving the hips or pelvis. 2. There is no radiographic evidence of left femoral fracture. 3. Bilateral hip arthroplasties are in near anatomic alignment. 4. Left knee joint effusion. Electronically signed by: Leroy Agusitn M.D. 10/29/2023 6:55 PM
--- NOTE | 2023-10-29 18:59 | XRay Report ---
LEFT KNEE 3 VIEWS CLINICAL HISTORY: Fall. Left knee injury. FINDINGS: AP, crosstable lateral, and sunrise views of the left knee are obtained. No prior studies a re available for comparison at the time of dictation. The skeletal structures are osteopenic. No frac ture is seen. There is mild tricompartmental degenerative joint space narrowing. A joint effusion is observed. There are tiny patellar these findings as well as degenerative beaking of the tibial spine. There is bony overgrowth along the posterior aspect of the tibial plateau. Soft tissue edema is note d around the knee. IMPRESSION: Soft tissue swelling and joint effusion with no fracture identified. Electronically signed by: Leroy Agustin M.D. 10/29/2023 6:58 PM
--- NOTE | 2023-10-29 20:15 | CT Scan Report ---
CT SCAN OF THE LEFT KNEE WITHOUT IV CONTRAST CLINICAL HISTORY: Left knee injury. Ambulatory dysfunction. COMPARISON STUDY: Radiographs of the left knee performed the same date 10/29/2023. TECHNIQUE: CT scan of the left knee is performed from the distal femur to the proximal tibia and fib allyson. Images are reviewed in the axial, sagittal, and coronal planes. IV contrast was not administered for this examination. A dose lowering technique was utilized adhering to the principles of ALARA. CT DOSE: 492.88 mGy.cm FINDINGS: The skeletal structures are osteopenic. There is a depressed fracture of the posterior aspe ct of the lateral tibial plateau. This is best seen on sagittal image #76. The posterior fragments ar e depressed by approximately 6 mm, and there is mild dorsal displacement of fragments. There is assoc iated joint effusion with lipohemarthrosis. No additional fracture is seen. There is mild tricompartm ental degenerative joint space narrowing. Patellar enthesophytes are observed. Soft tissue edema is s een around the knee. There is mild generalized atrophy of the regional musculature. Atherosclerotic c alcification is noted in the popliteal artery. IMPRESSION: Depressed fracture of the posterolateral tibial plateau with associated joint effusion/li pohemarthrosis. ACT 112: Negative or not required by law. Electronically signed by: Leroy Agustin M.D. 10/29/2023 8:13 PM
--- NOTE | 2023-10-29 20:24 | Emergency Department Note ---
ED Visit Note I have personally evaluated this patient examined him and reviewed the pertinent labs and data. I have discussed the case with the nurse practitioner and agree with the plan. Please refer to the [employer] note. This patient suffered a mechanical fall a couple days ago. I talked him at length and he slipped on the floor. he had no syncope. he had no injuries besides his right knee. On exam, it is swollen it is wrapped with an Russ wrap. distally, he has no numbness or weakness and is neurologically intact. X-rays were initially unremarkable with the exception of a fusion. We did order a CT as he was unable to walk he is also on a blood thinner. He was found to have a depressed posterior left lateral tibial plateau fracture he will need to be admitted for orthopedic treatment and further evaluation as he cannot ambulate at home and is on blood thinners. Knee x-rayI have independently interpreted it and it shows no fracture or dislocation there is an effusion. .
--- NOTE | 2023-10-29 20:36 | History & Physical Report ---
Date of Service October 29, 2023 Assessment & Plan (1) Tibial plateau fracture, left: Plan: -Admit to med/tele -Currently stable and with pain controlled -Patient's legs slipped out from under him on night while trying to bend down to pick something off the ground -Left knee pain but denies any other pain since his fall -CT of the left knee was Depressed fracture of the posterolateral tibial plateau with associated joint effusion/lipohemarthrosis. -Patient is currently unable to safely ambulate to go home tonight -RUSS wrap has been placed -Prn tylenol and tramadol for pain -Will hold HS Xarelto tonight in case surgical intervention is required -Orthopedics consulted and will evaluate the patient tomorrow -HH/DMII diet -AM CBC, BMP, Mag (2) Fall: Plan: -Mechanical fall -No symptoms prior to fall to suggest other etiology -Rest of plan per tibial plateau fracture (3) DMII (diabetes mellitus, type 2): Plan: -Hold metformin and Jardiance -Monitor BSG ACHS, goal is 110-140 -Will continue home lantus at 65 units HS -CF 50 and CR of 15 -DMII/HH diet -Adjust regimen as needed (4) Psoriatic arthritis: Plan: -Continue prednisone for now (5) Atrial fibrillation: Plan: -Currently rate controlled -Continue metoprolol (6) HTN (hypertension): Plan: -Stable -Will continue losartan, spironolactone, and Bumex (7) GERD (gastroesophageal reflux disease): Plan: -Continue omeprazole (8) Gout: Plan: -Continue allopurinol (9) CHF (congestive heart failure): Plan: -Euvolemic -Continue diuretics for now Plan The patient was discussed with Dr. Solorio at the time of the admission History of Present Illness Chief Complaint: Fall, left knee pain/swelling Primary Care Provider: Funmilayo Serna MD Mario Alberto is a 68 year old male with a PMH significant for morbid obesity, atrial fibrillation on Eliquis, psoriatic arthritis, CHF, HTN, DMII, gout, hyperlipidemia, who presented to the [facility] ED on 10/29 for ongoing left knee pain and swelling after a ground level fall. He remained stable in the ED. Labs were yet to be obtain at the time of my exam. Xray of the left femur and the BL hips/pelvis were negative for acute trauma. Xray of the left knee was read as "Soft tissue swelling and joint effusion with no fracture identified.". CT of the left knee wo con was read as "Depressed fracture of the posterolateral tibial plateau with associated joint effusion/lipohemarthrosis.". The patient was unable to safely ambulate and will require admission for pain control, orthopedic evaluation, and PT/OT assessment. Prior to admission the patient was given 50 mg PO tramadol. At the time of the exam the patient was sitting in bed in no acute distress with his brother sitting bedside. On night he was trying to pick something off his floor when his feet slipped and he ended up doing a split. He said he heard a pop and had intense left knee pain. He was able to grab his couch and pull himself up, he was only on the ground for approximately 15 min. He denies any symptoms such as chest pain, SOB, palpitations, lightheadedness/dizziness prior to his fall. He did not hit his head or lose consciousness. He came to the ED today as he was been unable to ambulate on the leg. He took his last dose of Xarelto last evening. He is a full code and wishes for his brother to make his medical decisions for him if he cannot make them himself. Please refer to Dr. Almanza's attestation for any changes to the treatment plan Home Medications Medication Instructions Recorded Confirmed Type albuterol sulfate 90 mcg/actuation 1 puff inhalation Q6H PRN Wheezing 10/29/23 10/29/23 History aerosol inhaler allopurinol 300 mg tablet 450 mg PO DAILY 10/29/23 10/29/23 History bumetanide 2 mg tablet 4 mg PO BID 10/29/23 10/29/23 History duloxetine 30 mg capsule,delayed 30 mg PO DAILY 10/29/23 10/29/23 History release gabapentin 300 mg capsule 600 mg PO TID 10/29/23 10/29/23 History insulin aspart U-100 100 unit/mL 18 unit subcut TID 10/29/23 10/29/23 History (3 mL) subcutaneous pen (Novolog FlexPen U-100 Insulin aspart) insulin glargine 100 unit/mL (3 65 unit subcut HS 10/29/23 10/29/23 History mL) subcutaneous pen (Lantus Solostar U-100 Insulin) losartan 25 mg tablet 25 mg PO DAILY 10/29/23 10/29/23 History metformin 500 mg tablet 1,000 mg PO BID 10/29/23 10/29/23 History metoprolol succinate 50 mg 50 mg PO DAILY 10/29/23 10/29/23 History tablet,extended release 24 hr omeprazole 20 mg capsule,delayed 40 mg PO DAILY 10/29/23 10/29/23 History release prednisone 5 mg tablet 5 mg PO DAILY 10/29/23 10/29/23 History rivaroxaban 20 mg tablet (Xarelto) 40 mg PO HS 10/29/23 10/29/23 History spironolactone 50 mg tablet 50 mg PO DAILY 10/29/23 10/29/23 History tramadol 37.5 mg-acetaminophen 325 1 tab PO BID PRN Pain 10/29/23 10/29/23 History mg tablet Past Med/Surg History Social History Smoking Status: Unknown if ever smoked Feels Safe at Home: Yes Physical Exam Physical Exam: Physical Exam: General: In no acute distress, stated age, morbidly obese, non-toxic appearing HEENT: Normocephalic, atraumatic, no scleral icterus, pupils around round, symmetrical, and reactive to light, moist mucus membranes, trachea midline, no thyromegaly Chest/Pulm: No respiratory distress, symmetrical chest expansion, clear breath sounds throughout Cardiac: irregular rate and rhythm, no murmurs noted Abdomen: Negative for ascites and bruising, normoactive bowel sounds, soft, non-tender to palpation throughout Musculoskeletal: Left knee is currently wrapped without signs of bleeding, no other acute trauma on exam, patient with intact sensation and motor function in the BL ankles and feet Extremities: Radial, dorsalis pedis, and posterior tibial pulses are intact and symmetrical, no edema noted in the BL LE's Skin: Warm, dry, no rashes , lesions, or scars noted Neuro: Alert and oriented to person, place, month, year, and president, no focal defects, no tremors noted Psych: No acute distress, calm and cooperative during the exam Results & Data Results & Data Vital Signs (Past 12 Hours) Vital Signs Temp Pulse Resp BP Pulse Ox O2 Del Method 10/29/23 18:13 36.7 C 89 20 102/66 92 Room Air Laboratory Results Abnormal lab results 10/29/23 Range/Units 20:42 Sodium 133 L (136-145) mmol/L Chloride 94 L (98-107) mmol/L Glucose 137 H (70-99(Fasting)) mg/dl Globulin 4.5 H (2.5-4.0) gm/dl Albumin/Globulin Ratio 0.8 L (0.9-2) Diagnostic Findings Femur X-Ray 10/29/23 18:15 SINGLE VIEW PELVIS; 3 VIEWS LEFT FEMUR CLINICAL HISTORY: Fall. Left leg injury. FINDINGS: An AP supine view of the pelvis with AP, frog-leg, and lateral views of the left femur are obtained. No prior studies are available for comparison at the time of dictation. The skeletal structures are osteopenic. There is no radiographic evidence of acute fracture involving the hips or bony pelvis. There is no radiographic evidence of left femoral fracture. Bilateral hip arth roplasties are in near-anatomic alignment. No periprosthetic lucency is seen. Degenerative sclerosis and partial fusion is noted in the sacroiliac joints. The overlying soft tissues are normal as visualized. The left knee joint is grossly maintained. There is a left knee joint effusion. There is atherosclerotic calcification of the left femoral artery. IMPRESSION: 1. No acute fracture is seen involving the hips or pelvis. 2. There is no radiographic evidence of left femoral fracture. 3. Bilateral hip arthroplasties are in near anatomic alignment. 4. Left knee joint effusion. Electronically signed by: Leroy Agustin M.D. 10/29/2023 6:55 PM Knee X-Ray 10/29/23 18:15 LEFT KNEE 3 VIEWS CLINICAL HISTORY: Fall. Left knee injury. FINDINGS: AP, crosstable lateral, and sunrise views of the left knee are obtained. No prior studies are available for comparison at the time of dictation. The skeletal structures are osteopenic. No fracture is seen. There is mild tricompartmental degenerative joint space narrowing. A joint effusion is observed. There are tiny patellar these findings as well as degenerative beaking of the tibial spine. There is bony overgrowth along the posterior aspect of the tibial plateau. Soft tissue edema is noted around the knee. IMPRESSION: Soft tissue swelling and joint effusion with no fracture identified. Electronically signed by: Leroy Agustin M.D. 10/29/2023 6:58 PM Pelvis X-Ray 10/29/23 18:15 SINGLE VIEW PELVIS; 3 VIEWS LEFT FEMUR CLINICAL HISTORY: Fall. Left leg injury. FINDINGS: An AP supine view of the pelvis with AP, frog-leg, and lateral views of the left femur are obtained. No prior studies are available for comparison at the time of dictation. The skeletal structures are osteopenic. There is no radiographic evidence of acute fracture involving the hips or bony pelvis. There is no radiographic evidence of left femoral fracture. Bilateral hip arthroplasties are in near-anatomic alignment. No periprosthetic lucency is seen. Degenerative sclerosis and partial fusion is noted in the sacroiliac joints. The overlying soft tissues are normal as visualized. The left knee joint is grossly maintained. There is a left knee joint effusion. There is atherosclerotic calcification of the left femoral artery. IMPRESSION: 1. No acute fracture is seen involving the hips or pelvis. 2. There is no radiographic evidence of left femoral fracture. 3. Bilateral hip arthroplasties are in near anatomic alignment. 4. Left knee joint effusion. Electronically signed by: Leroy Agustin M.D. 10/29/2023 6:[address] 10/29/23 19:41 CT SCAN OF THE LEFT KNEE WITHOUT IV CONTRAST CLINICAL HISTORY: Left knee injury. Ambulatory dysfunction. COMPARISON STUDY: Radiographs of the left knee performed the same date 10/29/2023. TECHNIQUE: CT scan of the left knee is performed from the distal femur to the proximal tibia and fibula. Images are reviewed in the axial, sagittal, and coronal planes. IV contrast was not administered for this examination. A dose lowering technique was utilized adhering to the principles of ALARA. CT DOSE: 492.88 mGy.cm FINDINGS: The skeletal structures are osteopenic. There is a depressed fracture of the posterior aspect of the lateral tibial plateau. This is best seen on sagittal image #76. The posterior fragments are depressed by approximately 6 mm, and there is mild dorsal displacement of fragments. There is associated joint effusion with lipohemarthrosis. No additional fracture is seen. There is mild tricompartmental degenerative joint space narrowing. Patellar enthesophytes are observed. Soft tissue edema is seen around the knee. There is mild generalized atrophy of the regional musculature. Atherosclerotic calcification is noted in the popliteal artery. IMPRESSION: Depressed fracture of the posterolateral tibial plateau with associated joint effusion/lipohemarthrosis. ACT 112: Negative or not required by law. Electronically signed by: Leroy Agustin M.D. 10/29/2023 8:13 PM ECG Additional Comments: Atrial fibrillation with a competing junctional pacemaker with premature ventricular or aberrantly conducted complexes Abnormal ECG When compared with ECG of 08-JUN-2022 14:28, No significant change was found Code Status & VTE Plan Code Status Full code VTE Prophylaxis Plan VTE Prophylaxis will be ordered: Yes Supervising Physician Co-Signing Physician Notes I have personally seen, evaluated and examined the patient. I have also personally discussed the management of the patient with the APPand I agree with the exam findings documented in the history and physical examination and the documented assessment and plan unless otherwise stated below. HEENT: Normocephalic atraumatic pupils are equal round and reactive to light bilaterally. No scleral icterus no conjunctival injection external auditory canals are patent septum is in the midline nose is without discharge oral mucosa is pink and moist without lesion. NECK: Supple no rigidity no lymphadenopathy no thyromegaly no carotid bruits no JVD no masses. HEART: Irregular rate and rhythm consistent with atrial fibrillation currently rate controlled. I do not appreciate any ectopy or rub. No murmur. LUNGS: Clear to auscultation bilaterally and anteriorly with no evidence of adventitious sounds/wheezes rales or rhonchi. ABDOMEN: Obese, soft nontender, no rebound, no peritoneal signs, positive bowel sounds, no appreciable organomegaly. EXTREMITIES: Intact, no peripheral cyanosis, clubbing or edema. Both extremities are neurovascularly intact. The left lower extremity is at the knee region is currently dressed and immobilized with Russ bandage intact clean and dry NEUROLOGICAL: Cranial nerves II through XII are grossly intact with no focal deficit elicited upon examination. No tremor. Assessment/plan: As described above. Please refer to orders for further planning. Laboratory studies were reviewed they have resulted since the documentation by the [facility] -laboratory studies are relatively unremarkable. There is mild anemia with hemoglobin of 13 point grams per deciliter-I do not have any recent baseline by which to compare will recheck in the morning. Will await input from orthopedics -pending their input consult PT and OT PG Care Time/CCT Total # of Minutes Spent Total Time Spent with Patient: Total time spent is greater than 50% in coordination of care (as documented) at patient's floor/unit and/or counseling patient: Coding [place] [address] INT INP/OBS CARE MIN Patient Type Established Medical Decision Making High Complexity Diagnoses Tibial plateau fracture, left S82.142A Fall W19.XXXA DMII (diabetes mellitus, type 2) E11.9 Psoriatic arthritis L40.50 Atrial fibrillation I48.91 HTN (hypertension) I10 GERD (gastroesophageal reflux disease) K21.9 Gout M10.9 CHF (congestive heart failure) I50.9
[2023-10-29 21:19] LABS: Alanine Aminotransferase 12 U/L (7-52); Albumin Globulin Ratio 0.8 (0.9-2); Albumin Level 3.7 gm/dl (3.4-5.0); Alkaline Phosphatase 59 U/L (34-104); Anion Gap 9 (3-11); Aspartate Aminotransferase 18 U/L (13-39); Bilirubin,Total 0.7 mg/dl (0.2-1.0); Blood Urea Nitrogen 16 mg/dl (6-23); Calcium 9.8 mg/dl (8.6-10.3); Carbon Dioxide 30 mmol/L (21-32); Chloride 94 mmol/L (98-107); Est GFR (Non-African American) 59.5 ml/min; Globulin 4.5 gm/dl (2.5-4.0); Glucose 137 mg/dl (70-99(Fasting)); Sodium 133 mmol/L (136-145); Total Protein 8.2 gm/dl (6.0-8.3)
[2023-10-29] MEDS ORDERED: CARBOHYDRATES FOR HYPOGLYCEMIA PO PRN (21:28)
[2023-10-29] MEDS ORDERED: DEXTROSE 50% 50 ML SYRINGE IV PRN (21:28)
[2023-10-29] MEDS ORDERED: GLUCOSE 40% GEL 15 GM TUBE PO PRN (21:28)
[2023-10-29] MEDS ORDERED: GLUCOSE 10 TAB/TUBE PO PRN (21:28)
[2023-10-29] MEDS ORDERED: GLUCAGON FOR INJ 1 MG VIAL SQ PRN (21:28)
[2023-10-29 21:46] LABS: Basophils # (auto) 0.06 K/uL (0.00-0.20); Basophils % (auto) 0.7 %; Eosinophils # (auto) 0.04 K/uL (0.00-0.50); Eosinophils % (auto) 0.5 %; Hematocrit (blood only) 41.9 % (42.0-52.0); Hemoglobin 13.4 g/dl (14.0-18.0); Immature Granulocytes # (auto) 0.02 K/uL (0.01-0.20); Immature Granulocytes % (auto) 0.2 %; Lymphocytes # (auto) 1.58 K/uL (1.20-3.40); Lymphocytes % (auto) 19.5 %; Mean Corpuscular Hemoglobin 26.6 pg (25.0-34.0); Mean Corpuscular Volume 83.3 fL (80.0-100.0); Mean Platelet Volume 12.1 fL (9.4-12.4); Monocytes # (auto) 0.89 K/uL (0.11-0.59); Neutrophils # (auto) 5.53 K/uL (1.40-6.50); Neutrophils % (auto) 68.1 %; Platelet Count 229 K/uL (130-400); RDW Coefficient of Variation 18.3 % (11.5-14.5); RDW Standard Deviation 54.3 fL (36.4-46.3); Red Blood Count 5.03 M/uL (4.70-6.10); White Blood Count 8.12 K/ul (4.8-10.8)
[2023-10-29] MEDS ORDERED: ALBUTEROL HFA 8 GM INHALER INH PRN (22:49)
[2023-10-29] MEDS ORDERED: Patient's ALLERGY Info needs ENTERED STA (23:12)
[2023-10-30] MEDS: traMADol HCL 50 MG TABLET PO PRN ×3 (00:40→08:28)
[2023-10-30 06:37] LABS: Basophils # (auto) 0.05 K/uL (0.00-0.20); Basophils % (auto) 0.6 %; Eosinophils # (auto) 0.08 K/uL (0.00-0.50); Hematocrit (blood only) 40.1 % (42.0-52.0); Hemoglobin 13.1 g/dl (14.0-18.0); Immature Granulocytes # (auto) 0.02 K/uL (0.01-0.20); Immature Granulocytes % (auto) 0.3 %; Lymphocytes # (auto) 2.85 K/uL (1.20-3.40); Lymphocytes % (auto) 36.4 %; Mean Corpuscular Hemoglobin 26.7 pg (25.0-34.0); Mean Corpuscular Hgb Conc 32.7 g/dL (32.0-36.0); Mean Corpuscular Volume 81.7 fL (80.0-100.0); Mean Platelet Volume 11.8 fL (9.4-12.4); Monocytes # (auto) 0.94 K/uL (0.11-0.59); Neutrophils # (auto) 3.89 K/uL (1.40-6.50); Neutrophils % (auto) 49.7 %; Platelet Count 196 K/uL (130-400); RDW Coefficient of Variation 17.9 % (11.5-14.5); RDW Standard Deviation 52.4 fL (36.4-46.3); Red Blood Count 4.91 M/uL (4.70-6.10); White Blood Count 7.83 K/ul (4.8-10.8)
[2023-10-30 06:59] LABS: INR 1.1 (0.9-1.1); Prothrombin Time 11.6 Seconds (9.0-12.0)
[2023-10-30 07:03] LABS: Albumin Globulin Ratio 0.9 (0.9-2); Albumin Level 3.4 gm/dl (3.4-5.0); Bilirubin,Total 0.6 mg/dl (0.2-1.0); Calcium 9.7 mg/dl (8.6-10.3); Creatinine Clr Calc Pharmacy 99.6 ml/min; Est GFR (African American) 77.3 ml/min; Est GFR (Non-African American) 66.7 ml/min; Globulin 3.9 gm/dl (2.5-4.0); Potassium 3.4 mmol/L (3.5-5.1); Total Protein 7.3 gm/dl (6.0-8.3)
[2023-10-30] MEDS: allopurinoL 300 MG TAB PO SCH (08:29)
[2023-10-30] MEDS: BUMETANIDE 1 MG TAB PO SCH ×2 (08:30→17:53)
[2023-10-30] MEDS: DULoxetine HCL 30 MG CAP PO SCH (08:30)
[2023-10-30] MEDS: predniSONE 5 MG TAB PO SCH (08:31)
[2023-10-30] MEDS: LOSARTAN POTASSIUM 25 MG TAB PO SCH (08:31)
[2023-10-30] MEDS: PANTOprazole 40 MG TAB PO SCH (08:31)
[2023-10-30] MEDS: GABAPENTIN 300 MG CAP PO SCH ×3 (08:31→20:59)
[2023-10-30] MEDS: METOPROLOL SUCC 50MG EXT REL TAB PO SCH (08:32)
[2023-10-30] MEDS: ACETAMINOPHEN 325 MG TAB PO PRN (08:32)
[2023-10-30] MEDS: INSULIN ASPART PER UNIT CHARGE SC SCH ×4 (09:02→20:59)
[2023-10-30] MEDS: oxyCODONE HCL IR 5 MG TAB (IMMEDIATE RELEASE) PO PRN ×3 (09:53→21:04)
--- NOTE | 2023-10-30 10:21 | Hospitalist Progress Note ---
Date of Service October 30, 2023 Assessment & Plan (1) Tibial plateau fracture, left: Plan: Bedrest for now. Pain control measures. Await orthopedic consultation. Xarelto is temporarily on hold until the need for surgery is ruled out. (2) Fall: Plan: Mechanical. Supportive care. OT and PT assessments requested. (3) DMII (diabetes mellitus, type 2): Plan: Hold metformin. ADA diet. Sliding scale coverage. Continue other medications as before (4) Psoriatic arthritis: Plan: Prednisone dependent. Stable continue (5) Atrial fibrillation: Plan: Currently rate controlled. Continue metoprolol. Xarelto was temporarily on hold (6) HTN (hypertension): Plan: Stable. Continue losartan, spironolactone, and Bumex (7) GERD (gastroesophageal reflux disease): Plan: Stable. Continue omeprazole (8) CHF (congestive heart failure): Plan: Chronic diastolic. No acute exacerbation. Monitor intake and output. Continue current medical management (9) Morbid obesity: Plan: BMI greater than 40. Significant weight loss recommended Plan To be determined. Admission and Anticipated Discharge Date Admission Date: October 29, 2023 Subjective Alert and oriented. He is lying supine with an ice pack on the left knee area. Pain is worsened by movement. Oxycodone IR has been ordered as needed. Orthopedic consultation is pending. Xarelto remains on hold for now although I doubt if any surgical intervention will be needed here. Review of Systems 2 Review of Systems: Constitutional-no fever or chills ENT-no blurred vision, no double vision, no epistaxis, no sore throat Respiratory-no cough, no wheezing, no shortness of breath Cardiac-no palpitations, no chest pain, no syncope GI-no nausea, vomiting, diarrhea, melena, hematochezia -no urinary retention, no urinary incontinence, no dysuria, no hematuria Musculoskeletal-left knee pain Skin-no bruising, no rashes, no pruritus Neuro-no isolated weakness, no paresthesia, no weakness Psych-no depression, no anxiety Physical Exam 2 Physical Exam: General-alert and oriented x3, no fever, no chills. Morbidly obese HEENT-head atraumatic and normocephalic, pupils equal and reactive to light, extraocular muscles intact Neck-no lymphadenopathy or thyromegaly, trachea midline Chest-clear to auscultation percussion. No rales wheezing or rhonchi Cardiac-regular rate and rhythm, normal S1 and S2, no murmurs Abdomen-normal bowel sounds, nontender, no hepatosplenomegaly Extremities-left knee pain from tibial plateau fracture. Chronic lower extremity bilateral pitting edema from suspected venous insufficiency Neuro-cranial nerves II through XII intact, motor and sensory function within normal limits, strength symmetrical, no focal deficits Psych-normal affect, normal mood Results & Data Results & Data Vital Signs (Past 12 Hours) Vital Signs Temp Pulse Pulse Resp BP Pulse Ox O2 Del Method 10/30/23 07:51 Room Air 10/30/23 07:41 37.1 C 90 16 105/62 90 Room Air 10/30/23 07:00 100 H 10/30/23 03:14 36.5 C 83 18 128/71 90 Room Air 10/29/23 23:00 36.9 C 88 18 116/81 93 Room Air Laboratory Results 10/30/23 06:06 10/30/23 06:06 PG Care Time/CCT Total # of Minutes Spent Total Time Spent with Patient: Total time spent is greater than 50% in coordination of care (as documented) at patient's floor/unit and/or counseling patient: Coding Level of Care Code 55980 SUB INP/OBS CARE 3/50MIN Diagnoses Tibial plateau fracture, left S82.142A Encounter type: initial encounter Fracture type: closed Fall W19.XXXA DMII (diabetes mellitus, type 2) E11.9 Psoriatic arthritis L40.50 Atrial fibrillation I48.91 HTN (hypertension) I10 GERD (gastroesophageal reflux disease) K21.9 CHF (congestive heart failure) I50.9 Morbid obesity E66.01 (1) Tibial plateau fracture, left Encounter type: initial encounter Fracture type: closed Qualified Code(s): S 82.142A - Displaced bicondylar fracture of left tibia, initial encounter for closed fracture
[2023-10-30] MEDS ORDERED: DOCUSATE SODIUM 100 MG CAP PO STA (10:35)
--- NOTE | 2023-10-30 12:28 | Orthopedic Consultation ---
Date of Consultation October 30, 2023 Assessment & Plan (1) Morbid obesity: (2) Tibial plateau fracture, left: Findings discussed with patient. I applied a bulky Hernandez dressing. Cast padding from the toes up to the upper thigh followed by an Russ wrap and a knee immobilizer. The leg should be elevated with foot above the heart and ice applied to the left knee. It is recommended that he remain nonweightbearing. His Xarelto last dose was Tuesday. He would need at least 2 doses held prior to having any type of operative intervention. Foot pumps for DVT prophylaxis. Due to delayed presentation will check ultrasound to rule out DVT. He has likely ruptured his MCL. At least grade 2 injury. May consider an MRI to further evaluate the MCL injury area. If offered surgery he would wish to proceed. He has a 2 cm area posterior lateral tibial plateau with a depressed fracture by 5 mm. Hold Xarelto. Will make n.p.o. after midnight. Will assess for operative intervention in terms of appropriateness, who and where. (3) Fall: History of Present Illness Attending Physician: Anthony Aguirre MD History of Present Illness Humberto is 68. he was bending down to get something. He spread his legs apart but they spread apart uncontrollably and he ended up doing a split. On the way down he felt a pop along with pain in his left knee. He stayed at home. He got around with a walker. Because of ongoing pain he came to the ER for further evaluation yesterday. He was diagnosed with a tibial plateau fracture and was admitted to the hospital. He denies prior history of left knee injuries. Pain is in and around the left knee. Allergies Allergy/AdvReac Type Severity Reaction Status Date / Time No Known Allergies Allergy Unverified 10/29/23 23:49 Home Medications Medication Instructions Recorded Confirmed Type albuterol sulfate 90 mcg/actuation 1 puff inhalation Q6H PRN Wheezing 10/29/23 10/29/23 History aerosol inhaler allopurinol 300 mg tablet 450 mg PO DAILY 10/29/23 10/29/23 History bumetanide 2 mg tablet 4 mg PO BID 10/29/23 10/29/23 History duloxetine 30 mg capsule,delayed 30 mg PO DAILY 10/29/23 10/29/23 History release gabapentin 300 mg capsule 600 mg PO TID 10/29/23 10/29/23 History insulin aspart U-100 100 unit/mL 18 unit subcut TID 10/29/23 10/29/23 History (3 mL) subcutaneous pen (Novolog FlexPen U-100 Insulin aspart) insulin glargine 100 unit/mL (3 65 unit subcut HS 10/29/23 10/29/23 History mL) subcutaneous pen (Lantus Solostar U-100 Insulin) losartan 25 mg tablet 25 mg PO DAILY 10/29/23 10/29/23 History metformin 500 mg tablet 1,000 mg PO BID 10/29/23 10/29/23 History metoprolol succinate 50 mg 50 mg PO DAILY 10/29/23 10/29/23 History tablet,extended release 24 hr omeprazole 20 mg capsule,delayed 40 mg PO DAILY 10/29/23 10/29/23 History release prednisone 5 mg tablet 5 mg PO DAILY 10/29/23 10/29/23 History rivaroxaban 20 mg tablet (Xarelto) 40 mg PO HS 10/29/23 10/29/23 History spironolactone 50 mg tablet 50 mg PO DAILY 10/29/23 10/29/23 History tramadol 37.5 mg-acetaminophen 325 1 tab PO BID PRN Pain 10/29/23 10/29/23 History mg tablet Patient History Social History Smoking Status: Never smoker Second Hand Exposure: No; Do You Dip or Chew Tobacco: No; Hx Alcohol Use: No Hx Substance Use: No Preferred Language: Vietnamese Communication Ability: Effective 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 Dr. Haji replaced both of his hips. He was interested in continuing care with Dr. Haji. He has never had a heart attack stroke bleeding or blood clot problem. He is tolerated his total hips without difficulty. He reports no allergies. No history of diagnosed MRSA infection. Physical Exam Physical Exam: DP and PT pulses are 1+. There is some mild discoloration of the skin on the lower leg probably from chronic swelling or venous stasis but skin is otherwise in good condition. He has 1+ pretibial edema. Ankle and toe plantarflexion dorsiflexion inversion eversion strength is 5 out of 5. Sensation intact. He can do an active leg raise and bend his knee from 0-90. Posterior drawer appears intact as does the Lockman maneuver. LCL intact but he has probably 2+ MCL laxity. I think there is an endpoint present. Positive knee joint effusion. Not tense. Intact active straight leg raise. Tenderness medial as well as lateral side of the knee. Foot leg and thigh otherwise nontender. No pain with logrolling. No hip pain. Skin intact. He is truncally obese. Results & Data Vital Signs (Past 12 Hours) Vital Signs Temp Pulse Pulse Resp BP Pulse Ox O2 Del Method 10/30/23 12:05 37.1 C 85 16 111/79 91 Room Air 10/30/23 07:51 Room Air 10/30/23 07:41 37.1 C 90 16 105/62 90 Room Air 10/30/23 07:00 100 H 10/30/23 03:14 36.5 C 83 18 128/71 90 Room Air Laboratory Results Laboratory Results WBC 7.83 K/ul (4.8-10.8) 10/30/23 06:06 RBC 4.91 M/uL (4.70-6.10) 10/30/23 06:06 Hgb 13.1 g/dl (14.0-18.0) L 10/30/23 06:06 Hct 40.1 % (42.0-52.0) L 10/30/23 06:06 MCV 81.7 fL (80.0-100.0) 10/30/23 06:06 MCH 26.7 pg (25.0-34.0) 10/30/23 06:06 MCHC 32.7 g/dL (32.0-36.0) 10/30/23 06:06 RDW Std Deviation 52.4 fL (36.4-46.3) H 10/30/23 06:06 RDW Coeff of Vijay 17.9 % (11.5-14.5) H 10/30/23 06:06 Plt Count 196 K/uL (130-400) 10/30/23 06:06 MPV 11.8 fL (9.4-12.4) 10/30/23 06:06 Immature Gran % (Auto) 0.3 % 10/30/23 06:06 Neut % (Auto) 49.7 % 10/30/23 06:06 Lymph % (Auto) 36.4 % 10/30/23 06:06 [place] % (Auto) 12.0 % 10/30/23 06:06 Eos % (Auto) 1.0 % 10/30/23 06:06 Baso % (Auto) 0.6 % 10/30/23 06:06 Neut # (Auto) 3.89 K/uL (1.40-6.50) 10/30/23 06:06 Lymph # (Auto) 2.85 K/uL (1.20-3.40) 10/30/23 06:06 [place] # (Auto) 0.94 K/uL (0.11-0.59) H 10/30/23 06:06 Eos # (Auto) 0.08 K/uL (0.00-0.50) 10/30/23 06:06 Baso # (Auto) 0.05 K/uL (0.00-0.20) 10/30/23 06:06 Immature Gran # (Auto) 0.02 K/uL (0.01-0.20) 10/30/23 06:06 PT 11.6 Seconds (9.0-12.0) 10/30/23 06:06 INR 1.1 (0.9-1.1) 10/30/23 06:06 Sodium 132 mmol/L (136-145) L 10/30/23 06:06 Potassium 3.4 mmol/L (3.5-5.1) L 10/30/23 06:06 Chloride 95 mmol/L (98-107) L 10/30/23 06:06 Carbon Dioxide 30 mmol/L (21-32) 10/30/23 06:06 Anion Gap 7 (3-11) 10/30/23 06:06 BUN 19 mg/dl (6-23) 10/30/23 06:06 Creatinine 1.12 mg/dl (0.6-1.4) 10/30/23 06:06 Est Cr Clr Drug Dosing 99.6 ml/min 10/30/23 06:06 Est GFR ( Amer) 77.3 ml/min 10/30/23 06:06 Est GFR (Non-Af Amer) 66.7 ml/min 10/30/23 06:06 BUN/Creatinine Ratio 17.0 (10-20) 10/30/23 06:06 Glucose 169 mg/dl (70-99(Fasting)) H 10/30/23 06:06 POC Glucose 155 mg/dl (70-99) H 10/30/23 12:27 Calcium 9.7 mg/dl (8.6-10.3) 10/30/23 06:06 Magnesium 2.0 mg/dl (1.7-2.4) 10/30/23 06:06 Total Bilirubin 0.6 mg/dl (0.2-1.0) 10/30/23 06:06 AST 17 U/L (13-39) 10/30/23 06:06 ALT 12 U/L (7-52) 10/30/23 06:06 Alkaline Phosphatase 50 U/L (34-104) 10/30/23 06:06 Total Protein 7.3 gm/dl (6.0-8.3) 10/30/23 06:06 Albumin 3.4 gm/dl (3.4-5.0) 10/30/23 06:06 Globulin 3.9 gm/dl (2.5-4.0) 10/30/23 06:06 Albumin/Globulin Ratio 0.9 (0.9-2) 10/30/23 06:06 Impressions Femur X-Ray 10/29/23 18:15 SINGLE VIEW PELVIS; 3 VIEWS LEFT FEMUR CLINICAL HISTORY: Fall. Left leg injury. FINDINGS: An AP supine view of the pelvis with AP, frog-leg, and lateral views of the left femur are obtained. No prior studies are available for comparison at the time of dictation. The skeletal structures are osteopenic. There is no radiographic evidence of acute fracture involving the hips or bony pelvis. There is no radiographic evidence of left femoral fracture. Bilateral hip arthroplasties are in near-anatomic alignment. No periprosthetic lucency is seen. Degenerative sclerosis and partial fusion is noted in the sacroiliac joints. The overlying soft tissues are normal as visualized. The left knee joint is grossly maintained. There is a left knee joint effusion. There is atherosclerotic calcification of the left femoral artery. IMPRESSION: 1. No acute fracture is seen involving the hips or pelvis. 2. There is no radiographic evidence of left femoral fracture. 3. Bilateral hip arthroplasties are in near anatomic alignment. 4. Left knee joint effusion. Electronically signed by: Leroy Agustin M.D. 10/29/2023 6:55 PM Knee X-Ray 10/29/23 18:15 LEFT KNEE 3 VIEWS CLINICAL HISTORY: Fall. Left knee injury. FINDINGS: AP, crosstable lateral, and sunrise views of the left knee are obtained. No prior studies are available for comparison at the time of dictation. The skeletal structures are osteopenic. No fracture is seen. There is mild tricompartmental degenerative joint space narrowing. A joint effusion is observed. There are tiny patellar these findings as well as degenerative beaking of the tibial spine. There is bony overgrowth along the posterior aspect of the tibial plateau. Soft tissue edema is noted around the knee. IMPRESSION: Soft tissue swelling and joint effusion with no fracture identified. Electronically signed by: Leroy Agustin M.D. 10/29/2023 6:58 PM Pelvis X-Ray 10/29/23 18:15 SINGLE VIEW PELVIS; 3 VIEWS LEFT FEMUR CLINICAL HISTORY: Fall. Left leg injury. FINDINGS: An AP supine view of the pelvis with AP, frog-leg, and lateral views of the left femur are obtained. No prior studies are available for comparison at the time of dictation. The skeletal structures are osteopenic. There is no radiographic evidence of acute fracture involving the hips or bony pelvis. There is no radiographic evidence of left femoral fracture. Bilateral hip arthroplasties are in near-anatomic alignment. No periprosthetic lucency is seen. Degenerative sclerosis and partial fusion is noted in the sacroiliac joints. The overlying soft tissues are normal as visualized. The left knee joint is grossly maintained. There is a left knee joint effusion. There is atherosclerotic calcification of the left femoral artery. IMPRESSION: 1. No acute fracture is seen involving the hips or pelvis. 2. There is no radiographic evidence of left femoral fracture. 3. Bilateral hip arthroplasties are in near anatomic alignment. 4. Left knee joint effusion. Electronically signed by: Leroy Agustin M.D. 10/29/2023 6:[address] 10/29/23 19:41 CT SCAN OF THE LEFT KNEE WITHOUT IV CONTRAST CLINICAL HISTORY: Left knee injury. Ambulatory dysfunction. COMPARISON STUDY: Radiographs of the left knee performed the same date 10/29/2023. TECHNIQUE: CT scan of the left knee is performed from the distal femur to the proximal tibia and fibula. Images are reviewed in the axial, sagittal, and coronal planes. IV contrast was not administered for this examination. A dose lowering technique was utilized adhering to the principles of ALARA. CT DOSE: 492.88 mGy.cm FINDINGS: The skeletal structures are osteopenic. There is a depressed fracture of the posterior aspect of the lateral tibial plateau. This is best seen on sagittal image #76. The posterior fragments are depressed by approximately 6 mm, and there is mild dorsal displacement of fragments. There is associated joint effusion with lipohemarthrosis. No additional fracture is seen. There is mild tricompartmental degenerative joint space narrowing. Patellar enthesophytes are observed. Soft tissue edema is seen around the knee. There is mild generalized atrophy of the regional musculature. Atherosclerotic calcification is noted in the popliteal artery. IMPRESSION: Depressed fracture of the posterolateral tibial plateau with associated joint effusion/lipohemarthrosis. ACT 112: Negative or not required by law. Electronically signed by: Leroy Agustin M.D. 10/29/2023 8:13 PM (2) Tibial plateau fracture, left Encounter type: initial encounter Fracture type: closed Qualified Code(s): S82.142A - Displaced bicondylar fracture of left tibia, initial encounter for closed fracture
--- NOTE | 2023-10-30 14:45 | Magnetic Resonance Report ---
MRI OF THE LEFT KNEE CLINICAL HISTORY: Left knee pain. Fracture. COMPARISON STUDY: Radiographs and CT of the left knee dated 10/29/2023. TECHNIQUE: MRI of the left knee was performed utilizing proton density, T1, and T2-weighted sequences in the axial, sagittal, coronal planes. IV contrast was not administered for this examination. The e xamination is compromised by motion artifact. FINDINGS: Menisci: There is a complex oblique tear involving the body and posterior horn of the lateral meniscu s. This approaches the meniscal root. There is extensive tearing/maceration involving the body and po sterior horn of the medial meniscus which is extruded. Ligaments: There is significant irregularity and attenuation of the anterior cruciate ligament. This is at least partially torn, and there is surrounding inflammation. The posterior cruciate ligament is intact. There is grade 3 rupture of the medial collateral ligament with surrounding soft tissue shoshana a. The lateral collateral ligament complex appears intact. Extensor mechanism: There is tendinopathy at the patellar attachment of the quadriceps tendon. There is also tendinopathy of the patellar tendon. The extensor mechanism is intact. Hoffa's fat pad is nor mal in appearance. Articular cartilage and bone: Again seen is a depressed fracture involving the posterior aspect of th e lateral tibial plateau. There is corresponding marrow edema. Fragments are depressed by approximate ly 6 mm. No additional acute fracture is seen. There are small marginal osteophytes. There is mild de generative thinning of articular cartilage along the weightbearing surface in the medial compartment. No full-thickness cartilage loss is identified. The articular cartilage in the lateral compartment a ppears maintained, with the exception of a depressed osteochondral fragment along the posterior tibia l plateau. There is mild thinning of articular cartilage along the medial patellar facet. Joint effusion: There is a moderate joint effusion Soft tissues: Soft tissue edema is present on the knee. There is generalized atrophy of the regional musculature. A small popliteal cyst is noted. IMPRESSION: 1. Again seen is a depressed fracture involving the posterior aspect of the lateral tibial plateau as above with corresponding marrow edema. 2. Grade 3 rupture of the medial collateral ligament. 3. Oblique tear involving the body and posterior horn of the lateral meniscus. This approaches the me niscal root. 4. Extensive tearing/maceration involving the body and posterior horn of the medial meniscus. This is extruded. 5. There is significant thinning and irregularity of the anterior cruciate ligament, likely represent ing at least partial thickness tear. A few fibers may remain intact. There is surrounding edema. 6. Joint effusion and trace popliteal cyst. 7. Soft tissue edema is seen around the knee. 8. Tendinopathy of the quadriceps and patellar tendons. ACT 112: Negative or not required by law. Electronically signed by: Leroy Agustin M.D. 10/30/2023 2:43 PM
--- NOTE | 2023-10-30 15:12 | Ultrasound Report ---
ULTRASOUND LEFT LOWER EXTREMITY VENOUS CLINICAL HISTORY: Left leg pain. Fracture. COMPARISON STUDY: No priors. TECHNIQUE: Real-time, grayscale, and color Doppler sonography of the deep veins of the left lower ext remity was performed from the inguinal crease to the calf. Compression and augmentation were utilized . FINDINGS: There is no sonographic evidence of deep venous thrombosis identified in the left lower ext remity. The common femoral, superficial femoral, and popliteal veins are patent and normally compress ible. The greater saphenous vein and the profunda femoris vein at the junction with the common femora l vein are clear. The visualized calf veins are patent. IMPRESSION: There is no sonographic evidence of deep venous thrombosis identified in the left lower e xtremity. ACT 112: Negative or not required by law. Electronically signed by: Leroy Agustin M.D. 10/30/2023 3:10 PM
[2023-10-30] MEDS: DOCUSATE SODIUM 100 MG CAP PO SCH (20:59)
[2023-10-30] MEDS: LANTUS PER UNIT CHARGE SC SCH (20:59)
[2023-10-31] MEDS: oxyCODONE HCL IR 5 MG TAB (IMMEDIATE RELEASE) PO PRN ×3 (03:10→19:13)
[2023-10-31 07:29] LABS: Basophils # (auto) 0.06 K/uL (0.00-0.20); Basophils % (auto) 0.6 %; Eosinophils # (auto) 0.12 K/uL (0.00-0.50); Eosinophils % (auto) 1.3 %; Hematocrit (blood only) 40.2 % (42.0-52.0); Hemoglobin 12.9 g/dl (14.0-18.0); Immature Granulocytes # (auto) 0.03 K/uL (0.01-0.20); Immature Granulocytes % (auto) 0.3 %; Lymphocytes # (auto) 3.13 K/uL (1.20-3.40); Lymphocytes % (auto) 33.6 %; Mean Corpuscular Hemoglobin 26.4 pg (25.0-34.0); Mean Corpuscular Hgb Conc 32.1 g/dL (32.0-36.0); Mean Corpuscular Volume 82.4 fL (80.0-100.0); Monocytes # (auto) 1.13 K/uL (0.11-0.59); Monocytes % (auto) 12.1 %; Neutrophils # (auto) 4.85 K/uL (1.40-6.50); Neutrophils % (auto) 52.1 %; Platelet Count 232 K/uL (130-400); RDW Coefficient of Variation 18.4 % (11.5-14.5); RDW Standard Deviation 53.1 fL (36.4-46.3); Red Blood Count 4.88 M/uL (4.70-6.10); White Blood Count 9.32 K/ul (4.8-10.8)
[2023-10-31] MEDS: GABAPENTIN 300 MG CAP PO SCH ×3 (07:32→21:05)
[2023-10-31] MEDS: DOCUSATE SODIUM 100 MG CAP PO SCH ×2 (07:33→21:05)
[2023-10-31] MEDS: predniSONE 5 MG TAB PO SCH (07:34)
[2023-10-31] MEDS: POLYETHYLENE (MIRALAX) 17 GM PACK PO SCH (07:34)
[2023-10-31] MEDS: LOSARTAN POTASSIUM 25 MG TAB PO SCH (07:34)
[2023-10-31] MEDS: PANTOprazole 40 MG TAB PO SCH (07:35)
[2023-10-31] MEDS: DULoxetine HCL 30 MG CAP PO SCH (07:35)
[2023-10-31] MEDS: allopurinoL 300 MG TAB PO SCH (07:36)
[2023-10-31] MEDS: METOPROLOL SUCC 50MG EXT REL TAB PO SCH (07:37)
[2023-10-31] MEDS: BUMETANIDE 1 MG TAB PO SCH ×2 (07:37→16:17)
[2023-10-31 07:49] LABS: BUN Creatinine Ratio 16.8 (10-20); Calcium 9.2 mg/dl (8.6-10.3); Creatinine Clr Calc Pharmacy 94.3 ml/min; Est GFR (African American) 71.8 ml/min; Potassium 3.5 mmol/L (3.5-5.1)
[2023-10-31] MEDS: INSULIN ASPART PER UNIT CHARGE SC SCH ×4 (09:04→21:05)
--- NOTE | 2023-10-31 10:55 | Orthopedic Progress Note ---
Date of Service October 31, 2023 Assessment & Plan (1) Tibial plateau fracture, left: Plan: Findings discussed with patient. Ultrasound was negative for DVT. The MRI shows a injury to the MCL. I suspect a high-grade rupture at least grade 2 based on exam. Also of the MRI shows very minimal medial joint space less than 2 mm. The fracture is relatively small and is located extreme posterolateral. Submeniscal. Patient is overweight, chronic steroid use for 40 years secondary to psoriatic arthritis, diabetic. He has some pre-existing arthritis in the left knee. Weighing the pros and cons risks and benefits I am going to recommend nonoperative management for him. There is an increased risk of knee deterioration and the development of arthritis and he may need further intervention such as a knee replacement in the future. I discussed what nonwe ightbearing on the left leg means. He will need a walker. He might need placement. His Xarelto can be restarted. His bone health will need to be investigated. Vitamin D level and DEXA scan. Surgery planned at the present time. Admission and Anticipated Discharge Date Admission Date: October 29, 2023 Subjective No problems reported. Pain is well-controlled. Physical Exam Physical Exam: Splint has shifted down his leg. I readjusted it. His foot is warm and he can wiggle his toes. Results & Data Vital Signs (Past 12 Hours) Vital Signs Temp Pulse Pulse Resp BP Pulse Ox O2 Del Method 10/31/23 07:49 36.7 C 81 18 97/66 L 91 Room Air 10/31/23 07:39 Room Air 10/31/23 06:58 76 10/31/23 02:58 36.8 C 79 18 106/69 91 Room Air 10/30/23 23:01 36.6 C 73 18 127/67 92 Room Air Laboratory Results Laboratory Results WBC 9.32 K/ul (4.8-10.8) 10/31/23 07:04 RBC 4.88 M/uL (4.70-6.10) 10/31/23 07:04 Hgb 12.9 g/dl (14.0-18.0) L 10/31/23 07:04 Hct 40.2 % (42.0-52.0) L 10/31/23 07:04 MCV 82.4 fL (80.0-100.0) 10/31/23 07:04 MCH 26.4 pg (25.0-34.0) 10/31/23 07:04 MCHC 32.1 g/dL (32.0-36.0) 10/31/23 07:04 RDW Std Deviation 53.1 fL (36.4-46.3) H 10/31/23 07:04 RDW Coeff of Vijay 18.4 % (11.5-14.5) H 10/31/23 07:04 Plt Count 232 K/uL (130-400) 10/31/23 07:04 MPV 11.0 fL (9.4-12.4) 10/31/23 07:04 Immature Gran % (Auto) 0.3 % 10/31/23 07:04 Neut % (Auto) 52.1 % 10/31/23 07:04 Lymph % (Auto) 33.6 % 10/31/23 07:04 [place] % (Auto) 12.1 % 10/31/23 07:04 Eos % (Auto) 1.3 % 10/31/23 07:04 Baso % (Auto) 0.6 % 10/31/23 07:04 Neut # (Auto) 4.85 K/uL (1.40-6.50) 10/31/23 07:04 Lymph # (Auto) 3.13 K/uL (1.20-3.40) 10/31/23 07:04 [place] # (Auto) 1.13 K/uL (0.11-0.59) H 10/31/23 07:04 Eos # (Auto) 0.12 K/uL (0.00-0.50) 10/31/23 07:04 Baso # (Auto) 0.06 K/uL (0.00-0.20) 10/31/23 07:04 Immature Gran # (Auto) 0.03 K/uL (0.01-0.20) 10/31/23 07:04 PT 11.6 Seconds (9.0-12.0) 10/30/23 06:06 INR 1.1 (0.9-1.1) 10/30/23 06:06 Sodium 135 mmol/L (136-145) L 10/31/23 07:04 Potassium 3.5 mmol/L (3.5-5.1) 10/31/23 07:04 Chloride 98 mmol/L (98-107) 10/31/23 07:04 Carbon Dioxide 30 mmol/L (21-32) 10/31/23 07:04 Anion Gap 7 (3-11) 10/31/23 07:04 BUN 20 mg/dl (6-23) 10/31/23 07:04 Creatinine 1.19 mg/dl (0.6-1.4) 10/31/23 07:04 Est Cr Clr Drug Dosing 94.3 ml/min 10/31/23 07:04 Est GFR ( Amer) 71.8 ml/min 10/31/23 07:04 Est GFR (Non-Af Amer) 62.0 ml/min 10/31/23 07:04 BUN/Creatinine Ratio 16.8 (10-20) 10/31/23 07:04 Glucose 126 mg/dl (70-99(Fasting)) H 10/31/23 07:04 POC Glucose 158 mg/dl (70-99) H 10/31/23 07:53 Calcium 9.2 mg/dl (8.6-10.3) 10/31/23 07:04 Magnesium 2.0 mg/dl (1.7-2.4) 10/30/23 06:06 Total Bilirubin 0.6 mg/dl (0.2-1.0) 10/30/23 06:06 AST 17 U/L (13-39) 10/30/23 06:06 ALT 12 U/L (7-52) 10/30/23 06:06 Alkaline Phosphatase 50 U/L (34-104) 10/30/23 06:06 Total Protein 7.3 gm/dl (6.0-8.3) 10/30/23 06:06 Albumin 3.4 gm/dl (3.4-5.0) 10/30/23 06:06 Globulin 3.9 gm/dl (2.5-4.0) 10/30/23 06:06 Albumin/Globulin Ratio 0.9 (0.9-2) 10/30/23 06:06 Impressions Femur X-Ray 10/29/23 18:15 SINGLE VIEW PELVIS; 3 VIEWS LEFT FEMUR CLINICAL HISTORY: Fall. Left leg injury. FINDINGS: An AP supine view of the pelvis with AP, frog-leg, and lateral views of the left femur are obtained. No prior studies are available for comparison at the time of dictation. The skeletal structures are osteopenic. There is no radiographic evidence of acute fracture involving the hips or bony pelvis. There is no radiographic evidence of left femoral fracture. Bilateral hip arthroplasties are in near-anatomic alignment. No periprosthetic lucency is seen. Degenerative sclerosis and partial fusion is noted in the sacroiliac joints. The overlying soft tissues are normal as visualized. The left knee joint is grossly maintained. There is a left knee joint effusion. There is atherosclerotic calcification of the left femoral artery. IMPRESSION: 1. No acute fracture is seen involving the hips or pelvis. 2. There is no radiographic evidence of left femoral fracture. 3. Bilateral hip arthroplasties are in near anatomic alignment. 4. Left knee joint effusion. Electronically signed by: Leroy Agustin M.D. 10/29/2023 6:55 PM Knee X-Ray 10/29/23 18:15 LEFT KNEE 3 VIEWS CLINICAL HISTORY: Fall. Left knee injury. FINDINGS: AP, crosstable lateral, and sunrise views of the left knee are obtained. No prior studies are available for comparison at the time of dictation. The skeletal structures are osteopenic. No fracture is seen. There is mild tricompartmental degenerative joint space narrowing. A joint effusion is observed. There are tiny patellar these findings as well as degenerative beaking of the tibial spine. There is bony overgrowth along the posterior aspect of the tibial plateau. Soft tissue edema is noted around the knee. IMPRESSION: Soft tissue swelling and joint effusion with no fracture identified. Electronically signed by: Leroy Agustin M.D. 10/29/2023 6:58 PM Pelvis X-Ray 10/29/23 18:15 SINGLE VIEW PELVIS; 3 VIEWS LEFT FEMUR CLINICAL HISTORY: Fall. Left leg injury. FINDINGS: An AP supine view of the pelvis with AP, frog-leg, and lateral views of the left femur are obtained. No prior studies are available for comparison at the time of dictation. The skeletal structures are osteopenic. There is no radiographic evidence of acute fracture involving the hips or bony pelvis. There is no radiographic evidence of left femoral fracture. Bilateral hip arthroplasties are in near-anatomic alignment. No periprosthetic lucency is seen. Degenerative sclerosis and partial fusion is noted in the sacroiliac joints. The overlying soft tissues are normal as visualized. The left knee joint is grossly maintained. There is a left knee joint effusion. There is atherosclerotic calcification of the left femoral artery. IMPRESSION: 1. No acute fracture is seen involving the hips or pelvis. 2. There is no radiographic evidence of left femoral fracture. 3. Bilateral hip arthroplasties are in near anatomic alignment. 4. Left knee joint effusion. Electronically signed by: Leroy Agustin M.D. 10/29/2023 6:[address] 10/29/23 19:41 CT SCAN OF THE LEFT KNEE WITHOUT IV CONTRAST CLINICAL HISTORY: Left knee injury. Ambulatory dysfunction. COMPARISON STUDY: Radiographs of the left knee performed the same date 10/29/2023. TECHNIQUE: CT scan of the left knee is performed from the distal femur to the proximal tibia and fibula. Images are reviewed in the axial, sagittal, and coronal planes. IV contrast was not administered for this examination. A dose lowering technique was utilized adhering to the principles of ALARA. CT DOSE: 492.88 mGy.cm FINDINGS: The skeletal structures are osteopenic. There is a depressed fracture of the posterior aspect of the lateral tibial plateau. This is best seen on sagittal image #76. The posterior fragments are depressed by approximately 6 mm, and there is mild dorsal displacement of fragments. There is associated joint effusion with lipohemarthrosis. No additional fracture is seen. There is mild tricompartmental degenerative joint space narrowing. Patellar enthesophytes are observed. Soft tissue edema is seen around the knee. There is mild generalized atrophy of the regional musculature. Atherosclerotic calcification is noted in the popliteal artery. IMPRESSION: Depressed fracture of the posterolateral tibial plateau with associated joint effusion/lipohemarthrosis. ACT 112: Negative or not required by law. Electronically signed by: Leroy Agustin M.D. 10/29/2023 8:13 PM Knee MRI 10/30/23 12:38 MRI OF THE LEFT KNEE CLINICAL HISTORY: Left knee pain. Fracture. COMPARISON STUDY: Radiographs and CT of the left knee dated 10/29/2023. TECHNIQUE: MRI of the left knee was performed utilizing proton density, T1, and T2-weighted sequences in the axial, sagittal, coronal planes. IV contrast was not administered for this examination. The examination is compromised by motion artifact. FINDINGS: Menisci: There is a complex oblique tear involving the body and posterior horn of the lateral meniscus. This approaches the meniscal root. There is extensive tearing/maceration involving the body and posterior horn of the medial meniscus which is extruded. Ligaments: There is significant irregularity and attenuation of the anterior cruciate ligament. This is at least partially torn, and there is surrounding inflammation. The posterior cruciate ligament is intact. There is grade 3 rupture of the medial collateral ligament with surrounding soft tissue edema. The lateral collateral ligament complex appears intact. Extensor mechanism: There is tendinopathy at the patellar attachment of the quadriceps tendon. There is also tendinopathy of the patellar tendon. The extensor mechanism is intact. Hoffa's fat pad is normal in appearance. Articular cartilage and bone: Again seen is a depressed fracture involving the posterior aspect of the lateral tibial plateau. There is corresponding marrow edema. Fragments are depressed by approximately 6 mm. No additional acute fracture is seen. There are small marginal osteophytes. There is mild degenerative thinning of articular cartilage along the weightbearing surface in the medial compartment. No full-thickness cartilage loss is identified. The articular cartilage in the lateral compartment appears maintained, with the exception of a depressed osteochondral fragment along the posterior tibial plateau. There is mild thinning of articular cartilage along the medial patellar facet. Joint effusion: There is a moderate joint effusion Soft tissues: Soft tissue edema is present on the knee. There is generalized atrophy of the regional musculature. A small popliteal cyst is noted. IMPRESSION: 1. Again seen is a depressed fracture involving the posterior aspect of the lateral tibial plateau as above with corresponding marrow edema. 2. Grade 3 rupture of the medial collateral ligament. 3. Oblique tear involving the body and posterior horn of the lateral meniscus. This approaches the meniscal root. 4. Extensive tearing/maceration involving the body and posterior horn of the medial meniscus. This is extruded. 5. There is significant thinning and irregularity of the anterior cruciate ligament, likely representing at least partial thickness tear. A few fibers may remain intact. There is surrounding edema. 6. Joint effusion and trace popliteal cyst. 7. Soft tissue edema is seen around the knee. 8. Tendinopathy of the quadriceps and patellar tendons. ACT 112: Negative or not required by law. Electronically signed by: Leroy Agustin M.D. 10/30/2023 2:43 PM Venous Doppler Study 10/30/23 12:38 ULTRASOUND LEFT LOWER EXTREMITY VENOUS CLINICAL HISTORY: Left leg pain. Fracture. COMPARISON STUDY: No priors. TECHNIQUE: Real-time, grayscale, and color Doppler sonography of the deep veins of the left lower extremity was performed from the inguinal crease to the calf. Compression and augmentation were utilized. FINDINGS: There is no sonographic evidence of deep venous thrombosis identified in the left lower extremity. The common femoral, superficial femoral, and popliteal veins are patent and normally compressible. The greater saphenous vein and the profunda femoris vein at the junction with the common femoral vein are clear. The visualized calf veins are patent. IMPRESSION: There is no sonographic evidence of deep venous thrombosis identified in the left lower extremity. ACT 112: Negative or not required by law. Electronically signed by: Leroy Agustin M.D. 10/30/2023 3:10 PM (1) Tibial plateau fracture, left Encounter type: initial encounter Fracture type: closed Qualified Code(s): S82.142A - Displaced bicondylar fracture of left tibia, initial encounter for closed fracture
[2023-10-31] MEDS ORDERED: ERGOCALCIFEROL 50,000 UNITS 1250 MCG CAP PO ONE (11:15)
--- NOTE | 2023-10-31 16:09 | Hospitalist Progress Note ---
Date of Service October 31, 2023 Assessment & Plan (1) Tibial plateau fracture, left: Plan: Appreciate Ortho consult. Plan for nonsurgical measures, pain control, knee immobilizer, PT/OT, non weight bearing f/u with Ortho Resume Xarelto as no surgery planned (2) Complete tear of MCL of knee: Plan: nonsurgical management (3) Fall: Plan: Mechanical. Supportive care. OT and PT assessments requested.Needs rehab (4) Chronic heart failure with preserved ejection fraction: Plan: resume home diuretic aldactone 50mg po bid in addition to usual bumex follows with CHF clinic continue BP control with Toprol XL, losartan, and resume Jardiance (5) Diabetic peripheral neuropathy: Plan: continue gabapentin (6) Psoriatic arthritis: Plan: continue home prednisone, no stress dose steroids needed resume Humira on discharge (7) Atrial fibrillation, permanent: Plan: rate controlled, continue Toprol XL resume Xarelto now as no Ortho surgery planned monitor on tele (8) Primary hypertension: Plan: BPs controlled continue home meds (9) Gout: Plan: continue allopurinol (10) GERD (gastroesophageal reflux disease): Plan: continue PPI (11) Hyperlipidemia: Plan: resume statin from home (12) DMII (diabetes mellitus, type 2): Plan: Hold metformin. ADA diet. insulin basal and bolus well controlled-hgba1c 7.4% in 09/2023 (13) Morbid obesity: Plan: BMI greater than 40. Significant weight loss recommended Plan DVT proph-Xarelto Dispo-continued stay, awaiting rehab placement. Medically stable for discharge Admission and Anticipated Discharge Date Admission Date: October 29, 2023 Anticipated date of discharge: 10/31/23 Subjective Pain is controlled in left knee. Denies SOB, CP, nausea. Has decided along with Ortho for non-surgical treatment. Tele with Afib, PVCs, bigeminy, PVC couplets, rates 80-90s Physical Exam Constitutional: WD/WN, vitals as above + morbidly obese Respiratory: normal respiratory effort, lungs clear to auscultation Cardiovascular: Rate/Rhythm: regular rate and + irregularly irregular Extremities: + edema (1+ pitting edema legs bilat) Gastrointestinal (Abdomen): Inspection/Auscultation: normal bowel sounds; + abdomen abnormal to inspection (obese) and abdomen not distended Percussion/Palpation: abdomen soft; abdomen nontender Musculoskeletal: Extremities: + extremities abnormal to inspection (LLE in knee immobilizer and DESTINY wrap) Psychiatric: A+Ox3, euthymic affect Results & Data Results & Data Vital Signs (Past 12 Hours) Vital Signs Temp Pulse Pulse Resp BP Pulse Ox O2 Del Method 10/31/23 15:00 36.6 C 77 18 92/64 L 92 Room Air 10/31/23 07:49 36.7 C 81 18 97/66 L 91 Room Air 10/31/23 07:39 Room Air 10/31/23 06:58 76 Laboratory Results CBC, BMP reviewed PG Care Time/CCT Total # of Minutes Spent Total Time Spent with Patient: Total time spent is greater than 50% in coordination of care (as documented) at patient's floor/unit and/or counseling patient: Coding Level of Care Code 46767 SUB INP/OBS CARE 2/35MIN Diagnoses Tibial plateau fracture, left S82.142A Encounter type: initial encounter Fracture type: closed Complete tear of MCL of knee S83.419A Fall W19.XXXA Chronic heart failure with preserved ejection fraction I50.32 Diabetic peripheral neuropathy E11.42 Psoriatic arthritis L40.50 Atrial fibrillation, permanent I48.21 Primary hypertension I10 Gout M10.9 Gout site: foot Gout etiology: due to renal impairment Chronicity: chronic Laterality: right GERD (gastroesophageal reflux disease) K21.9 Hyperlipidemia E78.5 DMII (diabetes mellitus, type 2) E11.9 Morbid obesity E66.01 (1) Tibial plateau fracture, left Encounter type: initial encounter Fracture type: closed Qualified Code(s): S82.142A - Displaced bicondylar fracture of left tibia, initial encounter for closed fracture (9) Gout Gout site: foot Gout etiology: due to renal impairment Chronicity: chronic Laterality: right
[2023-10-31] MEDS: RIVAROXABAN 20 MG TAB PO SCH (16:17)
[2023-10-31] MEDS: ACETAMINOPHEN 325 MG TAB PO PRN (21:03)
[2023-10-31] MEDS: LANTUS PER UNIT CHARGE SC SCH (21:03)
[2023-10-31] MEDS: SPIRONOLACTONE 25 MG TAB PO SCH (21:04)
[2023-10-31] MEDS: CYANOCOBALAMIN (B-12) 500 MCG TABLET PO SCH (21:05)
[2023-11-01] MEDS: oxyCODONE HCL IR 5 MG TAB (IMMEDIATE RELEASE) PO PRN ×5 (00:04→22:37)
[2023-11-01 07:30] LABS: BUN Creatinine Ratio 17.5 (10-20); Calcium 9.2 mg/dl (8.6-10.3); Creatinine Clr Calc Pharmacy 98.8 ml/min; Est GFR (African American) 75.6 ml/min; Est GFR (Non-African American) 65.3 ml/min; Magnesium 2.1 mg/dl (1.7-2.4); Potassium 3.6 mmol/L (3.5-5.1)
[2023-11-01] MEDS: DULoxetine HCL 30 MG CAP PO SCH (08:24)
[2023-11-01] MEDS: METOPROLOL SUCC 50MG EXT REL TAB PO SCH (08:25)
[2023-11-01] MEDS: PANTOprazole 40 MG TAB PO SCH (08:25)
[2023-11-01] MEDS: allopurinoL 300 MG TAB PO SCH (08:25)
[2023-11-01] MEDS: predniSONE 5 MG TAB PO SCH (08:25)
[2023-11-01] MEDS: DOCUSATE SODIUM 100 MG CAP PO SCH ×2 (08:25→21:11)
[2023-11-01] MEDS: GABAPENTIN 300 MG CAP PO SCH ×3 (08:25→21:08)
[2023-11-01] MEDS: ROSUVASTATIN CALCIUM 20 MG TAB PO SCH (08:25)
[2023-11-01] MEDS: EMPAGLIFLOZIN 10 MG TAB PO SCH (08:25)
[2023-11-01] MEDS: LOSARTAN POTASSIUM 25 MG TAB PO SCH (08:31)
[2023-11-01] MEDS: BUMETANIDE 1 MG TAB PO SCH ×2 (08:31→17:19)
[2023-11-01] MEDS: POLYETHYLENE (MIRALAX) 17 GM PACK PO SCH (08:32)
[2023-11-01] MEDS: SPIRONOLACTONE 25 MG TAB PO SCH ×2 (08:32→21:09)
[2023-11-01] MEDS: INSULIN ASPART PER UNIT CHARGE SC SCH ×4 (09:01→21:06)
--- NOTE | 2023-11-01 11:00 | Orthopedic Progress Note ---
Date of Service November 01, 2023 Assessment & Plan (1) Tibial plateau fracture, left: Plan: PT/OT Nonweightbearing on left lower extremity with immobilizer and walker use Resume Xarelto for DVT prophylaxis Pain control with p.o. medication Ice with easy wrap Case management to determine if patient needs rehabilitation Follow-up at [facility] orthopedics as scheduled With questions contact our clinic at [phone] Admission and Anticipated Discharge Date Admission Date: October 29, 2023 Subjective This 68-year-old male seen for follow-up of a depressed left posterior tibial fracture that he sustained when he slipped on his hardwood floor a few days ago. Patient initially did not discuss surgical intervention with Dr. Lainez, however he has decided against surgical intervention due to his pre-existing health conditions. He would like to manage this conservatively with nonweightbearing and the use of an immobilizer. Patient states he lives alone and has discussed going to a rehab facility with case management. Currently he denies chest pain, shortness of breath, fever, chills, sweats or numbness or tingling in the left lower extremity. Review of Systems Review of Systems: All systems reviewed & are unremarkable except as noted in Subjective Physical Exam Physical Exam: Left lower extremity: Immobilizer was removed. Patient does experience tenderness to palpation over the posterior aspect of the lower leg just distal to the knee joint. There is edema but no notable erythema or ecchymosis. Immobilizer was reapplied. Patient is able to actively perform a straight leg raise test and actively dorsi and plantarflex his foot. He is able to detect light sensation to touch over the pads of all digits. He has appropriate dexterity of his toes. His peripheral pulses are 2+. His capillary fill is difficult to determine due to toenail onychomycosis. Quad strength is 4 out of 5. Patient was neurovascularly intact in the left lower extremity. Results & Data Vital Signs (Past 12 Hours) Vital Signs Temp Pulse Pulse Resp BP Pulse Ox O2 Del Method 11/01/23 07:52 36.4 C 74 16 105/67 90 Room Air 11/01/23 07:06 80 11/01/23 03:53 36.6 C 70 20 116/76 92 Room Air 11/01/23 00:36 36.6 C 61 20 114/74 93 Room Air Diagnostic Findings Laboratory Results WBC 9.32 K/ul (4.8-10.8) 10/31/23 07:04 RBC 4.88 M/uL (4.70-6.10) 10/31/23 07:04 Hgb 12.9 g/dl (14.0-18.0) L 10/31/23 07:04 Hct 40.2 % (42.0-52.0) L 10/31/23 07:04 MCV 82.4 fL (80.0-100.0) 10/31/23 07:04 MCH 26.4 pg (25.0-34.0) 10/31/23 07:04 MCHC 32.1 g/dL (32.0-36.0) 10/31/23 07:04 RDW Std Deviation 53.1 fL (36.4-46.3) H 10/31/23 07:04 RDW Coeff of Vijay 18.4 % (11.5-14.5) H 10/31/23 07:04 Plt Count 232 K/uL (130-400) 10/31/23 07:04 MPV 11.0 fL (9.4-12.4) 10/31/23 07:04 Immature Gran % (Auto) 0.3 % 10/31/23 07:04 Neut % (Auto) 52.1 % 10/31/23 07:04 Lymph % (Auto) 33.6 % 10/31/23 07:04 [place] % (Auto) 12.1 % 10/31/23 07:04 Eos % (Auto) 1.3 % 10/31/23 07:04 Baso % (Auto) 0.6 % 10/31/23 07:04 Neut # (Auto) 4.85 K/uL (1.40-6.50) 10/31/23 07:04 Lymph # (Auto) 3.13 K/uL (1.20-3.40) 10/31/23 07:04 [place] # (Auto) 1.13 K/uL (0.11-0.59) H 10/31/23 07:04 Eos # (Auto) 0.12 K/uL (0.00-0.50) 10/31/23 07:04 Baso # (Auto) 0.06 K/uL (0.00-0.20) 10/31/23 07:04 Immature Gran # (Auto) 0.03 K/uL (0.01-0.20) 10/31/23 07:04 PT 11.6 Seconds (9.0-12.0) 10/30/23 06:06 INR 1.1 (0.9-1.1) 10/30/23 06:06 Sodium 135 mmol/L (136-145) L 11/01/23 06:48 Potassium 3.6 mmol/L (3.5-5.1) 11/01/23 06:48 Chloride 98 mmol/L (98-107) 11/01/23 06:48 Carbon Dioxide 29 mmol/L (21-32) 11/01/23 06:48 Anion Gap 8 (3-11) 11/01/23 06:48 BUN 20 mg/dl (6-23) 11/01/23 06:48 Creatinine 1.14 mg/dl (0.6-1.4) 11/01/23 06:48 Est Cr Clr Drug Dosing 98.8 ml/min 11/01/23 06:48 Est GFR ( Amer) 75.6 ml/min 11/01/23 06:48 Est GFR (Non-Af Amer) 65.3 ml/min 11/01/23 06:48 BUN/Creatinine Ratio 17.5 (10-20) 11/01/23 06:48 Glucose 118 mg/dl (70-99(Fasting)) H 11/01/23 06:48 POC Glucose 110 mg/dl (70-99) H 11/01/23 08:05 Calcium 9.2 mg/dl (8.6-10.3) 11/01/23 06:48 Magnesium 2.1 mg/dl (1.7-2.4) 11/01/23 06:48 Total Bilirubin 0.6 mg/dl (0.2-1.0) 10/30/23 06:06 AST 17 U/L (13-39) 10/30/23 06:06 ALT 12 U/L (7-52) 10/30/23 06:06 Alkaline Phosphatase 50 U/L (34-104) 10/30/23 06:06 Total Protein 7.3 gm/dl (6.0-8.3) 10/30/23 06:06 Albumin 3.4 gm/dl (3.4-5.0) 10/30/23 06:06 Globulin 3.9 gm/dl (2.5-4.0) 10/30/23 06:06 Albumin/Globulin Ratio 0.9 (0.9-2) 10/30/23 06:06 Impressions Femur X-Ray 10/29/23 18:15 SINGLE VIEW PELVIS; 3 VIEWS LEFT FEMUR CLINICAL HISTORY: Fall. Left leg injury. FINDINGS: An AP supine view of the pelvis with AP, frog-leg, and lateral views of the left femur are obtained. No prior studies are available for comparison at the time of dictation. The skeletal structures are osteopenic. There is no radiographic evidence of acute fracture involving the hips or bony pelvis. There is no radiographic evidence of left femoral fracture. Bilateral hip arthroplasties are in near-anatomic alignment. No periprosthetic lucency is seen. Degenerative sclerosis and partial fusion is noted in the sacroiliac brisa nts. The overlying soft tissues are normal as visualized. The left knee joint is grossly maintained. There is a left knee joint effusion. There is atherosclerotic calcification of the left femoral artery. IMPRESSION: 1. No acute fracture is seen involving the hips or pelvis. 2. There is no radiographic evidence of left femoral fracture. 3. Bilateral hip arthroplasties are in near anatomic alignment. 4. Left knee joint effusion. Electronically signed by: Leroy Agustin M.D. 10/29/2023 6:55 PM Knee X-Ray 10/29/23 18:15 LEFT KNEE 3 VIEWS CLINICAL HISTORY: Fall. Left knee injury. FINDINGS: AP, crosstable lateral, and sunrise views of the left knee are obtained. No prior studies are available for comparison at the time of dictation. The skeletal structures are osteopenic. No fracture is seen. There is mild tricompartmental degenerative joint space narrowing. A joint effusion is observed. There are tiny patellar these findings as well as degenerative beaking of the tibial spine. There is bony overgrowth along the posterior aspect of the tibial plateau. Soft tissue edema is noted around the knee. IMPRESSION: Soft tissue swelling and joint effusion with no fracture identified. Electronically signed by: Leroy Agustin M.D. 10/29/2023 6:58 PM Pelvis X-Ray 10/29/23 18:15 SINGLE VIEW PELVIS; 3 VIEWS LEFT FEMUR CLINICAL HISTORY: Fall. Left leg injury. FINDINGS: An AP supine view of the pelvis with AP, frog-leg, and lateral views of the left femur are obtained. No prior studies are available for comparison at the time of dictation. The skeletal structures are osteopenic. There is no radiographic evidence of acute fracture involving the hips or bony pelvis. There is no radiographic evidence of left femoral fracture. Bilateral hip arthroplasties are in near-anatomic alignment. No periprosthetic lucency is seen. Degenerative sclerosis and partial fusion is noted in the sacroiliac joints. The overlying soft tissues are normal as visualized. The left knee joint is grossly maintained. There is a left knee joint effusion. There is atherosclerotic calcification of the left femoral artery. IMPRESSION: 1. No acute fracture is seen involving the hips or pelvis. 2. There is no radiographic evidence of left femoral fracture. 3. Bilateral hip arthroplasties are in near anatomic alignment. 4. Left knee joint effusion. Electronically signed by: Leroy Agustin M.D. 10/29/2023 6:[address] 10/29/23 19:41 CT SCAN OF THE LEFT KNEE WITHOUT IV CONTRAST CLINICAL HISTORY: Left knee injury. Ambulatory dysfunction. COMPARISON STUDY: Radiographs of the left knee performed the same date 10/29/2023. TECHNIQUE: CT scan of the left knee is performed from the distal femur to the proximal tibia and fibula. Images are reviewed in the axial, sagittal, and coronal planes. IV contrast was not administered for this examination. A dose lowering technique was utilized adhering to the principles of ALARA. CT DOSE: 492.88 mGy.cm FINDINGS: The skeletal structures are osteopenic. There is a depressed fracture of the posterior aspect of the lateral tibial plateau. This is best seen on sagittal image #76. The posterior fragments are depressed by approximately 6 mm, and there is mild dorsal displacement of fragments. There is associated joint effusion with lipohemarthrosis. No additional fracture is seen. There is mild tricompartmental degenerative joint space narrowing. Patellar enthesophytes are observed. Soft tissue edema is seen around the knee. There is mild generalized atrophy of the regional musculature. Atherosclerotic calcification is noted in the popliteal artery. IMPRESSION: Depressed fracture of the posterolateral tibial plateau with associated joint effusion/lipohemarthrosis. ACT 112: Negative or not required by law. Electronically signed by: Leroy Agustin M.D. 10/29/2023 8:13 PM Knee MRI 10/30/23 12:38 MRI OF THE LEFT KNEE CLINICAL HISTORY: Left knee pain. Fracture. COMPARISON STUDY: Radiographs and CT of the left knee dated 10/29/2023. TECHNIQUE: MRI of the left knee was performed utilizing proton density, T1, and T2-weighted sequences in the axial, sagittal, coronal planes. IV contrast was not administered for this examination. The examination is compromised by motion artifact. FINDINGS: Menisci: There is a complex oblique tear involving the body and posterior horn of the lateral meniscus. This approaches the meniscal root. There is extensive tearing/maceration involving the body and posterior horn of the medial meniscus which is extruded. Ligaments: There is significant irregularity and attenuation of the anterior cruciate ligament. This is at least partially torn, and there is surrounding inflammation. The posterior cruciate ligament is intact. There is grade 3 rupture of the medial collateral ligament with surrounding soft tissue edema. The lateral collateral ligament complex appears intact. Extensor mechanism: There is tendinopathy at the patellar attachment of the quadriceps tendon. There is also tendinopathy of the patellar tendon. The extensor mechanism is intact. Hoffa's fat pad is normal in appearance. Articular cartilage and bone: Again seen is a depressed fracture involving the posterior aspect of the lateral tibial plateau. There is corresponding marrow edema. Fragments are depressed by approximately 6 mm. No additional acute fracture is seen. There are small marginal osteophytes. There is mild degenerative thinning of articular cartilage along the weightbearing surface in the medial compartment. No full-thickness cartilage loss is identified. The articular cartilage in the lateral compartment appears maintained, with the exception of a depressed osteochondral fragment along the posterior tibial plateau. There is mild thinning of articular cartilage along the medial patellar facet. Joint effusion: There is a moderate joint effusion Soft tissues: Soft tissue edema is present on the knee. There is generalized atrophy of the regional musculature. A small popliteal cyst is noted. IMPRESSION: 1. Again seen is a depressed fracture involving the posterior aspect of the lateral tibial plateau as above with corresponding marrow edema. 2. Grade 3 rupture of the medial collateral ligament. 3. Oblique tear involving the body and posterior horn of the lateral meniscus. This approaches the meniscal root. 4. Extensive tearing/maceration involving the body and posterior horn of the medial meniscus. This is extruded. 5. There is significant thinning and irregularity of the anterior cruciate ligament, likely representing at least partial thickness tear. A few fibers may remain intact. There is surrounding edema. 6. Joint effusion and trace popliteal cyst. 7. Soft tissue edema is seen around the knee. 8. Tendinopathy of the quadriceps and patellar tendons. ACT 112: Negative or not required by law. Electronically signed by: Leroy Agustin M.D. 10/30/2023 2:43 PM Venous Doppler Study 10/30/23 12:38 ULTRASOUND LEFT LOWER EXTREMITY VENOUS CLINICAL HISTORY: Left leg pain. Fracture. COMPARISON STUDY: No priors. TECHNIQUE: Real-time, grayscale, and color Doppler sonography of the deep veins of the left lower extremity was performed from the inguinal crease to the calf. Compression and augmentation were utilized. FINDINGS: There is no sonographic evidence of deep venous thrombosis identified in the left lower extremity. The common femoral, superficial femoral, and popliteal veins are patent and normally compressible. The greater saphenous vein and the profunda femoris vein at the junction with the common femoral vein are clear. The visualized calf veins are patent. IMPRESSION: There is no sonographic evidence of deep venous thrombosis identified in the left lower extremity. ACT 112: Negative or not required by law. Electronically signed by: Leroy Agustin M.D. 10/30/2023 3:10 PM (1) Tibial plateau fracture, left Encounter type: initial encounter Fracture type: closed Qualified Code(s): S82.142A - Displaced bicondylar fracture of left tibia, initial encounter for closed fracture
[2023-11-01] MEDS: ACETAMINOPHEN 325 MG TAB PO PRN ×2 (11:27→21:06)
[2023-11-01] MEDS: RIVAROXABAN 20 MG TAB PO SCH (17:19)
--- NOTE | 2023-11-01 18:25 | Hospitalist Progress Note ---
Date of Service November 01, 2023 Assessment & Plan (1) Tibial plateau fracture, left: Plan: Appreciate Ortho consult. Plan for nonsurgical measures, pain control, knee immobilizer, PT/OT, non weight bearing, icing f/u with Ortho as an outpatient Resumed Xarelto as no surgery planned (2) Complete tear of MCL of knee: Plan: nonsurgical management for now, knee immobilizer (3) Chronic heart failure with preserved ejection fraction: Plan: Stable Continue home diuretics of aldactone 50mg po bid in addition to usual bumex 4 Mg p.o. twice daily follows with CHF clinic continue BP control with Toprol XL, losartan, and Jardiance (4) Diabetic peripheral neuropathy: Plan: continue gabapentin (5) Psoriatic arthritis: Plan: continue home prednisone, no stress dose steroids needed resume Humira if can be brought in from home (6) Atrial fibrillation, permanent: Plan: rate controlled, continue Toprol XL Continue Xarelto Can transfer off of telemetry (7) Primary hypertension: Plan: BPs controlled continue home meds of spironolactone, Bumex, metoprolol, losartan (8) Gout: Plan: No acute issues Continue allopurinol (9) GERD (gastroesophageal reflux disease): Plan: continue PPI (10) Hyperlipidemia: Plan: Continue statin (11) DMII (diabetes mellitus, type 2): Plan: Blood sugars are well-controlled here and most recent hemoglobin A1c 7.4% in 09/2023 Continue home Jardiance Continue Lantus and NovoLog Plan DVT proph-Xarelto Dispo-continued stay, awaiting rehab placement. Medically stable for discharge. Can downgrade off telemetry to medical/surgical unit Admission and Anticipated Discharge Date Admission Date: November 01, 2023 Subjective Patient reports pain is controlled with pain medicine. He had a very difficult time getting up from the bedside commode as it was set to low. He also is having difficulty nonweightbearing with PT. Denies chest pains or shortness of breath. Telemetry with atrial fibrillation with rates mostly in the 80s to 90s but goes up to the 160s with exertion. Physical Exam Constitutional: WD/WN, vitals as above + morbidly obese Respiratory: normal respiratory effort, lungs clear to auscultation Cardiovascular: Rate/Rhythm: regular rate and + irregularly irregular Extremities: + edema (Trace + pitting edema legs bilat) Gastrointestinal (Abdomen): Inspection/Auscultation: normal bowel sounds; + ab domen abnormal to inspection (obese) and abdomen not distended Percussion/Palpation: abdomen soft; abdomen nontender Musculoskeletal: Extremities: + extremities abnormal to inspection (LLE in knee immobilizer and DESTINY wrap) Can plantar and dorsiflex and wiggle toes on left Psychiatric: A+Ox3, euthymic affect Results & Data Results & Data Vital Signs (Past 12 Hours) Vital Signs Temp Pulse Pulse Resp BP Pulse Ox O2 Del Method 11/01/23 17:50 86 11/01/23 17:09 Room Air 11/01/23 15:30 36.3 C L 72 16 109/67 92 Room Air 11/01/23 11:55 36.6 C 77 16 108/69 92 Room Air 11/01/23 07:52 36.4 C 74 16 105/67 90 Room Air 11/01/23 07:06 80 Laboratory Results BMP, magnesium level reviewed PG Care Time/CCT Total # of Minutes Spent Total Time Spent with Patient: Total time spent is greater than 50% in coordination of care (as documented) at patient's floor/unit and/or counseling patient: Coding Level of Care Code 39909 SUB INP/OBS CARE 2/35MIN Diagnoses Tibial plateau fracture, left S82.142A Encounter type: initial encounter Fracture type: closed Complete tear of MCL of knee S83.419A Chronic heart failure with preserved ejection fraction I50.32 Diabetic peripheral neuropathy E11.42 Psoriatic arthritis L40.50 Atrial fibrillation, permanent I48.21 Primary hypertension I10 Gout M10.9 Gout site: foot Gout etiology: due to renal impairment Chronicity: chronic Laterality: right GERD (gastroesophageal reflux disease) K21.9 Hyperlipidemia E78.5 DMII (diabetes mellitus, type 2) E11.9 (1) Tibial plateau fracture, left Encounter type: initial encounter Fracture type: closed Qualified Code(s): S82.142A - Displaced bicondylar fracture of left tibia, initial encounter for closed fracture (8) Gout Gout site: foot Gout etiology: due to renal impairment Chronicity: chronic Laterality: right
[2023-11-01] MEDS ORDERED: DULAGLUTIDE 1.5 MG/0.5 ML PEN SQ SCH ×2 (20:15→21:00)
[2023-11-01] MEDS ORDERED: DULAGLUTIDE 1.5 MG/0.5 ML SQ SCH (21:00)
[2023-11-01] MEDS ORDERED: ADALIMUMAB 40 MG/0.8 ML SQ SCH (21:00)
[2023-11-01] MEDS: LANTUS PER UNIT CHARGE SC SCH (21:07)
[2023-11-01] MEDS: CYANOCOBALAMIN (B-12) 500 MCG TABLET PO SCH (21:09)
[2023-11-02] MEDS: oxyCODONE HCL IR 5 MG TAB (IMMEDIATE RELEASE) PO PRN ×4 (04:46→23:07)
[2023-11-02] MEDS: POLYETHYLENE (MIRALAX) 17 GM PACK PO SCH (07:47)
[2023-11-02] MEDS: ACETAMINOPHEN 325 MG TAB PO PRN ×2 (07:56→23:06)
[2023-11-02] MEDS: ROSUVASTATIN CALCIUM 20 MG TAB PO SCH (08:41)
[2023-11-02] MEDS: LOSARTAN POTASSIUM 25 MG TAB PO SCH (08:41)
[2023-11-02] MEDS: BUMETANIDE 1 MG TAB PO SCH ×2 (08:41→17:34)
[2023-11-02] MEDS: PANTOprazole 40 MG TAB PO SCH (08:41)
[2023-11-02] MEDS: DULoxetine HCL 30 MG CAP PO SCH (08:42)
[2023-11-02] MEDS: METOPROLOL SUCC 50MG EXT REL TAB PO SCH (08:42)
[2023-11-02] MEDS: SPIRONOLACTONE 25 MG TAB PO SCH ×2 (08:42→21:25)
[2023-11-02] MEDS: predniSONE 5 MG TAB PO SCH (08:42)
[2023-11-02] MEDS: DOCUSATE SODIUM 100 MG CAP PO SCH ×2 (08:42→21:45)
[2023-11-02] MEDS: GABAPENTIN 300 MG CAP PO SCH ×3 (08:42→21:23)
[2023-11-02] MEDS: EMPAGLIFLOZIN 10 MG TAB PO SCH (08:43)
[2023-11-02] MEDS: allopurinoL 300 MG TAB PO SCH (08:44)
[2023-11-02] MEDS: INSULIN ASPART PER UNIT CHARGE SC SCH ×4 (08:49→21:45)
--- NOTE | 2023-11-02 12:02 | Orthopedic Progress Note ---
Date of Service November 02, 2023 Assessment & Plan (1) Tibial plateau fracture, left: Plan: PT/OT Nonweightbearing on left lower extremity with immobilizer and walker use Knee immobilizer on at all times. Allowed for ankle range of motion. Resume Xarelto for DVT prophylaxis Pain control with p.o. medication Ice with easy wrap Case management for discharge planning. Patient states he might go to [facility]. Follow-up at [facility] orthopedics as scheduled in approximately 2 weeks. With questions contact our clinic at [phone] Admission and Anticipated Discharge Date Admission Date: November 01, 2023 Subjective Patient up with PT, transferring to bedside commode. Using walker. No pain in left leg with transfers. States knee immobilizer helps. Physical Exam Musculoskeletal: Knee immobilizer in place, Compression wrap in place left leg. Toes warm, distal pulses 1+, moves toes well. Calf supple, nontender. Full ankle ROM and strength. Results & Data Vital Signs (Past 12 Hours) Vital Signs Temp Pulse Resp BP Pulse Ox O2 Del Method 11/02/23 07:58 36.4 C L 79 16 124/70 92 Room Air (1) Tibial plateau fracture, left Encounter type: initial encounter Fracture type: closed Qualified Code(s): S82.142A - Displaced bicondylar fracture of left tibia, initial encounter for closed fracture
--- NOTE | 2023-11-02 16:36 | Hospitalist Progress Note ---
Date of Service November 02, 2023 Assessment & Plan (1) Tibial plateau fracture, left: Plan: Appreciate Ortho consult. Plan for nonsurgical measures, pain control, knee immobilizer, PT/OT, non weight bearing, icing f/u with Ortho as an outpatient Resumed Xarelto as no surgery planned (2) Complete tear of MCL of knee: Plan: nonsurgical management for now, knee immobilizer (3) Chronic heart failure with preserved ejection fraction: Plan: Stable Continue home diuretics of aldactone 50mg po bid in addition to usual bumex 4 Mg p.o. twice daily follows with CHF clinic continue BP control with Toprol XL, losartan, and Jardiance (4) Diabetic peripheral neuropathy: Plan: continue gabapentin (5) Psoriatic arthritis: Plan: continue home prednisone, no stress dose steroids needed resume Humira if can be brought in from home (6) Atrial fibrillation, permanent: Plan: rate controlled, continue Toprol XL Continue Xarelto transferred off of telemetry (7) Primary hypertension: Plan: BPs controlled continue home meds of spironolactone, Bumex, metoprolol, losartan (8) Gout: Plan: No acute issues Continue allopurinol (9) GERD (gastroesophageal reflux disease): Plan: continue PPI (10) Hyperlipidemia: Plan: Continue statin (11) DMII (diabetes mellitus, type 2): Plan: Blood sugars are well-controlled here and most recent hemoglobin A1c 7.4% in 09/2023 Continue home Jardiance Continue Lantus and NovoLog Plan DVT proph-Xarelto Dispo-continued stay, awaiting rehab placement. Medically stable for discharge. If insurance denies auth for [facility], [facility] can take him on 11/03 Admission and Anticipated Discharge Date Admission Date: November 01, 2023 Anticipated date of discharge: 11/03/23 Subjective Feeling well today, pain controlled. No other acute concerns. Physical Exam Constitutional: WD/WN, vitals as above + morbidly obese Respiratory: normal respiratory effort, lungs clear to auscultation Cardiovascular: Rate/Rhythm: regular rate and + irregularly irregular Extremities: + edema (Trace + pitting edema legs bilat) Musculoskeletal: Extremities: + extremities abnormal to inspection (LLE in knee immobilizer and DESTINY wrap) Psychiatric: A+Ox3, euthymic affect Results & Data Results & Data Vital Signs (Past 12 Hours) Vital Signs Temp Pulse Resp BP Pulse Ox O2 Del Method 11/02/23 16:27 36.6 C 89 16 125/70 93 Room Air 11/02/23 07:58 36.4 C L 79 16 124/70 92 Room Air PG Care Time/CCT Total # of Minutes Spent Total Time Spent with Patient: Total time spent is greater than 50% in coordination of care (as documented) at patient's floor/unit and/or counseling patient: Coding Level of Care Code 08149 SUB INP/OBS CARE 12/08MIN Diagnoses Tibial plateau fracture, left S82.142A Encounter type: initial encounter Fracture type: closed Complete tear of MCL of knee S83.419A Chronic heart failure with preserved ejection fraction I50.32 Diabetic peripheral neuropathy E11.42 Psoriatic arthritis L40.50 Atrial fibrillation, permanent I48.21 Primary hypertension I10 Gout M10.9 Gout site: foot Gout etiology: due to renal impairment Chronicity: chronic Laterality: right GERD (gastroesophageal reflux disease) K21.9 Hyperlipidemia E78.5 DMII (diabetes mellitus, type 2) E11.9 (1) Tibial plateau fracture, left Encounter type: initial encounter Fracture type: closed Qualified Code(s): S82.142A - Displaced bicondylar fracture of left tibia, initial encounter for closed fracture (8) Gout Gout site: foot Gout etiology: due to renal impairment Chronicity: chronic Laterality: right
[2023-11-02] MEDS: RIVAROXABAN 20 MG TAB PO SCH (17:34)
[2023-11-02] MEDS: CYANOCOBALAMIN (B-12) 500 MCG TABLET PO SCH (21:23)
[2023-11-02] MEDS: LANTUS PER UNIT CHARGE SC SCH (21:45)
[2023-11-03] MEDS: ACETAMINOPHEN 325 MG TAB PO PRN ×2 (06:54→17:26)
[2023-11-03] MEDS: oxyCODONE HCL IR 5 MG TAB (IMMEDIATE RELEASE) PO PRN ×3 (06:54→20:56)
[2023-11-03] MEDS: PANTOprazole 40 MG TAB PO SCH (08:12)
[2023-11-03] MEDS: DULoxetine HCL 30 MG CAP PO SCH (08:12)
[2023-11-03] MEDS: allopurinoL 300 MG TAB PO SCH (08:13)
[2023-11-03] MEDS: BUMETANIDE 1 MG TAB PO SCH ×2 (08:14→16:39)
[2023-11-03] MEDS: GABAPENTIN 300 MG CAP PO SCH ×3 (08:16→20:36)
[2023-11-03] MEDS: SPIRONOLACTONE 25 MG TAB PO SCH ×2 (08:16→20:38)
[2023-11-03] MEDS: METOPROLOL SUCC 50MG EXT REL TAB PO SCH (08:17)
[2023-11-03] MEDS: ROSUVASTATIN CALCIUM 20 MG TAB PO SCH (08:17)
[2023-11-03] MEDS: predniSONE 5 MG TAB PO SCH (08:17)
[2023-11-03] MEDS: LOSARTAN POTASSIUM 25 MG TAB PO SCH (08:18)
[2023-11-03] MEDS: EMPAGLIFLOZIN 10 MG TAB PO SCH (08:18)
[2023-11-03] MEDS: POLYETHYLENE (MIRALAX) 17 GM PACK PO SCH (08:29)
[2023-11-03] MEDS: DOCUSATE SODIUM 100 MG CAP PO SCH ×2 (08:29→20:42)
[2023-11-03] MEDS: INSULIN ASPART PER UNIT CHARGE SC SCH ×4 (08:31→20:52)
[2023-11-03] MEDS: RIVAROXABAN 20 MG TAB PO SCH (16:40)
--- NOTE | 2023-11-03 18:02 | Hospitalist Progress Note ---
Date of Service November 03, 2023 Assessment & Plan (1) Tibial plateau fracture, left: Plan: Appreciate Ortho consult. Plan for nonsurgical measures, pain control, knee immobilizer, PT/OT, non weight bearing, icing f/u with Ortho as an outpatient Resumed Xarelto as no surgery planned (2) Complete tear of MCL of knee: Plan: nonsurgical management for now, knee immobilizer (3) Chronic heart failure with preserved ejection fraction: Plan: Stable Continue home diuretics of aldactone 50mg po bid in addition to usual bumex 4 Mg p.o. twice daily follows with CHF clinic continue BP control with Toprol XL, losartan, and Jardiance (4) Diabetic peripheral neuropathy: Plan: continue gabapentin (5) Psoriatic arthritis: Plan: continue home prednisone, no stress dose steroids needed resume Humira if can be brought in from home (6) Atrial fibrillation, permanent: Plan: rate controlled, continue Toprol XL Continue Xarelto transferred off of telemetry (7) Primary hypertension: Plan: BPs controlled continue home meds of spironolactone, Bumex, metoprolol, losartan (8) Gout: Plan: No acute issues Continue allopurinol (9) GERD (gastroesophageal reflux disease): Plan: continue PPI (10) Hyperlipidemia: Plan: Continue statin (11) DMII (diabetes mellitus, type 2): Plan: Blood sugars are well-controlled here and most recent hemoglobin A1c 7.4% in 09/2023 Continue home Jardiance Continue Lantus and NovoLog Plan DVT proph-Xarelto Dispo-continued stay, awaiting rehab placement. Medically stable for discharge.Dc to [facility] on 11/04 Admission and Anticipated Discharge Date Admission Date: November 01, 2023 Anticipated date of discharge: 11/04/23 Subjective Pain controlled, no other new issues Physical Exam Constitutional: WD/WN, vitals as above + morbidly obese Respiratory: normal respiratory effort, lungs clear to auscultation Cardiovascular: Rate/Rhythm: regular rate and + irregularly irregular Extremities: + edema (Trace + pitting edema legs bilat) Musculoskeletal: Extremities: + extremities abnormal to inspection (LLE in knee immobilizer and DESTINY wrap) Psychiatric: A+Ox3, euthymic affect Results & Data Results & Data Vital Signs (Past 12 Hours) Vital Signs Temp Pulse Resp BP Pulse Ox O2 Del Method 11/03/23 16:32 36.4 C L 88 16 125/71 94 Room Air 11/03/23 08:18 36.4 C L 79 16 133/70 95 Room Air 11/03/23 08:09 36.7 C 75 18 125/80 94 Room Air PG Care Time/CCT Total # of Minutes Spent Total Time Spent with Patient: Total time spent is greater than 50% in coordination of care (as documented) at patient's floor/unit and/or counseling patient: Coding Level of Care Code 18803 SUB INP/OBS CARE 12/08MIN Diagnoses Tibial plateau fracture, left S82.142A Encounter type: initial encounter Fracture type: closed Complete tear of MCL of knee S83.419A Chronic heart failure with preserved ejection fraction I50.32 Diabetic peripheral neuropathy E11.42 Psoriatic arthritis L40.50 Atrial fibrillation, permanent I48.21 Primary hypertension I10 Gout M10.9 Gout site: foot Gout etiology: due to renal impairment Chronicity: chronic Laterality: right GERD (gastroesophageal reflux disease) K21.9 Hyperlipidemia E78.5 DMII (diabetes mellitus, type 2) E11.9 (1) Tibial plateau fracture, left Encounter type: initial encounter Fracture type: closed Qualified Code(s): S82.142A - Displaced bicondylar fracture of left tibia, initial encounter for closed fracture (8) Gout Gout site: foot Gout etiology: due to renal impairment Chronicity: chronic Laterality: right
[2023-11-03] MEDS: CYANOCOBALAMIN (B-12) 500 MCG TABLET PO SCH (20:38)
[2023-11-03] MEDS: LANTUS PER UNIT CHARGE SC SCH (20:53)
[2023-11-04] MEDS: oxyCODONE HCL IR 5 MG TAB (IMMEDIATE RELEASE) PO PRN (02:00)
[2023-11-04] MEDS: GABAPENTIN 300 MG CAP PO SCH (08:11)
[2023-11-04] MEDS: METOPROLOL SUCC 50MG EXT REL TAB PO SCH (08:11)
[2023-11-04] MEDS: allopurinoL 300 MG TAB PO SCH (08:12)
[2023-11-04] MEDS: DULoxetine HCL 30 MG CAP PO SCH (08:13)
[2023-11-04] MEDS: PANTOprazole 40 MG TAB PO SCH (08:13)
[2023-11-04] MEDS: SPIRONOLACTONE 25 MG TAB PO SCH (08:13)
[2023-11-04] MEDS: EMPAGLIFLOZIN 10 MG TAB PO SCH (08:14)
[2023-11-04] MEDS: LOSARTAN POTASSIUM 25 MG TAB PO SCH (08:14)
[2023-11-04] MEDS: BUMETANIDE 1 MG TAB PO SCH (08:14)
[2023-11-04] MEDS: ROSUVASTATIN CALCIUM 20 MG TAB PO SCH (08:15)
[2023-11-04] MEDS: predniSONE 5 MG TAB PO SCH (08:16)
[2023-11-04] MEDS: DOCUSATE SODIUM 100 MG CAP PO SCH (08:26)
[2023-11-04] MEDS: POLYETHYLENE (MIRALAX) 17 GM PACK PO SCH (08:26)
[2023-11-04] MEDS: INSULIN ASPART PER UNIT CHARGE SC SCH (08:27)
--- NOTE | 2023-11-04 11:15 | Discharge Summary ---
Discharge Summary Date of Service November 04, 2023 Notes For Next Care Provider Medication Changes From Visit Oxycodone 5mg po q4h prn moderate-severe pain Admission HPI Per Admitting Provider Mario Alberto is a 68 year old male with a PMH significant for morbid obesity, atrial fibrillation on Eliquis, psoriatic arthritis, CHF, HTN, DMII, gout, hyperlipidemia, who presented to the [facility] ED on 10/29 for ongoing left knee pain and swelling after a ground level fall. He remained stable in the ED. Labs were yet to be obtain at the time of my exam. Xray of the left femur and the BL hips/pelvis were negative for acute trauma. Xray of the left knee was read as "Soft tissue swelling and joint effusion with no fracture identified.". CT of the left knee wo con was read as "Depressed fracture of the posterolateral tibial plateau with associated joint effusion/lipohemarthrosis.". The patient was unable to safely ambulate and will require admission for pain control, orthopedic evaluation, and PT/OT assessment. Prior to admission the patient was given 50 mg PO tramadol. At the time of the exam the patient was sitting in bed in no acute distress with his brother sitting bedside. On night he was trying to pick something off his floor when his feet slipped and he ended up doing a split. He said he heard a pop and had intense left knee pain. He was able to grab his couc h and pull himself up, he was only on the ground for approximately 15 min. He denies any symptoms such as chest pain, SOB, palpitations, lightheadedness/dizziness prior to his fall. He did not hit his head or lose consciousness. He came to the ED today as he was been unable to ambulate on the leg. He took his last dose of Xarelto last evening. He is a full code and wishes for his brother to make his medical decisions for him if he cannot make them himself. Please refer to Dr. Almanza's attestation for any changes to the treatment plan Principal Dx & Hospital Course #1 = Principal Diagnosis (1) Tibial plateau fracture, left: Appreciate Ortho consult. Plan for nonsurgical measures, pain control, knee immobilizer, PT/OT, non weight bearing, icing f/u with Ortho as an outpatient Resumed Xarelto as no surgery planned (2) Complete tear of MCL of knee: nonsurgical management for now, knee immobilizer (3) Chronic heart failure with preserved ejection fraction: Stable Continue home diuretics of aldactone 50mg po bid in addition to usual bumex 4 Mg p.o. twice daily follows with CHF clinic continue BP control with Toprol XL, losartan, and Jardiance (4) Diabetic peripheral neuropathy: continue gabapentin (5) Psoriatic arthritis: continue home prednisone, no stress dose steroids needed continue Humira if can be brought in from home (6) Atrial fibrillation, permanent: rate controlled, continue Toprol XL Continue Xarelto (7) Primary hypertension: BPs controlled continue home meds of spironolactone, Bumex, metoprolol, losartan (8) Gout: No acute issues Continue allopurinol (9) GERD (gastroesophageal reflux disease): continue PPI (10) Hyperlipidemia: Continue statin (11) DMII (diabetes mellitus, type 2): Blood sugars are well-controlled here and most recent hemoglobin A1c 7.4% in 09/2023 Continue home Jardiance, metformin Continue Lantus and NovoLog but reduce dose of Novolog to 5 tid from home dose of 18 as he is not eating as much Plan DVT proph-Xarelto Dispo-dc to rehab placement [facility] on 11/04 Discharge Exam Constitutional WD/WN, vitals as above + morbidly obese Respiratory normal respiratory effort, lungs clear to auscultation Cardiovascular Rate/Rhythm: regular rate and + irregularly irregular Extremities: + edema (Trace + pitting edema legs bilat) Gastrointestinal (Abdomen) Inspection/Auscultation: normal bowel sounds; + abdomen abnormal to inspection (obese) and abdomen not distended Percussion/Palpation: abdomen soft; abdomen nontender Musculoskeletal Extremities: + extremities abnormal to inspection (LLE in knee immobilizer and DESTINY wrap) Psychiatric A+Ox3, euthymic affect Updated Medication List Medication Instructions Recorded Confirmed Type blood sugar diagnostic (Contour #3 Boxes 01/16/21 10/31/23 Rx Next Test Strips) cyanocobalamin (vitamin B-12) 500 500 mcg PO HS 12/19/21 10/31/23 History mcg tablet (Vitamin B-12) multivitamin with minerals (Men's 1 tab PO DAILY 12/19/21 10/31/23 History One Daily tablet) sodium chloride 5 % eye drops 1 drp OPB HS 12/19/21 10/31/23 History (Tyler 128) pen needle, diabetic 32 gauge x #4 Boxes 04/26/22 10/31/23 Rx 5/32" (BD Ultra-Fine Izzy Pen Needle) adalimumab 40 mg/0.8 mL See Rx Instructions subcut Q14D #2 06/17/22 10/31/23 Rx subcutaneous pen kit (Humira Pen) ea cadexomer iodine 0.9 % topical gel 40 g topical DAILY 30 days #40 10/27/22 10/31/23 Rx (Iodosorb) grams diclofenac sodium 1 % topical gel 2 g topical QID #100 grams 10/27/22 10/31/23 Rx (Arthritis Pain (diclofenac)) mupirocin calcium 2 % topical cream 1 applic topical UD #30 grams 10/27/22 10/31/23 Rx empagliflozin 10 mg tablet 10 mg PO DAILY #90 tabs 11/29/22 10/31/23 Rx (Jardiance) dulaglutide 1.5 mg/0.5 mL 1.5 mg (0.5 mL) subcut WK #6 mL 12/18/22 10/31/23 Rx subcutaneous pen injector (Trulicity) rosuvastatin 40 mg tablet 40 mg PO DAILY #90 tabs 08/18/23 10/31/23 Rx cyclobenzaprine 10 mg tablet 10 mg PO Q8H PRN MUSCLE SPASMS #90 09/13/23 10/31/23 Rx tabs albuterol sulfate 90 mcg/actuation 1 puff inhalation Q6H PRN Wheezing 10/29/23 10/31/23 History aerosol inhaler allopurinol 300 mg tablet 450 mg PO DAILY 10/29/23 10/31/23 History bumetanide 2 mg tablet 4 mg PO BID 10/29/23 10/31/23 History duloxetine 30 mg capsule,delayed 30 mg PO DAILY 10/29/23 10/31/23 History release gabapentin 300 mg capsule 600 mg PO TID 10/29/23 10/31/23 History insulin aspart U-100 100 unit/mL 18 unit subcut TID 10/29/23 10/31/23 History (3 mL) subcutaneous pen (Novolog FlexPen U-100 Insulin aspart) insulin glargine 100 unit/mL (3 65 unit subcut HS 10/29/23 10/31/23 History mL) subcutaneous pen (Lantus Solostar U-100 Insulin) losartan 25 mg tablet 25 mg PO DAILY 10/29/23 10/31/23 History metformin 500 mg tablet 1,000 mg PO BID 10/29/23 10/31/23 History metoprolol succinate 50 mg 50 mg PO DAILY 10/29/23 10/31/23 History tablet,extended release 24 hr omeprazole 20 mg capsule,delayed 40 mg PO DAILY 10/29/23 10/31/23 History release prednisone 5 mg tablet 5 mg PO DAILY 10/29/23 10/31/23 History rivaroxaban 20 mg tablet (Xarelto) 20 mg PO HS 10/29/23 10/31/23 History spironolactone 50 mg tablet 50 mg PO BID 10/29/23 10/31/23 History tramadol 37.5 mg-acetaminophen 325 1 tab PO BID PRN Pain #60 tabs 11/01/23 Rx mg tablet docusate sodium 100 mg capsule 100 mg PO BID #60 caps 11/04/23 Rx oxycodone 5 mg tablet 5 mg PO Q4H PRN moderate-severe 11/04/23 Rx pain #10 tabs polyethylene glycol 3350 17 gram 17 g PO DAILY #30 ea 11/04/23 Rx oral powder packet (Miralax) Hospital Stay Data Consultations 10/29/23 20:43 ED Decision to Admit Stat 10/29/23 21:43 Consult Orthopedic Surgery Routine Procedures Performed Operation Date: 11/01/23 12:30 <No data on this case meets the specified criteria> Diagnostic Imagining Performed 10/29/23 19:41 CT knee LT wo con Stat 10/30/23 12:38 MR knee LT wo con Urgent US leg [US venous doppler LE LT] Urgent Pending Results Patient Have Any Pending Studies at Discharge: No Discharge Instructions Given to Patient (Per Discharging Provider) Orthopedic Instructions: - Nonweightbearing on left lower extremity with immobilizer and walker use at all times. -Xarelto for DVT prophylaxis -Pain control with p.o. medication - Ice with easy wrap to left knee as needed for pain/swelling - Wear brace left leg at all times. May remove to check skin and light bathing activities - Vitamin D 50,000 IU weekly x 6 weeks - Follow up with Dr. Sherbondy as scheduled on 11/15/2023 at 9:30 a.m. Please call [phone] with any need to reschedule or confirm your appointment. Also call with any concerns or questions as needed. Total Time Total Time Spent Total Time Spent (In Minutes): 35 min Coding Level of Care Code 00553 INP/OBS DISCH >30 MIN Diagnoses Tibial plateau fracture, left S82.142A Encounter type: initial encounter Fracture type: closed Complete tear of MCL of knee S83.419A Chronic heart failure with preserved ejection fraction I50.32 Diabetic peripheral neuropathy E11.42 Psoriatic arthritis L40.50 Atrial fibrillation, permanent I48.21 Primary hypertension I10 Gout M10.9 Chronicity: chronic Gout etiology: due to renal impairment Gout site: foot Laterality: right GERD (gastroesophageal reflux disease) K21.9 Hyperlipidemia E78.5 DMII (diabetes mellitus, type 2) E11.9
[2023-11-05] MEDS ORDERED: DULAGLUTIDE 1.5 MG/0.5 ML PEN SQ SCH (09:00)
== END 2023-11-04 12:14 | DRG 563 ==
LOC: 2N 18:04 → ED 18:04 → SUATTDRO 21:06 → MERGE 21:06 → 2N 21:56 → 3N 11-01 23:48

== ENCOUNTER 2025-05-10 00:29 | Inpatient (IN) ==
[2025-05-10 01:06] LABS: Hematocrit (blood only) 38.3 % (42.0-52.0); Hemoglobin 12.5 g/dl (14.0-18.0); Immature Granulocytes # (auto) 0.06 K/uL (0.01-0.20); Immature Granulocytes % (auto) 0.6 %; Mean Corpuscular Hemoglobin 27.1 pg (25.0-34.0); Mean Corpuscular Volume 83.1 fL (80.0-100.0); Platelet Count 188 K/uL (130-400); RDW Standard Deviation 54.6 fL (36.4-46.3); Red Blood Count 4.61 M/uL (4.70-6.10); White Blood Count 9.73 K/ul (4.8-10.8)
[2025-05-10] MEDS: SODIUM CHLORIDE 0.9% 1,000 ML IV SCH (01:20)
[2025-05-10] MEDS: CEFEPIME 2000MG 2,000 MG/20 ML SYR IV STA (01:20)
[2025-05-10] MEDS: AMIODARONE 150MG / 100ML D5W IV ONE (01:21)
[2025-05-10 01:23] LABS: Alanine Aminotransferase 18.0 U/L (7-52); Alkaline Phosphatase 65.0 U/L (34-104); Anion Gap 8.0 (3-11); Bilirubin,Total 0.9 mg/dl (0.2-1.0); Blood Urea Nitrogen 23.0 mg/dl (6-23); Calcium 9.7 mg/dl (8.6-10.3); Carbon Dioxide 30.0 mmol/L (21-32); Chloride 93.0 mmol/L (98-107); Creatinine Clr Calc Pharmacy 73.8 ml/min; Glucose 134.0 mg/dl (70-99(Fasting)); Magnesium 2.0 mg/dl (1.7-2.4); Potassium 4.1 mmol/L (3.5-5.1); Sodium 131.0 mmol/L (136-145); Total Protein 7.8 gm/dl (6.0-8.3)
[2025-05-10] MEDS ORDERED: 0.2 MICRON FILTER SET 1 EACH IV STA (01:35)
[2025-05-10] MEDS: AMIODARONE / D5W 150 MG/100 ML BAG IV STA (01:37)
[2025-05-10] MEDS: AMIODARONE / D5W 360 MG/200 ML BAG IV ONE (01:37)
[2025-05-10] MEDS: AMIODARONE IV BOLUS & DRIP IV STA (01:38)
[2025-05-10] MEDS: AMIODARONE 360MG / 200ML D5W IV ONE (01:39)
--- NOTE | 2025-05-10 01:39 | XRay Report ---
EXAM: XR chest 1V portable CLINICAL HISTORY: Sepsis TECHNIQUE: An X-ray image of the chest is obtained in PA projection. COMPARISON: No prior studies are available for comparison. FINDINGS: Pulmonary Parenchyma: Prominent bronchovascular markings. Nonspecific findings. 6 mm nodular opacity seen in left upper zone. Lungs are clear bilaterally. No evidence of consolidation, collapse, or focal opacities. No evidence of pleural effusion or pleural thickening. Heart and Mediastinum: Heart size and shape are normal. No mediastinal widening or masses. No hilar or mediastinal lymphadenopathy. Bony Thorax: Degenerative changes of the visualized skeleton. Bony thorax appears intact without fractures or deformities. Soft Tissues: Soft tissues overlying the chest wall are unremarkable. IMPRESSION: 1. No acute cardiopulmonary abnormalities are identified. 2. 6 mm nodular opacity seen in the left upper zone. Electronically signed by Lenny Leblanc 05-10-2025 01:39 AM
[2025-05-10] MEDS: STAT IV Infusion **Titration per Protocol STA (01:52)
--- NOTE | 2025-05-10 01:59 | Emergency Department Note ---
Impression & Plan Sepsis, V tach, Atrial fibrillation with rapid ventricular response admit to the [facility] ED Provider Note NAME: VIDA BAZAN Jr AGE: 70 SEX: Male INFORMANT: Patient ED PROVIDER(S): Ruby Stallings DO CHIEF COMPLAINT: weakness and nausea PLAN: Disposition: admit to the [facility] MEDICAL DECISION MAKING: This is a 70-year-old male patient who presents to the emergency department tonight for significant weakness and nausea. Family became concerned tonight when the patient was so weak that he fell forward on his cane. he did not injure himself. He notes that he had some urinary incontinence over the past couple of days. He had diffuse generalized pain and took tramadol yesterday which seemed to help. He has had intermittent diarrhea and weakness over the past 12 days. On presentation today, the patient was in A-fib with RVR and appeared pale, cool and diaphoretic. A septic protocol was performed. Laboratory studies revealed no leukocytosis or significant anemia. Sodium was slightly low at 131. BUN was 23 and creatinine was 1.45 which is baseline for the patient. Glucose was 109. Lactate and procalcitonin were both elevated. Troponin was negative. While I was evaluating the patient, he had multiple runs of ventricular tachycardia. The patient was bolused with IV amiodarone and started on amiodarone drip. I remained at the bedside for an extended period of time as the patient was noted to be hypotensive. He was bolused with a liter of normal saline initially but then also thought to be septic as he was febrile and had elevated lactate and procalcitonin. He received 30 mL/kg crystalloid. Patient was given a dose of IV cefepime after blood cultures were obtained. Bio fire was negative. Urinalysis was negative for signs of infection. After the IV amiodarone drip was initiated, the runs of ventricular tachycardia seem to decrease. His hypotension resolved after a short period of time. The patient had no episodes of diarrhea while here in the emergency department and therefore we could not test the stool. I discussed the case at length with the patient and his family who are at the bedside. I contacted the [facility] for admission. Care/management discussed with: engineering design manager, the patient's family who was at the bedside, and the [place] Hospitalist Triage Nursing notes: reviewed and agree With them. Vital Signs: reviewed and remarkable for tachycardia Additional History obtained from: patient's sister who is at the bedside Chronic Medical/Social Conditions affecting care: atrial fibrillation, diabetes Prior/ Outside/ External records reviewed: [none] Differential Diagnosis: sepsis, UTI, cardiac dysrhythmia, cardiac ischemia, Diarrheal illness, pneumonia Diagnostics, independently interpreted by me: ECG: A-fib with RVR at a rate of 123 with PVCs and couplets. there is no ST segment elevation or signs of ischemia. Cardiac Monitoring: Atrial fibrillation at a rate of 119 with runs of V. tach Imaging studies: portable chest x-ray: Cardiomegaly with no overt heart failure or obvious pneumonia as per my independent interpretation HPI: 70 year old Male arrives for evaluation of generalized weakness, nausea and urinary incontinence. Family became concerned tonight when the patient was so weak that he fell forward on his cane. He notes that he had some urinary incontinence over the past couple of days. He had diffuse generalized pain and took tramadol yesterday which seemed to help. He has had intermittent diarrhea and weakness over the past 12 days. PAST MEDICAL HISTORY: See Below, PAST SURGICAL HISTORY: See Below, SOCIAL HISTORY: See Below, HOME MEDICATIONS: see list ALLERGIES: see list VITALS: See Below PHYSICAL EXAMINATION: HEENT: Head - normocephalic and atraumatic. Pupils are equal, round, and reactive to light. Extraocular eye muscles are intact, and sclera are anicteric. Nose - Dry nasal mucosa without discharge. Mouth - dry buccal mucosa. Oropharynx is nonerythematous and there is no tonsillar exudate or edema noted. Neck: Supple; no JVD, nuchal rigidity, cervical lymphadenopathy. Heart: Irregularly irregular rhythm with a tachycardic rate. There is a normal S1 and S2 with no murmurs, clicks, or gallops appreciated. Lungs: Clear to auscultation bilaterally with no wheezes, rales, or rhonchi. Abdomen: Soft, completely nontender, nondistended, with good bowel sounds. There are no palpable pulsatile masses or hepatosplenomegaly. There is no guarding, rigidity, or rebound noted. Extremities: No evidence of cyanosis, clubbing, or edema. There are easily palpable peripheral pulses. Skin: Pale, cool, diaphoretic with good turgor and no rashes. Emergency department treatment: gambling monitor, supplemental oxygen, IV normal saline bolus, IV cefepime, IV amiodarone bolus, IV amiodarone drip Emergency Department course: The patient was quickly examined in room C-2 as he was hypotensive upon presentation. a septic protocol was performed. 2 IVs were initiated. The patient was bolused with 30 mL/kg of normal saline solution. Blood cultures were obtained. Portable chest x-ray was performed. An order was placed for continuous cardiac monitoring. The patient was in atrial fibrillation with a rapid ventricular response with runs of ventricular tachycardia. Patient had a twelve-lead EKG obtained. He was bolused with IV amiodarone and started on amiodarone drip. A urine specimen was obtained. Bio fire testing was performed. Patient was given a dose of IV cefepime. I discussed the case with the [facility] Hospitalist and they will evaluate for further inpatient care. I have personally spent greater than 80 minutes of critical care time in the direct management of this patient. This includes bedside care, interpretation of diagnostic studies, and testing, discussion with consultants, patient, and family members, and other required patient management activities. This 80 minutes is in excess of all separately billable procedures. Past Med/Surg History Problem List (Updated 05/10/25 @ 15:33 by Ruby Stallings DO) Atrial fibrillation with rapid ventricular response (Acute) V tach (Acute) Sepsis (Acute) Rib pain Sepsis Class 3 obesity Hypercalcemia Pre-ulcerative corn or callous Chronic pain Osteoarthritis Type 2 diabetes mellitus with insulin therapy Diabetic peripheral neuropathy Metabolic syndrome Psoriatic arthritis Class 3 severe obesity with body mass index (BMI) of 45.0 to 49.9 in adult Type 2 diabetes mellitus with microalbuminuria, with long-term current use of insulin Atrial fibrillation, permanent Primary hypertension Chronic heart failure with preserved ejection fraction Paroxysmal atrial fibrillation Hyperlipidemia LDL goal <70 Psoriasis Vitamin D deficiency Chronic gastroesophageal reflux disease (Chronic 05/23/13) Gout (Chronic) Diabetic nephropathy associated with type 2 diabetes mellitus (Chronic) Morbid obesity Tibial plateau fracture, left (Acute) GERD (gastroesophageal reflux disease) Hyperlipidemia HTN (hypertension) Type 2 diabetes mellitus with obesity Medical History Hx of fall Diverticulosis of colon Internal hemorrhoids Surgical History History of total left hip arthroplasty History of total right hip arthroplasty History of total hip arthroplasty Family History Family/Other Brain cancer Uncle Colorectal cancer Prostate cancer Father Myocardial infarction Mother Myocardial infarction Lung cancer Denies family history of Ovarian cancer Breast cancer Social History Smoking Status: Former smoker Tobacco Type: Cigarettes Age Started Using Tobacco: 17; Age Quit Using Tobacco: 31; packs per day: 1; Smoking End Date: 2001; Second Hand Exposure: No; Do You Dip or Chew Tobacco: No; Tobacco Cessation Education Requested by Patient: No Hx Alcohol Use: No Hx Substance Use: No Preferred Language: Bulgarian Communication Ability: Effective Visual Impairment: No Limitations Hourly Caregiver Required: No Beliefs That Will Affect Care: None Current Living Situation: Spouse Current Living Situation Comment: with in home current occupational status: retired Other Information That Helps Us Care for You: No Feels Safe at Home: Yes Safety Concerns: Feels Safe At This Time Childhood Exposure to Second-Hand Smoke: Yes Dental Care, Regularly: Yes Physical Activity Frequency: Does not Exercise Seatbelt Use: always Sunscreen Use: Yes Assistive Devices: Cane, Oxygen - Continuous and Walker Allergies Allergies Allergy/AdvReac Type Severity Reaction Status Date / Time No Known Allergies Allergy Verified 05/10/25 02:04 Home Meds Home Medications Medication Instructions Recorded Confirmed cyanocobalamin (vitamin B-12) 500 500 mcg PO HS 12/19/21 05/10/25 mcg tablet (Vitamin B-12) prednisone 5 mg tablet 5 mg PO DAILY 10/29/23 05/10/25 aspirin 81 mg tablet 81 mg PO DAILY 04/22/25 05/10/25 adalimumab 40 mg/0.8 mL 40 mg subcut Q14D 05/10/25 05/10/25 subcutaneous pen kit (Humira Pen) [id number]-hqh-[id number] acid-vit 1 tab PO DAILY 05/10/25 05/10/25 K-lycop 400 mcg-20 mcg-370 mcg tablet (Men's 50 Plus Daily Formula) mupirocin calcium 2 % topical cream 1 applic topical DIRECTED PRN 05/10/25 05/10/25 Skin Irritation nystatin 100,000 unit/gram topical 1 applic topical DAILY PRN Skin 05/10/25 05/10/25 powder Irritation tirzepatide 10 mg/0.5 mL 10 mg subcut WK 05/10/25 05/10/25 subcutaneous pen injector Previous Rx's Medication Instructions Recorded pen needle, diabetic 32 gauge x #4 Boxes 04/26/2232" (BD Ultra-Fine Izzy Pen Needle) diclofenac sodium 1 % topical gel 2 g topical QID #100 grams 10/27/22 (Arthritis Pain (diclofenac)) bumetanide 2 mg tablet 4 mg (2 x 2 mg) PO BID #360 tabs 08/23/24 ezetimibe 10 mg tablet 10 mg PO DAILY #90 tabs 08/23/24 duloxetine 30 mg capsule,delayed 30 mg PO DAILY #90 caps 10/30/24 release metformin 500 mg tablet 500 mg PO BID 90 days #180 tabs 11/20/24 allopurinol 300 mg tablet 450 mg (1.5 x 300 mg) PO DAILY 01/25/25 #135 tabs cyclobenzaprine 10 mg tablet 10 mg PO Q8H PRN MUSCLE SPASMS #90 01/25/25 tabs insulin glargine 100 unit/mL (3 55 unit (0.55 mL) subcut HS #15 mL 01/25/25 mL) subcutaneous pen (Lantus Solostar U-100 Insulin) rivaroxaban 20 mg tablet (Xarelto) 20 mg PO DAILY #90 tabs 01/25/25 rosuvastatin 40 mg tablet 40 mg PO DAILY #90 tabs 01/25/25 omeprazole 40 mg capsule,delayed 40 mg PO DAILY #90 caps 03/19/25 release blood sugar diagnostic (Contour #3 Boxes 03/25/25 Next Test Strips) tramadol 37.5 mg-acetaminophen 325 1 tab PO BID PRN Pain #60 tabs 03/25/25 mg tablet empagliflozin 10 mg tablet 10 mg PO DAILY #90 tabs 04/18/25 (Jardiance) insulin aspart U-100 100 unit/mL 15 unit (0.15 mL) subcut TID #45 mL 04/18/25 (3 mL) subcutaneous pen (Novolog FlexPen U-100 Insulin aspart) gabapentin 300 mg capsule 600 mg (2 x 300 mg) PO TID #630 04/24/25 caps hydrocortisone 2 % lotion 1 applic topical BID PRN skin 04/24/25 irritation #29.6 mL metoprolol succinate 50 mg 50 mg PO DAILY #90 tabs 04/24/25 tablet,extended release 24 hr spironolactone 50 mg tablet 50 mg PO BID #180 tabs 04/24/25 losartan 25 mg tablet 25 mg PO DAILY #90 tabs 04/26/25 albuterol sulfate 90 mcg/actuation 1 puff inhalation Q6H PRN Wheezing 05/03/25 aerosol inhaler #8.5 grams Results & Data (ED) Vital Signs Vital Signs - 24 hr 05/10/25 00:25 05/10/25 00:35 05/10/25 00:37 Temperature 37.3 C Temperature Source Oral Pulse Rate 116 H 126 H Pulse Rate [Apical] Pulse Rate from SpO2 Sensor Pulse Rhythm [Apical] Respiratory Rate 22 Respiratory Effort / Characteristics Spontaneous Labored Respiratory Depth Normal Blood Pressure 90/67 L Blood Pressure [Left Arm] Blood Pressure Mean 74 Blood Pressure Mean [Left Arm] Pulse Oximetry 83 L 94 Oxygen Delivery Method Room Air Nasal Cannula Nasal Cannula Oxygen Flow Rate 3 Sepsis Recent Fever Within 48 Hours No Sepsis New/Unexplained Change in Mental Status N/A Sepsis Action Taken by Nursing Physician Notified Oxygen Flow Rate - Titration 4 Pulse Oximetry Post Tiitration 94 05/10/25 00:49 05/10/25 01:14 05/10/25 01:23 Temperature Temperature Source Pulse Rate 131 H Pulse Rate [Apical] 116 H Pulse Rate from SpO2 Sensor Pulse Rhythm [Apical] Irregular Respiratory Rate 24 Respiratory Effort / Characteristics Non-Labored Respiratory Depth Normal Blood Pressure Blood Pressure [Left Arm] 109/70 Blood Pressure Mean Blood Pressure Mean [Left Arm] 83 Pulse Oximetry 94 93 Oxygen Delivery Method Nasal Cannula Nasal Cannula Oxygen Flow Rate 4 4 Sepsis Recent Fever Within 48 Hours Sepsis New/Unexplained Change in Mental Status Sepsis Action Taken by Nursing Oxygen Flow Rate - Titration Pulse Oximetry Post Tiitration 05/10/25 01:34 05/10/25 01:38 05/10/25 01:45 Temperature Temperature Source Pulse Rate Pulse Rate [Apical] 105 H 120 H 119 H Pulse Rate from SpO2 Sensor Pulse Rhythm [Apical] Irregular Irregular Respiratory Rate 27 H 33 H 24 Respiratory Effort / Characteristics Non-Labored Respiratory Depth Normal Normal Blood Pressure Blood Pressure [Left Arm] 103/74 109/58 L 125/73 Blood Pressure Mean Blood Pressure Mean [Left Arm] 83 75 90 Pulse Oximetry 96 93 96 Oxygen Delivery Method Nasal Cannula Nasal Cannula Nasal Cannula Oxygen Flow Rate 4 4 4 Sepsis Recent Fever Within 48 Hours Sepsis New/Unexplained Change in Mental Status Sepsis Action Taken by Nursing Oxygen Flow Rate - Titration Pulse Oximetry Post Tiitration 05/10/25 01:51 05/10/25 02:09 05/10/25 02:33 Temperature Temperature Source Pulse Rate 105 H 105 H 110 H Pulse Rate [Apical] Pulse Rate from SpO2 Sensor Pulse Rhythm [Apical] Respiratory Rate 26 H 21 19 Respiratory Effort / Characteristics Respiratory Depth Blood Pressure 118/63 115/69 101/62 Blood Pressure [Left Arm] Blood Pressure Mean 81 84 75 Blood Pressure Mean [Left Arm] Pulse Oximetry 92 95 94 Oxygen Delivery Method Nasal Cannula Nasal Cannula Nasal Cannula Oxygen Flow Rate 4 4 4 Sepsis Recent Fever Within 48 Hours Sepsis New/Unexplained Change in Mental Status Sepsis Action Taken by Nursing Oxygen Flow Rate - Titration Pulse Oximetry Post Tiitration 05/10/25 02:42 05/10/25 02:50 05/10/25 03:00 Temperature Temperature Source Pulse Rate 109 H 102 H 95 H Pulse Rate [Apical] Pulse Rate from SpO2 Sensor Pulse Rhythm [Apical] Respiratory Rate 21 22 20 Respiratory Effort / Characteristics Respiratory Depth Blood Pressure 96/59 L 98/65 L 112/56 L Blood Pressure [Left Arm] Blood Pressure Mean 71 80 74 Blood Pressure Mean [Left Arm] Pulse Oximetry 93 94 94 Oxygen Delivery Method Nasal Cannula Nasal Cannula Nasal Cannula Oxygen Flow Rate 4 4 4 Sepsis Recent Fever Within 48 Hours Sepsis New/Unexplained Change in Mental Status Sepsis Action Taken by Nursing Oxygen Flow Rate - Titration Pulse Oximetry Post Tiitration 05/10/25 03:09 Temperature Temperature Source Pulse Rate 99 H Pulse Rate [Apical] Pulse Rate from SpO2 Sensor 92 H Pulse Rhythm [Apical] Respiratory Rate 16 Respiratory Effort / Characteristics Respiratory Depth Blood Pressure 97/55 L Blood Pressure [Left Arm] Blood Pressure Mean 69 Blood Pressure Mean [Left Arm] Pulse Oximetry 94 Oxygen Delivery Method Oxygen Flow Rate Sepsis Recent Fever Within 48 Hours Sepsis New/Unexplained Change in Mental Status Sepsis Action Taken by Nursing Oxygen Flow Rate - Titration Pulse Oximetry Post Tiitration Laboratory Data 05/10/25 00:45 05/10/25 00:45 Lab Results 05/10/25 05/10/25 Range/Units 00:45 01:30 WBC 9.73 (4.8-10.8) K/ul RBC 4.61 L (4.70-6.10) M/uL Hgb 12.5 L (14.0-18.0) g/dl Hct 38.3 L (42.0-52.0) % MCV 83.1 (80.0-100.0) fL MCH 27.1 (25.0-34.0) pg MCHC 32.6 (32.0-36.0) g/dL RDW Std Deviation 54.6 H (36.4-46.3) fL RDW Coeff of Vijay 18.5 H (11.5-14.5) % Plt Count 188 (130-400) K/uL MPV 11.3 (9.4-12.4) fL Immature Gran % (Auto) 0.6 % Neut % (Auto) 83.1 % Lymph % (Auto) 7.9 % Trinity % (Auto) 8.1 % Eos % (Auto) 0.1 % Baso % (Auto) 0.2 % Neut # (Auto) 8.08 H (1.40-6.50) K/uL Lymph # (Auto) 0.77 L (1.20-3.40) K/uL Trinity # (Auto) 0.79 H (0.11-0.59) K/uL Eos # (Auto) 0.01 (0.00-0.50) K/uL Baso # (Auto) 0.02 (0.00-0.20) K/uL Immature Gran # (Auto) 0.06 (0.01-0.20) K/uL Sodium 131 L (136-145) mmol/L Potassium 4.1 (3.5-5.1) mmol/L Chloride 93 L (98-107) mmol/L Carbon Dioxide 30 (21-32) mmol/L Anion Gap 8 (3-11) BUN 23 (6-23) mg/dl Creatinine 1.45 H (0.6-1.4) mg/dl Est Cr Clr Drug Dosing 73.8 ml/min eGFR 51.52 BUN/Creatinine Ratio 15.9 (10-20) Glucose 134 H (70-99(Fasting)) mg/dl Lactate 2.2 H* (0.4-2.0) mmol/L Calcium 9.7 (8.6-10.3) mg/dl Magnesium 2.0 (1.7-2.4) mg/dl Total Bilirubin 0.9 (0.2-1.0) mg/dl Direct Bilirubin 0.2 (0-0.2) mg/dl AST 21 (13-39) U/L ALT 18 (7-52) U/L Alkaline Phosphatase 65 (34-104) U/L Troponin I High Sens 7.5 (0-20) pg/ml Total Protein 7.8 (6.0-8.3) gm/dl Albumin 3.2 L (3.4-5.0) gm/dl Procalcitonin 2.18 H (0-0.5) ng/ml Adenovirus (PCR) Not Detected (NotDetected) B. pertussis DNA (PCR) Not Detected (NotDetected) B.parapertussis DNA PCR Not Detected (NotDetected) C. pneumoniae DNA (PCR) Not Detected (NotDetected) Coronavirus OC43 (PCR) Not Detected (NotDetected) Coronavirus HKU1 (PCR) Not Detected (NotDetected) Coronavirus 229E (PCR) Not Detected (NotDetected) SARS-CoV-2 (PCR) Not Detected (NotDetected) Coronavirus NL63 (PCR) Not Detected (NotDetected) Human Metapneumovir PCR Not Detected (NotDetected) Influenza Type A (PCR) Not Detected (NotDetected) Influenza Type B (PCR) Not Detected (NotDetected) M. pneumoniae (PCR) Not Detected (NotDetected) Parainfluenza 1 (PCR) Not Detected (NotDetected) Parainfluenza 2 (PCR) Not Detected (NotDetected) Parainfluenza 3 (PCR) Not Detected (NotDetected) Parainfluenza 4 (PCR) Not Detected (NotDetected) RSV (PCR) Not Detected (NotDetected) Entero/Rhino (PCR) Not Detected (NotDetected) Administered Medications Acetaminophen (Acetaminophen 325 Mg Tab) 650 mg PO Q4H PRN PRN Reason: Pain or Fever Stop: 06/09/25 04:57 Last Admin: 05/10/25 11:04 Dose: 650 mg Documented By: OS Allopurinol (Allopurinol 300 Mg Tab) 450 mg PO DAILY [facility] Stop: 06/09/25 08:59 Last Admin: 05/10/25 08:14 Dose: 450 mg Documented By: OS Aspirin (Aspirin 81 Mg Ectab) 81 mg PO DAILY [facility] Stop: 06/09/25 08:59 Last Admin: 05/10/25 08:16 Dose: 81 mg Documented By: OS Diclofenac Sodium (Diclofenac Sod 1% Gel 100 Gm Tube) 2 gm EXT QID JORGE; Protocol Stop: 06/09/25 08:59 Last Admin: 05/10/25 13:05 Dose: 2 gm Documented By: Admin: 05/10/25 08:19 Dose: 2 gm Documented By: OS Duloxetine HCl (Duloxetine Hcl 30 Mg Cap) 30 mg PO DAILY [facility] Stop: 06/09/25 08:59 Last Admin: 05/10/25 08:15 Dose: 30 mg Documented By: OS Ezetimibe (Ezetimibe 10 Mg Tab) 10 mg PO DAILY JORGE Stop: 06/09/25 08:59 Last Admin: 05/10/25 08:15 Dose: 10 mg Documented By: OS Gabapentin (Gabapentin 300 Mg Cap) 600 mg PO TID [facility] Stop: 06/09/25 08:59 Last Admin: 05/10/25 14:22 Dose: 600 mg Documented By: Admin: 05/10/25 08:18 Dose: 600 mg Documented By: OS Amiodarone HCl/Dextrose (Nexterone / D5w) 360 mg in 200 mls @ 16.667 mls/hr IV .Q12H [facility] Stop: 06/09/25 07:44 Last Admin: 05/10/25 07:14 Dose: 0.5 mg/min, 16.7 mls/hr Documented By: GI Co-signed By: YOBANI Lactated Ringer's (Lr) 1,000 mls @ 125 mls/hr IV .Q8H [facility] Stop: 05/10/25 20:57 Last Admin: 05/10/25 14:02 Dose: 125 mls/hr Documented By: Infusion: 05/10/25 13:29 Dose: Infused Documented By: Admin: 05/10/25 05:29 Dose: 125 mls/hr Documented By: GI Cefepime HCl (Maxipime 2000mg) 2,000 mg in 20 mls @ 5 mls/min IV Q8H [facility]; Protocol Stop: 05/12/25 08:59 Last Admin: 05/10/25 09:01 Dose: 5 mls/min Documented By: OS Insulin Aspart (Insulin Aspart Per Unit Charge) 0 units SC ACHS JORGE Stop: 06/09/25 07:29 Last Admin: 05/10/25 12:20 Dose: 4 units Documented By: OS Co-signed By: YOBANI Admin: 05/10/25 08:13 Dose: 5 units Documented By: OS Co-signed By: YOBANI Insulin Glargine (Lantus Per Unit Charge) 20 units SQ BID JORGE Stop: 06/09/25 08:59 Last Admin: 05/10/25 08:22 Dose: 20 units Documented By: OS Co-signed By: YOBANI Lidocaine (Lidocaine 5% 1 Patch) 1 patch TD QAM [facility] Stop: 06/09/25 08:59 Last Admin: 05/10/25 08:17 Dose: 1 patch Documented By: OS Pantoprazole Sodium (Pantoprazole 40 Mg Tab) 40 mg PO DAILY [facility] Stop: 06/09/25 08:59 Last Admin: 05/10/25 08:19 Dose: 40 mg Documented By: OS Prednisone (Prednisone 5 Mg Tab) 5 mg PO DAILY [facility] Stop: 06/09/25 08:59 Last Admin: 05/10/25 08:16 Dose: 5 mg Documented By: OS Rivaroxaban (Rivaroxaban 20 Mg Tab) 20 mg PO DAILY [facility] Stop: 06/09/25 08:59 Last Admin: 05/10/25 08:20 Dose: 20 mg Documented By: OS Rosuvastatin Calcium (Rosuvastatin Calcium 20 Mg Tab) 40 mg PO DAILY JORGE Stop: 06/09/25 08:59 Last Admin: 05/10/25 08:16 Dose: 40 mg Documented By: OS Discontinued Medications Amiodarone HCl/Dextrose (Amiodarone 150mg / 100ml D5w) Confirm Administered Dose 150 mg IV .STK-MED ONE Stop: 05/10/25 01:20 Last Admin: 05/10/25 01:21 Dose: 150 mg Documented By: EMB Co-signed By: MAYUR Amiodarone HCl/Dextrose (Amiodarone 360mg / 200ml D5w) Confirm Administered Dose 360 mg IV .STK-MED ONE Stop: 05/10/25 01:20 Last Admin: 05/10/25 01:39 Dose: Not Given Documented By: SERA Amiodarone HCl (Amiodarone Iv Bolus & Drip) 1 each IV NOW STA; Protocol Stop: 05/10/25 01:36 Last Admin: 05/10/25 01:38 Dose: Not Given Documented By: SERA Sodium Chloride (Nss) 1,000 mls @ 999 mls/hr IV .Q1H1M JORGE Stop: 05/10/25 03:15 Last Infusion: 05/10/25 02:35 Dose: Infused Documented By: JaeT Admin: 05/10/25 01:34 Dose: 999 mls/hr Documented By: Infusion: 05/10/25 01:34 Dose: Infused Documented By: Admin: 05/10/25 01:20 Dose: 999 mls/hr Documented By: SERA Cefepime HCl (Maxipime 2000mg) 2,000 mg in 20 mls @ 5 mls/min IV NOW STA; Protocol Stop: 05/10/25 01:17 Last Admin: 05/10/25 01:20 Dose: 5 mls/min Documented By: SERA Amiodarone HCl/Dextrose (Nexterone / D5w) 150 mg in 100 mls @ 600 mls/hr IV NOW STA Stop: 05/10/25 01:44 Last Admin: 05/10/25 01:37 Dose: Not Given Documented By: SERA Amiodarone HCl/Dextrose (Nexterone / D5w) 360 mg in 200 mls @ 33.333 mls/hr IV ONE ONE Stop: 05/10/25 07:44 Last Infusion: 05/10/25 07:54 Dose: Infused Documented By: YOBANI Co-signed By: HARMEET Admin: 05/10/25 01:37 Dose: 1 mg/min, 33.3 mls/hr Documented By: SERA Co-signed By: HAKEEM Sodium Chloride (Nss) 500 mls @ 999 mls/hr IV .Q31M ONE Stop: 05/10/25 02:24 Last Infusion: 05/10/25 03:28 Dose: Infused Documented By: Admin: 05/10/25 02:43 Dose: 999 mls/hr Documented By: SRAVANI Lactated Ringer's (Lr) 1,000 mls @ 999 mls/hr IV .Q1H1M STA Stop: 05/10/25 05:04 Last Infusion: 05/10/25 07:28 Dose: Infused Documented By: Admin: 05/10/25 04:05 Dose: 999 mls/hr Documented By: MAYUR Sodium Chloride (Nss) 250 mls @ 999 mls/hr IV .Q16M ONE Stop: 05/10/25 11:37 Last Infusion: 05/10/25 12:08 Dose: Infused Documented By: Admin: 05/10/25 11:35 Dose: 999 mls/hr Documented By: OS Miscellaneous (Stat Iv Infusion Titration Per Protocol) 1 each N/A NOW STA Stop: 05/10/25 01:36 Last Admin: 05/10/25 01:52 Dose: Not Given Documented By: JT Imaging Data Radiologist's Impression: Chest CT 05/10/25 03:07 EXAM: CT chest diagnostic wo con CLINICAL HISTORY: Nodular opacity in LIZETH noted on CXR TECHNIQUE: Contiguous axial CT images of the chest were acquired without administration of intravenous contrast. Coronal and sagittal reconstructions were obtained. One of the following dose reduction techniques was utilized for this exam: Automated exposure control, adjustment of the mA and/or kV according to patient size, and use of iterative reconstruction. (CTDI: 38.96 mGy, DLP: 1340.85 mGy*cm) COMPARISON: with the prior X-ray 05/10/2025. FINDINGS: Lungs: Left upper lung lobe atelectatic is seen with no related consolidation or nodules. Right lower lung lobe small 6 mm solid nodule noted at its apical segment. Tiny right upper lung lobe emphysematous bullae noted. The lung parenchyma is clear with no evidence of consolidation, collapse, or focal lesions. No pleural effusion Bilateral pleural thickenings. Mediastinum: The mediastinum is normal in size and contour. No mediastinal masses. Small reactive retrocaval lymph node noted. The heart size is within normal limits. Diffuse coronary atherosclerotic changes. Hilar Structures: The hilar structures appear normal without enlargement or abnormality. No atheromatous calcifications of the aorta or coronary arteries. Trachea and Main Bronchi: The trachea and main bronchi are patent without evidence of obstruction or abnormality. Chest Wall: The chest wall is unremarkable with no evidence of soft tissue or bony abnormalities. Upper Abdomen: Visualized portions of the liver, spleen, adrenal glands, and kidneys are unremarkable. Bones: Moderate spondylosis of the thoracic spine noted. Visualized osseous structures are normal, with no evidence of fracture or lytic/sclerotic lesions. IMPRESSION: 1. The left upper lung lobe demonstrates a thin atelectatic band with no related consolidation or nodules. 2. Right lower lung lobe small 6 mm solid nodule noted at its apical segment. Consider annual follow-up according to Fleischner Society guidelines. 3. Bilateral pleural thickenings. 4. The previously defined left upper lung zone nodular opacity in the X-ray was not defined in the current study and may be from outside the chest. Electronically signed by Lenny Leblanc 05-10-2025 05:46 AM Discharge Plan Visit Data Chief Complaint: Weakness Stated Complaint: Weakness, Fall, Rib Pain, Urinary Symptoms ED Provider: Ruby Stallings Discharge Problem: Sepsis, V tach, Atrial fibrillation with rapid ventricular response Patient Disposition: Admitted As Inpatient Condition: Critical Discharge Instructions Interventions: ED Discharge Assessment Last Done: 05/10/25 04:12
[2025-05-10 02:38] LABS: Chlamydia pneumoniae PCR Not Detected (NotDetected); Coronavirus 229E PCR Not Detected (NotDetected); Coronavirus CoV-2 (COVID19)PCR Not Detected (NotDetected); Coronavirus HKU1 PCR Not Detected (NotDetected); Coronavirus NL63 PCR Not Detected (NotDetected); Coronavirus OC43PCR Not Detected (NotDetected); Human Metapneumovirus PCR Not Detected (NotDetected); Parainfluenza Virus 1 PCR Not Detected (NotDetected); Parainfluenza Virus 2 PCR Not Detected (NotDetected); Parainfluenza Virus 3 PCR Not Detected (NotDetected); Parainfluenza Virus 4 PCR Not Detected (NotDetected); Respiratory Syncytial VirusPCR Not Detected (NotDetected); Rhinovirus/Enterovirus PCR Not Detected (NotDetected)
[2025-05-10] MEDS: SODIUM CHLORIDE 0.9% 500 ML IV ONE (02:43)
--- NOTE | 2025-05-10 03:13 | History & Physical Report ---
Date of Service May 10, 2025 Assessment & Plan (1) Sepsis: (2) Rib pain: (3) Atrial fibrillation, permanent: (4) Type 2 diabetes mellitus with insulin therapy: (5) HTN (hypertension): (6) Hyperlipidemia LDL goal <70: (7) Chronic gastroesophageal reflux disease: (8) Gout: Plan 70yo male with history of DM, HTN, HLP, AF presenting with 1 week of generalized weakness, fatigue, nausea/vomiting, intermittent diarrhea and hallucinations. #Sepsis - Tachycardic on arrival with elevated procalcitonin=2.18 as well as lactate=2.2. Suspect sepsis, likely secondary to urinary source. Patient reports some urinary incontinence which is a fairly new symptom. Also appear to be volume contracted. Patient is immunocompromised host given history of RA being treated with Humira. Patient hypotensive upon arrival which continues to respond to IVF. UA has not yet been obtained - no urine present in bladder as of yet. Respiratory biofire panel is unremarkable. -Admit to PCU -Follow cultures sent from the ER -Check random cortisol -Check diagnostic CT of the chest - CXR notes a LIZETH finding -Awaiting collection of UA -Continue IVF - LR x 1L bolus ordered in ER (will make 3.5L bolus total), then continue LR at 125mL/hr x 2 liters. Goal MAP 65. If lower after IVF will discuss with MICU for possible pressors -Continue Cefepime 2gm IV q 8 hours -Tylenol PRN pain or fever -Zofran PRN nausea #Rib pain - patient reports falling against his ribs several weeks ago. Has had ongoing pain. Reports he has been able to breathe deeply without difficulty. -Check left sided rib series -Incentive spirometry, encourage use -Tylenol PRN pain -Lidoderm patch to left ribs daily #Atrial fibrillation - patient with frequent wide complexes present on court recording monitor. Possibly abherrant conduction. He has been started on Amiodarone for possible VT -Continue Amiodarone for now -Continue anticoagulation with Xarelto #Diabetes -Hold empagliflozin and Metformin -Lantus 20u BID -ISS -Goal blood sugar 110 - 180 -Continue Neurontin for neuropathy #Hyperlipidemia -Continue Zetia -Continue Crestor 40mg po daily #Hypertension - patient borderline hypotensive at present -Hold Metoprolol -Hold Spironolactone #GERD -Protonix 40mg po daily #RA -Continue Prednisone 5mg po daily -Check random cortisol - if decreased will administer IV Hydrocortisone #Gout -Continue Allopurinol 450mg po daily History of Present Illness Chief Complaint: sepsis Primary Care Provider: Funmilayo Arellano MD Mario Alberto Matt is a 70yo male with multiple medical comorbidities to include DM, HTN, HLP, GERD, AF on Xarelto anticoagulation, gout and psoriatic arthritis on Prednisone 5mg daily as well as Humira presenting with 1 week of generalized weakness and nausea. Patient states he has been hallucinating over the last several days as well - seeing images of hunting and fishing. Patient has also been having some urinary incontinence, ambulatory dysfunction, episodes of nausea and intermittent watery non/bloody diarrhea. Family states that he has been shaky and unsteady. Patient denies fever, chills, chest pain, palpitations, cough, SOB, abdominal pain, suprapubic pain. Patient did fall against the couch 2-3 weeks ago and struck his left chest. He has been having some ongoing rib pain since. In the ER patient afebrile. Tachycardic on arrival - atrial fibrillation with RVR. Also with runs of wide complex tachycardia, presumed VT. Blood pressure initially 90/60 which improved to 112/56 following 2500mL of IV crystalloid fluid (recommended sepsis bolus amount, 30mL/kg). ER Course: Amiodarone bolus and drip Cefepime 2gm IV NSS x 2.5L 1L LR bolus ordered and is currently infusing - will make 3.5L crystalloid. Patient appears dry on exam and BP continues to be fluid responsive Allergies Allergy/AdvReac Type Severity Reaction Status Date / Time No Known Allergies Allergy Verified 05/10/25 02:04 Home Medications Medication Instructions Recorded Confirmed Type cyanocobalamin (vitamin B-12) 500 500 mcg PO HS 12/19/21 05/10/25 History mcg tablet (Vitamin B-12) pen needle, diabetic 32 gauge x #4 Boxes 04/26/22 05/02/25 Rx 32" (BD Ultra-Fine Izzy Pen Needle) diclofenac sodium 1 % topical gel 2 g topical QID #100 grams 10/27/22 05/10/25 Rx (Arthritis Pain (diclofenac)) prednisone 5 mg tablet 5 mg PO DAILY 10/29/23 05/10/25 History bumetanide 2 mg tablet 4 mg (2 x 2 mg) PO BID #360 tabs 08/23/24 05/10/25 Rx ezetimibe 10 mg tablet 10 mg PO DAILY #90 tabs 08/23/24 05/10/25 Rx duloxetine 30 mg capsule,delayed 30 mg PO DAILY #90 caps 10/30/24 05/10/25 Rx release metformin 500 mg tablet 500 mg PO BID 90 days #180 tabs 11/20/24 05/10/25 Rx allopurinol 300 mg tablet 450 mg (1.5 x 300 mg) PO DAILY 01/25/25 05/10/25 Rx #135 tabs cyclobenzaprine 10 mg tablet 10 mg PO Q8H PRN MUSCLE SPASMS #90 01/25/25 05/10/25 Rx tabs insulin glargine 100 unit/mL (3 55 unit (0.55 mL) subcut HS #15 mL 01/25/25 05/10/25 Rx mL) subcutaneous pen (Lantus Solostar U-100 Insulin) rivaroxaban 20 mg tablet (Xarelto) 20 mg PO DAILY #90 tabs 01/25/25 05/10/25 Rx rosuvastatin 40 mg tablet 40 mg PO DAILY #90 tabs 01/25/25 05/10/25 Rx omeprazole 40 mg capsule,delayed 40 mg PO DAILY #90 caps 03/19/25 05/10/25 Rx release blood sugar diagnostic (Contour #3 Boxes 03/25/25 05/02/25 Rx Next Test Strips) tramadol 37.5 mg-acetaminophen 325 1 tab PO BID PRN Pain #60 tabs 03/25/25 05/10/25 Rx mg tablet empagliflozin 10 mg tablet 10 mg PO DAILY #90 tabs 04/18/25 05/10/25 Rx (Jardiance) insulin aspart U-100 100 unit/mL 15 unit (0.15 mL) subcut TID #45 mL 04/18/25 05/10/25 Rx (3 mL) subcutaneous pen (Novolog FlexPen U-100 Insulin aspart) aspirin 81 mg tablet 81 mg PO DAILY 04/22/25 05/10/25 History gabapentin 300 mg capsule 600 mg (2 x 300 mg) PO TID #630 04/24/25 05/10/25 Rx caps hydrocortisone 2 % lotion 1 applic topical BID PRN skin 04/24/25 05/10/25 Rx irritation #29.6 mL metoprolol succinate 50 mg 50 mg PO DAILY #90 tabs 04/24/25 05/10/25 Rx tablet,extended release 24 hr spironolactone 50 mg tablet 50 mg PO BID #180 tabs 04/24/25 05/10/25 Rx losartan 25 mg tablet 25 mg PO DAILY #90 tabs 04/26/25 05/10/25 Rx albuterol sulfate 90 mcg/actuation 1 puff inhalation Q6H PRN Wheezing 05/03/25 05/10/25 Rx aerosol inhaler #8.5 grams adalimumab 40 mg/0.8 mL 40 mg subcut Q14D 05/10/25 05/10/25 History subcutaneous pen kit (Humira Pen) ymfszlvitbzc-nps-ejygj acid-vit 1 tab PO DAILY 05/10/25 05/10/25 History K-lycop 400 mcg-20 mcg-370 mcg tablet (Men's 50 Plus Daily Formula) mupirocin calcium 2 % topical cream 1 applic topical DIRECTED PRN 05/10/25 05/10/25 History Skin Irritation nystatin 100,000 unit/gram topical 1 applic topical DAILY PRN Skin 05/10/25 05/10/25 History powder Irritation tirzepatide 10 mg/0.5 mL 10 mg subcut WK 05/10/25 05/10/25 History subcutaneous pen injector Past Med/Surg History Problem List (Updated 05/10/25 @ 04:01 by Bouchra Chacon DO) Rib pain Sepsis Class 3 obesity Hypercalcemia Pre-ulcerative corn or callous Chronic pain Osteoarthritis Type 2 diabetes mellitus with insulin therapy Diabetic peripheral neuropathy Metabolic syndrome Psoriatic arthritis Class 3 severe obesity with body mass index (BMI) of 45.0 to 49.9 in adult Type 2 diabetes mellitus with microalbuminuria, with long-term current use of insulin Atrial fibrillation, permanent Primary hypertension Chronic heart failure with preserved ejection fraction Paroxysmal atrial fibrillation Hyperlipidemia LDL goal <70 Psoriasis Vitamin D deficiency Chronic gastroesophageal reflux disease (Chronic 05/23/13) Gout (Chronic) Diabetic nephropathy associated with type 2 diabetes mellitus (Chronic) Morbid obesity Tibial plateau fracture, left (Acute) GERD (gastroesophageal reflux disease) Hyperlipidemia HTN (hypertension) Type 2 diabetes mellitus with obesity Medical History Hx of fall Diverticulosis of colon Internal hemorrhoids Surgical History History of total left hip arthroplasty History of total right hip arthroplasty History of total hip arthroplasty Family History Family/Other Brain cancer Uncle Colorectal cancer Prostate cancer Father Myocardial infarction Mother Myocardial infarction Lung cancer Denies family history of Ovarian cancer Breast cancer Social History Smoking Status: Former smoker Tobacco Type: Cigarettes Age Started Using Tobacco: 17; Age Quit Using Tobacco: 31; packs per day: 1; Second Hand Exposure: No; Do You Dip or Chew Tobacco: No; Hx Alcohol Use: No Hx Substance Use: No Preferred Language: Persian Communication Ability: Effective Visual Impairment: No Limitations Spray Gun Sizer Required: No Beliefs That Will Affect Care: None Current Living Situation: Spouse Current Living Situation Comment: with in home current occupational status: retired Feels Safe at Home: Yes Childhood Exposure to Second-Hand Smoke: Yes Dental Care, Regularly: Yes Physical Activity Frequency: Does not Exercise Seatbelt Use: always Sunscreen Use: Yes Assistive Devices: Cane, Glasses and Walker Review of Systems Review of Systems: All systems reviewed & are unremarkable except as noted in HPI & below Physical Exam Physical Exam: General: patient resting comfortably, NAD, ill in appearance, AA&O x 4 Skin: warm, dry, scattered abrasions on bilateral shins HEENT: NC/AT, PERRL, EOMI, anicteric sclera, conjunctiva without injection, external ear normal to inspection and nontender, nares patent, dry lips and mucus membranes, dentition intact, no oropharyngeal lesions, neck supple, trachea midline, no LAD, no thyromegaly, no JVD Heart: +S1/S2, irregularly irregular, tachycardic, no m/r/g Lungs: equal air entry bilaterally, no rales/rhonchi/wheezes, no crepitus or bruising over left ribs Abd: +BS, soft, NT/ND, no masses/organomegaly/ascites Ext: warm, 2+ pulses in UE/LE bilaterally, no clubbing/cyanosis or edema Neuro: nonfocal, patient AA&O x 4, speech intact, no facial droop, moving all extremities on command with equal strength 5/5 Results & Data Results & Data Vital Signs (Past 12 Hours) Vital Signs Temp Pulse Pulse Resp BP BP Pulse Ox 05/10/25 03:00 95 H 20 112/56 L 94 05/10/25 02:50 102 H 22 98/65 L 94 05/10/25 02:42 109 H 21 96/59 L 93 05/10/25 02:33 110 H 19 101/62 94 05/10/25 02:09 105 H 21 115/69 95 05/10/25 01:51 105 H 26 H 118/63 92 05/10/25 01:45 119 H 24 125/73 96 05/10/25 01:38 120 H 33 H 109/58 L 93 05/10/25 01:34 105 H 27 H 103/74 96 05/10/25 01:23 116 H 24 109/70 93 05/10/25 01:14 131 H 05/10/25 00:49 94 05/10/25 00:37 126 H 05/10/25 00:35 37.3 C 116 H 22 90/67 L 94 05/10/25 00:25 83 L O2 Del Method O2 Flow Rate 05/10/25 03:00 Nasal Cannula 4 05/10/25 02:50 Nasal Cannula 4 05/10/25 02:42 Nasal Cannula 4 05/10/25 02:33 Nasal Cannula 4 05/10/25 02:09 Nasal Cannula 4 05/10/25 01:51 Nasal Cannula 4 05/10/25 01:45 Nasal Cannula 4 05/10/25 01:38 Nasal Cannula 4 05/10/25 01:34 Nasal Cannula 4 05/10/25 01:23 Nasal Cannula 4 05/10/25 01:14 05/10/25 00:49 Nasal Cannula 4 05/10/25 00:37 05/10/25 00:35 Nasal Cannula 3 05/10/25 00:25 Room Air, Nasal Cannula Laboratory Results Laboratory Results WBC 9.73 K/ul (4.8-10.8) 05/10/25 00:45 RBC 4.61 M/uL (4.70-6.10) L 05/10/25 00:45 Hgb 12.5 g/dl (14.0-18.0) L 05/10/25 00:45 Hct 38.3 % (42.0-52.0) L 05/10/25 00:45 MCV 83.1 fL (80.0-100.0) 05/10/25 00:45 MCH 27.1 pg (25.0-34.0) 05/10/25 00:45 MCHC 32.6 g/dL (32.0-36.0) 05/10/25 00:45 RDW Std Deviation 54.6 fL (36.4-46.3) H 05/10/25 00:45 RDW Coeff of Vijay 18.5 % (11.5-14.5) H 05/10/25 00:45 Plt Count 188 K/uL (130-400) 05/10/25 00:45 MPV 11.3 fL (9.4-12.4) 05/10/25 00:45 Immature Gran % (Auto) 0.6 % 05/10/25 00:45 Neut % (Auto) 83.1 % 05/10/25 00:45 Lymph % (Auto) 7.9 % 05/10/25 00:45 Davis % (Auto) 8.1 % 05/10/25 00:45 Eos % (Auto) 0.1 % 05/10/25 00:45 Baso % (Auto) 0.2 % 05/10/25 00:45 Neut # (Auto) 8.08 K/uL (1.40-6.50) H 05/10/25 00:45 Lymph # (Auto) 0.77 K/uL (1.20-3.40) L 05/10/25 00:45 Davis # (Auto) 0.79 K/uL (0.11-0.59) H 05/10/25 00:45 Eos # (Auto) 0.01 K/uL (0.00-0.50) 05/10/25 00:45 Baso # (Auto) 0.02 K/uL (0.00-0.20) 05/10/25 00:45 Immature Gran # (Auto) 0.06 K/uL (0.01-0.20) 05/10/25 00:45 Sodium 131 mmol/L (136-145) L 05/10/25 00:45 Potassium 4.1 mmol/L (3.5-5.1) 05/10/25 00:45 Chloride 93 mmol/L (98-107) L 05/10/25 00:45 Carbon Dioxide 30 mmol/L (21-32) 05/10/25 00:45 Anion Gap 8 (3-11) 05/10/25 00:45 BUN 23 mg/dl (6-23) 05/10/25 00:45 Creatinine 1.45 mg/dl (0.6-1.4) H 05/10/25 00:45 Est Cr Clr Drug Dosing 73.8 ml/min 05/10/25 00:45 eGFR 51.52 05/10/25 00:45 BUN/Creatinine Ratio 15.9 (10-20) 05/10/25 00:45 Glucose 134 mg/dl (70-99(Fasting)) H 05/10/25 00:45 Lactate 1.6 mmol/L (0.4-2.0) 05/10/25 03:27 Calcium 9.7 mg/dl (8.6-10.3) 05/10/25 00:45 Magnesium 2.0 mg/dl (1.7-2.4) 05/10/25 00:45 Total Bilirubin 0.9 mg/dl (0.2-1.0) 05/10/25 00:45 Direct Bilirubin 0.2 mg/dl (0-0.2) 05/10/25 00:45 AST 21 U/L (13-39) 05/10/25 00:45 ALT 18 U/L (7-52) 05/10/25 00:45 Alkaline Phosphatase 65 U/L (34-104) 05/10/25 00:45 Troponin I High Sens 7.5 pg/ml (0-20) 05/10/25 00:45 Total Protein 7.8 gm/dl (6.0-8.3) 05/10/25 00:45 Albumin 3.2 gm/dl (3.4-5.0) L 05/10/25 00:45 Procalcitonin 2.18 ng/ml (0-0.5) H 05/10/25 00:45 Adenovirus (PCR) Not Detected (NotDetected) 05/10/25 01:30 B. pertussis DNA (PCR) Not Detected (NotDetected) 05/10/25 01:30 B.parapertussis DNA PCR Not Detected (NotDetected) 05/10/25 01:30 C. pneumoniae DNA (PCR) Not Detected (NotDetected) 05/10/25 01:30 Coronavirus OC43 (PCR) Not Detected (NotDetected) 05/10/25 01:30 Coronavirus HKU1 (PCR) Not Detected (NotDetected) 05/10/25 01:30 Coronavirus 229E (PCR) Not Detected (NotDetected) 05/10/25 01:30 SARS-CoV-2 (PCR) Not Detected (NotDetected) 05/10/25 01:30 Coronavirus NL63 (PCR) Not Detected (NotDetected) 05/10/25 01:30 Human Metapneumovir PCR Not Detected (NotDetected) 05/10/25 01:30 Influenza Type A (PCR) Not Detected (NotDetected) 05/10/25 01:30 Influenza Type B (PCR) Not Detected (NotDetected) 05/10/25 01:30 M. pneumoniae (PCR) Not Detected (NotDetected) 05/10/25 01:30 Parainfluenza 1 (PCR) Not Detected (NotDetected) 05/10/25 01:30 Parainfluenza 2 (PCR) Not Detected (NotDetected) 05/10/25 01:30 Parainfluenza 3 (PCR) Not Detected (NotDetected) 05/10/25 01:30 Parainfluenza 4 (PCR) Not Detected (NotDetected) 05/10/25 01:30 RSV (PCR) Not Detected (NotDetected) 05/10/25 01:30 Entero/Rhino (PCR) Not Detected (NotDetected) 05/10/25 01:30 Impressions Chest X-Ray 05/10/25 00:49 EXAM: XR chest 1V portable CLINICAL HISTORY: Sepsis TECHNIQUE: An X-ray image of the chest is obtained in PA projection. COMPARISON: No prior studies are available for comparison. FINDINGS: Pulmonary Parenchyma: Prominent bronchovascular markings. Nonspecific findings. 6 mm nodular opacity seen in left upper zone. Lungs are clear bilaterally. No evidence of consolidation, collapse, or focal opacities. No evidence of pleural effusion or pleural thickening. Heart and Mediastinum: Heart size and shape are normal. No mediastinal widening or masses. No hilar or mediastinal lymphadenopathy. Bony Thorax: Degenerative changes of the visualized skeleton. Bony thorax appears intact without fractures or deformities. Soft Tissues: Soft tissues overlying the chest wall are unremarkable. IMPRESSION: 1. No acute cardiopulmonary abnormalities are identified. 2. 6 mm nodular opacity seen in the left upper zone. Electronically signed by Lenny Leblanc 05-10-2025 01:39 AM ECG Additional Comments: EKG with AF at 123bpm, PVCs present Code Status & VTE Plan VTE Prophylaxis Plan VTE Prophylaxis will be ordered: Yes PG Care Time/CCT Total # of Minutes Spent Total Time Spent with Patient: Total time spent is greater than 50% in coordination of care (as documented) at patient's floor/unit and/or counseling patient: Coding Level of Care Code 57036 INT INP/OBS CARE 3/75MIN Diagnoses Sepsis A41.9 Rib pain R07.81 Atrial fibrillation, permanent I48.21 Type 2 diabetes mellitus with insulin therapy E11.9; Z79.4 HTN (hypertension) I10 Hyperlipidemia LDL goal <70 E78.5 Chronic gastroesophageal reflux disease K21.9 Gout M10.9 Gout site: foot Gout etiology: due to renal impairment Chronicity: chronic Laterality: right (8) Gout Gout site: foot Gout etiology: due to renal impairment Chronicity: chronic Laterality: right
[2025-05-10] MEDS: LACTATED RINGER'S 1,000 ML IV STA (04:05)
[2025-05-10 04:38] LABS: Appearance Urine Clear (Clear); Glucose Urine UA 3+ (Negative)
[2025-05-10] MEDS ORDERED: CARBOHYDRATES FOR HYPOGLYCEMIA PO PRN (04:58)
[2025-05-10] MEDS ORDERED: ONDANSETRON INJ 2 MG/ML 2 ML VIAL IV PRN (04:58)
[2025-05-10] MEDS ORDERED: GLUCOSE 10 TAB/TUBE PO PRN (04:58)
[2025-05-10] MEDS ORDERED: DEXTROSE 50% 50 ML SYRINGE IV PRN (04:58)
[2025-05-10] MEDS ORDERED: ALBUTEROL 0.5% NEB SOLN 2.5 MG/0.5 ML VIAL NEB PRN (04:58)
[2025-05-10] MEDS ORDERED: GLUCOSE 40% GEL 15 GM TUBE PO PRN (04:58)
[2025-05-10] MEDS ORDERED: GLUCAGON FOR INJ 1 MG VIAL SQ PRN (04:58)
[2025-05-10] MEDS: LACTATED RINGER'S 1,000 ML IV SCH (05:29)
--- NOTE | 2025-05-10 05:46 | CT Scan Report ---
EXAM: CT chest diagnostic wo con CLINICAL HISTORY: Nodular opacity in LIZETH noted on CXR TECHNIQUE: Contiguous axial CT images of the chest were acquired without administration of intravenous contrast. Coronal and sagittal reconstructions were obtained. One of the following dose reduction techniques was utilized for this exam: Automated exposure control, adjustment of the mA and/or kV according to patient size, and use of iterative reconstruction. (CTDI: 38.96 mGy, DLP: 1340.85 mGy*cm) COMPARISON: with the prior X-ray 05/10/2025. FINDINGS: Lungs: Left upper lung lobe atelectatic is seen with no related consolidation or nodules. Right lower lung lobe small 6 mm solid nodule noted at its apical segment. Tiny right upper lung lobe emphysematous bullae noted. The lung parenchyma is clear with no evidence of consolidation, collapse, or focal lesions. No pleural effusion Bilateral pleural thickenings. Mediastinum: The mediastinum is normal in size and contour. No mediastinal masses. Small reactive retrocaval lymph node noted. The heart size is within normal limits. Diffuse coronary atherosclerotic changes. Hilar Structures: The hilar structures appear normal without enlargement or abnormality. No atheromatous calcifications of the aorta or coronary arteries. Trachea and Main Bronchi: The trachea and main bronchi are patent without evidence of obstruction or abnormality. Chest Wall: The chest wall is unremarkable with no evidence of soft tissue or bony abnormalities. Upper Abdomen: Visualized portions of the liver, spleen, adrenal glands, and kidneys are unremarkable. Bones: Moderate spondylosis of the thoracic spine noted. Visualized osseous structures are normal, with no evidence of fracture or lytic/sclerotic lesions. IMPRESSION: 1. The left upper lung lobe demonstrates a thin atelectatic band with no related consolidation or nodules. 2. Right lower lung lobe small 6 mm solid nodule noted at its apical segment. Consider annual follow-up according to Fleischner Society guidelines. 3. Bilateral pleural thickenings. 4. The previously defined left upper lung zone nodular opacity in the X-ray was not defined in the current study and may be from outside the chest. Electronically signed by Lenny Leblanc 05-10-2025 05:46 AM
[2025-05-10 06:50] LABS: Lipase 6.0 U/L (11-82)
[2025-05-10] MEDS: AMIODARONE / D5W 360 MG/200 ML BAG IV SCH (07:14)
[2025-05-10 07:41] LABS: Appearance Urine Clear (Clear); Glucose Urine UA 3+ (Negative)
[2025-05-10] MEDS: INSULIN ASPART PER UNIT CHARGE SC SCH (08:13)
[2025-05-10] MEDS: EZETIMIBE 10 MG TAB PO SCH (08:15)
[2025-05-10] MEDS: ROSUVASTATIN CALCIUM 20 MG TAB PO SCH (08:16)
[2025-05-10] MEDS: ASPIRIN 81 MG ECTAB PO SCH (08:16)
[2025-05-10] MEDS: LIDOCAINE 5% 1 PATCH TD SCH (08:17)
[2025-05-10] MEDS: GABAPENTIN 300 MG CAP PO SCH (08:18)
[2025-05-10] MEDS: DICLOFENAC SOD 1% GEL 100 GM TUBE EXT SCH (08:19)
[2025-05-10] MEDS: RIVAROXABAN 20 MG TAB PO SCH (08:20)
[2025-05-10] MEDS: LANTUS PER UNIT CHARGE SQ SCH (08:22)
[2025-05-10] MEDS: CEFEPIME 2000MG 2,000 MG/20 ML SYR IV SCH (09:01)
--- NOTE | 2025-05-10 09:53 | Hospitalist Progress Note ---
Date of Service May 10, 2025 Assessment & Plan (1) Sepsis: (2) Rib pain: (3) Atrial fibrillation, permanent: (4) Type 2 diabetes mellitus with insulin therapy: (5) HTN (hypertension): (6) Hyperlipidemia LDL goal <70: (7) Chronic gastroesophageal reflux disease: (8) Gout: Plan 70yo male with history of DM, HTN, HLP, AF presenting with 1 week of generalized weakness, fatigue, nausea/vomiting, intermittent diarrhea and hallucinations. #Sepsis - Tachycardic on arrival with elevated procalcitonin=2.18 as well as lactate=2.2. Suspect sepsis, likely secondary to urinary source. Patient reports some urinary incontinence which is a fairly new symptom. Also appear to be volume contracted. Patient is immunocompromised host given history of RA being treated with Humira. Patient hypotensive upon arrival which continues to respond to IVF. UA has not yet been obtained - no urine present in bladder as of yet. Respiratory biofire panel is unremarkable. -Admit to PCU -Follow cultures sent from the ER -Check random cortisol -Check diagnostic CT of the chest - CXR notes a LIZETH finding -Awaiting collection of UA -Continue IVF - LR x 1L bolus ordered in ER (will make 3.5L bolus total), then continue LR at 125mL/hr x 2 liters. Goal MAP 65. If lower after IVF will discuss with MICU for possible pressors -Continue Cefepime 2gm IV q 8 hours -Tylenol PRN pain or fever -Zofran PRN nausea #Rib pain - patient reports falling against his ribs several weeks ago. Has had ongoing pain. Reports he has been able to breathe deeply without difficulty. -Check left sided rib series -Incentive spirometry, encourage use -Tylenol PRN pain -Lidoderm patch to left ribs daily #Atrial fibrillation - patient with frequent wide complexes present on pigeon fancier. Possibly abherrant conduction. He has been started on Amiodarone for possible VT -Continue Amiodarone for now -Continue anticoagulation with Xarelto #Diabetes -Hold empagliflozin and Metformin -Lantus 20u BID -ISS -Goal blood sugar 110 - 180 -Continue Neurontin for neuropathy #Hyperlipidemia -Continue Zetia -Continue Crestor 40mg po daily #Hypertension - patient borderline hypotensive at present -Hold Metoprolol -Hold Spironolactone #GERD -Protonix 40mg po daily #RA -Continue Prednisone 5mg po daily -Check random cortisol - if decreased will administer IV Hydrocortisone #Gout -Continue Allopurinol 450mg po daily Admission and Anticipated Discharge Date Admission Date: May 10, 2025 Subjective No events overnight. PT's condition improving. Will continue to follow Results & Data Results & Data Vital Signs (Past 12 Hours) Vital Signs Temp Pulse Pulse Resp BP BP Pulse Ox 05/10/25 07:55 05/10/25 07:21 36.9 C 91 H 25 H 109/68 92 05/10/25 05:42 05/10/25 05:01 36.6 C 92 H 28 H 110/59 L 94 05/10/25 04:12 05/10/25 04:10 102 H 23 92/65 L 92 05/10/25 04:00 100 H 26 H 106/65 92 05/10/25 03:42 100 H 24 95/69 L 91 05/10/25 03:30 91/59 L 05/10/25 03:21 115 H 18 88/58 L 91 05/10/25 03:09 99 H 16 97/55 L 94 05/10/25 03:00 95 H 20 112/56 L 94 05/10/25 02:50 102 H 22 98/65 L 94 05/10/25 02:42 109 H 21 96/59 L 93 05/10/25 02:33 110 H 19 101/62 94 05/10/25 02:09 105 H 21 115/69 95 05/10/25 01:51 105 H 26 H 118/63 92 05/10/25 01:45 119 H 24 125/73 96 05/10/25 01:38 120 H 33 H 109/58 L 93 05/10/25 01:34 105 H 27 H 103/74 96 05/10/25 01:23 116 H 24 109/70 93 05/10/25 01:14 131 H 05/10/25 00:49 94 05/10/25 00:37 126 H 05/10/25 00:35 37.3 C 116 H 22 90/67 L 94 05/10/25 00:25 83 L O2 Del Method O2 Flow Rate 05/10/25 07:55 Nasal Cannula 3 05/10/25 07:21 Nasal Cannula 4 05/10/25 05:42 Nasal Cannula 3 05/10/25 05:01 Nasal Cannula 05/10/25 04:12 Nasal Cannula 05/10/25 04:10 05/10/25 04:00 05/10/25 03:42 05/10/25 03:30 05/10/25 03:21 05/10/25 03:09 05/10/25 03:00 Nasal Cannula 4 05/10/25 02:50 Nasal Cannula 4 05/10/25 02:42 Nasal Cannula 4 05/10/25 02:33 Nasal Cannula 4 05/10/25 02:09 Nasal Cannula 4 05/10/25 01:51 Nasal Cannula 4 05/10/25 01:45 Nasal Cannula 4 05/10/25 01:38 Nasal Cannula 4 05/10/25 01:34 Nasal Cannula 4 05/10/25 01:23 Nasal Cannula 4 05/10/25 01:14 05/10/25 00:49 Nasal Cannula 4 05/10/25 00:37 05/10/25 00:35 Nasal Cannula 3 05/10/25 00:25 Room Air, Nasal Cannula PG Care Time/CCT Total # of Minutes Spent Total Time Spent with Patient: Total time spent is greater than 50% in coordination of care (as documented) at patient's floor/unit and/or counseling patient: Coding Level of Care Code None Diagnoses Sepsis A41.9 Rib pain R07.81 Atrial fibrillation, permanent I48.21 Type 2 diabetes mellitus with insulin therapy E11.9; Z79.4 HTN (hypertension) I10 Hyperlipidemia LDL goal <70 E78.5 Chronic gastroesophageal reflux disease K21.9 Gout M10.9 Gout site: foot Gout etiology: due to renal impairment Chronicity: chronic Laterality: right (8) Gout Gout site: foot Gout etiology: due to renal impairment Chronicity: chronic Laterality: right
--- NOTE | 2025-05-10 10:14 | XRay Report ---
XR ribs LT min 2V CLINICAL HISTORY: rib pain COMPARISON: 05/10/2025. FINDINGS: Left lung shows no consolidation or pleural effusion or pneumothorax. There are nondisplac ed fractures anteriorly at the left seventh and eighth ribs which appear subacute on the CT scan yest erday. No rib fracture or rib lesion seen otherwise. IMPRESSION: Subacute appearing nondisplaced fractures anteriorly at the left seventh and eighth ribs with no pneumothorax. ACT 112: Negative or not required by law. Electronically signed by: Raman Kline M.D. 05/10/2025 10:13 AM
[2025-05-10] MEDS: ACETAMINOPHEN 325 MG TAB PO PRN (11:04)
[2025-05-10] MEDS: SODIUM CHLORIDE 0.9% 250 ML IV ONE (11:35)
--- NOTE | 2025-05-10 12:16 | Electrocardiogram Report ---
Test Reason : Blood Pressure : */* mmHG Vent. Rate : 123 BPM Atrial Rate : * BPM P-R Int : * ms QRS Dur : 86 ms QT Int : 300 ms P-R-T Axes : * -12 95 degrees QTcB Int : 429 ms Atrial fibrillation with rapid ventricular response with premature ventricular or aberrantly conducte d complexes Nonspecific T wave abnormality Abnormal ECG When compared with ECG of 30-Oct-2023 00:10, No significant change was found HR has increased Confirmed by Karlos Hubbard ([id number]) on 05/10/2025 12:16:34 PM Referred By: REFERRED SELF Confirmed By: Karlos Hubbard
[2025-05-10] MEDS: REMOVE LIDODERM PATCH SCH (21:07)
[2025-05-11 06:42] LABS: Hematocrit (blood only) 36.0 % (42.0-52.0); Hemoglobin 11.5 g/dl (14.0-18.0); Mean Corpuscular Hemoglobin 26.7 pg (25.0-34.0); Mean Corpuscular Volume 83.7 fL (80.0-100.0); Platelet Count 156 K/uL (130-400); RDW Standard Deviation 54.4 fL (36.4-46.3); Red Blood Count 4.30 M/uL (4.70-6.10); White Blood Count 5.87 K/ul (4.8-10.8)
[2025-05-11 07:12] LABS: Anion Gap 6.0 (3-11); Blood Urea Nitrogen 18.0 mg/dl (6-23); Calcium 9.2 mg/dl (8.6-10.3); Carbon Dioxide 30.0 mmol/L (21-32); Chloride 98.0 mmol/L (98-107); Creatinine Clr Calc Pharmacy 104.2 ml/min; Glucose 88.0 mg/dl (70-99(Fasting)); Potassium 3.6 mmol/L (3.5-5.1); Sodium 134.0 mmol/L (136-145)
--- NOTE | 2025-05-11 10:39 | Hospitalist Progress Note ---
Date of Service May 11, 2025 Assessment & Plan (1) Sepsis: Plan: -no obvious source found -blood and urine cultures negative -viral panel negative -on empiric treatment with cefepime -observation for 24hrs, if improvement will d/c home (2) Rib pain: Plan: -Incentive spirometry, encourage use -Tylenol PRN pain -Lidoderm patch to left ribs daily (3) Atrial fibrillation, permanent: Plan: -Continue anticoagulation with Xarelto -HR stable will stop amiodarone (4) Type 2 diabetes mellitus with insulin therapy: (5) HTN (hypertension): Plan: -Lantus 20u BID -ISS -Goal blood sugar 110 - 180 -Continue Neurontin for neuropathy (6) Hyperlipidemia LDL goal <70: Plan: -Continue Zetia -Continue Crestor 40mg po daily (7) Chronic gastroesophageal reflux disease: Plan: Protonix 40mg po daily (8) Gout: Plan: Continue Allopurinol 450mg po daily Plan 70yo male with history of DM, HTN, HLP, AF presenting with 1 week of generalized weakness, fatigue, nausea/vomiting, intermittent diarrhea and hallucinations. Admission and Anticipated Discharge Date Admission Date: May 10, 2025 Subjective No events overnight. Pt feeling better this am. BP has been stable. Review of Systems Review of Systems: CONST: Negative for fever, body aches and chills. HENT: Negative for neck pain/stiffness, headache, congestion, sore throat, swelling. EYES: Negative for discharge/pain or vision changes. RESP: Negative for cough/hemoptysis and shortness of breath. CV: Negative chest pain, difficulty breathing, palpitations. ABD: Negative pain, nausea, vomiting. : Negative increase frequency, dysuria, blood in urine or stool. MUSC: Negative for muscle aches, edema. SKIN: Negative rash, lesions/sores. NEURO: Negative headache, dizziness, weakness. Physical Exam Physical Exam: GENERAL APPEARANCE NAD, activity normal for age, well developed/ well nourished, no cyanosis, pallor, or diaphoresis. EYES lids/conjunctiva normal. EARS/NOSE/THROAT Mucous membranes moist, nares normal, lips/teeth normal uvula midline without oral pharyngeal erythema, exudate or swelling TMs normal bilaterally. No lymphangitis/lymphedema. HEAD/NECK normocephalic atraumatic, no facial trauma, neck is supple. RESPIRATORY respiratory effort normal, speaks in full sentences, no tripod position, no accessory muscle use. Lungs clear to auscultation without rhonchi, wheezes, rales CARDIAC Regular rate and rhythm, no edema. ABDOMINAL Soft, ND/NT. No evidence of fluid wave. No pulsatile masses on exam, r ebound tenderness, Rivera sign or pain over Mcburney's point. MUSCLES/EXTREMITIES No abnormal range of motion, no swelling. SKIN Warm, pink and dry. No rashes, dermatoses, petechiae or lesions. NEUROLOGICAL Speech is clear and appropriate. Normal level of consciousness. Gait and coordination are normal. 5/5 strength in all extremities. PSYCH Normal mood and affect. Judgement/competence is appropriate Results & Data Results & Data Vital Signs (Past 12 Hours) Vital Signs Temp Pulse Resp BP Pulse Ox O2 Del Method O2 Flow Rate 05/11/25 09:00 Nasal Cannula 4 05/11/25 07:35 36.8 C 94 H 23 125/81 92 Nasal Cannula 4 05/11/25 04:40 37.0 C 78 20 122/80 93 Nasal Cannula 4 05/10/25 23:06 36.9 C 80 20 124/80 94 Nasal Cannula 4 PG Care Time/CCT Total # of Minutes Spent Total Time Spent with Patient: Total time spent is greater than 50% in coordination of care (as documented) at patient's floor/unit and/or counseling patient: Coding Level of Care Code 85255 SUB INP/OBS CARE 2/35MIN Diagnoses Sepsis A41.9 Rib pain R07.81 Atrial fibrillation, permanent I48.21 Type 2 diabetes mellitus with insulin therapy E11.9; Z79.4 HTN (hypertension) I10 Hyperlipidemia LDL goal <70 E78.5 Chronic gastroesophageal reflux disease K21.9 Gout M10.9 Gout site: foot Gout etiology: due to renal impairment Chronicity: chronic Laterality: right (8) Gout Gout site: foot Gout etiology: due to renal impairment Chronicity: chronic Laterality: right
--- NOTE | 2025-05-12 08:36 | XRay Report ---
XR chest 1V portable HISTORY: 70 years-old Male hypoxia COMPARISON: 05/10/2025 TECHNIQUE: AP view of the chest FINDINGS: Cardiac silhouette is upper limits of normal in size. Pulmonary vascular congestion. Mild chronic int erstitial coarsening at the lung bases. No pneumothorax, large pleural effusion or overt pulmonary ed earnest. Bones of the chest appear grossly intact. IMPRESSION: Cardiomegaly with pulmonary vascular congestion. ACT 112: Negative or not required by law. The above report was generated using voice recognition software. It may contain grammatical, syntax o r spelling errors. Electronically signed by: Stalin Neville M.D. 05/12/2025 8:35 AM
--- NOTE | 2025-05-12 10:45 | Hospitalist Progress Note ---
Date of Service May 12, 2025 Assessment & Plan (1) Sepsis: Plan: -no obvious source found -blood and urine cultures negative -viral panel negative -on empiric treatment with cefepime -observation for 24hrs, if improvement will d/c home (2) Hypoxia: (3) Rib pain: Plan: -Incentive spirometry, encourage use -Tylenol PRN pain -Lidoderm patch to left ribs daily (4) Atrial fibrillation, permanent: Plan: -Continue anticoagulation with Xarelto -HR stable will stop amiodarone (5) Type 2 diabetes mellitus with insulin therapy: Plan: -pt still requiring 4LNC to maintain 02 sats -likely 2nd to rib fx -will add tramadol -f/u CXR -2-step planned for tmw (6) HTN (hypertension): Plan: -Lantus 20u BID -ISS -Goal blood sugar 110 - 180 -Continue Neurontin for neuropathy (7) Hyperlipidemia LDL goal <70: Plan: -Continue Zetia -Continue Crestor 40mg po daily (8) Chronic gastroesophageal reflux disease: Plan: Protonix 40mg po daily (9) Gout: Plan: Continue Allopurinol 450mg po daily Plan 70yo male with history of DM, HTN, HLP, AF presenting with 1 week of generalized weakness, fatigue, nausea/vomiting, intermittent diarrhea and hallucinations. Admission and Anticipated Discharge Date Admission Date: May 10, 2025 Subjective No events overnight. Pt feeling better this am. BP has been stable. Review of Systems Review of Systems: CONST: Negative for fever, body aches and chills. HENT: Negative for neck pain/stiffness, headache, congestion, sore throat, swelling. EYES: Negative for discharge/pain or vision changes. RESP: Negative for cough/hemoptysis and shortness of breath. CV: Negative chest pain, difficulty breathing, palpitations. ABD: Negative pain, nausea, vomiting. : Negative increase frequency, dysuria, blood in urine or stool. MUSC: Negative for muscle aches, edema. SKIN: Negative rash, lesions/sores. NEURO: Negative headache, dizziness, weakness. Physical Exam Physical Exam: GENERAL APPEARANCE NAD, activity normal for age, well developed/ well nourished, no cyanosis, pallor, or diaphoresis. EYES lids/conjunctiva normal. EARS/NOSE/THROAT Mucous membranes moist, nares normal, lips/teeth normal uvula midline without oral pharyngeal erythema, exudate or swelling TMs normal bilaterally. No lymphangitis/lymphedema. HEAD/NECK normocephalic atraumatic, no facial trauma, neck is supple. RESPIRATORY respiratory effort normal, speaks in full sentences, no tripod position, no accessory muscle use. Lungs clear to auscultation without rhonchi, wheezes, rales CARDIAC Regular rate and rhythm, no edema. ABDOMINAL Soft, ND/NT. No evidence of fluid wave. No pulsatile masses on exam, rebound tenderness, Rivera sign or pain over Mcburney's point. MUSCLES/EXTREMITIES No abnormal range of motion, no swelling. SKIN Warm, pink and dry. No rashes, dermatoses, petechiae or lesions. NEUROLOGICAL Speech is clear and appropriate. Normal level of consciousness. Gait and coordination are normal. 5/5 strength in all extremities. PSYCH Normal mood and affect. Judgement/competence is appropriate Results & Data Results & Data Vital Signs (Past 12 Hours) Vital Signs Temp Pulse Pulse Pulse Resp BP Pulse Ox 05/12/25 07:51 05/12/25 07:20 36.5 C 78 14 123/78 94 05/12/25 03:36 36.8 C 78 20 143/71 H 95 05/11/25 23:21 73 05/11/25 23:14 36.9 C 83 20 105/71 92 O2 Del Method O2 Flow Rate 05/12/25 07:51 Nasal Cannula 4 05/12/25 07:20 Nasal Cannula 4 05/12/25 03:36 Nasal Cannula 4 05/11/25 23:21 05/11/25 23:14 Nasal Cannula 4 PG Care Time/CCT Total # of Minutes Spent Total Time Spent with Patient: Total time spent is greater than 50% in coordination of care (as documented) at patient's floor/unit and/or counseling patient: Coding Level of Care Code 92694 SUB INP/OBS CARE 2/35MIN Diagnoses Sepsis A41.9 Hypoxia R09.02 Rib pain R07.81 Atrial fibrillation, permanent I48.21 Type 2 diabetes mellitus with insulin therapy E11.9; Z79.4 HTN (hypertension) I10 Hyperlipidemia LDL goal <70 E78.5 Chronic gastroesophageal reflux disease K21.9 Gout M10.9 Gout site: foot Gout etiology: due to renal impairment Chronicity: chronic Laterality: right (9) Gout Gout site: foot Gout etiology: due to renal impairment Chronicity: chronic Laterality: right
[2025-05-12] MEDS: POLYETHYLENE (MIRALAX) 17 GM PACK PO PRN (18:13)
[2025-05-13 08:11] LABS: Hematocrit (blood only) 40.7 % (42.0-52.0); Hemoglobin 12.4 g/dl (14.0-18.0); Mean Corpuscular Hemoglobin 26.1 pg (25.0-34.0); Mean Corpuscular Volume 85.5 fL (80.0-100.0); Platelet Count 186 K/uL (130-400); RDW Standard Deviation 56.1 fL (36.4-46.3); Red Blood Count 4.76 M/uL (4.70-6.10); White Blood Count 5.71 K/ul (4.8-10.8)
[2025-05-13 08:27] LABS: Anion Gap 4.0 (3-11); Blood Urea Nitrogen 13.0 mg/dl (6-23); Calcium 9.4 mg/dl (8.6-10.3); Carbon Dioxide 30.0 mmol/L (21-32); Chloride 103.0 mmol/L (98-107); Creatinine Clr Calc Pharmacy 130.5 ml/min; Glucose 106.0 mg/dl (70-99(Fasting)); Potassium 4.1 mmol/L (3.5-5.1); Sodium 137.0 mmol/L (136-145)
--- NOTE | 2025-05-13 09:26 | Hospitalist Progress Note ---
Date of Service May 13, 2025 Assessment & Plan (1) Sepsis: Plan: -no obvious source found -blood and urine cultures negative -viral panel negative -on empiric treatment with cefepime -resolved, likely viral (2) Hypoxia: Plan: -2nd to rib fractures -con't pain control with lidocaine patch and tramadol prn -02 sats now 90% on RA -2-step shows no 02 requirement (3) Rib pain: Plan: -Incentive spirometry, encourage use -Tylenol PRN pain -Lidoderm patch to left ribs daily (4) Atrial fibrillation, permanent: Plan: -Continue anticoagulation with Xarelto -HR stable will stop amiodarone (5) Type 2 diabetes mellitus with insulin therapy: Plan: -Lantus 20u BID -ISS -Goal blood sugar 110 - 180 -Continue Neurontin for neuropathy (6) HTN (hypertension): Plan: BP stable (7) Hyperlipidemia LDL goal <70: Plan: -Continue Zetia -Continue Crestor 40mg po daily (8) Chronic gastroesophageal reflux disease: Plan: Protonix 40mg po daily (9) Gout: Plan: Continue Allopurinol 450mg po daily Plan 70yo male with history of DM, HTN, HLP, AF presenting with 1 week of generalized weakness, fatigue, nausea/vomiting, intermittent diarrhea and hallucinations. Admission and Anticipated Discharge Date Admission Date: May 10, 2025 Subjective No events overnight. Pt spO2 90% on RA. Review of Systems Review of Systems: CONST: Negative for fever, body aches and chills. HENT: Negative for neck pain/stiffness, headache, congestion, sore throat, swelling. EYES: Negative for discharge/pain or vision changes. RESP: Negative for cough/hemoptysis and shortness of breath. CV: Negative chest pain, difficulty breathing, palpitations. ABD: Negative pain, nausea, vomiting. : Negative increase frequency, dysuria, blood in urine or stool. MUSC: Negative for muscle aches, edema. SKIN: Negative rash, lesions/sores. NEURO: Negative headache, dizziness, weakness. Physical Exam Physical Exam: GENERAL APPEARANCE NAD, activity normal for age, well developed/ well nourished, no cyanosis, pallor, or diaphoresis. EYES lids/conjunctiva normal. EARS/NOSE/THROAT Mucous membranes moist, nares normal, lips/teeth normal uvula midline without oral pharyngeal erythema, exudate or swelling TMs normal bilaterally. No lymphangitis/lymphedema. HEAD/NECK normocephalic atraumatic, no facial trauma, neck is supple. RESPIRATORY respiratory effort normal, speaks in full sentences, no tripod position, no accessory muscle use. Lungs clear to auscultation without rhonchi, wheezes, rales CARDIAC Regular rate and rhythm, no edema. ABDOMINAL Soft, ND/NT. No evidence of fluid wave. No pulsatile masses on exam, rebound tenderness, Rivera sign or pain over Mcburney's point. MUSCLES/EXTREMITIES No abnormal range of motion, no swelling. SKIN Warm, pink and dry. No rashes, dermatoses, petechiae or lesions. NEUROLOGICAL Speech is clear and appropriate. Normal level of consciousness. Gait and coordination are normal. 5/5 strength in all extremities. PSYCH Normal mood and affect. Judgement/competence is appropriate Results & Data Results & Data Vital Signs (Past 12 Hours) Vital Signs Temp Pulse Pulse Pulse Resp Resp Resp 05/13/25 08:28 93 H 84 19 16 05/13/25 08:17 36.6 C 77 20 05/13/25 03:20 36.7 C 74 18 05/12/25 23:46 36.6 C 84 20 BP Pulse Ox Pulse Ox Pulse Ox O2 Del Method 05/13/25 08:28 91 90 05/13/25 08:17 129/82 90 Room Air 05/13/25 03:20 117/69 90 Room Air 05/12/25 23:46 120/69 91 Room Air PG Care Time/CCT Total # of Minutes Spent Total Time Spent with Patient: Total time spent is greater than 50% in coordination of care (as documented) at patient's floor/unit and/or counseling patient: Coding Level of Care Code 35525 SUB INP/OBS CARE 2/35MIN Diagnoses Sepsis A41.9 Hypoxia R09.02 Rib pain R07.81 Atrial fibrillation, permanent I48.21 Type 2 diabetes mellitus with insulin therapy E11.9; Z79.4 HTN (hypertension) I10 Hyperlipidemia LDL goal <70 E78.5 Chronic gastroesophageal reflux disease K21.9 Gout M10.9 Gout site: foot Gout etiology: due to renal impairment Chronicity: chronic Laterality: right (9) Gout Gout site: foot Gout etiology: due to renal impairment Chronicity: chronic Laterality: right
--- NOTE | 2025-05-14 10:00 | Hospitalist Progress Note ---
Date of Service May 14, 2025 Assessment & Plan (1) Sepsis: Plan: -no obvious source found -blood and urine cultures negative -viral panel negative -on empiric treatment with cefepime -resolved, likely viral (2) Hypoxia: Plan: -2nd to rib fractures -con't pain control with lidocaine patch and tramadol prn -02 sats now 90% on RA -2-step shows no 02 requirement (3) Rib pain: Plan: -Incentive spirometry, encourage use -Tylenol PRN pain -Lidoderm patch to left ribs daily (4) Atrial fibrillation, permanent: Plan: -Continue anticoagulation with Xarelto -HR stable will stop amiodarone (5) Type 2 diabetes mellitus with insulin therapy: Plan: -Lantus 20u BID -ISS -Goal blood sugar 110 - 180 -Continue Neurontin for neuropathy (6) HTN (hypertension): Plan: BP stable -restarted bumex (7) Hyperlipidemia LDL goal <70: Plan: -Continue Zetia -Continue Crestor 40mg po daily (8) Chronic gastroesophageal reflux disease: Plan: Protonix 40mg po daily (9) Gout: Plan: Continue Allopurinol 450mg po daily Plan 70yo male with history of DM, HTN, HLP, AF presenting with 1 week of generalized weakness, fatigue, nausea/vomiting, intermittent diarrhea and hallucinations. Plan to d[facility]c to [facility] once bed available. Admission and Anticipated Discharge Date Admission Date: May 10, 2025 Subjective No events overnight. Pt resting comfortably in bed. Complaining of lower ext swelling. Review of Systems Review of Systems: CONST: Negative for fever, body aches and chills. HENT: Negative for neck pain/stiffness, headache, congestion, sore throat, swelling. EYES: Negative for discharge/pain or vision changes. RESP: Negative for cough/hemoptysis and shortness of breath. CV: Negative chest pain, difficulty breathing, palpitations. ABD: Negative pain, nausea, vomiting. : Negative increase frequency, dysuria, blood in urine or stool. MUSC: Negative for muscle aches, edema. SKIN: Negative rash, lesions/sores. NEURO: Negative headache, dizziness, weakness. Physical Exam Physical Exam: GENERAL APPEARANCE NAD, activity normal for age, well developed/ well nourished, no cyanosis, pallor, or diaphoresis. EYES lids/conjunctiva normal. EARS/NOSE/THROAT Mucous membranes moist, nares normal, lips/teeth normal uvula midline without oral pharyngeal erythema, exudate or swelling TMs normal bilaterally. No lymphangitis/lymphedema. HEAD/NECK normocephalic atraumatic, no facial trauma, neck is supple. RESPIRATORY respiratory effort normal, speaks in full sentences, no tripod position, no accessory muscle use. Lungs clear to auscultation without rhonchi, wheezes, rales CARDIAC Regular rate and rhythm, no edema. ABDOMINAL Soft, ND/NT. No evidence of fluid wave. No pulsatile masses on exam, rebound tenderness, Rivera sign or pain over Mcburney's point. MUSCLES/EXTREMITIES No abnormal range of motion, no swelling. SKIN Warm, pink and dry. No rashes, dermatoses, petechiae or lesions. NEUROLOGICAL Speech is clear and appropriate. Normal level of consciousness. Gait and coordination are normal. 5/5 strength in all extremities. PSYCH Normal mood and affect. Judgement/competence is appropriate Results & Data Results & Data Vital Signs (Past 12 Hours) Vital Signs Temp Pulse Pulse Resp BP Pulse Ox Pulse Ox 05/14/25 07:56 73 05/14/25 07:51 36.6 C 80 18 122/83 96 05/14/25 02:48 36.5 C 78 18 109/76 94 05/13/25 22:55 36.5 C 79 20 133/78 93 05/13/25 22:03 80 05/13/25 22:00 92 O2 Del Method O2 Del Method 05/14/25 07:56 05/14/25 07:51 Room Air 05/14/25 02:48 Room Air 05/13/25 22:55 Room Air 05/13/25 22:03 05/13/25 22:00 Room Air PG Care Time/CCT Total # of Minutes Spent Total Time Spent with Patient: Total time spent is greater than 50% in coordination of care (as documented) at patient's floor/unit and/or counseling patient: Coding Level of Care Code 98431 SUB INP/OBS CARE 2/35MIN Diagnoses Sepsis A41.9 Hypoxia R09.02 Rib pain R07.81 Atrial fibrillation, permanent I48.21 Type 2 diabetes mellitus with insulin therapy E11.9; Z79.4 HTN (hypertension) I10 Hyperlipidemia LDL goal <70 E78.5 Chronic gastroesophageal reflux disease K21.9 Gout M10.9 Gout site: foot Gout etiology: due to renal impairment Chronicity: chronic Laterality: right (9) Gout Gout site: foot Gout etiology: due to renal impairment Chronicity: chronic Laterality: right
[2025-05-14] MEDS: FUROSEMIDE 40 MG/4 ML VIAL IV ONE (10:04)
[2025-05-14] MEDS: BUMETANIDE 2 MG in SYRINGE 0 ML IV ONE (10:31)
[2025-05-14] MEDS: BUMETANIDE 1 MG TAB PO SCH (17:08)
--- NOTE | 2025-05-15 10:34 | Hospitalist Progress Note ---
Date of Service May 15, 2025 Assessment & Plan (1) Sepsis: Plan: -no obvious source found -blood and urine cultures negative -viral panel negative -on empiric treatment with cefepime -resolved, likely viral (2) Hypoxia: Plan: -2nd to rib fractures -con't pain control with lidocaine patch and tramadol prn -02 sats now 90% on RA -2-step shows no 02 requirement (3) Rib pain: Plan: -Incentive spirometry, encourage use -Tylenol PRN pain -Lidoderm patch to left ribs daily (4) Atrial fibrillation, permanent: Plan: -Continue anticoagulation with Xarelto -HR stable will stop amiodarone (5) Type 2 diabetes mellitus with insulin therapy: Plan: -Lantus 20u BID -ISS -Goal blood sugar 110 - 180 -Continue Neurontin for neuropathy (6) HTN (hypertension): Plan: BP stable -restarted bumex (7) Hyperlipidemia LDL goal <70: Plan: -Continue Zetia -Continue Crestor 40mg po daily (8) Chronic gastroesophageal reflux disease: Plan: Protonix 40mg po daily (9) Gout: Plan: Continue Allopurinol 450mg po daily Plan 70yo male with history of DM, HTN, HLP, AF presenting with 1 week of generalized weakness, fatigue, nausea/vomiting, intermittent diarrhea and hallucinations. Plan to [facility] once bed available. Admission and Anticipated Discharge Date Admission Date: May 10, 2025 Subjective No events overnight. Pt resting comfortably in bed. LE edema improved. Review of Systems Review of Systems: CONST: Negative for fever, body aches and chills. HENT: Negative for neck pain/stiffness, headache, congestion, sore throat, swelling. EYES: Negative for discharge/pain or vision changes. RESP: Negative for cough/hemoptysis and shortness of breath. CV: Negative chest pain, difficulty breathing, palpitations. ABD: Negative pain, nausea, vomiting. : Negative increase frequency, dysuria, blood in urine or stool. MUSC: Negative for muscle aches, edema. SKIN: Negative rash, lesions/sores. NEURO: Negative headache, dizziness, weakness. Physical Exam Physical Exam: GENERAL APPEARANCE NAD, activity normal for age, well developed/ well nourished, no cyanosis, pallor, or diaphoresis. EYES lids/conjunctiva normal. EARS/NOSE/THROAT Mucous membranes moist, nares normal, lips/teeth normal uvula midline without oral pharyngeal erythema, exudate or swelling TMs normal bilaterally. No lymphangitis/lymphedema. HEAD/NECK normocephalic atraumatic, no facial trauma, neck is supple. RESPIRATORY respiratory effort normal, speaks in full sentences, no tripod position, no accessory muscle use. Lungs clear to auscultation without rhonchi, wheezes, rales CARDIAC Regular rate and rhythm, no edema. ABDOMINAL Soft, ND/NT. No evidence of fluid wave. No pulsatile masses on exam, rebound tenderness, Rivera sign or pain over Mcburney's point. MUSCLES/EXTREMITIES No abnormal range of motion, no swelling. SKIN Warm, pink and dry. No rashes, dermatoses, petechiae or lesions. NEUROLOGICAL Speech is clear and appropriate. Normal level of consciousness. Gait and coordination are normal. 5/5 strength in all extremities. PSYCH Normal mood and affect. Judgement/competence is appropriate Results & Data Results & Data Vital Signs (Past 12 Hours) Vital Signs Temp Pulse Resp BP BP Pulse Ox O2 Del Method 05/15/25 07:11 36.4 C L 78 18 107/71 93 Room Air 05/15/25 03:15 36.6 C 75 20 136/80 91 Room Air 05/14/25 23:15 36.7 C 82 18 173/76 H 93 Room Air PG Care Time/CCT Total # of Minutes Spent Total Time Spent with Patient: Total time spent is greater than 50% in coordination of care (as documented) at patient's floor/unit and/or counseling patient: Coding Level of Care Code 96198 SUB INP/OBS CARE 2/35MIN Diagnoses Sepsis A41.9 Hypoxia R09.02 Rib pain R07.81 Atrial fibrillation, permanent I48.21 Type 2 diabetes mellitus with insulin therapy E11.9; Z79.4 HTN (hypertension) I10 Hyperlipidemia LDL goal <70 E78.5 Chronic gastroesophageal reflux disease K21.9 Gout M10.9 Gout site: foot Gout etiology: due to renal impairment Chronicity: chronic Laterality: right (9) Gout Gout site: foot Gout etiology: due to renal impairment Chronicity: chronic Laterality: right
--- NOTE | 2025-05-16 10:37 | Hospitalist Progress Note ---
Date of Service May 16, 2025 Assessment & Plan (1) Sepsis: Plan: -no obvious source found -blood and urine cultures negative -viral panel negative -on empiric treatment with cefepime -resolved, likely viral (2) Hypoxia: Plan: -2nd to rib fractures -con't pain control with lidocaine patch and tramadol prn -02 sats now 90% on RA -2-step shows no 02 requirement (3) Rib pain: Plan: -Incentive spirometry, encourage use -Tylenol PRN pain -Lidoderm patch to left ribs daily (4) Atrial fibrillation, permanent: Plan: -Continue anticoagulation with Xarelto -HR stable will stop amiodarone (5) Type 2 diabetes mellitus with insulin therapy: Plan: -Lantus 20u BID -ISS -Goal blood sugar 110 - 180 -Continue Neurontin for neuropathy (6) HTN (hypertension): Plan: BP stable -restarted bumex (7) Hyperlipidemia LDL goal <70: Plan: -Continue Zetia -Continue Crestor 40mg po daily (8) Chronic gastroesophageal reflux disease: Plan: Protonix 40mg po daily (9) Gout: Plan: Continue Allopurinol 450mg po daily Plan 70yo male with history of DM, HTN, HLP, AF presenting with 1 week of generalized weakness, fatigue, nausea/vomiting, intermittent diarrhea and hallucinations. Plan to [facility] to [facility] once bed available. Admission and Anticipated Discharge Date Admission Date: May 10, 2025 Subjective No events overnight. Pt resting comfortably in bed. LE edema improved. Review of Systems Review of Systems: CONST: Negative for fever, body aches and chills. HENT: Negative for neck pain/stiffness, headache, congestion, sore throat, swelling. EYES: Negative for discharge/pain or vision changes. RESP: Negative for cough/hemoptysis and shortness of breath. CV: Negative chest pain, difficulty breathing, palpitations. ABD: Negative pain, nausea, vomiting. : Negative increase frequency, dysuria, blood in urine or stool. MUSC: Negative for muscle aches, edema. SKIN: Negative rash, lesions/sores. NEURO: Negative headache, dizziness, weakness. Physical Exam Physical Exam: GENERAL APPEARANCE NAD, activity normal for age, well developed/ well nourished, no cyanosis, pallor, or diaphoresis. EYES lids/conjunctiva normal. EARS/NOSE/THROAT Mucous membranes moist, nares normal, lips/teeth normal uvula midline without oral pharyngeal erythema, exudate or swelling TMs normal bilaterally. No lymphangitis/lymphedema. HEAD/NECK normocephalic atraumatic, no facial trauma, neck is supple. RESPIRATORY respiratory effort normal, speaks in full sentences, no tripod position, no accessory muscle use. Lungs clear to auscultation without rhonchi, wheezes, rales CARDIAC Regular rate and rhythm, no edema. ABDOMINAL Soft, ND/NT. No evidence of fluid wave. No pulsatile masses on exam, rebound tenderness, Rivera sign or pain over Mcburney's point. MUSCLES/EXTREMITIES No abnormal range of motion, no swelling. SKIN Warm, pink and dry. No rashes, dermatoses, petechiae or lesions. NEUROLOGICAL Speech is clear and appropriate. Normal level of consciousness. Gait and coordination are normal. 5/5 strength in all extremities. PSYCH Normal mood and affect. Judgement/competence is appropriate Results & Data Results & Data Vital Signs (Past 12 Hours) Vital Signs Temp Pulse Resp BP BP Pulse Ox O2 Del Method 05/16/25 07:16 36.4 C L 77 17 126/91 91 Room Air 05/16/25 02:54 36.6 C 80 18 149/84 H 90 Room Air 05/15/25 22:39 36.6 C 75 18 127/81 91 Room Air PG Care Time/CCT Total # of Minutes Spent Total Time Spent with Patient: Total time spent is greater than 50% in coordination of care (as documented) at patient's floor/unit and/or counseling patient: Coding Level of Care Code 73154 SUB INP/OBS CARE 2/35MIN Diagnoses Sepsis A41.9 Hypoxia R09.02 Rib pain R07.81 Atrial fibrillation, permanent I48.21 Type 2 diabetes mellitus with insulin therapy E11.9; Z79.4 HTN (hypertension) I10 Hyperlipidemia LDL goal <70 E78.5 Chronic gastroesophageal reflux disease K21.9 Gout M10.9 Gout site: foot Gout etiology: due to renal impairment Chronicity: chronic Laterality: right (9) Gout Gout site: foot Gout etiology: due to renal impairment Chronicity: chronic Laterality: right
--- NOTE | 2025-05-17 11:02 | Hospitalist Progress Note ---
Date of Service May 17, 2025 Assessment & Plan (1) Sepsis: Plan: -no obvious source found -blood and urine cultures negative -viral panel negative -on empiric treatment with cefepime -resolved, likely viral (2) Hypoxia: Plan: -2nd to rib fractures -con't pain control with lidocaine patch and tramadol prn -02 sats now 90% on RA -2-step shows no 02 requirement (3) Rib pain: Plan: -Incentive spirometry, encourage use -Tylenol PRN pain -Lidoderm patch to left ribs daily (4) Atrial fibrillation, permanent: Plan: -Continue anticoagulation with Xarelto -HR stable will stop amiodarone (5) Type 2 diabetes mellitus with insulin therapy: Plan: -Lantus 20u BID -ISS -Goal blood sugar 110 - 180 -Continue Neurontin for neuropathy (6) HTN (hypertension): Plan: BP stable -restarted bumex (7) Hyperlipidemia LDL goal <70: Plan: -Continue Zetia -Continue Crestor 40mg po daily (8) Chronic gastroesophageal reflux disease: Plan: Protonix 40mg po daily (9) Gout: Plan: Continue Allopurinol 450mg po daily Plan 70yo male with history of DM, HTN, HLP, AF presenting with 1 week of generalized weakness, fatigue, nausea/vomiting, intermittent diarrhea and hallucinations. Plan to d[facility] to [facility] once bed available. Admission and Anticipated Discharge Date Admission Date: May 10, 2025 Subjective No events overnight. Pt resting comfortably in chair Review of Systems Review of Systems: CONST: Negative for fever, body aches and chills. HENT: Negative for neck pain/stiffness, headache, congestion, sore throat, swelling. EYES: Negative for discharge/pain or vision changes. RESP: Negative for cough/hemoptysis and shortness of breath. CV: Negative chest pain, difficulty breathing, palpitations. ABD: Negative pain, nausea, vomiting. : Negative increase frequency, dysuria, blood in urine or stool. MUSC: Negative for muscle aches, edema. SKIN: Negative rash, lesions/sores. NEURO: Negative headache, dizziness, weakness. Physical Exam Physical Exam: GENERAL APPEARANCE NAD, activity normal for age, well developed/ well nourished, no cyanosis, pallor, or diaphoresis. EYES lids/conjunctiva normal. EARS/NOSE/THROAT Mucous membranes moist, nares normal, lips/teeth normal uvula midline without oral pharyngeal erythema, exudate or swelling TMs normal bilaterally. No lymphangitis/lymphedema. HEAD/NECK normocephalic atraumatic, no facial trauma, neck is supple. RESPIRATORY respiratory effort normal, speaks in full sentences, no tripod position, no accessory muscle use. Lungs clear to auscultation without rhonchi, wheezes, rales CARDIAC Regular rate and rhythm, no edema. ABDOMINAL Soft, ND/NT. No evidence of fluid wave. No pulsatile masses on exam, rebound tenderness, Rivera sign or pain over Mcburney's point. MUSCLES/EXTREMITIES No abnormal range of motion, no swelling. SKIN Warm, pink and dry. No rashes, dermatoses, petechiae or lesions. NEUROLOGICAL Speech is clear and appropriate. Normal level of consciousness. Gait and coordination are normal. 5/5 strength in all extremities. PSYCH Normal mood and affect. Judgement/competence is appropriate Results & Data Results & Data Vital Signs (Past 12 Hours) Vital Signs Temp Pulse Resp BP Pulse Ox O2 Del Method 05/17/25 08:35 36.3 C L 81 18 123/75 90 Room Air 05/17/25 02:52 36.5 C 78 18 145/89 H 90 Room Air PG Care Time/CCT Total # of Minutes Spent Total Time Spent with Patient: Total time spent is greater than 50% in coordination of care (as documented) at patient's floor/unit and/or counseling patient: Coding Level of Care Code 42649 SUB INP/OBS CARE 2/35MIN Diagnoses Sepsis A41.9 Hypoxia R09.02 Rib pain R07.81 Atrial fibrillation, permanent I48.21 Type 2 diabetes mellitus with insulin therapy E11.9; Z79.4 HTN (hypertension) I10 Hyperlipidemia LDL goal <70 E78.5 Chronic gastroesophageal reflux disease K21.9 Gout M10.9 Gout site: foot Gout etiology: due to renal impairment Chronicity: chronic Laterality: right (9) Gout Gout site: foot Gout etiology: due to renal impairment Chronicity: chronic Laterality: right
--- NOTE | 2025-05-18 10:47 | Hospitalist Progress Note ---
Date of Service May 18, 2025 Assessment & Plan (1) Sepsis: Plan: -no obvious source found -blood and urine cultures negative -viral panel negative -on empiric treatment with cefepime -resolved, likely viral (2) Hypoxia: Plan: -2nd to rib fractures -con't pain control with lidocaine patch and tramadol prn -02 sats now 90% on RA -2-step shows no 02 requirement (3) Rib pain: Plan: -Incentive spirometry, encourage use -Tylenol PRN pain -Lidoderm patch to left ribs daily (4) Atrial fibrillation, permanent: Plan: -Continue anticoagulation with Xarelto -HR stable will stop amiodarone (5) Type 2 diabetes mellitus with insulin therapy: Plan: -Lantus 20u BID -ISS -Goal blood sugar 110 - 180 -Continue Neurontin for neuropathy (6) HTN (hypertension): Plan: BP stable -restarted bumex (7) Hyperlipidemia LDL goal <70: Plan: -Continue Zetia -Continue Crestor 40mg po daily (8) Chronic gastroesophageal reflux disease: Plan: Protonix 40mg po daily (9) Gout: Plan: Continue Allopurinol 450mg po daily Plan 70yo male with history of DM, HTN, HLP, AF presenting with 1 week of generalized weakness, fatigue, nausea/vomiting, intermittent diarrhea and hallucinations. Plan to d/c to [facility] once bed available. Admission and Anticipated Discharge Date Admission Date: May 10, 2025 Subjective No events overnight. Pt resting comfortably in chair Review of Systems Review of Systems: CONST: Negative for fever, body aches and chills. HENT: Negative for neck pain/stiffness, headache, congestion, sore throat, swelling. EYES: Negative for discharge/pain or vision changes. RESP: Negative for cough/hemoptysis and shortness of breath. CV: Negative chest pain, difficulty breathing, palpitations. ABD: Negative pain, nausea, vomiting. : Negative increase frequency, dysuria, blood in urine or stool. MUSC: Negative for muscle aches, edema. SKIN: Negative rash, lesions/sores. NEURO: Negative headache, dizziness, weakness. Physical Exam Physical Exam: GENERAL APPEARANCE NAD, activity normal for age, well developed/ well nourished, no cyanosis, pallor, or diaphoresis. EYES lids/conjunctiva normal. EARS/NOSE/THROAT Mucous membranes moist, nares normal, lips/teeth normal uvula midline without oral pharyngeal erythema, exudate or swelling TMs normal bilaterally. No lymphangitis/lymphedema. HEAD/NECK normocephalic atraumatic, no facial trauma, neck is supple. RESPIRATORY respiratory effort normal, speaks in full sentences, no tripod position, no accessory muscle use. Lungs clear to auscultation without rhonchi, wheezes, rales CARDIAC Regular rate and rhythm, no edema. ABDOMINAL Soft, ND/NT. No evidence of fluid wave. No pulsatile masses on exam, rebound tenderness, Rivera sign or pain over Mcburney's point. MUSCLES/EXTREMITIES No abnormal range of motion, no swelling. SKIN Warm, pink and dry. No rashes, dermatoses, petechiae or lesions. NEUROLOGICAL Speech is clear and appropriate. Normal level of consciousness. Gait and coordination are normal. 5/5 strength in all extremities. PSYCH Normal mood and affect. Judgement/competence is appropriate Results & Data Results & Data Vital Signs (Past 12 Hours) Vital Signs Temp Pulse Pulse Resp BP BP Pulse Ox 05/18/25 09:23 05/18/25 07:40 71 05/18/25 07:18 36.5 C 78 20 123/78 91 05/18/25 04:50 36.8 C 78 145/78 H 92 05/18/25 00:17 36.8 C 77 141/75 H 92 O2 Del Method 05/18/25 09:23 Room Air 05/18/25 07:40 05/18/25 07:18 Room Air 05/18/25 04:50 Room Air 05/18/25 00:17 Room Air PG Care Time/CCT Total # of Minutes Spent Total Time Spent with Patient: Total time spent is greater than 50% in coordination of care (as documented) at patient's floor/unit and/or counseling patient: Coding Level of Care Code 27398 SUB INP/OBS CARE 2/35MIN Diagnoses Sepsis A41.9 Hypoxia R09.02 Rib pain R07.81 Atrial fibrillation, permanent I48.21 Type 2 diabetes mellitus with insulin therapy E11.9; Z79.4 HTN (hypertension) I10 Hyperlipidemia LDL goal <70 E78.5 Chronic gastroesophageal reflux disease K21.9 Gout M10.9 Gout site: foot Gout etiology: due to renal impairment Chronicity: chronic Laterality: right (9) Gout Gout site: foot Gout etiology: due to renal impairment Chronicity: chronic Laterality: right
[2025-05-18 11:59] VITALS: PULSE 83; RESP 17; TEMP 97.5; O2SAT 93
[2025-05-18] MEDS: MOUNJARO SC SCH ×2 (14:10→14:19)
--- NOTE | 2025-05-18 14:25 | Discharge Summary ---
Discharge Summary Date of Service May 18, 2025 Principal Dx & Hospital Course #1 = Principal Diagnosis (1) Sepsis: -no obvious source found -blood and urine cultures negative -viral panel negative -on empiric treatment with cefepime -resolved, likely viral (2) Hypoxia: -2nd to rib fractures -con't pain control with lidocaine patch and tramadol prn -02 sats now 90% on RA -2-step shows no 02 requirement (3) Rib pain: -Incentive spirometry, encourage use -Tylenol PRN pain -Lidoderm patch to left ribs daily (4) Atrial fibrillation, permanent: -Continue anticoagulation with Xarelto -HR stable will stop amiodarone (5) Type 2 diabetes mellitus with insulin therapy: -Lantus 20u BID -ISS -Goal blood sugar 110 - 180 -Continue Neurontin for neuropathy (6) HTN (hypertension): BP stable -restarted bumex (7) Hyperlipidemia LDL goal <70: -Continue Zetia -Continue Crestor 40mg po daily (8) Chronic gastroesophageal reflux disease: Protonix 40mg po daily (9) Gout: Continue Allopurinol 450mg po daily Plan 70yo male with history of DM, HTN, HLP, AF presenting with 1 week of generalized weakness, fatigue, nausea/vomiting, intermittent diarrhea and hallucinations. Plan to d[facility]c to [facility] once bed available. Admission HPI Per Admitting Provider Mario Alberto Matt is a 70yo male with multiple medical comorbidities to include DM, HTN, HLP, GERD, AF on Xarelto anticoagulation, gout and psoriatic arthritis on Prednisone 5mg daily as well as Humira presenting with 1 week of generalized we akness and nausea. Patient states he has been hallucinating over the last several days as well - seeing images of hunting and fishing. Patient has also been having some urinary incontinence, ambulatory dysfunction, episodes of nausea and intermittent watery non/bloody diarrhea. Family states that he has been shaky and unsteady. Patient denies fever, chills, chest pain, palpitations, cough, SOB, abdominal pain, suprapubic pain. Patient did fall against the couch 2-3 weeks ago and struck his left chest. He has been having some ongoing rib pain since. In the ER patient afebrile. Tachycardic on arrival - atrial fibrillation with RVR. Also with runs of wide complex tachycardia, presumed VT. Blood pressure initially 90/60 which improved to 112/56 following 2500mL of IV crystalloid fluid (recommended sepsis bolus amount, 30mL/kg). ER Course: Amiodarone bolus and drip Cefepime 2gm IV NSS x 2.5L 1L LR bolus ordered and is currently infusing - will make 3.5L crystalloid. Pat ient appears dry on exam and BP continues to be fluid responsive Discharge Exam GENERAL APPEARANCE NAD, activity normal for age, well developed/ well nourished, no cyanosis, pallor, or diaphoresis. EYES lids/conjunctiva normal. EARS/NOSE/THROAT Mucous membranes moist, nares normal, lips/teeth normal uvula midline without oral pharyngeal erythema, exudate or swelling TMs normal bilaterally. No lymphangitis/lymphedema. HEAD/NECK normocephalic atraumatic, no facial trauma, neck is supple. RESPIRATORY respiratory effort normal, speaks in full sentences, no tripod position, no accessory muscle use. Lungs clear to auscultation without rhonchi, wheezes, rales CARDIAC Regular rate and rhythm, no edema. ABDOMINAL Soft, ND/NT. No evidence of fluid wave. No pulsatile masses on exam, rebound tenderness, Rivera sign or pain over Mcburney's point. MUSCLES/EXTREMITIES No abnormal range of motion, no swelling. SKIN Warm, pink and dry. No rashes, dermatoses, petechiae or lesions. NEUROLOGICAL Speech is clear and appropriate. Normal level of consciousness. Gait and coordination are normal. 5/5 strength in all extremities. PSYCH Normal mood and affect. Judgement/competence is appropriate Discharge Plan Discharge Items Patient Disposition: Transfer [facility] Reason For Visit: SEPSIS Discharge Diagnosis: Rib fracture Condition on Discharge: Critical Activity: Resume your previous activity Non-emergency contact: Primary Care Provider Call non-emergency contact if: you have any medication questions Follow-up/Referrals: Funmilayo Arellano MD [Primary Care Provider] - Diet: Carb Consistent or DM2 Addtl Attending Provider Instructions: Follow up with PMD in 2 weeks Pending Studies at Discharge: No Stand-Alone Forms: My [facility] Skilled Items Patient informed of condition?: No DNR: No Discharge Level of Care: Skilled Communicable Disease: No Discharge Prognosis: Stable Lines: None Urinary Catheter: No Medications and DC Order Prescriptions: New lidocaine 5 % Adhesive Patch,Medicated 1 patch transdermal QAM Qty: 14 0RF Continued (DME) pen needle, diabetic [BD Ultra-Fine Izzy Pen Needle] 32 gauge x 5/32" needle See Dose Instructions .ROUTE .MEDSUPPLY Qty: 4 3RF Dose Instruction: As directed Rx Instructions: use 4 needles daily diclofenac sodium [Arthritis Pain (diclofenac)] 1 % gel 2 g topical QID Qty: 100 0RF Rx Instructions: apply to back of hands at night, prn cyclobenzaprine 10 mg tablet 10 mg PO Q8H PRN (Reason: MUSCLE SPASMS) Qty: 90 3RF rosuvastatin 40 mg tablet 40 mg PO DAILY Qty: 90 3RF allopurinol 300 mg tablet 450 mg PO DAILY Qty: 135 3RF Xarelto 20 mg tablet 20 mg PO DAILY Qty: 90 3RF insulin glargine [Lantus Solostar U-100 Insulin] 100 unit/mL (3 mL) insulin pen 55 unit SUBCUT HS Qty: 15 3RF omeprazole 40 mg capsule,delayed release(DR/EC) 40 mg PO DAILY Qty: 90 3RF tramadol-acetaminophen 37.5-325 mg tablet 1 tab PO BID PRN (Reason: Pain) Qty: 60 0RF (DME) Contour Next Test Strips Strip See Dose Instructions .ROUTE .MEDSUPPLY Qty: 3 3RF Dose Instruction: As directed Rx Instructions: TEST 5 TIMES DAILY AND NEEDED Jardiance 10 mg tablet 10 mg PO DAILY Qty: 90 3RF insulin aspart U-100 [Novolog FlexPen U-100 Insulin] 100 unit/mL (3 mL) insulin pen 15 unit SUBCUT TID Qty: 45 3RF Rx Instructions: Take with meals losartan 25 mg tablet 25 mg PO DAILY Qty: 90 3RF albuterol sulfate 90 mcg/actuation HFA aerosol inhaler 1 puff INHALATION Q6H PRN (Reason: Wheezing) Qty: 8.5 1RF metformin 500 mg tablet 500 mg PO BID 90 Days Qty: 180 3RF aspirin 81 mg tablet 81 mg PO DAILY gabapentin 300 mg capsule 600 mg PO TID Qty: 630 3RF Rx Instructions: Take 600 mg TID, okay to use additional 300 mg capsule once daily prn hand pain spironolactone 50 mg tablet 50 mg PO BID Qty: 180 3RF metoprolol succinate 50 mg tablet extended release 24 hr 50 mg PO DAILY Qty: 90 3RF hydrocortisone 2 % lotion 1 applic topical BID PRN (Reason: skin irritation) Qty: 29.6 0RF bumetanide 2 mg tablet 4 mg PO BID Qty: 360 3RF ezetimibe 10 mg tablet 10 mg PO DAILY Qty: 90 3RF duloxetine 30 mg capsule,delayed release(DR/EC) 30 mg PO DAILY Qty: 90 3RF cyanocobalamin (vitamin B-12) [Vitamin B-12] 500 mcg Tablet 500 mcg PO HS prednisone 5 mg tablet 5 mg PO DAILY Men's 50 Plus Daily Formula 400-20-370 mcg Tablet 1 tab PO DAILY mupirocin calcium 2 % cream 1 applic topical DIRECTED PRN (Reason: Skin Irritation) nystatin 100,000 unit/gram powder 1 applic topical DAILY PRN (Reason: Skin Irritation) Humira Pen 40 mg/0.8 mL pen injector kit 40 mg subcut Q14D Rx Instructions: inject one - 40 mg/0.8 mL pen every other Tuesday (Every 14 days) subcut every 14 days; tirzepatide 10 mg/0.5 mL pen injector 10 mg subcut WK Rx Instructions: SUNDAYS Discharge Orders: Discharge Order (Routine); Ordered 05/18/25 Ordered By: Barrett Kearns Admission Data Admit Date/Time: 05/10/25 03:11 Attending Provider: Barrett Kearsn Admit Provider: Bouchra Chacon Primary Care Provider: Funmilayo Arellano Other Providers: Bouchra Chacon; [facility] Stay Data Consultations 05/10/25 02:01 ED Decision to Admit Stat Diagnostic Imagining Performed 05/10/25 03:07 CT chest diagnostic wo con Routine Pending Results Patient Have Any Pending Studies at Discharge: No Discharge Instructions Given to Patient (Per Discharging Provider) Follow up with PMD in 2 weeks Total Time Total Time Spent Total Time Spent (In Minutes): 50 Coding Level of Care Code 58557 INP/OBS DISCH >30 MIN Diagnoses Sepsis A41.9 Hypoxia R09.02 Rib pain R07.81 Atrial fibrillation, permanent I48.21 Type 2 diabetes mellitus with insulin therapy E11.9; Z79.4 HTN (hypertension) I10 Hyperlipidemia LDL goal <70 E78.5 Chronic gastroesophageal reflux disease K21.9 Gout M10.9 Gout site: foot Gout etiology: due to renal impairment Chronicity: chronic Laterality: right
[2025-05-18 15:02] VITALS: BP 145/78
== END 2025-05-18 15:27 | DRG 872 ==
LOC: ED 00:29 → SUATTDRO 03:11 → 2S 03:11